=== PATIENT | female | born 1940 | race Caucasian/White ===

== ENCOUNTER 2018-10-15 01:04 | Inpatient (IN) | payer OTHER, SELFPAY ==
[2018-10-15] VITALS (21 sets, daily range): BP systolic 103–133; BP diastolic 52–93; PULSE 78–107; RESP 14–22; TEMP 36.4–38.7; O2SAT 87–99; BMI 26.6
[2018-10-15] MEDS: ALBUTEROL 2.5 MG/3 ML NEB (ADULT) 5 MG INH (01:13)
[2018-10-15] MEDS: ALBUTEROL/IPRATROPIUM 3 ML AMPUL INH ×4 (01:13→22:41)
--- NOTE | 2018-10-15 01:14 | DI.RAD.S_ITS ---
PROCEDURE: XR CHEST 1V INDICATIONS: cough fever shortness of breath TECHNIQUE: One view of the chest was acquired. COMPARISON: [facility], , CHEST 1 VIEW, 05/31/2013, 10:07. [facility], , CHEST 2 VIEW, 09/26/2015, 14:21. FINDINGS: Surgical changes and devices: None. Lungs and pleura: There is a 2.5 cm masslike density in the left hilum. Hyperinflation. Lungs are lucency in upper lobes consistent with emphysematous bullae. No pleural effusions or pneumothorax. Mediastinum: Mediastinal contours appear normal. Heart size is normal. Bones and chest wall: No suspicious bony lesions. Overlying soft tissues appear unremarkable. IMPRESSION: 1. A 2.5 cm right hilar mass. Chest CT is suggested for followup evaluation. 2. Emphysema. Dictated by: Jenna Arrington M.D. on 10/15/2018 at 9:03 Approved by: Jenna Arrington M.D. on 10/15/2018 at 9:06
[2018-10-15] MEDS: methylPREDNISolone 125 MG/2 ML VIAL IV (01:24)
[2018-10-15] MEDS: CEFTRIAXONE 1 GM/50 ML FROZ.PIGGY IV (01:26)
[2018-10-15] MEDS: ACETAMINOPHEN 325 MG TABLET 975 MG PO (01:51)
[2018-10-15] MEDS: SODIUM CHLORIDE 0.9% 1,000 ML 150 ML IV (01:52)
[2018-10-15 01:58] LABS: Add Manual Diff / Slide Review NO; Basophils Absolute Auto 100 /uL (0-100); Basophils Percent Auto 0.4 % (0-2); Eosinophils Absolute Auto 100 /uL (0-450); Eosinophils Percent Auto 0.6 % (2-4); Hematocrit 39.8 % (36-46); Hemoglobin 13.4 g/dL (12.0-16.0); Lymphocytes Absolute Auto 1500 /uL (1100-4500); Lymphocytes Percent Auto 7.6 % (25-40); Mean Corpuscular HGB Conc 33.7 % (30-36); Mean Corpuscular Hemoglobin 29.5 PG (26-34); Mean Corpuscular Volume 87.6 fL (80-100); Monocytes Absolute Auto 2300 /uL (0-900); Monocytes Percent Auto 12.1 % (3-14); Neutrophils Absolute Auto 15100 /uL (1500-7000); Neutrophils Percent Auto 79.3 % (50-75); Platelet Count 243 X10^3/uL (150-400); Red Blood Cell Count 4.55 X10^6/uL (4.0-5.2); Red Cell Distribution Width 12.9 % (11.6-14.8)
[2018-10-15 02:03] LABS: INR 1.1 (0.9-1.3); Prothrombin Time 13.2 SECONDS (10.1-12.7)
[2018-10-15 02:06] LABS: PTT Partial Thromboplastin Tim 31 SECONDS (26.4-36.2)
[2018-10-15 02:07] LABS: Alanine Aminotransferase 24 IU/L (9-52); Albumin 4.4 g/dL (3.5-5.0); Albumin Globulin Ratio 1.3 (1.0-2.8); Alkaline Phosphatase 76 U/L (38-126); Aspartate Aminotransferase 21 IU/L (14-36); Bilirubin Total 1.2 mg/dL (0.2-1.3); Blood Urea Nitrogen 14 mg/dL (7-17); Calcium 9.3 mg/dL (8.4-10.2); Carbon Dioxide 25 mmol/L (22-32); Chloride 95 mmol/L (98-107); Creatine Kinase 73 U/L (30-135); Estimated Glomerular Filt Rate 53.5 mL/min (>60); Globulin 3.4 g/dL (1.7-4.1); Glucose 151 mg/dL (80-110); HEMOLYSIS < 15 (0-50); Lactate (Lactic Acid) 0.9 mmol/L (0.7-2.1); Magnesium 1.9 mg/dL (1.6-2.3); Potassium 4.4 mmol/L (3.4-5.1); Sodium 133 mmol/L (137-145); Total Protein 7.8 g/dL (6.3-8.2)
[2018-10-15 02:19] LABS: B Type Natriuretic Peptide 105 (<100); Troponin I < 0.012 ng/mL (0.01-0.034)
[2018-10-15 02:26] LABS: Procalcitonin < 0.05 ng/mL (<0.5)
[2018-10-15] MEDS: AZITHROMYCIN 500 MG in DEXTROSE 5% IN WATER 250 ML IV (02:26)
--- NOTE | 2018-10-15 02:29 | ED_ITS ---
HPI - SOB/Dyspnea General Chief Complaint: Shortness of Breath/Dyspnea Stated Complaint: SOB Time Seen by Provider: 10/15/18 01:12 Source: EMS Mode of arrival: EMS History of Present Illness Patient is a 77-year-old female with history of COPD on home oxygen presenting with increasing shortness of breath and fever. She says the fever started 2 days ago she said increase in productive phlegm and requiring more oxygen at home. She is normally a 2-3 L but says she does not feel like she is getting enough. She has had body aches. No heart palpitations MD Complaint: shortness of breath and cough Onset (ago): day(s) Severity: moderate Relieving factors: nothing Exacerbating factors: movement Known history of: COPD Associated symptoms: cough, wheezing and sputum production Treatment prior to arrival: oxygen and bronchodilator Related Data Home oxygen amount: 3 liters Home Medications Medication Instructions Recorded Confirmed aspirin [Aspir-81] 81 mg PO DAILY 10/15/18 10/15/18 metoprolol tartrate 50 mg PO BID 10/15/18 10/15/18 verapamil 80 mg PO QD-BID 10/15/18 10/15/18 Previous Rx's Medication Instructions Recorded Disabled Parking Permit ea #1 07/16/17 metoprolol tartrate 50 mg PO BID #180 tab 12/24/17 atorvastatin 10 mg tablet 10 mg PO HS #90 tab 06/18/18 amlodipine 5 mg tablet 5 mg PO QDAY #90 tab 06/19/18 verapamil 80 mg tablet 80 mg PO BID #180 tab 06/19/18 ipratropium-albuterol 0.5 mg-3 3 ml INHALATION SEE INSTRUCTIONS 10/02/18 mg(2.5 mg base)/3 mL nebulization #1 box soln Allergies Allergy/AdvReac Type Severity Reaction Status Date / Time No Known Drug Allergies Allergy Verified 10/15/18 01:33 Review of Systems Review of Systems ROS Unobtainable: All systems reviewed & are unremarkable except as noted in HPI and below Constitutional Reports body ache(s), Reports chills and Reports fever(s) Cardiovascular Denies chest pain, Denies irregular heart rhythm, Denies lightheadedness, Denies palpitations and Denies orthopnea Respiratory Reports as per HPI Gastrointestinal Gastrointestinal: Denies abdominal pain, Denies change in bowel habits, Denies diarrhea, Denies nausea and Denies vomiting Musculoskeletal Denies back pain, Denies muscle weakness, Denies numbness and Denies tingling Integumentary/Breasts Denies pruritus, Denies erythema, Denies rash and Denies wounds Neurologic Denies numbness and Denies tingling Endocrine Denies palpitations PFSH Medical History CKD (chronic kidney disease) stage 3, GFR 30-59 ml/min (Acute) Hyperlipidemia (Acute) Hypertension (Acute) CAD (coronary artery disease) (Chronic 2000) COPD (chronic obstructive pulmonary disease) (Chronic) Surgical History Status post coronary artery stent placement (Resolved 2000) Family History Daughter No problems noted. Social History marital status: household members: family Smoking Status: Former smoker alcohol intake: never substance use type: does not use Exam Initial Vital Signs Initial Vital Signs: Vital Signs Temperature 101.7 F H 10/15/18 01:05 Pulse Rate 107 H 10/15/18 01:05 Respiratory Rate 22 10/15/18 01:05 Blood Pressure 113/62 10/15/18 01:05 Pulse Oximetry 90 L 10/15/18 01:05 GENERAL: Alert oriented female in as a moderate respiratory distress HEENT: Head atraumatic,EOMI, pupils reactive, CARDIOVASCULAR: Regular rate and rhythm without murmurs, rubs or gallops. RESPIRATORY: Coarse breath sounds bilaterally equal bilaterally able to speak in full sentences ABDOMEN: Soft, nontender. Normoactive bowel sounds all 4 quadrants. No guarding or rebound. : No CVA tenderness EXTREMITIES: Normal range of motion, no clubbing or edema. Neurovascularly intact NEUROLOGICAL: Alert and oriented x4.Normal gait and speech. Cranial nerves II through XII grossly intact. SKIN: Right leg skin tear noted mild surrounding erythema no streaking no gross discharge or pus Scores CURB-65 Confusion: No BUN >19mg/dL (>7mmol/L): No Respiratory rate greater or equal to 30: Yes SBP <90mmHg or DBP less or equal to 60mmHg: No Age 65 or Older: Yes CURB-65 Total: 2 Score 0-1 Outpatient care, Score 2 Inpt vs. Obs, Score 3 or over Inpt admit with ICU for score of 4-5 qSOFA Altered Mental Status (GCS <15): No Respiratory rate greater than/equal to 22: Yes Systolic blood pressure less than or equal to 100: No qSOFA Total: 1 0-1 Not High Risk 1-3 High risk Course Orders Ordered: ED Orders 10/15/18 00:23 Influenza A and B by PCR Rapid Stat 10/15/18 01:13 Consult to Respiratory Therapy Evaluate & Treat EKG-12 Lead Stat 10/15/18 01:14 XR chest 1V Stat 10/15/18 01:32 Blood Culture Stat 10/15/18 01:38 B Type Natriuretic Peptide Stat Complete Blood Count AUTO DIFF Stat Comprehensive Metabolic Panel Stat Lactate (Lactic Acid) Stat Magnesium Stat Partial Thromboplastin Time Stat Procalcitonin Stat Prothrombin Time INR Stat Troponin & CK Cardiac Panel Stat 10/15/18 02:31 CT angio chest PE protocol Stat Sodium Chloride (Normal Saline 0.9%) 1,000 mls @ 150 mls/hr IV CONT TACOS Last Infusion: 10/15/18 04:45 Dose: 150 mls/hr Admin: 10/15/18 01:52 Dose: 150 mls/hr Discontinued Medications Acetaminophen (Tylenol) 975 mg PO NOW ONE Stop: 10/15/18 01:13 Last Admin: 10/15/18 01:51 Dose: 975 mg Albuterol (Ventolin) 5 mg INH NOW ONE Stop: 10/15/18 01:13 Last Admin: 10/15/18 01:13 Dose: 5 mg Albuterol/Ipratropium (Duoneb) 3 ml INH NOW ONE Stop: 10/15/18 01:12 Last Admin: 10/15/18 01:13 Dose: 3 ml Ceftriaxone Sodium/Dextrose (Rocephin) 1 gm in 50 mls @ 100 mls/hr IV NOW ONE Stop: 10/15/18 01:41 Last Infusion: 10/15/18 02:21 Dose: 0 mls/hr Admin: 10/15/18 01:26 Dose: 100 mls/hr Azithromycin 500 mg/ Dextrose 250 mls @ 250 mls/hr IV NOW ONE Stop: 10/15/18 01:13 Last Infusion: 10/15/18 03:49 Dose: 250 mls/hr Admin: 10/15/18 02:26 Dose: 250 mls/hr Methylprednisolone (Solu-Medrol 125 Mg Vial) 125 mg IV NOW ONE Stop: 10/15/18 01:13 Last Admin: 10/15/18 01:24 Dose: 125 mg Vital Signs - 8 hr 10/15/18 01:05 10/15/18 01:14 10/15/18 02:10 Temperature 101.7 F H Pulse Rate 107 H 98 H 96 H Respiratory Rate 22 22 22 Blood Pressure 113/62 Blood Pressure [Left Arm] 120/60 Pulse Oximetry 90 L 96 95 10/15/18 02:50 10/15/18 03:00 10/15/18 04:00 Temperature 97.8 F 97.8 F Pulse Rate 98 H 80 Respiratory Rate 22 20 Blood Pressure 113/62 Blood Pressure [Left Arm] 103/52 L Pulse Oximetry 96 97 10/15/18 04:50 Temperature 98.3 F Pulse Rate 86 Respiratory Rate 19 Blood Pressure 128/93 H Blood Pressure [Left Arm] Pulse Oximetry 96 MDM - SOB/Dyspnea Lab Data Attestation: I reviewed the patient's lab results. Result diagrams: 10/15/18 01:38 10/15/18 01:38 Lab Results 10/15/18 10/15/18 10/15/18 Range/Units 00:23 01:38 01:38 WBC 19.0 H (4.5-11.0) X10^3/uL RBC 4.55 (4.0-5.2) X10^6/uL Hgb 13.4 (12.0-16.0) g/dL Hct 39.8 (36-46) % MCV 87.6 (80-100) fL MCH 29.5 (26-34) PG MCHC 33.7 (30-36) % RDW 12.9 (11.6-14.8) % Plt Count 243 (150-400) X10^3/uL Neut % (Auto) 79.3 H (50-75) % Lymph % (Auto) 7.6 L (25-40) % [place] % (Auto) 12.1 (3-14) % Eos % (Auto) 0.6 L (2-4) % Baso % (Auto) 0.4 (0-2) % Neut # (Auto) 89753 H (6300-3036) /uL Lymph # (Auto) 1500 (6566-4529) /uL [place] # (Auto) 2300 H (0-900) /uL Eos # (Auto) 100 (0-450) /uL Baso # (Auto) 100 (0-100) /uL PT 13.2 H (10.1-12.7) SECONDS INR 1.1 (0.9-1.3) APTT 31 (26.4-36.2) SECONDS Sodium (137-145) mmol/L Potassium (3.4-5.1) mmol/L Chloride (98-107) mmol/L Carbon Dioxide (22-32) mmol/L BUN (7-17) mg/dL Creatinine (0.52-1.04) mg/dL Estimated GFR (>60) mL/min BUN/Creatinine Ratio (6-22) Glucose (80-110) mg/dL Lactate (0.7-2.1) mmol/L Calcium (8.4-10.2) mg/dL Magnesium (1.6-2.3) mg/dL Total Bilirubin (0.2-1.3) mg/dL AST (14-36) IU/L ALT (9-52) IU/L Alkaline Phosphatase (38-126) U/L Total Creatine Kinase (30-135) U/L CK-MB (CK-2) CK-MB (CK-2) Rel Index Troponin I (0.01-0.034) ng/mL B-Natriuretic Peptide 105 H (<100) Total Protein (6.3-8.2) g/dL Albumin (3.5-5.0) g/dL Globulin (1.7-4.1) g/dL Albumin/Globulin Ratio (1.0-2.8) Procalcitonin (<0.5) ng/mL Influenza A & B (PCR) Negative (Negative) 10/15/18 10/15/18 10/15/18 Range/Units 01:38 01:38 01:38 WBC (4.5-11.0) X10^3/uL RBC (4.0-5.2) X10^6/uL Hgb (12.0-16.0) g/dL Hct (36-46) % MCV (80-100) fL MCH (26-34) PG MCHC (30-36) % RDW (11.6-14.8) % Plt Count (150-400) X10^3/uL Neut % (Auto) (50-75) % Lymph % (Auto) (25-40) % [place] % (Auto) (3-14) % Eos % (Auto) (2-4) % Baso % (Auto) (0-2) % Neut # (Auto) (0281-8407) /uL Lymph # (Auto) (8342-7478) /uL [place] # (Auto) (0-900) /uL Eos # (Auto) (0-450) /uL Baso # (Auto) (0-100) /uL PT (10.1-12.7) SECONDS INR (0.9-1.3) APTT (26.4-36.2) SECONDS Sodium 133 L (137-145) mmol/L Potassium 4.4 (3.4-5.1) mmol/L Chloride 95 L (98-107) mmol/L Carbon Dioxide 25 (22-32) mmol/L BUN 14 (7-17) mg/dL Creatinine 1.00 (0.52-1.04) mg/dL Estimated GFR 53.5 L (>60) mL/min BUN/Creatinine Ratio 14.0 (6-22) Glucose 151 H (80-110) mg/dL Lactate 0.9 (0.7-2.1) mmol/L Calcium 9.3 (8.4-10.2) mg/dL Magnesium 1.9 (1.6-2.3) mg/dL Total Bilirubin 1.2 (0.2-1.3) mg/dL AST 21 (14-36) IU/L ALT 24 (9-52) IU/L Alkaline Phosphatase 76 (38-126) U/L Total Creatine Kinase 73 (30-135) U/L CK-MB (CK-2) TNP CK-MB (CK-2) Rel Index TNP Troponin I < 0.012 (0.01-0.034) ng/mL B-Natriuretic Peptide (<100) Total Protein 7.8 (6.3-8.2) g/dL Albumin 4.4 (3.5-5.0) g/dL Globulin 3.4 (1.7-4.1) g/dL Albumin/Globulin Ratio 1.3 (1.0-2.8) Procalcitonin < 0.05 (<0.5) ng/mL Influenza A & B (PCR) (Negative) Imaging Data Chest x-ray: Attestation: I personally reviewed and interpreted this imaging study as follows: My impression: Increased right patchy infiltrate. Left lung mass noted Radiologist's impression: power and recovery shift engineer report: No pulmonary embolism. Spiculated 2.8 cm mass in left upper lobe with linear extensions into the mediastinum and lateral pleura. When cancer or metastatic disease must be excluded. Bullous emphysema. Mediastinal lymphadenopathy. No pleural fluid. ECG Data Attestation: I personally reviewed and interpreted this ECG as follows: Prior ECG tracings: not available for review Interpretation: Sinus tachycardia rate 109 care interval 212 1st degree AV block no ST changes artifact noted in V5 MDM Narrative Medical decision making narrative: Patient is requiring multiple breathing treatments. She continues to cough. hemodynamically stable, but is requiring more than her usual dose of oxygen. She is febrile with leukocytosis. No risk factors for drug-resistant pneumonia will give Rocephin and azithromycin. HospitalistSulma updated patient's symptoms test results accepts patient for admission Discharge Plan Departure Patient Disposition: Admitted As Inpatient Clinical Impression: COPD exacerbation, Pneumonia, Mass of left lung Discharge Date/Time: 10/15/18 04:45 Interventions: ED Discharge Assessment Last Done: 10/15/18 04:45 Admit Date/Time: 10/15/18 04:00 Admit Provider: Sulma Cortes
--- NOTE | 2018-10-15 02:31 | DI.CT.S_ITS ---
PROCEDURE: CT ANGIO CHEST PE PROTOCOL INDICATIONS: short of breath, left lung mass seen on xray TECHNIQUE: After the administration of intravenous contrast, 2 mm thick sections acquired from the pulmonary apices to the posterior costophrenic angles. 3-dimensional maximum intensity projection (MIP) coronal and sagittal reformats were then acquired through the thorax. For radiation dose reduction, the following was used: automated exposure control, adjustment of mA and/or kV according to patient size. COMPARISON: [facility], , XR CHEST 1V, 10/15/2018, 1:41. [facility], , CHEST 2 VIEW, 09/26/2015, 14:21. FINDINGS: Image quality: Excellent. Pulmonary arteries: Pulmonary arteries are mildly enlarged with the main pulmonary artery measuring 37 mm. There are no intraluminal filling defects to suggest central pulmonary embolism. Lungs and pleura: No pleural effusions or pneumothorax. Central and peripheral airways are patent. Significant emphysematous changes are present. Large bulla formation is present in the lower lobes. There is poor visualization of lung markings extending to the pleural surface within the lower lobes bilaterally. There is a spiculated mass within the left upper lobe measuring 29 mm AP by 26 mm transverse by 34 mm craniocaudal. Mediastinum: Heart size is normal, without pericardial effusion. Enlarged mediastinal lymph nodes are present, including a 14 mm left infrahilar lymph node is present. 12 mm precarinal lymph node is present. Thoracic aorta is normal in caliber and enhancement. Esophagus demonstrates a mild degree of distal thickening with hiatal hernia. Bones and chest wall: Ill-defined lucency is present within the L2 vertebral body. Old right rib fractures are present. The thoracic spine appears intact throughout. Thyroid gland is unremarkable. No axillary or supraclavicular adenopathy. Abdomen: Visualized upper abdominal solid organs appear normal in the early arterial phase of enhancement. IMPRESSION: 1. Significant emphysematous changes without embolism. 2. Spiculated left upper lobe mass with mediastinal and hilar adenopathy highly suspicious for neoplasm. Further evaluation with biopsy and/or PET scan is recommended. While the lesion is accessible percutaneously, the patient has a significant risk of pneumothorax secondary to severe emphysematous change. 3. Ill-defined L2 vertebral body lucency as above. While this could represent degenerative change, given no priors are available for comparison in appearance of lung mass, metastatic disease cannot be excluded. Dictated by: Denise Miguel M.D. on 10/15/2018 at 8:20 Approved by: Denise Miguel M.D. on 10/15/2018 at 8:37
[2018-10-15 02:53] LABS: Influenza A and B by PCR Rapid Negative (Negative)
--- NOTE | 2018-10-15 04:12 | PC.NURSE ---
Addendum entered by Rosa Mcclain R.N. 10/15/18 04:19: Pt is able to speak in full sentances upon arrival R 22, 90% on 3L NC, 101.7 T, HR 107. Pt given Duoneb and placed on 5L O2 NC 94%. Original Note: Pt arrived via EMS reporting acute SOB, states normally uses 3L home O2 but is increasingly SOB requiring more O2 with O2 sats in mid 80%. Reports a fever and productive cough for past 2 days. pt is able to speak in full sentances upon arrival
--- NOTE | 2018-10-15 05:20 | PC.ADMIT ---
Addendum entered by Eboni Mercedes R.N. 10/15/18 05:50: Correction to previous charting: telemetry reading was SR w/1st degree AVB Original Note: [id number] [facility] [address] Admission Note: Patient admitted to room 217 per stretcher from ED. Able to walk from stretcher to bed. Is alert and oriented. Breath sounds diminished with expiratory rhonchi/wheezes throughout. Has hoarse, moist sounding, loose cough which she states is productive of white sputum but none noted currently with cough. Oxygen at 4L/min per NC with sat of 96%; normally uses 2L/min oxygen at home. 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 Denies nausea. BT present and abdomen is soft. Denies dysuria, frequency or urgency but states she has some stress incontinence related to cough; pad provided. Is able to move self in bed. Denies use of assistive device for ambulation. Skin overall is very dry and scaly. Has brown discoloration on LE and has abrasion on right LE which she states is from hitting leg against a hassock. Dressing covering abrasion is CDI. Has redness at crease below right scapula but no open areas noted. Denies pain. Fall risk score is moderate; bed alarm is activated and instructed to call for assistance when getting out of bed. Oriented to room and bed controls. The patient,Paz Decker,77 y/o, was given written information regarding hospital policies, unit procedures and contact persons. Patient's smoking status: Former smoker. Vital Signs - 8 hr 10/15/18 01:05 10/15/18 01:14 10/15/18 02:10 Temperature 101.7 F H Pulse Rate 107 H 98 H 96 H Respiratory Rate 22 22 22 Blood Pressure 113/62 Blood Pressure [Left Arm] 120/60 Pulse Oximetry 90 L 96 95 10/15/18 02:50 10/15/18 03:00 10/15/18 04:00 Temperature 97.8 F 97.8 F Pulse Rate 98 H 80 Respiratory Rate 22 20 Blood Pressure 113/62 Blood Pressure [Left Arm] 103/52 L Pulse Oximetry 96 97 10/15/18 04:50 Temperature 98.3 F Pulse Rate 86 Respiratory Rate 19 Blood Pressure 128/93 H Blood Pressure [Left Arm] Pulse Oximetry 96
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
[2018-10-15 09:03] LABS: Add Manual Diff / Slide Review NO; Basophils Absolute Auto 0 /uL (0-100); Basophils Percent Auto 0.1 % (0-2); Eosinophils Absolute Auto 0 /uL (0-450); Hematocrit 38.5 % (36-46); Hemoglobin 12.7 g/dL (12.0-16.0); Lymphocytes Absolute Auto 500 /uL (1100-4500); Lymphocytes Percent Auto 2.8 % (25-40); Mean Corpuscular Hemoglobin 29.3 PG (26-34); Monocytes Absolute Auto 100 /uL (0-900); Monocytes Percent Auto 0.7 % (3-14); Neutrophils Absolute Auto 17100 /uL (1500-7000); Neutrophils Percent Auto 96.4 % (50-75); Platelet Count 231 X10^3/uL (150-400); Red Blood Cell Count 4.32 X10^6/uL (4.0-5.2); Red Cell Distribution Width 12.9 % (11.6-14.8); White Blood Cell Count 17.7 X10^3/uL (4.5-11.0)
[2018-10-15 09:23] LABS: Blood Urea Nitrogen 13 mg/dL (7-17); Calcium 8.7 mg/dL (8.4-10.2); Carbon Dioxide 24 mmol/L (22-32); Chloride 94 mmol/L (98-107); Estimated Glomerular Filt Rate 53.5 mL/min (>60); Glucose 182 mg/dL (80-110); HEMOLYSIS < 15 (0-50); Potassium 4.6 mmol/L (3.4-5.1); Sodium 130 mmol/L (137-145)
[2018-10-15] MEDS: METOPROLOL IR 50 MG TABLET PO ×2 (09:33→21:10)
[2018-10-15] MEDS: ASPIRIN EC 81 MG TABLET PO (09:33)
[2018-10-15] MEDS: AMLODIPINE 5 MG TABLET PO (09:33)
[2018-10-15] MEDS: predniSONE 20 MG TABLET 40 MG PO (09:33)
[2018-10-15] MEDS: ENOXAPARIN 40 MG/0.4 ML SYRINGE SUBCUT (09:34)
[2018-10-15] MEDS: ALBUTEROL 2.5 MG/3 ML NEB (ADULT) INH (10:06)
[2018-10-15] MEDS: SODIUM CHLORIDE 0.9% 1,000 ML 125 ML IV (11:39)
[2018-10-15 13:02] LABS: Adenovirus Not Detected (Not Detect); Bordetella pertussis Not Detected (Not Detect); Chlamydophila pneumoniae Not Detected (Not Detect); Coronavirus 229E Not Detected (Not Detect); Coronavirus HKU1 Not Detected (Not Detect); Coronavirus NL 63 Not Detected (Not Detect); Coronavirus OC43 Not Detected (Not Detect); Human Metapneumovirus Not Detected (Not Detect); Human Rhinovirus/Enterovirus Not Detected (Not Detect); Influenza A Not Detected (Not Detect); Influenza B Not Detected (Not Detect); Mycoplasma pneumoniae Not Detected (Not Detect); Parainfluenza Virus 1 Not Detected (Not Detect); Parainfluenza Virus 2 Not Detected (Not Detect); Parainfluenza Virus 3 Not Detected (Not Detect); Parainfluenza Virus 4 Not Detected (Not Detect); Respiratory Syncytial Virus Detected (Not Detect)
[2018-10-15] MEDS: BENZONATATE 100 MG CAPSULE PO (13:14)
[2018-10-15] MEDS: guaiFENesin ER 600 MG TAB 1200 MG PO (21:10)
[2018-10-15] MEDS: ATORVASTATIN 10 MG TABLET PO (21:10)
[2018-10-16] VITALS (21 sets, daily range): BP systolic 124–150; BP diastolic 60–76; PULSE 78–92; RESP 16–24; TEMP 36.3–36.8; O2SAT 90–97
[2018-10-16] MEDS: ALBUTEROL 2.5 MG/3 ML NEB (ADULT) INH ×2 (02:22→09:10)
[2018-10-16] MEDS: ALBUTEROL/IPRATROPIUM 3 ML AMPUL INH ×5 (05:00→23:07)
[2018-10-16 06:21] LABS: Add Manual Diff / Slide Review NO; Basophils Absolute Auto 0 /uL (0-100); Basophils Percent Auto 0.1 % (0-2); Eosinophils Absolute Auto 0 /uL (0-450); Hematocrit 37.5 % (36-46); Hemoglobin 12.4 g/dL (12.0-16.0); Lymphocytes Absolute Auto 600 /uL (1100-4500); Lymphocytes Percent Auto 3.2 % (25-40); Mean Corpuscular HGB Conc 33.2 % (30-36); Mean Corpuscular Hemoglobin 29.4 PG (26-34); Mean Corpuscular Volume 88.6 fL (80-100); Monocytes Absolute Auto 1400 /uL (0-900); Monocytes Percent Auto 7.6 % (3-14); Neutrophils Absolute Auto 16400 /uL (1500-7000); Neutrophils Percent Auto 89.1 % (50-75); Platelet Count 272 X10^3/uL (150-400); Red Blood Cell Count 4.23 X10^6/uL (4.0-5.2); Red Cell Distribution Width 13.1 % (11.6-14.8); White Blood Cell Count 18.4 X10^3/uL (4.5-11.0)
[2018-10-16 06:43] LABS: Alanine Aminotransferase 24 IU/L (9-52); Albumin 4.3 g/dL (3.5-5.0); Albumin Globulin Ratio 1.3 (1.0-2.8); Alkaline Phosphatase 70 U/L (38-126); Aspartate Aminotransferase 38 IU/L (14-36); Bilirubin Total 0.6 mg/dL (0.2-1.3); Blood Urea Nitrogen 17 mg/dL (7-17); Calcium 9.3 mg/dL (8.4-10.2); Carbon Dioxide 29 mmol/L (22-32); Chloride 98 mmol/L (98-107); Estimated Glomerular Filt Rate 53.5 mL/min (>60); Globulin 3.4 g/dL (1.7-4.1); Glucose 141 mg/dL (80-110); HEMOLYSIS < 15 (0-50); Potassium 4.9 mmol/L (3.4-5.1); Sodium 136 mmol/L (137-145); Total Protein 7.7 g/dL (6.3-8.2)
[2018-10-16 07:00] LABS: Procalcitonin < 0.05 ng/mL (<0.5)
[2018-10-16] MEDS: METOPROLOL IR 50 MG TABLET PO ×2 (08:06→21:51)
[2018-10-16] MEDS: predniSONE 20 MG TABLET 40 MG PO (08:06)
[2018-10-16] MEDS: ASPIRIN EC 81 MG TABLET PO (08:07)
[2018-10-16] MEDS: ENOXAPARIN 40 MG/0.4 ML SYRINGE SUBCUT (08:07)
[2018-10-16] MEDS: guaiFENesin ER 600 MG TAB 1200 MG PO ×2 (08:07→21:51)
[2018-10-16] MEDS: AMLODIPINE 5 MG TABLET PO (08:08)
--- NOTE | 2018-10-16 09:17 | PC.NURSE ---
Pt O2 sats dropped to 75. Albuterol treatment given. Sats back to 92 on 3lpm
--- NOTE | 2018-10-16 11:51 | CM.DANOTE ---
DCP: Case received, EMR reviewed and met with patient. Introduced self and role. DCP template completed with information currently available. Patient is a 77 year old female who admitted yesterday morning to the care of the hospitalist team. PCP: Dr. Bella. Payer: confirmed: [facility]. Patient came to hospital via ambulance due to symptoms of shortness of breath. Patient holds diagnosis of Pneumonia. Patient has oxygen at home. Met with her briefly in room, is on isolation. Pleasant. Stated that she lives with her grand children in [place]. Stated that she is independent at home. Has history of COPD, and was a smoker. P: DCP to continue to follow. Home health may be an option, but will depend on how patient does here in hospital. Shavon Alonzo RN/Supervisor [employer]
[2018-10-16] MEDS: CEFTRIAXONE 2 GM/50 ML FROZ.PIGGY IV (16:01)
[2018-10-16] MEDS: methylPREDNISolone 125 MG/2 ML VIAL 60 MG IV ×2 (16:01→23:55)
--- NOTE | 2018-10-16 19:05 | P.PN_ITS ---
Subjective Date Patient Seen: 10/16/18 Interval history: Paz Decker is a 77-year-old female with a past medical history significant for CAD status post PCI and LCX stent, hypertension, hyperlipidemia, CKD stage 3 , oxygen-dependent COPD who presented with shortness of breath and was admitted for COPD exacerbation and RSV pneumonia. Today the patient is sitting in bed and appears mildly uncomfortable. She continues to feel short of breath that is unchanged since admission. She reports that at times her breathing is good and other times it is not. She continues to have significant wheeze throughout entire lung exam. She denies headache, chest pain, abdominal pain, nausea, vomiting, fever, chills, dysuria, diarrhea constipation. She is voiding without difficulty. She is up ambulating with forward wheeled walker and will desat to the low 70s and takes several minutes to recover. Exam Vital Signs (past 8 hours): - 10/16/18 12:00 10/16/18 12:07 10/16/18 13:00 Temperature 97.3 F L Pulse Rate 83 92 H Respiratory Rate 16 Blood Pressure 136/65 Pulse Oximetry 91 92 97 10/16/18 15:10 10/16/18 15:18 10/16/18 16:22 Temperature 97.7 F Pulse Rate 86 83 Respiratory Rate 20 18 Blood Pressure 124/61 Pulse Oximetry 92 90 L 90 L 10/16/18 18:19 Temperature Pulse Rate 86 Respiratory Rate Blood Pressure Pulse Oximetry 94 Oxygen Delivery Method Nasal Cannula Oxygen Flow Rate 4 Narrative Exam Narrative: General: Elderly female sitting in bed, appears mildly uncomfortable, in no acute distress, well-developed, well-nourished, appropriately interactive. HEENT: Normocephalic, atraumatic. External ears without defect. Pupils equal, round, and reactive to light. Anicteric sclerae, moist conjunctivae, and no lid lag. Oropharynx free of erythema and cobble stoning with moist mucosa. Neck: Supple with full range of motion. No lymphadenopathy or thyromegaly. Cardiovascular: Regular rate and rhythm without murmurs, rubs, or gallops appreciated Pulmonary: Clear to auscultation bilaterally without crackles, wheezes, or rhonchi. Normal respiratory effort with no use of accessory muscles. Abdomen: Soft, bowel sounds present, nontender, nondistended. No hepatosplenomegaly or masses appreciated. Extremities: No clubbing, cyanosis, or edema. Right leg skin tear with mild surrounding erythema with bandage covering C/D/I and adjacent hardened hematoma healing. Skin: Normal temperature, turgor, and texture; no rash, ulcers, or subcutaneous nodules appreciated. Neurological: Cranial nerves grossly intact. Psychiatric: Normal mood and affect. Alert and oriented to person, place, and time. Objective Labs Result Diagrams: 10/16/18 06:04 10/16/18 06:04 Labs: Laboratory Results - last 24 hr 10/16/18 10/16/18 10/16/18 06:04 06:04 06:04 WBC 18.4 H RBC 4.23 Hgb 12.4 Hct 37.5 MCV 88.6 MCH 29.4 MCHC 33.2 RDW 13.1 Plt Count 272 Neut % (Auto) 89.1 H Lymph % (Auto) 3.2 L [place] % (Auto) 7.6 Eos % (Auto) 0.0 L Baso % (Auto) 0.1 Neut # (Auto) 70797 H Lymph # (Auto) 600 L [place] # (Auto) 1400 H Eos # (Auto) 0 Baso # (Auto) 0 Sodium 136 L Potassium 4.9 Chloride 98 Carbon Dioxide 29 BUN 17 Creatinine 1.00 Estimated GFR 53.5 L BUN/Creatinine Ratio 17.0 Glucose 141 H Calcium 9.3 Total Bilirubin 0.6 AST 38 H ALT 24 Alkaline Phosphatase 70 Total Protein 7.7 Albumin 4.3 Globulin 3.4 Albumin/Globulin Ratio 1.3 Procalcitonin < 0.05 Assessment & Plan Plan: Assessment/Plan Narrative: Paz Decker is a 77-year-old female with a past medical history significant for CAD status post PCI and LCX stent, hypertension, hyperlipidemia, CKD stage 3 , oxygen-dependent COPD who presented with shortness of breath and was admitted for COPD exacerbation and RSV pneumonia. 1. Acute RSV community-acquired pneumonia, present on admission. Active. -Patient presented with shortness of breath with increased oxygen requirements, productive cough and fever. -Viral respiratory PCR positive for RSV. -Leukocytosis 19.0, febrile, procalcitonin < 0.05 and normal lactic acid. -Started on ceftriaxone 2 g daily and azithromycin 500 mg daily x3 days in the ED and will continue. -CT chest without contrast interpreted by me demonstrated probable right upper lobe infiltrate. -Bood cultures x2 have no growth to date. -Ordered respiratory therapy evaluation and treatment. -Ordered duo nebs 4 times daily while awake and albuterol nebs every 2 hr as needed. -Ordered Acapella and guaifenesin to help with secretion clearance. In addition , added chest physiotherapy 3 times daily as tolerated. 2. Acute COPD exacerbation, present on admission. Active. -patient presented with increased sputum production, increased oxygen demand, and fever. -Ordered respiratory therapy evaluation and treatment. -Ordered duo nebs 4 times daily while awake and albuterol nebs every 2 hr as needed. -Ordered Acapella and guaifenesin to help with secretion clearance. In addition , added chest physiotherapy 3 times daily as tolerated. -Received methylprednisolone 125 mg IV x1 in the ED. Started on prednisone 40 mg daily and switched today to methylprednisolone 60 mg every 8 hr. -Continue azithromycin and ceftriaxone as above. 3. New left upper lobe spiculated lung mass, present on admission. Active. -Chest x-ray from 2015 did not demonstrate any pulmonary nodules there for which new within the last 2-3 years. -CTA demonstrated spiculated left upper lobe mass 2.5 cm x 2.8 cm with mediastinal and hilar adenopathy highly suspicious for neoplasm. -Discussed patient with general surgery, Eamon Galeas, who recommended consultation with Dr. Weems of thoracic surgery at [facility]. Call Dr. Weems ([phone]) [address] chest without contrast and believes mass would be amenable to navigational bronchoscopy and endobronchial ultrasound with biopsy of mass and pretracheal and carinal nodes once acute illness has resolved. If yue involvement patient would be stage IIIA/IIIB. Patient will need to follow up with Dr. Weems as outpatient (unless acuity changes could transfer to [facility]). 4. Acute mild hyponatremia, present on admission. Active. -Likely secondary to community-acquired pneumonia -Received normal saline at 125 mL/hr x1 L. 5. Right lower extremity wound, present on admission. Active. -Patient reports that she accidentally bumped into something at home and tore her skin. She also recently was bitten by her dog with old adjacent hematoma that is hardened and healing. -Ordered wound care consultation, pending. 6. CAD status post PCI and left circumflex stent, present on admission. Presumed stable. -Continue cardiac home medications: aspirin 81 mg daily, atorvastatin 10 mg daily at bedtime, metoprolol tartrate 50 mg twice daily, verapamil 80 mg twice daily. Disposition: Likely to discharged in 2-3 days depending upon improvement in oxygenation due to RSV community-acquired pneumonia and COPD exacerbation. Quality VTE Deep Vein Thrombosis/Pulmonary Embolism Present on Admission: No
[2018-10-16] MEDS: AZITHROMYCIN 500 MG in DEXTROSE 5% IN WATER 250 ML IV (21:51)
[2018-10-16] MEDS: ATORVASTATIN 10 MG TABLET PO (21:51)
--- NOTE | 2018-10-16 22:41 | PC.NURSE ---
Evening shift 1530: Assumed care of pt with safe hand off. Safety checks done. Pt on 4L NC with O2 sat >94%. Dr. 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 Will be starting some extra treatments for pt. 1899: Pt O2 decreased to upper 80s while standing. Pt increased to 6L NC. 2144: Pt asked what O2 levels where. Pt at 93%.
[2018-10-17] VITALS (19 sets, daily range): BP systolic 115–148; BP diastolic 60–83; PULSE 72–96; RESP 16–24; TEMP 36.3–36.7; O2SAT 89–98
[2018-10-17] MEDS: ALBUTEROL/IPRATROPIUM 3 ML AMPUL INH ×6 (04:05→23:28)
[2018-10-17 06:18] LABS: Add Manual Diff / Slide Review NO; Basophils Absolute Auto 0 /uL (0-100); Eosinophils Absolute Auto 0 /uL (0-450); Hematocrit 37.1 % (36-46); Hemoglobin 12.2 g/dL (12.0-16.0); Lymphocytes Absolute Auto 600 /uL (1100-4500); Lymphocytes Percent Auto 4.8 % (25-40); Mean Corpuscular Hemoglobin 29.4 PG (26-34); Mean Corpuscular Volume 89.2 fL (80-100); Monocytes Absolute Auto 400 /uL (0-900); Monocytes Percent Auto 2.7 % (3-14); Neutrophils Absolute Auto 12300 /uL (1500-7000); Neutrophils Percent Auto 92.5 % (50-75); Platelet Count 273 X10^3/uL (150-400); Red Blood Cell Count 4.16 X10^6/uL (4.0-5.2); Red Cell Distribution Width 12.8 % (11.6-14.8); White Blood Cell Count 13.3 X10^3/uL (4.5-11.0)
[2018-10-17 06:26] LABS: Alanine Aminotransferase 34 IU/L (9-52); Albumin Globulin Ratio 1.2 (1.0-2.8); Alkaline Phosphatase 61 U/L (38-126); Aspartate Aminotransferase 45 IU/L (14-36); BUN Creatinine Ratio 22.2 (6-22); Bilirubin Total 0.4 mg/dL (0.2-1.3); Blood Urea Nitrogen 20 mg/dL (7-17); Calcium 9.1 mg/dL (8.4-10.2); Carbon Dioxide 29 mmol/L (22-32); Chloride 96 mmol/L (98-107); Estimated Glomerular Filt Rate > 60.0 mL/min (>60); Globulin 3.3 g/dL (1.7-4.1); Glucose 130 mg/dL (80-110); HEMOLYSIS < 15 (0-50); Potassium 4.9 mmol/L (3.4-5.1); Sodium 135 mmol/L (137-145); Total Protein 7.3 g/dL (6.3-8.2)
[2018-10-17] MEDS: methylPREDNISolone 125 MG/2 ML VIAL 60 MG IV ×2 (07:30→16:02)
[2018-10-17 07:57] LABS: Procalcitonin 0.05 ng/mL (<0.5)
[2018-10-17] MEDS: ALBUTEROL 2.5 MG/3 ML NEB (ADULT) INH ×2 (08:27→16:57)
[2018-10-17] MEDS: AMLODIPINE 5 MG TABLET PO (09:42)
[2018-10-17] MEDS: METOPROLOL IR 50 MG TABLET PO ×2 (09:42→21:16)
[2018-10-17] MEDS: guaiFENesin ER 600 MG TAB 1200 MG PO ×2 (09:42→21:15)
[2018-10-17] MEDS: ENOXAPARIN 40 MG/0.4 ML SYRINGE SUBCUT (09:42)
[2018-10-17] MEDS: ASPIRIN EC 81 MG TABLET PO (09:42)
--- NOTE | 2018-10-17 11:04 | PC.NURSE ---
Pt rouses easily, sitting up in bed, dealing with coughing fit now. Pt makes needs known appropriately. RR even, laboured Sats 88-90 on 3.5 ltrs.
[2018-10-17] MEDS: CEFTRIAXONE 2 GM/50 ML FROZ.PIGGY IV (14:44)
--- NOTE | 2018-10-17 16:18 | PM.PN.1 ---
Subjective Date Patient Seen: 10/17/18 Interval history: Paz Decker is a 77-year-old female with a past medical history significant for CAD status post PCI and LCX stent, hypertension, hyperlipidemia, CKD stage 3, oxygen-dependent COPD who presented with shortness of breath and was admitted for COPD exacerbation and RSV pneumonia. Also found to have a left upper lobe lung mass. Patient with persistent nonproductive cough and desaturates very easily with movement. Exam Vital Signs (past 8 hours): - 10/17/18 08:40 10/17/18 10:00 10/17/18 11:06 Temperature Pulse Rate 79 84 Respiratory Rate 20 17 Blood Pressure Pulse Oximetry 96 97 92 10/17/18 11:14 10/17/18 11:30 10/17/18 15:31 Temperature 97.6 F Pulse Rate 81 84 Respiratory Rate 24 17 Blood Pressure 115/60 Pulse Oximetry 90 L 93 97 Oxygen Delivery Method Nasal Cannula Oxygen Flow Rate 3 Narrative Exam Narrative: GENERAL: Patient is in no acute distress HEENT: Head normocephalic, atraumatic. Mucous membranes moist. CHEST: Diffuse bilateral inspiratory and expiratory wheeze CARDIAC: Regular rate and rhythm. ABDOMEN: Nondistended, soft, nontender EXTREMITIES: no edema. NEUROLOGICAL: Alert, pleasant, no focal findings SKIN: Warm, dry, no petechiae, no rash Objective Labs Result Diagrams: 10/17/18 05:36 10/17/18 05:36 Labs: Laboratory Results - last 24 hr 10/17/18 10/17/18 10/17/18 05:36 05:36 05:36 WBC 13.3 H RBC 4.16 Hgb 12.2 Hct 37.1 MCV 89.2 MCH 29.4 MCHC 33.0 RDW 12.8 Plt Count 273 Neut % (Auto) 92.5 H Lymph % (Auto) 4.8 L [place] % (Auto) 2.7 L Eos % (Auto) 0.0 L Baso % (Auto) 0.0 Neut # (Auto) 37599 H Lymph # (Auto) 600 L [place] # (Auto) 400 Eos # (Auto) 0 Baso # (Auto) 0 Sodium 135 L Potassium 4.9 Chloride 96 L Carbon Dioxide 29 BUN 20 H Creatinine 0.90 Estimated GFR > 60.0 BUN/Creatinine Ratio 22.2 H Glucose 130 H Calcium 9.1 Total Bilirubin 0.4 AST 45 H ALT 34 Alkaline Phosphatase 61 Total Protein 7.3 Albumin 4.0 Globulin 3.3 Albumin/Globulin Ratio 1.2 Procalcitonin 0.05 Assessment & Plan Plan: Assessment/Plan Narrative: Paz Decker is a 77-year-old female with a past medical history significant for CAD status post PCI and LCX stent, hypertension, hyperlipidemia, CKD stage 3, oxygen-dependent COPD who presented with shortness of breath and was admitted for COPD exacerbation and RSV pneumonia. 1. Acute RSV community-acquired pneumonia, present on admission. Active. -Patient presented with shortness of breath with increased oxygen requirements, productive cough and fever. -Viral respiratory PCR positive for RSV. -Leukocytosis 19.0, febrile, procalcitonin < 0.05 and normal lactic acid. WBC improving. -Started on ceftriaxone 2 g daily and azithromycin 500 mg daily x3 days in the ED and will continue. -CT chest without contrast interpreted by me demonstrated probable right upper lobe infiltrate. -Bood cultures x2 have no growth to date. -continue duo nebs 4 times daily while awake and albuterol nebs every 2 hr as needed. -Acapella and guaifenesin to help with secretion clearance. In addition, added chest physiotherapy 3 times daily as tolerated. 2. Acute COPD exacerbation, present on admission. Active. -not improving, significant cough and has considerable wheezing on exam, and desats easily -patient presented with increased sputum production, increased oxygen demand, and fever. -continue respiratory treatments as above -Received methylprednisolone 125 mg IV x1 in the ED. Continue on methylprednisolone 60 mg every 8 hr. -Continue azithromycin and ceftriaxone as above. 3. New left upper lobe spiculated lung mass, present on admission. Active. -Chest x-ray from 2015 did not demonstrate any pulmonary nodules there for which new within the last 2-3 years. -CTA demonstrated spiculated left upper lobe mass 2.5 cm x 2.8 cm with mediastinal and hilar adenopathy highly suspicious for neoplasm. -Discussed patient with general surgery, Eamon Galeas, who recommended consultation with Dr. Weems of thoracic surgery at [facility]. Call Dr. Weems (c:[phone]) who reviewed CT chest without contrast and believes mass would be amenable to navigational bronchoscopy and endobronchial ultrasound with biopsy of mass and pretracheal and carinal nodes once acute illness has resolved. If yue involvement patient would be stage IIIA/IIIB. Patient will need to follow up with Dr. Weems as outpatient (unless acuity changes could transfer to [facility]). 4. Acute mild hyponatremia, present on admission. Active. Stable. -Likely secondary to community-acquired pneumonia -Received normal saline at 125 mL/hr x1 L. 5. Right lower extremity wound, present on admission. Active. -Patient reports that she accidentally bumped into something at home and tore her skin. She also recently was bitten by her dog with old adjacent hematoma that is hardened and healing. -Ordered wound care consultation, pending. 6. CAD status post PCI and left circumflex stent, present on admission. Presumed stable. -Continue cardiac home medications: aspirin 81 mg daily, atorvastatin 10 mg daily at bedtime, metoprolol tartrate 50 mg twice daily, verapamil 80 mg twice daily. 7. Acute on chronic hypoxic respiratory failure -at home she uses O2 2 L at night only -currently on 3 L O2 but desats into 70s with activity. Disposition: Likely to discharged in 2-3 days depending upon improvement in oxygenation due to RSV community-acquired pneumonia and COPD exacerbation Quality VTE Deep Vein Thrombosis/Pulmonary Embolism Present on Admission: No
--- NOTE | 2018-10-17 16:21 | P.PN_ITS ---
Subjective Date Patient Seen: 10/17/18 Interval history: Paz Decker is a 77-year-old female with a past medical history significant for CAD status post PCI and LCX stent, hypertension, hyperlipidemia, CKD stage 3, oxygen-dependent COPD who presented with shortness of breath and was admitted for COPD exacerbation and RSV pneumonia. Also found to have a left upper lobe lung mass. Patient with persistent nonproductive cough and desaturates very easily with movement. Exam Vital Signs (past 8 hours): - 10/17/18 08:40 10/17/18 10:00 10/17/18 11:06 Temperature Pulse Rate 79 84 Respiratory Rate 20 17 Blood Pressure Pulse Oximetry 96 97 92 10/17/18 11:14 10/17/18 11:30 10/17/18 15:31 Temperature 97.6 F Pulse Rate 81 84 Respiratory Rate 24 17 Blood Pressure 115/60 Pulse Oximetry 90 L 93 97 Oxygen Delivery Method Nasal Cannula Oxygen Flow Rate 3 Narrative Exam Narrative: GENERAL: Patient is in no acute distress HEENT: Head normocephalic, atraumatic. Mucous membranes moist. CHEST: Diffuse bilateral inspiratory and expiratory wheeze CARDIAC: Regular rate and rhythm. ABDOMEN: Nondistended, soft, nontender EXTREMITIES: no edema. NEUROLOGICAL: Alert, pleasant, no focal findings SKIN: Warm, dry, no petechiae, no rash Objective Labs Result Diagrams: 10/17/18 05:36 10/17/18 05:36 Labs: Laboratory Results - last 24 hr 10/17/18 10/17/18 10/17/18 05:36 05:36 05:36 WBC 13.3 H RBC 4.16 Hgb 12.2 Hct 37.1 MCV 89.2 MCH 29.4 MCHC 33.0 RDW 12.8 Plt Count 273 Neut % (Auto) 92.5 H Lymph % (Auto) 4.8 L [place] % (Auto) 2.7 L Eos % (Auto) 0.0 L Baso % (Auto) 0.0 Neut # (Auto) 97062 H Lymph # (Auto) 600 L [place] # (Auto) 400 Eos # (Auto) 0 Baso # (Auto) 0 Sodium 135 L Potassium 4.9 Chloride 96 L Carbon Dioxide 29 BUN 20 H Creatinine 0.90 Estimated GFR > 60.0 BUN/Creatinine Ratio 22.2 H Glucose 130 H Calcium 9.1 Total Bilirubin 0.4 AST 45 H ALT 34 Alkaline Phosphatase 61 Total Protein 7.3 Albumin 4.0 Globulin 3.3 Albumin/Globulin Ratio 1.2 Procalcitonin 0.05 Assessment & Plan Plan: Assessment/Plan Narrative: Paz Decker is a 77-year-old female with a past medical history significant for CAD status post PCI and LCX stent, hypertension, hyperlipidemia, CKD stage 3 , oxygen-dependent COPD who presented with shortness of breath and was admitted for COPD exacerbation and RSV pneumonia. 1. Acute RSV community-acquired pneumonia, present on admission. Active. -Patient presented with shortness of breath with increased oxygen requirements, productive cough and fever. -Viral respiratory PCR positive for RSV. -Leukocytosis 19.0, febrile, procalcitonin < 0.05 and normal lactic acid. WBC improving. -Started on ceftriaxone 2 g daily and azithromycin 500 mg daily x3 days in the ED and will continue. -CT chest without contrast interpreted by me demonstrated probable right upper lobe infiltrate. -Bood cultures x2 have no growth to date. -continue duo nebs 4 times daily while awake and albuterol nebs every 2 hr as needed. -Acapella and guaifenesin to help with secretion clearance. In addition, added chest physiotherapy 3 times daily as tolerated. 2. Acute COPD exacerbation, present on admission. Active. -not improving, significant cough and has considerable wheezing on exam, and desats easily -patient presented with increased sputum production, increased oxygen demand, and fever. -continue respiratory treatments as above -Received methylprednisolone 125 mg IV x1 in the ED. Continue on methylprednisolone 60 mg every 8 hr. -Continue azithromycin and ceftriaxone as above. 3. New left upper lobe spiculated lung mass, present on admission. Active. -Chest x-ray from 2015 did not demonstrate any pulmonary nodules there for which new within the last 2-3 years. -CTA demonstrated spiculated left upper lobe mass 2.5 cm x 2.8 cm with mediastinal and hilar adenopathy highly suspicious for neoplasm. -Discussed patient with general surgery, Eamon Galeas, who recommended consultation with Dr. Weems of thoracic surgery at [facility]. Call Dr. Weems (c:) who reviewed CT chest without contrast and believes mass would be amenable to navigational bronchoscopy and endobronchial ultrasound with biopsy of mass and pretracheal and carinal nodes once acute illness has resolved. If yue involvement patient would be stage IIIA/IIIB. Patient will need to follow up with Dr. Weems as outpatient (unless acuity changes could transfer to [facility]). 4. Acute mild hyponatremia, present on admission. Active. Stable. -Likely secondary to community-acquired pneumonia -Received normal saline at 125 mL/hr x1 L. 5. Right lower extremity wound, present on admission. Active. -Patient reports that she accidentally bumped into something at home and tore her skin. She also recently was bitten by her dog with old adjacent hematoma that is hardened and healing. -Ordered wound care consultation, pending. 6. CAD status post PCI and left circumflex stent, present on admission. Presumed stable. -Continue cardiac home medications: aspirin 81 mg daily, atorvastatin 10 mg daily at bedtime, metoprolol tartrate 50 mg twice daily, verapamil 80 mg twice daily. 7. Acute on chronic hypoxic respiratory failure -at home she uses O2 2 L at night only -currently on 3 L O2 but desats into 70s with activity. Disposition: Likely to discharged in 2-3 days depending upon improvement in oxygenation due to RSV community-acquired pneumonia and COPD exacerbation Quality VTE Deep Vein Thrombosis/Pulmonary Embolism Present on Admission: No
[2018-10-17] MEDS: ATORVASTATIN 10 MG TABLET PO (21:16)
[2018-10-17] MEDS: AZITHROMYCIN 500 MG in DEXTROSE 5% IN WATER 250 ML IV (21:16)
[2018-10-18] VITALS (19 sets, daily range): BP systolic 115–146; BP diastolic 63–81; PULSE 71–95; RESP 14–24; TEMP 36.6–36.7; O2SAT 87–98
--- NOTE | 2018-10-18 | DI.RAD.S_ITS ---
PROCEDURE: XR ABDOMEN 1V INDICATIONS: r/o obstipation TECHNIQUE: One view of the abdomen acquired. COMPARISON: None. FINDINGS: Surgical changes and devices: None. Bowel: Bowel gas pattern is normal the significant fecal stasis throughout the colon is seen, consistent with constipation.. Soft tissues: No suspicious abdominal calcifications. Visualized solid organ contours appear normal in size. Bones: No suspicious bony lesions. IMPRESSION: Findings consistent with constipation. No gross free air. Dictated by: Eric Clark M.D. on 10/18/2018 at 17:31 Approved by: Eric Clark M.D. on 10/18/2018 at 17:31
[2018-10-18] MEDS: methylPREDNISolone 125 MG/2 ML VIAL 60 MG IV ×3 (00:31→16:40)
[2018-10-18] MEDS: ALBUTEROL 2.5 MG/3 ML NEB (ADULT) INH ×2 (05:11→23:42)
[2018-10-18] MEDS: METOPROLOL IR 50 MG TABLET PO ×2 (08:48→21:55)
[2018-10-18] MEDS: guaiFENesin ER 600 MG TAB 1200 MG PO (08:48)
[2018-10-18] MEDS: AMLODIPINE 5 MG TABLET PO (08:49)
[2018-10-18] MEDS: ASPIRIN EC 81 MG TABLET PO (08:49)
[2018-10-18] MEDS: ENOXAPARIN 40 MG/0.4 ML SYRINGE SUBCUT (08:49)
[2018-10-18] MEDS: SODIUM CHLORIDE 0.9% FLUSH 10 ML IV (08:50)
[2018-10-18] MEDS: ALBUTEROL/IPRATROPIUM 3 ML AMPUL INH ×4 (08:50→20:56)
--- NOTE | 2018-10-18 15:05 | PM.PN.1 ---
Subjective Date Patient Seen: 10/18/18 Interval history: Paz Decker is a 77-year-old female with a past medical history significant for CAD status post PCI and LCX stent, hypertension, hyperlipidemia, CKD stage 3, oxygen-dependent COPD who presented with shortness of breath and was admitted for COPD exacerbation and RSV pneumonia. Also found to have a left upper lobe lung mass. Patient with persistent nonproductive cough, wheezing and O2 dependence but feels her cough has improved a little today. No hemoptysis and minimal sputum. Exam Vital Signs (past 8 hours): - 10/18/18 08:00 10/18/18 11:17 10/18/18 12:00 Temperature 98 F 97.8 F Pulse Rate 86 80 Respiratory Rate 24 22 Blood Pressure 140/78 136/70 Pulse Oximetry 96 90 L 94 10/18/18 13:34 10/18/18 14:26 Temperature Pulse Rate 95 H Respiratory Rate 20 Blood Pressure Pulse Oximetry 98 Oxygen Delivery Method Nasal Cannula Oxygen Flow Rate 2.5 Narrative Exam Narrative: GENERAL: Patient is in no acute distress HEENT: Head normocephalic, atraumatic. Mucous membranes moist. CHEST: Diminished in left upper lobe, diffuse bilateral inspiratory and expiratory wheeze CARDIAC: Regular rate and rhythm. ABDOMEN: Nondistended, soft, nontender EXTREMITIES: no edema. NEUROLOGICAL: Alert, pleasant, no focal findings SKIN: Warm, dry, no petechiae, no rash Objective Labs Result Diagrams: 10/17/18 05:36 10/17/18 05:36 Assessment & Plan Plan: Assessment/Plan Narrative: Paz Decker is a 77-year-old female with a past medical history significant for CAD status post PCI and LCX stent, hypertension, hyperlipidemia, CKD stage 3, oxygen-dependent COPD who presented with shortness of breath and was admitted for COPD exacerbation and RSV pneumonia. Found to have left upper lung mass suspicious for primary malignancy. 1. Acute RSV community-acquired pneumonia, present on admission. Active. -fever resolved since 10/15/2018, WBC trending down, still has significant hypoxia, cough and wheeze -Viral respiratory PCR positive for RSV. Leukocytosis 19.0, febrile, procalcitonin < 0.05 and normal lactic acid. -CT chest without contrast showed spiculated left upper lobe mass -Blood cultures x2 have no growth to date. -continue duo nebs 4 times daily while awake and albuterol nebs every 2 hr as needed. -Acapella and guaifenesin to help with secretion clearance. In addition, added chest physiotherapy 3 times daily as tolerated. 2. Acute COPD exacerbation, present on admission. Active. -significant cough and has considerable wheezing on exam, and desats easily -patient presented with increased sputum production, increased oxygen demand, and fever. -continue respiratory treatments with nebulizers, Acapella, guaifenesin and chest PT -Continue on methylprednisolone 60 mg every 8 hr. -Continue ceftriaxone started 10/15/2018 to complete 5-7 day antibiotic course 3. New left upper lobe spiculated lung mass, suspicious for primary lung malignancy, noted on admission. Active. -Chest x-ray from 2015 did not demonstrate any pulmonary nodules there for which new within the last 2-3 years. -CTA demonstrated spiculated left upper lobe mass 2.5 cm x 2.8 cm with mediastinal and hilar adenopathy highly suspicious for neoplasm. -Discussed patient with general surgery, Eamon Galeas, who recommended consultation with Dr. Weems of thoracic surgery at [facility]. Call Dr. Weems (c:[phone]) who reviewed CT chest without contrast and believes mass would be amenable to navigational bronchoscopy and endobronchial ultrasound with biopsy of mass and pretracheal and carinal nodes once acute illness has resolved. If yue involvement patient would be stage IIIA/IIIB. Patient will need to follow up with Dr. Weems as outpatient (unless acuity changes could transfer to [facility]). 4. Right lower extremity superficial wound, present on admission. Active. -Patient reports that she accidentally bumped into something at home and tore her skin. She also recently was bitten by her dog with old adjacent hematoma that is hardened and healing. -continue local dressing changes 5. CAD status post PCI and left circumflex stent, present on admission. Presumed stable. -Continue cardiac home medications: aspirin 81 mg daily, atorvastatin 10 mg daily at bedtime, metoprolol tartrate 50 mg twice daily, verapamil 80 mg twice daily. 6. Acute on chronic hypoxic respiratory failure -at home she uses O2 2 L at night only -currently on 3 L O2 but desats with activity. Disposition: Likely to discharged in 2-3 days depending upon improvement in oxygenation due to RSV community-acquired pneumonia and COPD exacerbation. Patient will need new patient appointment with Dr. Dank Jimenez to assess the left lung mass. Also her PCP at [facility] recently retired and she will need to establish with new PCP there or elsewhere. Quality VTE Deep Vein Thrombosis/Pulmonary Embolism Present on Admission: No
--- NOTE | 2018-10-18 15:19 | P.PN_ITS ---
Subjective Date Patient Seen: 10/18/18 Interval history: Paz Decker is a 77-year-old female with a past medical history significant for CAD status post PCI and LCX stent, hypertension, hyperlipidemia, CKD stage 3, oxygen-dependent COPD who presented with shortness of breath and was admitted for COPD exacerbation and RSV pneumonia. Also found to have a left upper lobe lung mass. Patient with persistent nonproductive cough, wheezing and O2 dependence but feels her cough has improved a little today. No hemoptysis and minimal sputum. Exam Vital Signs (past 8 hours): - 10/18/18 08:00 10/18/18 11:17 10/18/18 12:00 Temperature 98 F 97.8 F Pulse Rate 86 80 Respiratory Rate 24 22 Blood Pressure 140/78 136/70 Pulse Oximetry 96 90 L 94 10/18/18 13:34 10/18/18 14:26 Temperature Pulse Rate 95 H Respiratory Rate 20 Blood Pressure Pulse Oximetry 98 Oxygen Delivery Method Nasal Cannula Oxygen Flow Rate 2.5 Narrative Exam Narrative: GENERAL: Patient is in no acute distress HEENT: Head normocephalic, atraumatic. Mucous membranes moist. CHEST: Diminished in left upper lobe, diffuse bilateral inspiratory and expiratory wheeze CARDIAC: Regular rate and rhythm. ABDOMEN: Nondistended, soft, nontender EXTREMITIES: no edema. NEUROLOGICAL: Alert, pleasant, no focal findings SKIN: Warm, dry, no petechiae, no rash Objective Labs Result Diagrams: 10/17/18 05:36 10/17/18 05:36 Assessment & Plan Plan: Assessment/Plan Narrative: Paz Decker is a 77-year-old female with a past medical history significant for CAD status post PCI and LCX stent, hypertension, hyperlipidemia, CKD stage 3 , oxygen-dependent COPD who presented with shortness of breath and was admitted for COPD exacerbation and RSV pneumonia. Found to have left upper lung mass suspicious for primary malignancy. 1. Acute RSV community-acquired pneumonia, present on admission. Active. -fever resolved since 10/15/2018, WBC trending down, still has significant hypoxia, cough and wheeze -Viral respiratory PCR positive for RSV. Leukocytosis 19.0, febrile, procalcitonin < 0.05 and normal lactic acid. -CT chest without contrast showed spiculated left upper lobe mass -Blood cultures x2 have no growth to date. -continue duo nebs 4 times daily while awake and albuterol nebs every 2 hr as needed. -Acapella and guaifenesin to help with secretion clearance. In addition, added chest physiotherapy 3 times daily as tolerated. 2. Acute COPD exacerbation, present on admission. Active. -significant cough and has considerable wheezing on exam, and desats easily -patient presented with increased sputum production, increased oxygen demand, and fever. -continue respiratory treatments with nebulizers, Acapella, guaifenesin and chest PT -Continue on methylprednisolone 60 mg every 8 hr. -Continue ceftriaxone started 10/15/2018 to complete 5-7 day antibiotic course 3. New left upper lobe spiculated lung mass, suspicious for primary lung malignancy, noted on admission. Active. -Chest x-ray from 2015 did not demonstrate any pulmonary nodules there for which new within the last 2-3 years. -CTA demonstrated spiculated left upper lobe mass 2.5 cm x 2.8 cm with mediastinal and hilar adenopathy highly suspicious for neoplasm. -Discussed patient with general surgery, Eamon Galeas, who recommended consultation with Dr. Weems of thoracic surgery at [facility]. Call Dr. Weems (c:) who reviewed CT chest without contrast and believes mass would be amenable to navigational bronchoscopy and endobronchial ultrasound with biopsy of mass and pretracheal and carinal nodes once acute illness has resolved. If yue involvement patient would be stage IIIA/IIIB. Patient will need to follow up with Dr. Weems as outpatient (unless acuity changes could transfer to [facility]). 4. Right lower extremity superficial wound, present on admission. Active. -Patient reports that she accidentally bumped into something at home and tore her skin. She also recently was bitten by her dog with old adjacent hematoma that is hardened and healing. -continue local dressing changes 5. CAD status post PCI and left circumflex stent, present on admission. Presumed stable. -Continue cardiac home medications: aspirin 81 mg daily, atorvastatin 10 mg daily at bedtime, metoprolol tartrate 50 mg twice daily, verapamil 80 mg twice daily. 6. Acute on chronic hypoxic respiratory failure -at home she uses O2 2 L at night only -currently on 3 L O2 but desats with activity. Disposition: Likely to discharged in 2-3 days depending upon improvement in oxygenation due to RSV community-acquired pneumonia and COPD exacerbation. Patient will need new patient appointment with Dr. Dank Jimenez to assess the left lung mass. Also her PCP at [facility] recently retired and she will need to establish with new PCP there or elsewhere. Quality VTE Deep Vein Thrombosis/Pulmonary Embolism Present on Admission: No
[2018-10-18] MEDS: CEFTRIAXONE 2 GM/50 ML FROZ.PIGGY IV (16:40)
[2018-10-18] MEDS: guaiFENesin ER 600 MG TAB PO (21:55)
[2018-10-18] MEDS: SENNOSIDES 8.6 MG TABLET 17.2 MG PO (21:55)
[2018-10-18] MEDS: ATORVASTATIN 10 MG TABLET PO (21:55)
[2018-10-19] VITALS (19 sets, daily range): BP systolic 130–142; BP diastolic 66–81; PULSE 78–100; RESP 16–24; TEMP 36.3–36.7; O2SAT 90–97
[2018-10-19] MEDS: SODIUM CHLORIDE 0.9% FLUSH 10 ML IV ×3 (00:07→22:04)
[2018-10-19] MEDS: methylPREDNISolone 125 MG/2 ML VIAL 60 MG IV ×3 (00:07→16:48)
--- NOTE | 2018-10-19 00:34 | PC.NURSE ---
Addendum entered by Eboni Mercedes R.N. 10/19/18 05:56: Medicated with MOM for constipation as did not have any stool overnight. Original Note: Addendum entered by Eboni Mercedes R.N. 10/19/18 05:47: Slept at intervals. Denies any pain. Gotten up to sit in chair per her request. O2 sat while sitting up is now at 92%. Original Note: Patient is alert and oriented. Breath sounds diminished on inspiration and coarse expiratory wheezes/rhonchi on exhalation. States she is SOB with exertion and sometimes at rest although currently able to speak in complete sentences. Reports she is coughing up thick white sputum intermittently. On oxygen at 2L/min per [place] with sat of 95%. HRR. Denies nausea. BT present and abdomen is soft but has had no documented BM since 10/13; states she had very small BM yesterday morning but is agreeable to taking MOM in a.m. if no further stools overnight. Has dribbling and stress incontinence so wearing a brief; denies dysuria, frequency or urgency. Independent with bed mobility but is assisted when out of bed for safety. Denies pain. Allevyn dressing to right anterior LE is CDI. Venous discoloration bilateral LE. Fall risk score is moderate; bed alarm is activated. On droplet isolation due to RSV +.
[2018-10-19] MEDS: ALBUTEROL 2.5 MG/3 ML NEB (ADULT) INH ×2 (03:09→12:17)
[2018-10-19] MEDS: MAGNESIUM HYDROXIDE 30 ML UDC PO (05:53)
[2018-10-19] MEDS: ALBUTEROL/IPRATROPIUM 3 ML AMPUL INH ×5 (07:11→21:59)
[2018-10-19] MEDS: ASPIRIN EC 81 MG TABLET PO (09:22)
[2018-10-19] MEDS: AMLODIPINE 5 MG TABLET PO (09:22)
[2018-10-19] MEDS: guaiFENesin ER 600 MG TAB PO ×2 (09:22→22:03)
[2018-10-19] MEDS: METOPROLOL IR 50 MG TABLET PO ×2 (09:22→22:03)
[2018-10-19] MEDS: ENOXAPARIN 40 MG/0.4 ML SYRINGE SUBCUT (09:23)
--- NOTE | 2018-10-19 13:37 | PC.NURSE ---
Pt up to bathroom and had three BM's today with two that were large. Breathing hard at times. Dr Barlow thinks she has air hunger and anxiety which is making her breathing worse. Ordered ativan and morphine to address issue and an additional inhaler. O2 sats = 91% on 2L. Wound vendor management consultant looked at wound on right [place] and will come back later in the afternoon to debride. May have MS prior to debridement.
[2018-10-19] MEDS: BUDESONIDE 0.5 MG/2 ML NEB INH ×2 (14:53→22:00)
[2018-10-19] MEDS: MORPHINE 2 MG/ML INJ 1 MG IV (16:20)
[2018-10-19] MEDS: SODIUM CHLORIDE 0.9% 250 ML 21 ML IV (16:38)
[2018-10-19] MEDS: CEFTRIAXONE 2 GM/50 ML FROZ.PIGGY IV (16:48)
--- NOTE | 2018-10-19 16:56 | P.PN_ITS ---
Subjective Date Patient Seen: 10/19/18 Interval history: Patient is a 77-year-old female here in the hospital with RSV pneumonia, COPD, acute on chronic hypoxic respiratory failure, a left upper lobe spiculated mass, and a right lower extremity wound. The patient continues to have significant shortness of breath. She has required multiple nebulizer treatments. She describes air hunger and anxiety. The patient has been getting nebulizers every 2 hr with as needed albuterol. She typically takes Advair at home. We discussed the possibility of anxiety exacerbating her shortness of breath. The patient is agreeable to trying low-dose Ativan to control anxiety. Exam Vital Signs (past 8 hours): - 10/19/18 10:23 10/19/18 11:00 10/19/18 12:10 Temperature 97.4 F L Pulse Rate 84 87 Respiratory Rate 22 20 Blood Pressure 142/68 H Pulse Oximetry 90 L 90 L 10/19/18 12:19 10/19/18 15:08 10/19/18 16:06 Temperature 97.8 F Pulse Rate 85 82 90 Respiratory Rate 17 24 20 Blood Pressure 132/66 Pulse Oximetry 93 93 Oxygen Delivery Method Nasal Cannula Oxygen Flow Rate 2 Narrative Exam Narrative: Pleasant female resting comfortably somewhat anxious but in no acute distress Lungs: Decreased breath sounds bilaterally, no inspiratory or expiratory wheezing. Very poor airway movement. Cardiac exam: Regular rate rhythm normal S1-S2 Abdomen: Soft nontender nondistended Extremities: No edema Objective Labs Result Diagrams: 10/17/18 05:36 10/17/18 05:36 Assessment & Plan (1) Pneumonia: Problem details: Patient with RSV pneumonia. Will continue current treatment plan. She has significant bronchospasm and hypoxia. Qualifiers: Aspiration pneumonia type: Laterality: unspecified laterality Lung location: unspecified part of lung Pneumonia type: due to unspecified organism Qualified Code(s): J18.9 - Pneumonia, unspecified organism Current visit: Yes Status: Acute (2) Mass of left lung: Problem details: Patient has a known spiculated mass of the left upper lobe, present on admission. Arrangements have been made for outpatient evaluation at [facility]. Current visit: Yes Status: Acute (3) COPD exacerbation: Problem details: Continue steroids, nebulizers, and start inhaled steroids. In addition the patient will received Ativan to manage anxiety. Current visit: Yes Status: Acute (4) Stage 3 chronic kidney disease: Problem details: No intervention needed Current visit: No Status: None (5) Acute and chronic respiratory failure: Problem details: Patient is on oxygen and will continue treatment plan as outlined above. Current visit: Yes Status: Acute (6) Essential hypertension: Problem details: Will continue her usual antihypertensive therapy. Current visit: No Status: Chronic Quality VTE Deep Vein Thrombosis/Pulmonary Embolism Present on Admission: No
[2018-10-19] MEDS: LORazepam 0.5 MG TABLET PO ×2 (16:57→22:16)
--- NOTE | 2018-10-19 17:15 | PM.CN ---
History of Present Illness Date Patient Seen: 10/19/18 Time Patient Seen: 16:45 Chief complaint: SOB Reason for consult: Evaluate skin tear RLE Requesting provider: Ashley Whitmore Narrative: 77 yo female who bumped her R palomino against a foot stool about 1 week ago. No pain, redness, increased warmth, swelling, or drainage. [facility] Medical History CKD (chronic kidney disease) stage 3, GFR 30-59 ml/min (Acute) Hyperlipidemia (Acute) Hypertension (Acute) CAD (coronary artery disease) (Chronic 2000) COPD (chronic obstructive pulmonary disease) (Chronic) Surgical History Status post coronary artery stent placement (Resolved 2000) Family History Daughter No problems noted. Social History marital status: household members: family Smoking Status: Former smoker alcohol intake: never substance use type: does not use Meds Home Medications Medication Instructions Recorded Confirmed Type atorvastatin 10 mg tablet 10 mg PO HS #90 tab 06/18/18 10/15/18 Rx amlodipine 5 mg tablet 5 mg PO QDAY #90 tab 06/19/18 10/15/18 Rx ipratropium-albuterol 0.5 mg-3 3 ml INHALATION SEE INSTRUCTIONS 10/02/18 10/15/18 Rx mg(2.5 mg base)/3 mL nebulization #1 box soln Disabled Parking Permit 1 ea MISCELLANEOUS PRN PRN 10/15/18 10/15/18 History aspirin [Aspir-81] 81 mg PO DAILY 10/15/18 10/15/18 History metoprolol tartrate 50 mg PO BID 10/15/18 10/15/18 History verapamil 80 mg PO QD-BID 10/15/18 10/15/18 History Allergies Allergy/AdvReac Type Severity Reaction Status Date / Time No Known Drug Allergies Allergy Verified 10/15/18 01:33 Review of Systems Review of Systems All systems reviewed & are unremarkable except as noted in HPI and below Cardiovascular Cardiovascular: Denies foot swelling, Denies leg pain with activity, Denies leg swelling, Reports shortness of breath and Reports shortness of breath with activity Respiratory Respiratory: Reports cough, Reports dyspnea and Reports dyspnea on exertion Integumentary/Breasts Skin/Breast: Reports other (superjacent to the skin tear is a small golf-ball sized area of swelling where her dog bumped her. No open wound.) Comments: Exam Vital Signs (past 8 hours): - 10/19/18 10:23 10/19/18 11:00 10/19/18 12:10 Temperature 97.4 F L Pulse Rate 84 87 Respiratory Rate 22 20 Blood Pressure 142/68 H Pulse Oximetry 90 L 90 L 10/19/18 12:19 10/19/18 15:08 10/19/18 16:06 Temperature 97.8 F Pulse Rate 85 82 90 Respiratory Rate 17 24 20 Blood Pressure 132/66 Pulse Oximetry 93 93 Oxygen Delivery Method Nasal Cannula Oxygen Flow Rate 2 Const General: cooperative and comfortable Nutritional Appearance: well nourished Orientation: alert and awake Eyes Sclera: sclerae normal Resp Effort & Inspection: normal respiratory effort Cardio Rate: regular rate Pulses: normal peripheral pulses Skin Trauma: other (R palomino: noted for skin tear with 4.6 x 2.5 cm non-viable flap with non-blanching venous congestion, partially approximated and partially adhered to wound bed. ) Neuro Sensory Exam: no sensory deficits noted (RLE) Extrem Right lower extremity: full ROM and normal capillary refill; no cyanosis and no edema Psych Appearance: grossly normal Mental Status: mental status grossly normal Mood: congruent mood Affect: normal affect Judgment: judgment good Objective Labs Result Diagrams: 10/17/18 05:36 10/17/18 05:36 Assessment & Plan Plan: Assessment/Plan Narrative: Assessment: Wound #1 Right Palomino. Full-thickness Skin Tear. No evidence of infection. Examination suggests adequate perfusion for safe debridement and adequate potential for spontaneous wound healing. The following co-factors that can result in delayed wound healing are identified: corticosteroid medication; hypoxia. Goal: Closure of the wound. Prevent infection or deterioration of the wound. Plan: Optimize the local wound environment to promote healing by cleansing, debriding, managing bacterial balance, and managing moisture balance. Wound #1 Debridement: Excisional/Surgical. Time Out Taken: Yes. Pain Control: Lidocaine injectable with epinephrine. Level: Down to and including subcutaneous tissue. Tissue and other material debrided: Epidermis, Dermis, Subcutaneous tissue. Devitalized tissue debrided: Necrotic/Eschar, Clot. Instrument: Curette, Forceps, Scissors. Bleeding: Minimal Hemostasis Achieved: Pressure Procedural Pain: 0 Post Procedural Pain: 0 Response to Treatment: Procedure was tolerated well. Post Debridement Measurements: 4.6 x 2.5 x 0.2 cm (100% debrided). Post Debridement Appearance: Wound bed is 100% subcutaneous tissue.
--- NOTE | 2018-10-19 17:19 | P.CONS_ITS ---
History of Present Illness Date Patient Seen: 10/19/18 Time Patient Seen: 16:45 Chief complaint: SOB Reason for consult: Evaluate skin tear RLE Requesting provider: Ashley Whitmore Narrative: 77 yo female who bumped her R palomino against a foot stool about 1 week ago. No pain, redness, increased warmth, swelling, or drainage. [facility] Medical History CKD (chronic kidney disease) stage 3, GFR 30-59 ml/min (Acute) Hyperlipidemia (Acute) Hypertension (Acute) CAD (coronary artery disease) (Chronic 2000) COPD (chronic obstructive pulmonary disease) (Chronic) Surgical History Status post coronary artery stent placement (Resolved 2000) Family History Daughter No problems noted. Social History marital status: household members: family Smoking Status: Former smoker alcohol intake: never substance use type: does not use Meds Home Medications Medication Instructions Recorded Confirmed Type atorvastatin 10 mg tablet 10 mg PO HS #90 tab 06/18/18 10/15/18 Rx amlodipine 5 mg tablet 5 mg PO QDAY #90 tab 06/19/18 10/15/18 Rx ipratropium-albuterol 0.5 mg-3 3 ml INHALATION SEE INSTRUCTIONS 10/02/18 Rx mg(2.5 mg base)/3 mL nebulization #1 box soln Disabled Parking Permit 1 ea MISCELLANEOUS PRN PRN 10/15/18 10/15/18 History aspirin [Aspir-81] 81 mg PO DAILY 10/15/18 10/15/18 History metoprolol tartrate 50 mg PO BID 10/15/18 10/15/18 History verapamil 80 mg PO QD-BID 10/15/18 10/15/18 History Allergies Allergy/AdvReac Type Severity Reaction Status Date / Time No Known Drug Allergies Allergy Verified 10/15/18 01:33 Review of Systems Review of Systems All systems reviewed & are unremarkable except as noted in HPI and below Cardiovascular Cardiovascular: Denies foot swelling, Denies leg pain with activity, Denies leg swelling, Reports shortness of breath and Reports shortness of breath with activity Respiratory Respiratory: Reports cough, Reports dyspnea and Reports dyspnea on exertion Integumentary/Breasts Skin/Breast: Reports other (superjacent to the skin tear is a small golf-ball sized area of swelling where her dog bumped her. No open wound.) Comments: Exam Vital Signs (past 8 hours): - 10/19/18 10:23 10/19/18 11:00 10/19/18 12:10 Temperature 97.4 F L Pulse Rate 84 87 Respiratory Rate 22 20 Blood Pressure 142/68 H Pulse Oximetry 90 L 90 L 10/19/18 12:19 10/19/18 15:08 10/19/18 16:06 Temperature 97.8 F Pulse Rate 85 82 90 Respiratory Rate 17 24 20 Blood Pressure 132/66 Pulse Oximetry 93 93 Oxygen Delivery Method Nasal Cannula Oxygen Flow Rate 2 Const General: cooperative and comfortable Nutritional Appearance: well nourished Orientation: alert and awake Eyes Sclera: sclerae normal Resp Effort & Inspection: normal respiratory effort Cardio Rate: regular rate Pulses: normal peripheral pulses Skin Trauma: other (R palomino: noted for skin tear with 4.6 x 2.5 cm non-viable flap with non-blanching venous congestion, partially approximated and partially adhered to wound bed. ) Neuro Sensory Exam: no sensory deficits noted (RLE) Extrem Right lower extremity: full ROM and normal capillary refill; no cyanosis and no edema Psych Appearance: grossly normal Mental Status: mental status grossly normal Mood: congruent mood Affect: normal affect Judgment: judgment good Objective Labs Result Diagrams: 10/17/18 05:36 10/17/18 05:36 Assessment & Plan Plan: Assessment/Plan Narrative: Assessment: Wound #1 Right Palomino. Full-thickness Skin Tear. No evidence of infection. Examination suggests adequate perfusion for safe debridement and adequate potential for spontaneous wound healing. The following co-factors that can result in delayed wound healing are identified : corticosteroid medication; hypoxia. Goal: Closure of the wound. Prevent infection or deterioration of the wound. Plan: Optimize the local wound environment to promote healing by cleansing, debriding , managing bacterial balance, and managing moisture balance. Wound #1 Debridement: Excisional/Surgical. Time Out Taken: Yes. Pain Control: Lidocaine injectable with epinephrine. Level: Down to and including subcutaneous tissue. Tissue and other material debrided: Epidermis, Dermis, Subcutaneous tissue. Devitalized tissue debrided: Necrotic/Eschar, Clot. Instrument: Curette, Forceps, Scissors. Bleeding: Minimal Hemostasis Achieved: Pressure Procedural Pain: 0 Post Procedural Pain: 0 Response to Treatment: Procedure was tolerated well. Post Debridement Measurements: 4.6 x 2.5 x 0.2 cm (100% debrided). Post Debridement Appearance: Wound bed is 100% subcutaneous tissue.
[2018-10-19] MEDS: ATORVASTATIN 10 MG TABLET PO (22:03)
[2018-10-19] MEDS: SENNOSIDES 8.6 MG TABLET 17.2 MG PO (22:04)
[2018-10-20] VITALS (21 sets, daily range): BP systolic 128–143; BP diastolic 64–82; PULSE 72–92; RESP 14–20; TEMP 36.3–36.7; O2SAT 80–97
[2018-10-20] MEDS: SODIUM CHLORIDE 0.9% FLUSH 10 ML IV ×3 (00:02→20:41)
[2018-10-20] MEDS: methylPREDNISolone 125 MG/2 ML VIAL 60 MG IV ×4 (00:02→23:48)
--- NOTE | 2018-10-20 02:30 | PC.NURSE ---
Addendum entered by Eboni Mercedes R.N. 10/20/18 05:57: Continuing to be mostly asleep. RT reports patient had to be awakened for scheduled Rx. O2 sat this morning is 96%. FLACC is 0 Original Note: Patient has been sleeping soundly since shift change. Now awakened for VS/assessment. Is alert and oriented. States she feels she is breathing easier but still seems SOB with conversation. Breath sounds with expiratory wheezes throughout; have not heard patient coughing tonight as yet. Oxygen at 2L/min per NC with sat of 97%. HRR. Denies nausea. BT present and abdomen is soft; had BM yesterday. Denies dysuria, frequency or urgency but does have some stress incontinence so wearing a pull up. Independent with bed mobility. Is provided assistance when out of bed as safety precaution but seems steady on feet. Allevyn dressing to anterior left LE is CDI. Remains on droplet precautions due to RSV. Denies pain. Fall risk score is moderate; bed alarm is activated.
[2018-10-20] MEDS: BUDESONIDE 0.5 MG/2 ML NEB INH (08:02)
[2018-10-20] MEDS: ALBUTEROL/IPRATROPIUM 3 ML AMPUL INH ×4 (08:02→22:09)
[2018-10-20] MEDS: ENOXAPARIN 40 MG/0.4 ML SYRINGE SUBCUT (09:38)
[2018-10-20] MEDS: guaiFENesin ER 600 MG TAB PO ×2 (09:39→20:41)
[2018-10-20] MEDS: METOPROLOL IR 50 MG TABLET PO ×2 (09:39→20:41)
[2018-10-20] MEDS: AMLODIPINE 5 MG TABLET PO (09:39)
[2018-10-20] MEDS: ASPIRIN EC 81 MG TABLET PO (09:39)
--- NOTE | 2018-10-20 10:35 | PM.PN.1 ---
Subjective Date Patient Seen: 10/20/18 Interval history: Patient is a 77-year-old female here in the hospital with acute hypoxic respiratory failure, COPD, pneumonia and a left upper lobe spiculated mass. Patient continues to be short of breath. She is hypoxic at rest. She reports being hypoxic at home but not utilizing oxygen during the day. She feels she is not quite back to her baseline. She also complains of feeling constipated. Exam Vital Signs (past 8 hours): - 10/20/18 05:57 10/20/18 06:05 10/20/18 07:37 Temperature 97.3 F L Pulse Rate 78 Respiratory Rate 14 Blood Pressure 134/78 Pulse Oximetry 96 96 94 10/20/18 07:50 10/20/18 08:00 10/20/18 08:29 Temperature 98.0 F Pulse Rate 84 86 Respiratory Rate 20 20 Blood Pressure 143/73 H Pulse Oximetry 95 88 L 10/20/18 09:15 10/20/18 09:20 Temperature Pulse Rate Respiratory Rate Blood Pressure Pulse Oximetry 92 80 L Oxygen Delivery Method Room Air Oxygen Flow Rate 2 Narrative Exam Narrative: Pleasant female resting comfortably in no obvious distress Lungs: Decreased breath sounds bilaterally. With occasional scattered rhonchi Cardiac exam: Regular rate rhythm normal S1 and S2 with a 2/6 systolic ejection murmur Abdomen: Soft nontender nondistended Extremities: No edema Objective Labs Result Diagrams: 10/17/18 05:36 10/17/18 05:36 Assessment & Plan (1) Acute and chronic respiratory failure ([id number]): Current visit: Yes Status: Acute (2) Pneumonia: Problem details: Patient with RSV pneumonia. Will continue current treatment plan. She has significant bronchospasm and hypoxia. Qualifiers: Aspiration pneumonia type: Laterality: unspecified laterality Lung location: unspecified part of lung Pneumonia type: due to unspecified organism Qualified Code(s): J18.9 - Pneumonia, unspecified organism Current visit: Yes Status: Acute (3) Mass of left lung: Problem details: Patient has a known spiculated mass of the left upper lobe, present on admission. Arrangements have been made for outpatient evaluation at [facility]. Current visit: Yes Status: Acute (4) COPD exacerbation: Problem details: Continue steroids, nebulizers, and start inhaled steroids. In addition the patient will received Ativan to manage anxiety. Current visit: Yes Status: Acute (5) Essential hypertension: Problem details: Will continue her usual antihypertensive therapy. Current visit: No Status: Chronic (6) Stage 3 chronic kidney disease: Problem details: No intervention needed Current visit: No Status: None (7) Ulcer of right leg: Problem details: Patient underwent debridement at the bedside yesterday. Wound care to be continued as written Current visit: Yes Status: Acute Quality VTE Deep Vein Thrombosis/Pulmonary Embolism Present on Admission: No
--- NOTE | 2018-10-20 11:22 | CM.DPC ---
DCP/cont Per Dr. Barlow patient continues to be SOB, on 2L o2, and is hypoxic at rest. Possible discharge home tomorrow. Patient did have wound debridement completed at bedside yesterday for ulcer on right leg. Plan: Likely home when stable, but need to follow to rule out any HH or additional D/C needs.
[2018-10-20] MEDS: CEFTRIAXONE 2 GM/50 ML FROZ.PIGGY IV (15:43)
[2018-10-20] MEDS: BUDESONIDE 120 PUFF/DEVICE INHALER INH (18:10)
[2018-10-20] MEDS: ATORVASTATIN 10 MG TABLET PO (20:41)
[2018-10-20] MEDS: SENNOSIDES 8.6 MG TABLET 17.2 MG PO (20:41)
[2018-10-21] VITALS (17 sets, daily range): BP systolic 131–147; BP diastolic 70–74; PULSE 67–85; RESP 16–24; TEMP 36.2–36.7; O2SAT 88–96
[2018-10-21] MEDS: ALBUTEROL 2.5 MG/3 ML NEB (ADULT) INH (04:11)
[2018-10-21] MEDS: ASPIRIN EC 81 MG TABLET PO (08:09)
[2018-10-21] MEDS: guaiFENesin ER 600 MG TAB PO ×2 (08:09→20:58)
[2018-10-21] MEDS: ENOXAPARIN 40 MG/0.4 ML SYRINGE SUBCUT (08:09)
[2018-10-21] MEDS: SODIUM CHLORIDE 0.9% FLUSH 10 ML IV ×2 (08:09→20:59)
[2018-10-21] MEDS: AMLODIPINE 5 MG TABLET PO (08:09)
[2018-10-21] MEDS: methylPREDNISolone 125 MG/2 ML VIAL 60 MG IV (08:09)
[2018-10-21] MEDS: METOPROLOL IR 50 MG TABLET PO ×2 (08:09→20:58)
--- NOTE | 2018-10-21 10:33 | P.PN_ITS ---
Subjective Date Patient Seen: 10/21/18 Interval history: The patient is a 77-year-old female admitted to the hospital with RSV pneumonia, COPD exacerbation, acute respiratory failure, a left upper lobe spiculated mass. She reports she continues to have some shortness of breath. She recognizes that she needs daily oxygen. Previously she was not using oxygen at home during the day but only 2 L at night. The patient has not ambulated. It she has 60 ft to walk when she gets home. She lives with her grandchildren who works during the day. The patient is willing to consider custodial facility stay post discharge given she does not feel back to baseline. Patient is still weak. She could has not ambulated to date. We will obtain a physical therapy occupational therapy consult for her. Exam Vital Signs (past 8 hours): - 10/21/18 03:34 10/21/18 04:11 10/21/18 04:42 Temperature 97.6 F Pulse Rate 79 Respiratory Rate 18 Blood Pressure 147/72 H Pulse Oximetry 96 94 94 10/21/18 07:45 Temperature 97.6 F Pulse Rate 74 Respiratory Rate 20 Blood Pressure 138/70 Pulse Oximetry 94 Oxygen Delivery Method Nasal Cannula,Humidification Oxygen Flow Rate 2 Narrative Exam Narrative: Pleasant female resting comfortably in no obvious distress Lungs: Decreased breath sounds with end-expiratory wheezing Cardiac exam: Regular rate rhythm normal S1 and S2 with a 2/6 systolic ejection murmur Abdomen: Soft nontender nondistended Extremities: No edema Objective Labs Result Diagrams: 10/17/18 05:36 10/17/18 05:36 Assessment & Plan (1) Acute and chronic respiratory failure ([id number]): Problem details: Patient continues to require oxygen both during the day and night. Will continue at her current level of 2 L Current visit: Yes Status: Acute (2) Pneumonia: Problem details: Patient with RSV pneumonia. Will continue current treatment plan. She has significant bronchospasm and hypoxia. No evidence of bacterial pneumonia will discontinue antibiotics at this time Qualifiers: Aspiration pneumonia type: Laterality: unspecified laterality Lung location: unspecified part of lung Pneumonia type: due to unspecified organism Qualified Code(s): J18.9 - Pneumonia, unspecified organism Current visit: Yes Status: Acute (3) COPD exacerbation: Problem details: Continue steroids, nebulizers, and start inhaled steroids. In addition the patient will received Ativan to manage anxiety. Will switch methylprednisolone to oral prednisone and continue Ativan given complaints of anxiety. Current visit: Yes Status: Acute (4) Essential hypertension: Problem details: Will continue her usual antihypertensive therapy. Current visit: No Status: Chronic (5) Mass of left lung: Problem details: Patient has a known spiculated mass of the left upper lobe, present on admission. Arrangements have been made for outpatient evaluation at [facility]. Current visit: Yes Status: Acute (6) Stage 3 chronic kidney disease: Problem details: No intervention needed Current visit: No Status: None (7) Ulcer of right leg: Problem details: Patient underwent debridement at the bedside yesterday. Wound care to be continued as written Current visit: Yes Status: Acute Quality VTE Deep Vein Thrombosis/Pulmonary Embolism Present on Admission: No
--- NOTE | 2018-10-21 11:13 | CM.DPC ---
DCP Cont: Discussed patient at rounds. Stated that patient is concerned about going home, for she has to walk so many steps into her home. Dr. Barlow had mentioned detention. Noticed that patient has Mar, and no current therapy orders. Dr. Barlow placed therapy orders. Spoke with physical therapy, Dee, who stated that they will work with her. If she is mobile, may not qualify for skilled, but home health may be an option. P: DCP to continue to assess. May not qualify for detention, will see what physical therapy findings are. Other option would be home health. Shavon Alonzo RN/[employer]
--- NOTE | 2018-10-21 11:34 | PC.NURSE ---
Day Shift Pt is sitting up in bed A&O able to make needs known. Able to talk in full sentences, sats 94% 2l via cannula, scattered rhonci/wheezes throughout bilateral lobes. Reports breathing is getting better. Pt now sitting up in chair at bedside on personal laptop. Call light within reach and bed alarm on. Dressing to right palomino is intact but has shadow drainage.
[2018-10-21 11:36] LABS: Add Manual Diff / Slide Review NO; Basophils Absolute Auto 0 /uL (0-100); Basophils Percent Auto 0.1 % (0-2); Eosinophils Absolute Auto 0 /uL (0-450); Eosinophils Percent Auto 0.2 % (2-4); Hematocrit 41.1 % (36-46); Hemoglobin 13.8 g/dL (12.0-16.0); Lymphocytes Absolute Auto 700 /uL (1100-4500); Lymphocytes Percent Auto 4.3 % (25-40); Mean Corpuscular HGB Conc 33.6 % (30-36); Mean Corpuscular Hemoglobin 29.5 PG (26-34); Mean Corpuscular Volume 87.8 fL (80-100); Monocytes Absolute Auto 900 /uL (0-900); Monocytes Percent Auto 5.9 % (3-14); Neutrophils Absolute Auto 14100 /uL (1500-7000); Neutrophils Percent Auto 89.5 % (50-75); Platelet Count 411 X10^3/uL (150-400); Red Blood Cell Count 4.68 X10^6/uL (4.0-5.2); Red Cell Distribution Width 12.9 % (11.6-14.8); White Blood Cell Count 15.8 X10^3/uL (4.5-11.0)
[2018-10-21] MEDS: BUDESONIDE 120 PUFF/DEVICE INHALER INH ×2 (11:48→22:22)
[2018-10-21] MEDS: ALBUTEROL/IPRATROPIUM 3 ML AMPUL INH ×4 (11:48→22:22)
[2018-10-21 11:59] LABS: BUN Creatinine Ratio 33.8 (6-22); Blood Urea Nitrogen 27 mg/dL (7-17); Carbon Dioxide 38 mmol/L (22-32); Chloride 87 mmol/L (98-107); Estimated Glomerular Filt Rate > 60.0 mL/min (>60); Glucose 159 mg/dL (80-110); HEMOLYSIS < 15 (0-50); Potassium 4.4 mmol/L (3.4-5.1); Sodium 133 mmol/L (137-145)
--- NOTE | 2018-10-21 14:46 | PC.NURSE ---
1300- Pt is sitting up to chair. AAO x3 and making needs known with clear speech. Ambulated with SBA and fww to BR to void. Gait is steady. Pt reports shortness of breath with activity. SPO2 noted to be 86% with activity. Increases to 93-94% with rest. Auscultated scattered exp wheezes. Denies pain. Using call light appropriately. Will monitor.
--- NOTE | 2018-10-21 15:00 | OT.IP.EVAL ---
Current Diagnoses Essential (primary) hypertension (10/15/18) Pneumonia, unspecified organism (10/15/18) Chronic obstructive pulmonary disease with (acute) exacerbation (10/15/18) Acute and chronic respiratory failure, unspecified whether with hypoxia or hypercapnia (10/15/18) Non-pressure chronic ulcer of unspecified part of right lower leg with unspecified severity (10/15/18) Chronic kidney disease, stage 3 (moderate) (10/15/18) Other nonspecific abnormal finding of lung field (10/15/18) Past Medical History (Last Reviewed 10/19/18 @ 17:21 by Joe Silva MD) CKD (chronic kidney disease) stage 3, GFR 30-59 ml/min (Acute) Hyperlipidemia (Acute) Hypertension (Acute) CAD (coronary artery disease) (Chronic 2000) COPD (chronic obstructive pulmonary disease) (Chronic) Surgical History (Last Reviewed 10/19/18 @ 17:21 by Joe Silva MD) Status post coronary artery stent placement (Resolved 2000) Occupational Therapy Inpatient Evaluation/Re-Eval M1 PT/OT-IP Prior Functional Status Start: 10/21/18 17:01 Freq: NEEDED Status: Active Protocol: Document 10/21/18 15:49 AB (Rec: 10/21/18 17:12 AB [id number]) Medical Review Prior Functional Status Medical History Reviewed Yes Communication able to make needs known Mobility and Gait pt stated that she is independent with all mobilities and ambulation without AD Social History Household Members family Living Arrangements House Number of Floors (Floors) Two Floors Number of Stairs To Enter/Railing? pt stays on main level of the house has 1 platform steps+2 steps + 1 platform and so on with total of 8 steps with L rail ascending Home Environment Standard Height Toilet Walk in Shower Home Equipment Shower Seat without Backrest Hand Held Shower Employment Status Retired Additional Social History Comment stated that his son can put grab bars in the shower and next to the toilet Pt lives with grandson (works) and another grandson(works)/daughter-in- law(does not work), 2 small children live on the 2nd level of the house. Pt used O2 at home only at night and PRN. Pt recently began sleeping a recliner due to orthopnea. M2 OT-IP Current Condition Start: 10/22/18 08:55 Freq: Status: Active Protocol: Document 10/21/18 15:00 PJM (Rec: 10/22/18 09:19 PJ [id number]) Occupational Therapy Current Condition Current Condition Evaluation Date 10/21/18 Treatment Diagnosis decreased self care, mobility w/DX:of new lung mass,RSV PNA, COPD exacerbation Diagnosis Onset Date 10/15/18 Post Operative Precautions Other Precautions monitor OT sats, pt on 2L O2 NC M3 OT- IP Subjective and Pain Start: 10/22/18 08:55 Freq: Status: Active Protocol: Document 10/21/18 15:00 PJM (Rec: 10/22/18 09:19 PJ [id number]) OT- Subjective Occupational Therapy Visit Type Type Initial Evaluation Visit Start Time 14:21 Visit Stop Time 15:00 Total Visit Minutes 39 Notes Pt not SOB with conversation this session. Pt desats to low 80's with bed mobility and transfer to chair. Recovers in 15-20 sec with rest. Provided education on pursed lip breathing. Pt states she has oximeter at home but it is old and she is not sure about its accuracy. Occupational Therapy Visit Comments Patient/Caregiver Goals to go home, increase activity tolerance so she doesn't have to use O2 all the time OT Pain Assessment Pain When Pain Assessed After Treatment Pain Present Pain Present Denied Pain M4 OT- IP ADL's Start: 10/22/18 08:55 Freq: Status: Active Protocol: Document 10/21/18 15:00 PJM (Rec: 10/22/18 09:19 PJ [id number]) OT URY-Jajw-Fqremed General Evaluation Self-Feeding Ability Independent OT ADL-Grooming General Evaluation Areas Needing Assistance Face Washing Comments OT Grooming Comments SBA seated in chair after set up OT ADL-Oral Care Comments Oral Care Comments did not occur this session OT ADL-Dressing General Eval Lower Body Dressing Ability Standby Assistance Areas Needing Assistance Socks Comments OT Dressing Comments Pt moves well and able to cross foot over opposite knee for donning socks and shoes. Provided education re: energy conservation and pacing. OT ADL-Toileting General Evaluation Toileting Ability Standby Assistance Devices Toileting Assistive Devices Raised Toilet Seat Comments OT Toileting Comments per nursing report OT ADL-Bathing Comments OT Bathing Comments to be assessed as activity tolerance improves M5 OT- IP IADL's Start: 10/22/18 08:55 Freq: Status: Active Protocol: Document 10/21/18 15:00 PJ (Rec: 10/22/18 09:19 [facility] [id number]) OT-Instrumental Activities of Daily Living Deficits IADL Deficits Identified Deficits Home Safety Awareness Awareness of Need for Assistance at Home Good Awareness Ability to Problem Solve Emergency Able to Problem Solve Situations Medication Management Medication Management No Deficits Identified Money Management Money Management No Deficits Identified Meal Preparation Meal Preparation Caregiver Provides Assist Meal Preparation Comments pt states family can assist with meal prep PRN at home Member Of Congress Member Of Congress Caregiver Provides Assist Member Of Congress Comments pt states family can assist PRN Driving Driving Caregiver Provides Assist Driving Comments pt states family can assist PRN M6 OT- IP Functional Cognition Start: 10/22/18 08:55 Freq: Status: Active Protocol: Document 10/21/18 15:00 PJ (Rec: 10/22/18 09:19 [facility] [id number]) Cognitive Factors Limiting Selfcare Function Cognitive Ability Level of Alertness Alert Patient Orientation Name Age Birthday Month Date Year Day of Week Place Situation Attention Span Ability Capable of Focused Attention Capable of Sustained Attention Ability to Follow Commands Able to Follow One Step Commands Memory Description No Deficits Noted Safety Awareness Underestimates Need for Assistance Problem Solving Ability Needs Assist to Identify Solutions Cognitive Comments Cognitive Assessment Comments Functional cognition appears WNL. OT- Vision and Hearing OT- Hearing Assessment OT- Hearing Assessment WFL OT- Vision Assessment Visual Acuity WFL Contact Lenses Vision Assessment Comments pt wears 30 day wear soft contacts M7 OT- IP Mobility and Balance Start: 10/22/18 08:55 Freq: Status: Active Protocol: Document 10/21/18 15:00 PJ (Rec: 10/22/18 09:19 [facility] [id number]) OT- Bed Mobility Assessment Rolling Type of Rolling Roll to Right Level of Assistance Standby Assistance 1 Person Assistance Head of Bed Elevated Supine to Sit Supine to Sit Assist Standby Assistance 1 Person Assistance Head of Bed Elevated Sit to Supine Sit to Supine Assist Standby Assistance 1 Person Assistance Head of Bed Elevated Scooting Scooting to Edge of Bed Standby Assistance OT-Transfer Assessment Sit to and From Stand Sit to and from Stand Standby Assistance 1 Person Assistance Transfers Transfer Ability Standby Assistance Technique Transfer Destination Bed Chair Transfer Technique Stand Step Pivot Devices Transfer Assistive Devices None Front Wheeled Walker Comments Mobility Comments Pt did one transfer with FWW and one without for bed to chair transfers. Pt walked 3 feet without FWW with no loss of balance noted. OT- Gait Assessment Gait Gait Assistance Required: Standby Assistance Distance (Feet) 3 Assistive Devices Assistive Device Front Wheeled Walker Comments Gait Ability Comments see P.Sunny akbar OT- Balance Assessment Sitting Balance and Reactions Static Sitting Balance Ability Good Dynamic Sitting Balance Ability Good Standing Balance and Reactions Static Standing Balance Ability Good Dynamic Standing Balance Ability Good M8 OT- IP Objective Assessments Start: 10/22/18 08:55 Freq: Status: Active Protocol: Document 10/21/18 15:00 PJM (Rec: 10/22/18 09:19 PJM [id number]) OT Gross Range of Motion Upper Extremity Range of Motion Assessment Within Functional Limits OT Strength Upper Extremity Strength Assessment Within Functional Limits 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 Strength Hand Dominance Right OT- Coordination Assessment Comments Coordination Comments BUE WFL OT-Muscle Tone Assessment Muscle Tone WNL Yes OT Sensation Assessment Comments Summary Comments BUE WNL per pt Edema Edema Absent M9 OT- IP Assessment and Plan Start: 10/22/18 08:55 Freq: Status: Active Protocol: Document 10/21/18 15:00 PJM (Rec: 10/22/18 09:19 PJM [id number]) OT Summary Assessment and Plan Potential Rehabilitation Potential Good Analytic Complexity at Evaluation Low Summary OT Impairments Functional Mobility Grooming Bathing Shower Transfers Assessment Summary Low complexity OT assessment completed. Pt's primary deficit is low activity tolerance. Pt easily desaturates on 2L with minimal activity and requires very frequent rest breaks during transfers and functional self care tasks. Provided education re: energy conservation/ pacing and pursed lip breathing. Pt lacks sufficient activity tolerance for safe home d/c where she is home alone for long periods. Pt unable to identify a family member who can assist her during day at home. Recommend SNF at d/c for further subacute rehab to increase endurance/safety/independence in self care/light IADLs. Goals Grooming Goal Independent Dressing Goal Independent Toileting Goal Independent Bathing Goal Standby Assistance Grab Bars Hand Held Shower Sprayer Long Handled Sponge or [place] Toilet Transfer Goal Independent Grab Bars Shower Transfer Goal Standby Assistance Walk-in Shower Shower Chair Patient/Caregiver Education Goal Demonstrate Energy Conservation and Pacing Caregiver Independent Assisting Patient OT-Other Goals Pt to keep O2 sats >88 on 2-3 L O2 during all self care tasks. Days to Meet Goals 5 Frequency of Treatment Frequency Of Treatment Once a Day Treatment Plan OT Treatment Plan ADL Training Functional Mobility Patient/Family Education Discharge Planning Discharge Recommendations OT Discharge Recommendations SNF Rehab Home Equipment Needs shower seat with back, grab bars in shower stall and near toilet
--- NOTE | 2018-10-21 15:49 | PT.IIE ---
Current Diagnoses Essential (primary) hypertension (10/15/18) Pneumonia, unspecified organism (10/15/18) Chronic obstructive pulmonary disease with (acute) exacerbation (10/15/18) Acute and chronic respiratory failure, unspecified whether with hypoxia or hypercapnia (10/15/18) Non-pressure chronic ulcer of unspecified part of right lower leg with unspecified severity (10/15/18) Chronic kidney disease, stage 3 (moderate) (10/15/18) Other nonspecific abnormal finding of lung field (10/15/18) Surgical History (Last Reviewed 10/19/18 @ 17:21 by Joe Silva MD) Status post coronary artery stent placement (Resolved 2000) Medical History (Last Reviewed 10/19/18 @ 17:21 by Joe Silva MD) CKD (chronic kidney disease) stage 3, GFR 30-59 ml/min (Acute) Hyperlipidemia (Acute) Hypertension (Acute) CAD (coronary artery disease) (Chronic 2000) COPD (chronic obstructive pulmonary disease) (Chronic) Physical Therapy Inpatient Evaluation/Re-Eval M1 PT/OT-IP Prior Functional Status Start: 10/21/18 17:01 Freq: NEEDED Status: Active Protocol: Document 10/21/18 15:49 AB (Rec: 10/21/18 17:12 AB [id number]) Medical Review Prior Functional Status Medical History Reviewed Yes Communication able to make needs known Mobility and Gait pt stated that she is independent with all mobilities nad ambulation wihtout AD Social History Household Members family Living Arrangements House Number of Floors (Floors) Two Floors Number of Stairs To Enter/Railing? pt stays on main level of the house has 1 platform steps+2 steps + 1 platform and so on with total of 8 steps with L rail ascending Home Environment Standard Height Toilet Walk in Shower Home Equipment Shower Seat without Backrest Hand Held Shower Employment Status Retired Additional Social History Comment stated that his son can put grab bars in the shower and next to the toilet pt lives with grandson and another grandson/daughter-in- law lives on the 2nd level of the house. pt used O2 at home only at night and prn pt sleeps on a recliner but stated that if she feels better will use her bed M2 PT-IP Current Condition Start: 10/21/18 17:01 Freq: NEEDED Status: Active Protocol: Document 10/21/18 15:49 AB (Rec: 10/21/18 17:12 AB [id number]) Physical Therapy Current Condition Current Condition Evaluation Date 10/21/18 Treatment Diagnosis COPD exac; PNA; L lung mass; generalized weakness Onset Date 10/15/18 Precautions Other Precautions O2 sat: currently using 2L/min O2 droplet precautions M3 PT-IP Subjective Start: 10/21/18 17:01 Freq: NEEDED Status: Active Protocol: Document 10/21/18 15:49 AB (Rec: 10/21/18 17:12 AB [id number]) Subjective Physical Therapy Visit Type Type Initial Evaluation Visit Start Time 15:49 Visit Stop Time 16:08 Total Visit Minutes 19 Number of GRAIN ELEVATOR MAN Visits 0 Physical Therapy Visit Comments Patient Comments pt agreeable to do PT Therapy Pain Assessment Pain Present Pain Present Denied Pain M4 PT-IP Mobility and Gait Start: 10/21/18 17:01 Freq: NEEDED Status: Active Protocol: Document 10/21/18 15:49 AB (Rec: 10/21/18 17:12 AB [id number]) PT-Bed Mobility Assessment Supine to Sit Supine to Sit Standby Assistance Head of Bed Elevated Sit to Supine Sit to Supine Standby Assistance Head of Bed Elevated Scooting Scooting to Edge of Bed Standby Assistance PT-Transfer Assessment Sit to and From Stand Sit to and from Stand Standby Assistance Equipment Transfer Assistive Device None Gait Belt Gait Assessment Gait Gait Assistance Required: Standby Assistance Distance (Feet) 10 Able to Maintain Weight Bearing Status Yes During Gait Assistive Devices Assistive Device None Gait Belt Front Wheeled Walker Orthotic/Prosthetic Devices or Brace: No Factors Limiting Gait Function Factors Limiting Gait Function Decreased Activity Tolerance Decreased Strength Comments Gait Comments pt ambulated without AD 10 ft SBA. pt stated that she feels a little unsteady. assessed use of FWW and completed ambulation 10 ft x 2 SBA. pt stated that it feels easier to walk with FWW. O2 sat decreased to 80% during ambulation. cued for deep breathing. increased to ~ 90% with rest in ~ 10 sec. PT-Balance Assessment Sitting Balance and Reactions Static Sitting Balance Ability Good Dynamic Sitting Balance Ability Good Standing Balance and Reactions Static Standing Balance Ability Fair Dynamic Standing Balance Ability Fair Device Used without AD M5 PT-IP Objective Assessments Start: 10/21/18 17:01 Freq: NEEDED Status: Active Protocol: Document 10/21/18 15:49 AB (Rec: 10/21/18 17:12 AB [id number]) Orientation Orientation/Cognition Level of Alertness Alert Orientation Name Age Birthday Month Date Year Day of Week Place Situation Gross Range of Motion Lower Extremity ROM Assessment Within Functional Limits Strength Lower Extremity Strength Assessment Within Functional Limits Sensation Assessment Sensation Gross Sensation WNL Muscle Tone Muscle Tone WNL Yes M6 PT-IP Treatment Start: 10/21/18 17:01 Freq: NEEDED Status: Active Protocol: Document 10/21/18 15:49 AB (Rec: 10/21/18 17:12 AB [id number]) Physical Therapy Treatment Education Education Provided Precautions Safety M7 PT-IP Assessment and Plan Start: 10/21/18 17:01 Freq: NEEDED Status: Active Protocol: Document 10/21/18 15:49 AB (Rec: 10/21/18 17:12 AB [id number]) PT Summary Assessment and Plan Potential Rehabilitation Potential Fair Status of Condition at Evaluation Evolving Summary Impairments Strength Balance Bed Mobility Transfers Gait Activity Tolerance Assessment Summary pt requiring SBA with mobility but unable to tolerate much activity due to decrease in O2 sat to 80% during ambulation. Pt will require SNF rehab to improve overall strength and conditioning/activity tolerance to be able to improve functional independence prior to d/c home . will conitnue to assess. Goals Bed Mobility Goal Independent Transfer Goal Independent Front Wheeled Walker Gait Goal Independent Front Wheel Walker Gait Distance 100 Other Goals up/down 8 steps L rail ascending ambulation without AD ~ 200 ft SBA Days to Meet Goals 5 Frequency of Treatment Frequency Of Treatment Once a Day Treatment Plan Physical Therapy Treatment Plan Bed Mobility Training Transfer Training Gait Training Therapeutic Exercise Balance Retraining Discharge Planning Neuromuscular Re-ed Coordination Retraining Other Recommendations and Next Treatment ambulation Focus Recommendations To Nursing Amount of Assist Needed 1 Person Assist Discharge Recommendations PT Discharge Recommendations SNF Rehab Other Discharge Recommendations SNF vs home with 24/7 assist and homehealth PT : depending on progress Equipment Needed for Home Before FWW: depending on progress Discharge
[2018-10-21] MEDS: SENNOSIDES 8.6 MG TABLET 17.2 MG PO (20:58)
[2018-10-21] MEDS: ATORVASTATIN 10 MG TABLET PO (20:58)
--- NOTE | 2018-10-21 21:03 | PC.NURSE ---
PM shift Pt up with SBA FWW, SOB with activity, increased cough with activity, Spo2 drops to low 80's during ambulation to window, quick recovery. Recall previous instructions about SOB with O2 on. Exp wheeze ntoed, 2: Spo2 at rest 90-96% Denies pain. Dressing to RLE changed.
[2018-10-21] MEDS: LORazepam 0.5 MG TABLET PO (21:11)
[2018-10-22] VITALS (14 sets, daily range): BP systolic 119–145; BP diastolic 70–76; PULSE 61–87; RESP 15–24; TEMP 36.3–36.7; O2SAT 91–98
[2018-10-22] MEDS: ALBUTEROL/IPRATROPIUM 3 ML AMPUL INH ×4 (06:21→19:51)
[2018-10-22] MEDS: BUDESONIDE 120 PUFF/DEVICE INHALER INH ×2 (06:21→19:51)
[2018-10-22] MEDS: predniSONE 20 MG TABLET 40 MG PO (08:24)
[2018-10-22] MEDS: ASPIRIN EC 81 MG TABLET PO (08:24)
[2018-10-22] MEDS: guaiFENesin ER 600 MG TAB PO ×2 (08:24→20:03)
[2018-10-22] MEDS: AMLODIPINE 5 MG TABLET PO (08:24)
[2018-10-22] MEDS: ENOXAPARIN 40 MG/0.4 ML SYRINGE SUBCUT (08:25)
[2018-10-22] MEDS: METOPROLOL IR 50 MG TABLET PO ×2 (08:26→20:03)
[2018-10-22] MEDS: SODIUM CHLORIDE 0.9% FLUSH 10 ML IV (08:26)
--- NOTE | 2018-10-22 10:04 | CM.DPC ---
Addendum entered by Shavon Alonzo R.N. 10/22/18 10:25: Spoke to patient in her room, brought her a Medicare choice list. Let her know that [facility] was sent notes, pending authorization. Patient then stated, I really think I want to go home. Has family that live upstairs and downstairs, daughter in law lives on bottom floor with her children. Asked her if they would be able to help her out, and she stated that they would. Patient still coughing, and weak. Let her know that home health can be another option, could order nursing, and P.T/O.T. This will give patient some options. Will continue to assess. Original Note: DCP Cont: Discussed patient at rounds. Dr. Barlow stated that patient is thinking that she may need skilled for a short amount of time. Let her know, that she would need to be authorized through [facility], but could sent them latest physical therapy note. According to physical therapy, patient was able to walk approximately 10 feet before de-stating, so she would not be clinically ready for discharge. Called Parvin, who is her disease case manager at [facility]. she stated that if she is de-sating, she is not ready for discharge, but could go ahead and send latest P.T/O.T. notes, which was done. Other option is home health, had Dr. Barlow go ahead and sign a face to face. P: DCP to continue to follow closely. Patient is not medically ready for discharge. Can look into skilled option, if [facility] will approve. Need to follow up with therapy notes, and Parvin, when she is closer to discharge. Have face to face should skilled not be an option. Shavon Alonzo RN/Back Line Cook
--- NOTE | 2018-10-22 11:02 | PM.PN.1 ---
Subjective Date Patient Seen: 10/22/18 Interval history: Patient is a 77-year-old female, with chronic respiratory failure, who has been here for several days with shortness of breath and wheezing. Overall she feels significantly improved. However the patient ambulated with physical therapy yesterday and desaturated on oxygen after walking 10 ft. She has to walk 60 ft to get from her garage to her home. The patient currently is clinically unable to do so. Her cough is improved. Her shortness of breath has improved. She is maintained on oxygen and doing well. Exam Vital Signs (past 8 hours): - 10/22/18 04:00 10/22/18 06:21 10/22/18 08:00 Temperature 98.0 F 97.4 F L Pulse Rate 69 72 77 Respiratory Rate 18 24 Blood Pressure 133/76 134/74 Pulse Oximetry 94 98 96 Oxygen Delivery Method Nasal Cannula Oxygen Flow Rate 2 Narrative Exam Narrative: Pleasant female resting comfortably in no obvious distress Lungs: Decreased breath sounds Has no wheezing crackles or rhonchi today Cardiac exam: Regular rate and rhythm normal S1-S2 Abdomen: Soft nontender nondistended without hepatosplenomegaly Extremities: No edema Objective Labs Result Diagrams: 10/21/18 Unknown 10/21/18 Unknown Labs: Laboratory Results - last 24 hr 10/21/18 10/21/18 Unknown Unknown WBC 15.8 H RBC 4.68 Hgb 13.8 Hct 41.1 MCV 87.8 MCH 29.5 MCHC 33.6 RDW 12.9 Plt Count 411 H Neut % (Auto) 89.5 H Lymph % (Auto) 4.3 L [place] % (Auto) 5.9 Eos % (Auto) 0.2 L Baso % (Auto) 0.1 Neut # (Auto) 28057 H Lymph # (Auto) 700 L [place] # (Auto) 900 Eos # (Auto) 0 Baso # (Auto) 0 Sodium 133 L Potassium 4.4 Chloride 87 L Carbon Dioxide 38 H BUN 27 H Creatinine 0.80 Estimated GFR > 60.0 BUN/Creatinine Ratio 33.8 H Glucose 159 H Calcium 9.0 Assessment & Plan (1) Hyponatremia: Problem details: Patient's sodium is 133. Will continue to monitor this closely. Current visit: Yes Status: Acute (2) Acute and chronic respiratory failure: Problem details: Patient is on oxygen and will continue treatment plan as outlined above. Will continue nebulizers oxygen and steroid. The patient will need daytime oxygen at home. Current visit: Yes Status: Acute (3) Ulcer of right leg: Problem details: Patient underwent debridement at the bedside yesterday. Wound care to be continued as written Current visit: Yes Status: Acute (4) Mass of left lung: Problem details: Patient has a known spiculated mass of the left upper lobe, present on admission. Arrangements have been made for outpatient evaluation at [facility]. Current visit: Yes Status: Acute (5) Pneumonia: Problem details: Patient with RSV pneumonia. Will continue current treatment plan. She has improved bronchospasm today. No evidence of bacterial pneumonia will discontinue antibiotics at this time Qualifiers: Aspiration pneumonia type: Laterality: unspecified laterality Lung location: unspecified part of lung Pneumonia type: due to unspecified organism Qualified Code(s): J18.9 - Pneumonia, unspecified organism Current visit: Yes Status: Acute (6) COPD exacerbation: Problem details: Continue steroids, nebulizers, and start inhaled steroids. In addition the patient will received Ativan to manage anxiety. Will switch methylprednisolone to oral prednisone and continue Ativan given complaints of anxiety. Current visit: Yes Status: Acute (7) Essential hypertension: Problem details: Will continue her usual antihypertensive therapy. Current visit: No Status: Chronic (8) Stage 3 chronic kidney disease: Problem details: No intervention needed Current visit: No Status: None Plan: Assessment/Plan Narrative: Continue physical therapy occupational therapy in the hospital. Patient may require senior living care at home if she continues to desaturate with minimal activity. Will continue therapies here in hopes that she may return home. Quality VTE Deep Vein Thrombosis/Pulmonary Embolism Present on Admission: No
--- NOTE | 2018-10-22 11:15 | PT.IPTN ---
Current Diagnoses Hypo-osmolality and hyponatremia (10/15/18) Essential (primary) hypertension (10/15/18) Pneumonia, unspecified organism (10/15/18) Chronic obstructive pulmonary disease with (acute) exacerbation (10/15/18) Acute and chronic respiratory failure, unspecified whether with hypoxia or hypercapnia (10/15/18) Non-pressure chronic ulcer of unspecified part of right lower leg with unspecified severity (10/15/18) Chronic kidney disease, stage 3 (moderate) (10/15/18) Other nonspecific abnormal finding of lung field (10/15/18) Physical Therapy Treatment Note M2 PT-IP Current Condition Start: 10/21/18 17:01 Freq: NEEDED Status: Active Protocol: Document 10/21/18 15:49 AB (Rec: 10/21/18 17:12 AB [id number]) Physical Therapy Current Condition Current Condition Evaluation Date 10/21/18 Treatment Diagnosis COPD exac; PNA; L lung mass; generalized weakness Onset Date 10/15/18 Precautions Other Precautions O2 sat: currently using 2L/min O2 droplet precautions M3 PT-IP Subjective Start: 10/21/18 17:01 Freq: NEEDED Status: Active Protocol: Document 10/22/18 11:04 GGD (Rec: 10/22/18 11:15 GGD [email or web address]) Subjective Physical Therapy Visit Type Type Treatment Note Visit Start Time 10:40 Visit Stop Time 11:05 Total Visit Minutes 25 Number of SECURITY OPERATIONS MANAGER Visits 1 Physical Therapy Visit Comments Patient Comments Pt willing to work with therapy. She feels she needs a walker for safety. M4 PT-IP Mobility and Gait Start: 10/21/18 17:01 Freq: NEEDED Status: Active Protocol: Document 10/22/18 11:04 GGD (Rec: 10/22/18 11:15 GGD [id number]) PT-Bed Mobility Assessment Supine to Sit Supine to Sit Standby Assistance Head of Bed Elevated Sit to Supine Sit to Supine Standby Assistance Head of Bed Elevated PT-Transfer Assessment Sit to and From Stand Sit to and from Stand Standby Assistance Equipment Transfer Assistive Device None Gait Belt Transfers Transfer Destination Bed Gait Assessment Gait Gait Assistance Required: Standby Assistance Distance (Feet) 30 Able to Maintain Weight Bearing Status Yes During Gait Assistive Devices Assistive Device None Gait Belt Front Wheeled Walker Orthotic/Prosthetic Devices or Brace: No Factors Limiting Gait Function Factors Limiting Gait Function Decreased Activity Tolerance Respiratory Distress Comments Gait Comments Pt ambulated 30 feet x 2 with seated rest break. O2 at rest on 2L at 94% with activity 88- 90% M5 PT-IP Objective Assessments Start: 10/21/18 17:01 Freq: NEEDED Status: Active Protocol: Document 10/21/18 15:49 AB (Rec: 10/21/18 17:12 AB [id number]) Orientation Orientation/Cognition Level of Alertness Alert Orientation Name Age Birthday Month Date Year Day of Week Place Situation Gross Range of Motion Lower Extremity ROM Assessment Within Functional Limits Strength Lower Extremity Strength Assessment Within Functional Limits Sensation Assessment Sensation Gross Sensation WNL Muscle Tone Muscle Tone WNL Yes M6 PT-IP Treatment Start: 10/21/18 17:01 Freq: NEEDED Status: Active Protocol: Document 10/21/18 15:49 AB (Rec: 10/21/18 17:12 AB [id number]) Physical Therapy Treatment Education Education Provided Precautions Safety M7 PT-IP Assessment and Plan Start: 10/21/18 17:01 Freq: NEEDED Status: Active Protocol: Document 10/22/18 11:04 GGD (Rec: 10/22/18 11:15 GGD [email or web address]) PT Summary Assessment and Plan Summary Assessment Summary Pt able to progress gait. She was stable with gait with FWW. She had improved O2 sats with decrease to 88% with activity . She will need walker if D/C home. Frequency of Treatment Frequency Of Treatment Once a Day Treatment Plan Physical Therapy Treatment Plan Bed Mobility Training Transfer Training Gait Training Therapeutic Exercise Balance Retraining Discharge Planning Neuromuscular Re-ed Coordination Retraining Other Recommendations and Next Treatment ambulation with 4WW Focus Recommendations To Nursing Amount of Assist Needed 1 Person Assist Discharge Recommendations Other Discharge Recommendations SNF vs home with 21/04 assist and homehealth PT : depending on progress
--- NOTE | 2018-10-22 14:04 | PC.NURSE ---
Pt continues to require O2 via NC with limited ability to ambulate due to shortness of breath.Pt refused shower with OT stating I will have one tomorrow.
--- NOTE | 2018-10-22 14:10 | OT.IP.TRT ---
Current Diagnoses Hypo-osmolality and hyponatremia (10/15/18) Essential (primary) hypertension (10/15/18) Pneumonia, unspecified organism (10/15/18) Chronic obstructive pulmonary disease with (acute) exacerbation (10/15/18) Acute and chronic respiratory failure, unspecified whether with hypoxia or hypercapnia (10/15/18) Non-pressure chronic ulcer of unspecified part of right lower leg with unspecified severity (10/15/18) Chronic kidney disease, stage 3 (moderate) (10/15/18) Other nonspecific abnormal finding of lung field (10/15/18) Occupational Therapy Treatment Note M2 OT-IP Current Condition Start: 10/22/18 08:55 Freq: Status: Active Protocol: Document 10/21/18 15:00 PJM (Rec: 10/22/18 09:19 PJM [id number]) Occupational Therapy Current Condition Current Condition Evaluation Date 10/21/18 Treatment Diagnosis decreased self care, mobility w/DX:of new lung mass,RSV PNA, COPD exacerb Diagnosis Onset Date 10/15/18 Post Operative Precautions Other Precautions monitor OT sats, pt on 2L O2 NC M3 OT- IP Subjective and Pain Start: 10/22/18 08:55 Freq: Status: Active Protocol: Document 10/22/18 14:10 MIKEY (Rec: 10/22/18 17: PJM [id number]) OT- Subjective Occupational Therapy Visit Type Type Treatment Note Visit Start Time 13:22 Visit Stop Time 14:10 Notes Pt agreeable to tx and motivated to increase activity tolerance. Occupational Therapy Visit Comments Patient Comments I think I want to go home not to the rehab place. Patient/Caregiver Goals to be independent with dressing, toileting and simple meal prep in her home OT Pain Assessment Pain When Pain Assessed After Treatment Pain Present Pain Present Denied Pain M4 OT- IP ADL's Start: 10/22/18 08:55 Freq: Status: Active Protocol: Document 10/22/18 14:10 PJRika (Rec: 10/22/18 17:19 PJM [id number]) OT [id number] General Evaluation Self-Feeding Ability Independent Comments OT Self-Feeding Comments pt reports no SOB during self feeding OT ADL-Grooming General Evaluation Grooming Ability Standby Assistance Areas Needing Assistance Combing/Brushing Hair Face Washing Comments OT Grooming Comments standing at sink for about 4 min today OT ADL-Toileting General Evaluation Toileting Ability Independent Areas Needing Assistance Manage Clothing Perform Perineal Hygiene OT ADL-Bathing Comments OT Bathing Comments pt would like to shower tomorrow AM M5 OT- IP IADL's Start: 10/22/18 08:55 Freq: Status: Active Protocol: Document 10/21/18 15:00 PJM (Rec: 10/22/18 09:19 [facility] [place] [id number]) OT-Instrumental Activities of Daily Living Deficits IADL Deficits Identified Deficits Home Safety Awareness Awareness of Need for Assistance at Home Good Awareness Ability to Problem Solve Emergency Able to Problem Solve Situations Medication Management Medication Management No Deficits Identified Money Management Money Management No Deficits Identified Meal Preparation Meal Preparation Caregiver Provides Assist Meal Preparation Comments pt states family can assist with meal prep PRN at home Drier Helper Drier Helper Caregiver Provides Assist Drier Helper Comments pt states family can assist PRN Driving Driving Caregiver Provides Assist Driving Comments pt states family can assist PRN M6 OT- IP Functional Cognition Start: 10/22/18 08:55 Freq: Status: Active Protocol: Document 10/21/18 15:00 PJM (Rec: 10/22/18 09:19 [facility] [place] [id number]) Cognitive Factors Limiting Selfcare Function Cognitive Ability Level of Alertness Alert Patient Orientation Name Age Birthday Month Date Year Day of Week Place Situation Attention Span Ability Capable of Focused Attention Capable of Sustained Attention Ability to Follow Commands Able to Follow One Step Commands Memory Description No Deficits Noted Safety Awareness Good safety awareness Problem Solving Ability Needs Assist to Identify Solutions Cognitive Comments Cognitive Assessment Comments Functional cognition appears WNL. M7 OT- IP Mobility and Balance Start: 10/22/18 08:55 Freq: Status: Active Protocol: Document 10/22/18 14:10 PJM (Rec: 10/22/18 17:19 [facility] [place] [id number]) OT- Bed Mobility Assessment Rolling Type of Rolling Roll to Right Level of Assistance Independent Head of Bed Elevated Supine to Sit Supine to Sit Assist Independent Head of Bed Elevated Sit to Supine Sit to Supine Assist Independent Head of Bed Elevated Scooting Scooting to Edge of Bed Independent OT-Transfer Assessment Sit to and From Stand Sit to and from Stand Standby Assistance Transfers Transfer Ability Standby Assistance Technique Transfer Destination Bed Chair Toilet Transfer Technique Stand Step Pivot Devices Transfer Assistive Devices Front Wheeled Walker Comments Mobility Comments No LOB noted; pt demonstrating good pacing with mobility this session OT- Gait Assessment Gait Gait Assistance Required: Standby Assistance Assistive Devices Assistive Device Front Wheeled Walker Comments Gait Ability Comments 10 ft to bathroom, seated rest, 10 ft to sink for standing grooming, seated rest then 25 ft + 30 ft with seated rest. O2 sats down to 86 with mobility with recovery in 10-15 sec to 88-90 with pursed lip breathing OT- Balance Assessment Sitting Balance and Reactions Static Sitting Balance Ability Good Dynamic Sitting Balance Ability Good Standing Balance and Reactions Static Standing Balance Ability Good Dynamic Standing Balance Ability Good Comments Other Balance Tests/Deviations/Treatment during lower body clothing : management and joe care M9 OT- IP Assessment and Plan Start: 10/22/18 08:55 Freq: Status: Active Protocol: Document 10/22/18 14:10 PJM (Rec: 10/22/18 17:19 PJM [id number]) OT Summary Assessment and Plan Summary OT Impairments Functional Mobility Bathing Shower Transfers Progress Towards Goals Progressing Toward Goals Assessment Summary Pt making daily improvement in activity tolerance with significantly increased ambulation distance today. She is walking to the bathroom ([address]), stood at sink for grooming. Provided education re: bathroom safety equipt options including bed side commode for use over toilet and this can also be used as shower seat in pt's shower stall if pt cannot find appropriate shower chair. Also recommend grab bars in shower stall and transport w/c for use in community and to MD appointments. Provided education re: emergency communication options for pt to contact family in downstairs apartment as cell phone coverage poor in their home. Pt plans to use paging option on her land line or [place] [facility]. Pt plans to borrow some equipt from [employer] if possible. Pt states her grandson's does not work, lives in downstairs apt in pt's home, and can check on pt several times/day. If pt d/c's home, recommend HH OT services. Goals Days to Meet Goals 3 Frequency of Treatment Frequency Of Treatment Once a Day Treatment Plan OT Treatment Plan ADL Training Functional Mobility Patient/Family Education Discharge Planning Discharge Recommendations OT Discharge Recommendations Home with Assistance Home Health Other Discharge Recommendations vs SNF pending continued progress Home Equipment Needs BSC over toilet, shower seat, grab bars in shower stall, transport w/c, fiber artist and long bath sponge
[2018-10-22] MEDS: LATANOPROST 0.005% OPHTH 2.5 ML 1 DROPS EYE-BOTH (20:03)
[2018-10-22] MEDS: ATORVASTATIN 10 MG TABLET PO (20:03)
[2018-10-22] MEDS: SENNOSIDES 8.6 MG TABLET 17.2 MG PO (20:03)
[2018-10-22] MEDS: LORazepam 0.5 MG TABLET PO (20:09)
[2018-10-23] VITALS (8 sets, daily range): BP systolic 121–152; BP diastolic 54–76; PULSE 68–86; RESP 16–20; TEMP 36.6–36.8; O2SAT 88–95
--- NOTE | 2018-10-23 01:37 | PC.NURSE ---
Addendum entered by Eboni Mercedes R.N. 10/23/18 05:47: Awake and coughing more frequently this morning. Coughing up frequent small amounts of white stringy mucous. O2 sat currently 93% on 2L/min oxygen. Denies pain. Original Note: Patient is alert and oriented. Breath sounds very diminished both inspiratory and expiratory and has expiratory wheezing in bilateral bases. Still with moist, loose cough which she states she still brings up white frothy sputum. Oxygen at 2L/min per NC (same as baseline) and sat is 96%. HRR. Denies nausea. BT present and abdomen is soft. Stress incontinence improving; denies dysuria, frequency or urgency. Turns self in bed. Up to bathroom with 1 assist and walker. Bruising bilateral UE. Venous discoloration bilateral LE. Dressing to anterior right LE is CDI. Denies pain. Fall risk score is moderate; bed alarm is activated. Remains on droplet isolation for RSV.
[2018-10-23] MEDS: ALBUTEROL 2.5 MG/3 ML NEB (ADULT) INH (04:20)
[2018-10-23 06:03] LABS: BUN Creatinine Ratio 31.4 (6-22); Blood Urea Nitrogen 22 mg/dL (7-17); Calcium 8.5 mg/dL (8.4-10.2); Carbon Dioxide 33 mmol/L (22-32); Chloride 93 mmol/L (98-107); Estimated Glomerular Filt Rate > 60.0 mL/min (>60); Glucose 81 mg/dL (80-110); HEMOLYSIS 27 (0-50); Potassium 4.3 mmol/L (3.4-5.1); Sodium 133 mmol/L (137-145)
[2018-10-23] MEDS: BUDESONIDE 120 PUFF/DEVICE INHALER INH (06:56)
[2018-10-23] MEDS: ALBUTEROL/IPRATROPIUM 3 ML AMPUL INH ×2 (06:56→11:11)
[2018-10-23] MEDS: ENOXAPARIN 40 MG/0.4 ML SYRINGE SUBCUT (08:39)
[2018-10-23] MEDS: METOPROLOL IR 50 MG TABLET PO (08:39)
[2018-10-23] MEDS: predniSONE 20 MG TABLET 40 MG PO (08:39)
[2018-10-23] MEDS: guaiFENesin ER 600 MG TAB PO (08:39)
[2018-10-23] MEDS: AMLODIPINE 5 MG TABLET PO (08:40)
[2018-10-23] MEDS: ASPIRIN EC 81 MG TABLET PO (08:40)
[2018-10-23] MEDS: SODIUM CHLORIDE 0.9% FLUSH 10 ML IV (08:40)
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
--- NOTE | 2018-10-23 09:02 | ST.IPSCREEN ---
Patient seen for swallow screening. She reports she does not feel she has a problem with her swallowing, rather she eats too fast which results in occasional regurgitation. She reports this happens a couple times a week and happens more with dryer textures, such as bread. She is not interested in further assessment of her swallowing and states she has lived with it for many years. Recommend she add extra moisture to dry foods and eat at a slow rate taking small bites/sips. D/c swallow evaluation orders.
--- NOTE | 2018-10-23 11:15 | PT.IPTN ---
Current Diagnoses Hypo-osmolality and hyponatremia (10/15/18) Essential (primary) hypertension (10/15/18) Pneumonia, unspecified organism (10/15/18) Chronic obstructive pulmonary disease with (acute) exacerbation (10/15/18) Acute and chronic respiratory failure, unspecified whether with hypoxia or hypercapnia (10/15/18) Non-pressure chronic ulcer of unspecified part of right lower leg with unspecified severity (10/15/18) Chronic kidney disease, stage 3 (moderate) (10/15/18) Other nonspecific abnormal finding of lung field (10/15/18) Physical Therapy Treatment Note M2 PT-IP Current Condition Start: 10/21/18 17:01 Freq: NEEDED Status: Discharge Protocol: Document 10/21/18 15:49 AB (Rec: 10/21/18 17:12 AB [id number]) Physical Therapy Current Condition Current Condition Evaluation Date 10/21/18 Treatment Diagnosis COPD exac; PNA; L lung mass; generalized weakness Onset Date 10/15/18 Precautions Other Precautions O2 sat: currently using 2L/min O2 droplet precautions M3 PT-IP Subjective Start: 10/21/18 17:01 Freq: NEEDED Status: Discharge Protocol: Document 10/23/18 11:15 GGD (Rec: 10/23/18 12:09 GGD [id number]) Subjective Physical Therapy Visit Type Type Treatment Note Visit Start Time 11:00 Visit Stop Time 11:15 Total Visit Minutes 15 Number of CODE AND TEST CLERK Visits 2 Physical Therapy Visit Comments Patient Comments Pt tired after her shower. M4 PT-IP Mobility and Gait Start: 10/21/18 17:01 Freq: NEEDED Status: Discharge Protocol: Document 10/23/18 11:15 GGD (Rec: 10/23/18 12:09 GGD [id number]) PT-Transfer Assessment Sit to and From Stand Sit to and from Stand Standby Assistance Equipment Transfer Assistive Device None Gait Belt Transfers Transfer Destination Bed Gait Assessment Gait Gait Assistance Required: Standby Assistance Distance (Feet) 30 Able to Maintain Weight Bearing Status Yes During Gait Assistive Devices Assistive Device None Gait Belt 4 Wheeled Walker Orthotic/Prosthetic Devices or Brace: No Factors Limiting Gait Function Factors Limiting Gait Function Decreased Activity Tolerance Respiratory Distress Comments Gait Comments O2 at rest 94% on 2L. with activity 89% on 2L. M5 PT-IP Objective Assessments Start: 10/21/18 17:01 Freq: NEEDED Status: Discharge Protocol: Document 10/21/18 15:49 AB (Rec: 10/21/18 17:12 AB [id number]) Orientation Orientation/Cognition Level of Alertness Alert Orientation Name Age Birthday Month Date Year Day of Week Place Situation Gross Range of Motion Lower Extremity ROM Assessment Within Functional Limits Strength Lower Extremity Strength Assessment Within Functional Limits Sensation Assessment Sensation Gross Sensation WNL Muscle Tone Muscle Tone WNL Yes M6 PT-IP Treatment Start: 10/21/18 17:01 Freq: NEEDED Status: Discharge Protocol: Document 10/23/18 11:15 GGD (Rec: 10/23/18 12:09 GGD [id number]) Physical Therapy Treatment Equipment Issued Equipment Type and Company 4WW M7 PT-IP Assessment and Plan Start: 10/21/18 17:01 Freq: NEEDED Status: Discharge Protocol: Document 10/23/18 11:15 GGD (Rec: 10/23/18 12:09 GGD [id number]) PT Summary Assessment and Plan Summary Assessment Summary Pt was safe and stable with gait with 4WW. She had no C/O of SOB with gait. Pt had good understanding of safety with 4WW. Frequency of Treatment Frequency Of Treatment Once a Day Treatment Plan Other Recommendations and Next Treatment ambulation with 4WW Focus Recommendations To Nursing Amount of Assist Needed 1 Person Assist Discharge Recommendations PT Discharge Recommendations Home with Assistance
--- NOTE | 2018-10-23 11:45 | PC.NURSE ---
Pt ready for discharge home with Son. Son brought clothes and oxygen concentrator. Went over d/c instructions with Pt and Son, discussed d/c meds, time of last dose, reviewed prednisone taper, and reviewed stroke education. Pt denies further questions and will be following up with Dr. Arnett on 10/30/18 at 1200. Pt out via w/c by EDUCATION PROFESSOR to POV with son and all belongings.
--- NOTE | 2018-10-23 12:28 | OT.IP.TRT ---
Current Diagnoses Hypo-osmolality and hyponatremia (10/15/18) Essential (primary) hypertension (10/15/18) Pneumonia, unspecified organism (10/15/18) Chronic obstructive pulmonary disease with (acute) exacerbation (10/15/18) Acute and chronic respiratory failure, unspecified whether with hypoxia or hypercapnia (10/15/18) Non-pressure chronic ulcer of unspecified part of right lower leg with unspecified severity (10/15/18) Chronic kidney disease, stage 3 (moderate) (10/15/18) Other nonspecific abnormal finding of lung field (10/15/18) Occupational Therapy Treatment Note M2 OT-IP Current Condition Start: 10/22/18 08:55 Freq: Status: Active Protocol: Document 10/21/18 15:00 PJM (Rec: 10/22/18 09:19 PJM [id number]) Occupational Therapy Current Condition Current Condition Evaluation Date 10/21/18 Treatment Diagnosis decreased self care, mobility w/DX:of new lung mass,RSV PNA, COPD exacerb Diagnosis Onset Date 10/15/18 Post Operative Precautions Other Precautions monitor OT sats, pt on 2L O2 NC M3 OT- IP Subjective and Pain Start: 10/22/18 08:55 Freq: Status: Active Protocol: Document 10/22/18 14:10 PJM (Rec: 10/22/18 17:19 PJM [id number]) OT- Subjective Occupational Therapy Visit Type Type Treatment Note Visit Start Time 13:22 Visit Stop Time 14:10 Notes Pt agreeable to tx and motivated to increase activity tolerance. Occupational Therapy Visit Comments Patient Comments I think I want to go home not to rehab place. Patient/Caregiver Goals to be independent with dressing, toileting and simple meal prep OT Pain Assessment Pain When Pain Assessed After Treatment Pain Present Pain Present Denied Pain M4 OT- IP ADL's Start: 10/22/18 08:55 Freq: Status: Active Protocol: Document 10/23/18 10:00 [facility] (Rec: 10/23/18 12:25 CCC [id number]) OT ADL-Dressing General Eval Lower Body Dressing Ability Maximum Assistance Areas Needing Assistance Underpants/Brief Socks Comments OT Dressing Comments Pt getting tired and needing MAXA for LB dressing needs, O2 drops to while on 2L to 83% and needing tmie to recover back to 90%. OT ADL-Bathing Bathing Type Bathing Type Shower General Evaluation Bathing Ability Moderate Assistance Areas Needing Assistance Retrieving/Setting Up Items Wash/Dry Upper Body Wash/Dry Lower Extremities Devices Bathing Equipment Hand Held Shower Sprayer Shower Chair with Arms Grab Bars Comments OT Bathing Comments Pt needing assist for to wash/ dry her back and legs. M5 OT- IP IADL's Start: 10/22/18 08:55 Freq: Status: Active Protocol: Document 10/21/18 15:00 PJM (Rec: 10/22/18 09:19 PJM [id number]) OT-Instrumental Activities of Daily Living Deficits IADL Deficits Identified Deficits Home Safety Awareness Awareness of Need for Assistance at Home Good Awareness Ability to Problem Solve Emergency Able to Problem Solve Situations Medication Management Medication Management No Deficits Identified Money Management Money Management No Deficits Identified Meal Preparation Meal Preparation Caregiver Provides Assist Meal Preparation Comments pt states family can assist with meal prep PRN at home Solaris Administrator Solaris Administrator Caregiver Provides Assist Solaris Administrator Comments pt states family can assist PRN Driving Driving Caregiver Provides Assist Driving Comments pt states family can assist PRN M6 OT- IP Functional Cognition Start: 10/22/18 08:55 Freq: Status: Active Protocol: Document 10/23/18 10:00 [facility] (Rec: 10/23/18 12:25 [facility] [id number]) Cognitive Factors Limiting Selfcare Function Cognitive Comments Cognitive Assessment Comments Functional cognition appears WNL. Good safety for 4WW, and ability to take rest breaks. M7 OT- IP Mobility and Balance Start: 10/22/18 08:55 Freq: Status: Active Protocol: Document 10/23/18 10:00 [facility] (Rec: 10/23/18 12:25 [facility] [id number]) OT- Bed Mobility Assessment Rolling Type of Rolling Roll to Right Level of Assistance Standby Assistance OT-Transfer Assessment Sit to and From Stand Sit to and from Stand Standby Assistance Transfers Transfer Ability Standby Assistance Technique Transfer Destination Bed Chair Shower Stall Toilet Transfer Technique Stand Step Pivot Devices Transfer Assistive Devices Front Wheeled Walker Comments Mobility Comments Pt able to show good safety for FWW and 4ww safety. OT- Gait Assessment Gait Gait Assistance Required: Standby Assistance Assistive Devices Assistive Device Front Wheeled Walker OT- Balance Assessment Sitting Balance and Reactions Static Sitting Balance Ability Good Dynamic Sitting Balance Ability Good Standing Balance and Reactions Static Standing Balance Ability Good Dynamic Standing Balance Ability Good M8 OT- IP Objective Assessments Start: 10/22/18 08:55 Freq: Status: Active Protocol: Document 10/21/18 15:00 PJM (Rec: 10/22/18 09:19 PJM [id number]) OT Gross Range of Motion Upper Extremity Range of Motion Assessment Within Functional Limits OT Strength Upper Extremity Strength Assessment Within Functional Limits Hand Senior Packaging Engineer Strength Hand Dominance Right OT- Coordination Assessment Comments Coordination Comments BUE WFL OT-Muscle Tone Assessment Muscle Tone WNL Yes OT Sensation Assessment Comments Summary Comments BUE WNL per pt Edema Edema Absent M9 OT- IP Assessment and Plan Start: 10/22/18 08:55 Freq: Status: Active Protocol: Document 10/23/18 10:00 CCC (Rec: 10/23/18 12:25 CCC [email or web address]) OT Summary Assessment and Plan Potential Rehabilitation Potential Good Analytic Complexity at Evaluation Low Summary OT Impairments Functional Mobility Bathing Progress Towards Goals Progressing Toward Goals Assessment Summary Pt making improvements with activity tolerance however still needing lots of rest breaks and now will benefit from 4WW to use at home. Goals Days to Meet Goals 1 Frequency of Treatment Frequency Of Treatment Once a Day Treatment Plan OT Treatment Plan Patient/Family Education Discharge Planning Discharge Recommendations OT Discharge Recommendations Home with Assistance Home Health Home Equipment Needs BSC over toilet, shower seat, grab bars in shower stall, transport w/c, bilingual interpreter and long bath sponge
== END 2018-10-23 11:47 | disposition home or self-care (01) | DRG 166 ==
LOC: ED 03:48 → AC 04:02
PROVIDERS: Internal Medicine; Admitting Provider Nurse Practitioner Gerontology; Emergency Provider Emergency Medicine; Family Provider Family Medicine; PCP Family Medicine; Visit Provider Nurse Practitioner Gerontology
DX: J12.1 Respiratory syncytial virus pneumonia (principal); J96.21 Acute and chronic respiratory failure with hypoxia; J44.1 Chronic obstructive pulmonary disease with (acute) exacerbation; E87.1 Hypo-osmolality and hyponatremia; Z99.81 Dependence on supplemental oxygen; I12.9 Hypertensive chronic kidney disease with stage 1 through stage 4 chronic kidney disease, or unspecified chronic kidney disease; N18.3 Chronic kidney disease, stage 3 (moderate); S81.811A Laceration without foreign body, right lower leg, initial encounter; Z87.891 Personal history of nicotine dependence; E78.5 Hyperlipidemia, unspecified; I25.10 Atherosclerotic heart disease of native coronary artery without angina pectoris; R91.8 Other nonspecific abnormal finding of lung field
CPT/HCPCS: 36415; 36591; 71045; 71275; 74018; 80048; 80053; 82550; 82962; 83605; 83735; 83880; 84145; 84484; 85025; 85610; 85730; 87040; 87400; 87633; 93005; 93010; 94640; 94667; 94668; 94760; 94762; 96365; 96366; 96367; 96375; 97116; 97162; 97165; 97530; 97535; 99284; 99285; J0696; J1650; J2270; J2930; J7613; Q9967

== ENCOUNTER 2022-07-23 12:36 | Inpatient (IN) | payer OTHER, SELFPAY ==
[2020-06-23 15:21] VITALS: BMI 26.6
[2022-07-23] VITALS (17 sets, daily range): BP systolic 132–152; BP diastolic 60–70; PULSE 75–92; RESP 16–22; TEMP 36.3–37.1; O2SAT 90–97; BMI 28.3
--- NOTE | 2022-07-23 13:06 | DI.RAD.S_ITS ---
PROCEDURE: XR CHEST 2V INDICATIONS: Cough w/hemoptysis, hx copd, lung ca TECHNIQUE: 2 views of the chest were acquired. COMPARISON: [facility], CR, XR CHEST 1 VIEW, 12/09/2018, 13:27. FINDINGS: Bibasilar patchy airspace opacities and increased interstitial markings, right greater than left. Mild cephalization of pulmonary vessels. Heart size is normal. Streaky fibrotic change in the medial lung apices presumably represents sequela prior radiation therapy. IMPRESSION: Bibasilar patchy mixed interstitial and airspace disease, right greater than left. Findings could be infectious although lymphangitic carcinomatosis could result in a similar appearance. 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 Dictated by: Vargas Dumont M.D. on 07/23/2022 at 14:01 Approved by: Vargas Dumont M.D. on 07/23/2022 at 14:04
[2022-07-23 13:20] LABS: Add Manual Diff / Slide Review NO; Basophils Absolute Auto 100 /uL (0-100); Basophils Percent Auto 0.4 % (0-2); Eosinophils Absolute Auto 100 /uL (0-450); Eosinophils Percent Auto 0.5 % (2-4); Hemoglobin 13.2 g/dL (12.0-16.0); Lymphocytes Absolute Auto 1000 /uL (1100-4500); Lymphocytes Percent Auto 6.9 % (25-40); Mean Corpuscular HGB Conc 33.9 % (30-36); Mean Corpuscular Hemoglobin 29.3 PG (26-34); Mean Corpuscular Volume 86.6 fL (80-100); Monocytes Absolute Auto 1100 /uL (0-900); Monocytes Percent Auto 8.1 % (3-14); Neutrophils Absolute Auto 11800 /uL (1500-7000); Neutrophils Percent Auto 84.1 % (50-75); Platelet Count 276 X10^3/uL (150-400); Red Blood Cell Count 4.51 X10^6/uL (4.0-5.2); Red Cell Distribution Width 13.4 % (11.6-14.8)
[2022-07-23 13:28] LABS: INR 1.2 (0.9-1.3); Prothrombin Time 13.7 SECONDS (10.1-12.7)
[2022-07-23 13:32] LABS: Lactate (Lactic Acid) 1.1 mmol/L (0.7-2.1)
[2022-07-23 13:34] LABS: Alanine Aminotransferase 19 IU/L (<35); Albumin 4.8 g/dL (3.5-5.0); Albumin Globulin Ratio 1.1 (1.0-2.8); Alkaline Phosphatase 99 U/L (38-126); Aspartate Aminotransferase 32 IU/L (14-36); BUN Creatinine Ratio 24.4 (6-22); Bilirubin Total 0.9 mg/dL (0.2-1.3); Blood Urea Nitrogen 22 mg/dL (7-17); C-Reactive Protein Quant 3.6 mg/dL (<1.0); Calcium 9.8 mg/dL (8.4-10.2); Carbon Dioxide 33 mmol/L (22-32); Chloride 91 mmol/L (98-107); Estimated Glomerular Filt Rate > 60 mL/min (>60); Globulin 4.3 g/dL (1.7-4.1); Glucose 112 mg/dL (80-110); HEMOLYSIS < 15 (0-50); Potassium 4.5 mmol/L (3.4-5.1); Sodium 135 mmol/L (137-145); Total Protein 9.1 g/dL (6.3-8.2)
--- NOTE | 2022-07-23 13:49 | ED.URI ---
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 She endorses rhinorrhea and a mild sore throat, denies any chest pain, dizziness, weakness, denies any fever or chills. Patient's son is at her bedside, states that she has had an upper respiratory cough the last few days, today with hemoptysis. Patient states it was a very small amount but has been coming up with her cough. She has had radiation 5 times for her lung carcinoma, she is not currently under any cancer treatment. Home medications include amlodipine, 81 mg of aspirin daily, atorvastatin, inhalers, metoprolol and verapamil. She is not on any anticoagulants. Her primary care provider is Dr. Arnett Related Data Home Medications Medication Instructions Recorded Confirmed fluticasone 250 mcg-salmeterol 50 1 inh inhalation BID 07/23/22 07/23/22 mcg/dose blistr powdr for inhalation (Wixela Inhub) travoprost 0.004 % eye drops 1 drp EYE-BOTH BEDTIME 07/24/22 07/24/22 Previous Rx's Medication Instructions Recorded metoprolol tartrate 50 mg tablet 50 mg PO BID #180 tabs 08/30/21 amlodipine 5 mg tablet (Norvasc) 5 mg PO QDAY #90 tabs 07/01/22 atorvastatin 10 mg tablet (Lipitor) 10 mg PO HS #90 tabs 07/01/22 verapamil 80 mg tablet 80 mg PO BID #60 tabs 07/02/22 ipratropium 20 mcg-albuterol 100 1 puff inhalation QID #4 grams 07/26/22 mcg/actuation mist for inhalation (Combivent Respimat) Allergies Allergy/AdvReac Type Severity Reaction Status Date / Time No Known Drug Allergies Allergy Verified 07/03/21 13:02 Review of Systems <HERNAN Can - Last Filed: 07/23/22 19:55> Review of Systems Narrative: Review of systems is negative for acute abnormalities unless otherwise noted in HPI Patient History <HERNAN Can - Last Filed: 07/23/22 19:55> Medical History CAD (coronary artery disease) (2000) CKD (chronic kidney disease) stage 3, GFR 30-59 ml/min COPD (chronic obstructive pulmonary disease) Hyperlipidemia Hypertension Surgical History Status post coronary artery stent placement (2000) Family History Daughter No problems noted. Social History marital status: household members: family, children and none Smoking Status: Former smoker alcohol intake: never substance use type: does not use Smoking Status: Former smoker Substance Use Type: does not use Exam <HERNAN Can - Last Filed: 07/23/22 19:55> Narrative Exam Narrative: Reviewed vitals signs and nursing notes. General: cooperative, comfortable, in no acute distress, well groomed, HEENT: symmetrical facial expressions, moist mucous membranes, mild scleral injection bilaterally, no sinus tenderness to palpation, rhinorrhea present, Cardiovascular: regular rate and rhythm, no peripheral edema, warm extremities, no dependent edema, afebrile currently Respiratory: Mildly increased effort effort, tachypneic, able to speak in complete sentences, productive cough, inspiratory/expiratory wheezes, stridor, or abnormal breath sounds. No retractions or tachypnea. GI: abdomen soft, nontender to palpation, nondistended, without masses, rebound tenderness or exquisite tenderness with exam. MSK: moves all extremities, neurovascularly intact, no weakness, normal tone Skin: brisk capillary refill, without pallor or erythema Neuro: normal speech and cognition, A&O x3, ambulatory, clear speech Psych: mental status is grossly normal, congruent mood, normal affect, pleasant and cooperative Initial Vital Signs Initial Vital Signs: Vital Signs Temperature 97.4 F L 07/23/22 12:47 Pulse Rate 84 07/23/22 12:47 Respiratory Rate 22 07/23/22 12:47 Blood Pressure 140/65 07/23/22 12:47 Pulse Oximetry 94 07/23/22 12:47 Oxygen Delivery Method 07/23/22 12:47 Oxygen Flow Rate 2 07/23/22 12:47 <Dulce Toth DO - Last Filed: 07/28/22 05:03> Initial Vital Signs Initial Vital Signs: Vital Signs Temperature 97.4 F L 07/23/22 12:47 Pulse Rate 84 07/23/22 12:47 Respiratory Rate 22 07/23/22 12:47 Blood Pressure 140/65 07/23/22 12:47 Pulse Oximetry 94 07/23/22 12:47 Oxygen Delivery Method 07/23/22 12:47 Oxygen Flow Rate 2 07/23/22 12:47 Scores <HERNAN Can - Last Filed: 07/23/22 19:55> CURB-65 Confusion: No BUN >19mg/dL (>7mmol/L): Yes Respiratory rate greater or equal to 30: Yes SBP <90mmHg or DBP less or equal to 60mmHg: No Age 65 or Older: Yes CURB-65 Total: 3 Score 0-1 Outpatient care, Score 2 Inpt vs. Obs, Score 3 or over Inpt admit with ICU for score of 4-5 <Dulce Toth DO - Last Filed: 07/28/22 05:03> CURB-65 CURB-65 Total: 3 Course <HERNAN Can - Last Filed: 07/23/22 19:55> Course Course Narrative: Patient reports that she did not have much improvement after a nebulizer although she did have wheezing just prior to. She remains tachypneic, respiratory rate 20 8-32, without hypoxia, O2 sat is hovering in the 95% range on 2 L. Orders Ordered: Discontinued Medications Acetaminophen (Acetaminophen 325 Mg Tablet) 650 mg PO Q6H PRN PRN Reason: Fever/Mild Pain (1-3) Albuterol (Albuterol 2.5 Mg/3 Ml Neb (Adult)) 20 mg INH RTBID PRN PRN Reason: wheezing Albuterol (Albuterol 2.5 Mg/3 Ml Neb (Adult)) 2.5 mg INH RTQ2HR PRN PRN Reason: Shortness Of Breath Albuterol/Ipratropium (Albuterol/Ipratropium 3 Ml Ampul) 3 ml INH NOW ONE Stop: 07/23/22 13:18 Last Admin: 07/23/22 14:09 Dose: 3 ml Documented By: LJ Albuterol/Ipratropium (Albuterol/Ipratropium 3 Ml Ampul) 3 ml INH RTQ6HR PRN PRN Reason: Shortness Of Breath Albuterol/Ipratropium (Albuterol/Ipratropium 3 Ml Ampul) 3 ml INH DAILY [facility]ACOS Albuterol/Ipratropium (Albuterol/Ipratropium 3 Ml Ampul) 3 ml INH [id number] TACOS Albuterol/Ipratropium (Albuterol/Ipratropium 3 Ml Ampul) 3 ml INH [id number] [facility] Last Admin: 07/25/22 12:44 Dose: 3 ml Documented By: Admin: 07/25/22 06:15 Dose: 3 ml Documented By: Admin: 07/24/22 19:12 Dose: 3 ml Documented By: Admin: 07/24/22 14:11 Dose: 3 ml Documented By: Admin: 07/24/22 07:37 Dose: 3 ml Documented By: LJ Amlodipine Besylate (Amlodipine 5 Mg Tablet) 5 mg PO DAILY [facility] Last Admin: 07/25/22 09:07 Dose: 5 mg Documented By: Admin: 07/24/22 08:11 Dose: 5 mg Documented By: LOKI Aspirin (Aspirin Ec 81 Mg Tablet) 81 mg PO DAILY [facility] Last Admin: 07/25/22 09:04 Dose: 81 mg Documented By: Admin: 07/24/22 08:11 Dose: 81 mg Documented By: LOKI Atorvastatin Calcium (Atorvastatin 20 Mg Tablet) 10 mg PO BEDTIME [facility] Last Admin: 07/24/22 20:20 Dose: 10 mg Documented By: Admin: 07/24/22 06:34 Dose: 10 mg Documented By: GRETA Azithromycin (Azithromycin 250 Mg Tablet) 500 mg PO DAILY [facility] Stop: 07/26/22 08:59 Last Admin: 07/25/22 09:04 Dose: 500 mg Documented By: Admin: 07/24/22 08:11 Dose: 500 mg Documented By: CM Enoxaparin Sodium (Enoxaparin 40 Mg/0.4 Ml Syringe) 40 mg SUBCUT DAILY [facility] Last Admin: 07/24/22 08:11 Dose: 40 mg Documented By: Admin: 07/23/22 17:57 Dose: 40 mg Documented By: TLS Sodium Chloride (Normal Saline 0.9%) 1,000 mls @ 1,000 mls/hr IV BOLUS ONE Stop: 07/23/22 16:01 Last Infusion: 07/23/22 17:37 Dose: 400 mls/hr Documented By: Admin: 07/23/22 15:36 Dose: 1,000 mls/hr Documented By: NR Levofloxacin (Levaquin) 750 mg in 150 mls @ 100 mls/hr IV NOW ONE Stop: 07/23/22 17:00 Last Infusion: 07/23/22 17:37 Dose: 0 mls/hr Documented By: Admin: 07/23/22 15:35 Dose: 100 mls/hr Documented By: NR Ceftriaxone Sodium 1,000 mg/ (Sodium Chloride) 100 mls @ 200 mls/hr IV Q24H TACOS Stop: 07/28/22 16:59 Last Infusion: 07/24/22 17:17 Dose: 0 mls/hr Documented By: Admin: 07/24/22 16:30 Dose: 200 mls/hr Documented By: LOKI Influenza Virus Vaccine (Influenza Hd Vaccine 0.7 Ml Syringe) 0.7 ml IM .ONCE ONE Stop: 07/26/22 09:01 Influenza Virus Vaccine (Influenza Vaccine Qiv 0.5 Ml Syringe) 0.5 ml IM .ONCE ONE Stop: 07/25/22 10:26 Last Admin: 07/25/22 11:25 Dose: 0.5 ml Documented By: EM Latanoprost (Latanoprost 0.005% Ophth 2.5 Ml) 1 drops EYE-BOTH BEDTIME [facility] Last Admin: 07/24/22 20:21 Dose: 1 drops Documented By: AM Melatonin (Melatonin 3 Mg Tablet) 6 mg PO BEDTIME PRN PRN Reason: Insomnia Methylprednisolone (Methylprednisolone 125 Mg/2 Ml Vial) 125 mg IV NOW ONE Stop: 07/23/22 16:24 Last Admin: 07/23/22 17:57 Dose: 125 mg Documented By: ADRIAN Metoprolol Tartrate (Metoprolol Ir 50 Mg Tablet) 50 mg PO BID [facility] Last Admin: 07/25/22 09:07 Dose: 50 mg Documented By: Admin: 07/24/22 20:21 Dose: 50 mg Documented By: Admin: 07/24/22 08:11 Dose: 50 mg Documented By: Admin: 07/23/22 21:11 Dose: 50 mg Documented By: GRETA Naloxone HCl (Naloxone 0.4 Mg/Ml Vial) 0.2 mg IV Q2MIN PRN PRN Reason: Opiate Reversal Polyethylene Glycol (Polyethylene Glycol 3350 17 Gm Powd.Pack) 17 gm PO DAILY PRN PRN Reason: Constipation Prednisone (Prednisone 20 Mg Tablet) 40 mg PO DAILY [facility] Stop: 07/28/22 08:59 Last Admin: 07/25/22 09:04 Dose: 40 mg Documented By: Admin: 07/24/22 08:11 Dose: 40 mg Documented By: LOKI Sennosides (Sennosides 8.6 Mg Tablet) 8.6 mg PO BID PRN PRN Reason: Constipation Verapamil HCl (Verapamil 80 Mg Tablet) 80 mg PO BID [facility] Last Admin: 07/25/22 09:06 Dose: 80 mg Documented By: Admin: 07/24/22 20:21 Dose: 80 mg Documented By: Admin: 07/24/22 08:12 Dose: 80 mg Documented By: Admin: 07/23/22 21:07 Dose: 80 mg Documented By: GRETA Consultations Consultation #1: Rechecked patient after her nebulizer, states that she feels mildly better but not severely, she appears to still have increased respiratory effort, supraclavicular retractions and tachypnea, her O2 was increased to 3 L per her demand, and she appears to be short of breath satting 91-92% on 3 L. Vital Signs Vital signs: Vital Signs - 8 hr 07/23/22 12:47 07/23/22 14:12 07/23/22 13:53 Temperature 97.4 F L Pulse Rate 84 83 Respiratory Rate 22 Blood Pressure 140/65 Pulse Oximetry 94 97 97 Oxygen Delivery Method Nasal Cannula Nasal Cannula Oxygen Flow Rate 2 2 07/23/22 14:00 07/23/22 14:30 07/23/22 15:00 Temperature Pulse Rate 83 85 75 Respiratory Rate Blood Pressure Pulse Oximetry 95 95 96 Oxygen Delivery Method Oxygen Flow Rate 07/23/22 15:33 07/23/22 15:43 07/23/22 15:43 Temperature Pulse Rate 79 78 Respiratory Rate Blood Pressure 152/67 H Pulse Oximetry 96 92 Oxygen Delivery Method Oxygen Flow Rate 07/23/22 16:00 Temperature Pulse Rate 78 Respiratory Rate Blood Pressure Pulse Oximetry 90 L Oxygen Delivery Method Oxygen Flow Rate <Dulce Toth, - Last Filed: 07/28/22 05:03> Orders Ordered: Discontinued Medications Acetaminophen (Acetaminophen 325 Mg Tablet) 650 mg PO Q6H PRN PRN Reason: Fever/Mild Pain (1-3) Albuterol (Albuterol 2.5 Mg/3 Ml Neb (Adult)) 20 mg INH RTBID PRN PRN Reason: wheezing Albuterol (Albuterol 2.5 Mg/3 Ml Neb (Adult)) 2.5 mg INH RTQ2HR PRN PRN Reason: Shortness Of Breath Albuterol/Ipratropium (Albuterol/Ipratropium 3 Ml Ampul) 3 ml INH NOW ONE Stop: 07/23/22 13:18 Last Admin: 07/23/22 14:09 Dose: 3 ml Documented By: LJ Albuterol/Ipratropium (Albuterol/Ipratropium 3 Ml Ampul) 3 ml INH RTQ6HR PRN PRN Reason: Shortness Of Breath Albuterol/Ipratropium (Albuterol/Ipratropium 3 Ml Ampul) 3 ml INH DAILY TACOS Albuterol/Ipratropium (Albuterol/Ipratropium 3 Ml Ampul) 3 ml INH [id number] TACOS Albuterol/Ipratropium (Albuterol/Ipratropium 3 Ml Ampul) 3 ml INH [id number] TACOS Last Admin: 07/25/22 12:44 Dose: 3 ml Documented By: Admin: 07/25/22 06:15 Dose: 3 ml Documented By: Admin: 07/24/22 19:12 Dose: 3 ml Documented By: Admin: 07/24/22 14:11 Dose: 3 ml Documented By: Admin: 07/24/22 07:37 Dose: 3 ml Documented By: LJ Amlodipine Besylate (Amlodipine 5 Mg Tablet) 5 mg PO DAILY [facility] Last Admin: 07/25/22 09:07 Dose: 5 mg Documented By: Admin: 07/24/22 08:11 Dose: 5 mg Documented By: LOKI Aspirin (Aspirin Ec 81 Mg Tablet) 81 mg PO DAILY [facility] Last Admin: 07/25/22 09:04 Dose: 81 mg Documented By: Admin: 07/24/22 08:11 Dose: 81 mg Documented By: CM Atorvastatin Calcium (Atorvastatin 20 Mg Tablet) 10 mg PO BEDTIME [facility] Last Admin: 07/24/22 20:20 Dose: 10 mg Documented By: Admin: 07/24/22 06:34 Dose: 10 mg Documented By: GRETA Azithromycin (Azithromycin 250 Mg Tablet) 500 mg PO DAILY [facility] Stop: 07/26/22 08:59 Last Admin: 07/25/22 09:04 Dose: 500 mg Documented By: Admin: 07/24/22 08:11 Dose: 500 mg Documented By: LOKI Enoxaparin Sodium (Enoxaparin 40 Mg/0.4 Ml Syringe) 40 mg SUBCUT DAILY [facility] Last Admin: 07/24/22 08:11 Dose: 40 mg Documented By: Admin: 07/23/22 17:57 Dose: 40 mg Documented By: ADRIAN Sodium Chloride (Normal Saline 0.9%) 1,000 mls @ 1,000 mls/hr IV BOLUS ONE Stop: 07/23/22 16:01 Last Infusion: 07/23/22 17:37 Dose: 400 mls/hr Documented By: Admin: 07/23/22 15:36 Dose: 1,000 mls/hr Documented By: NR Levofloxacin (Levaquin) 750 mg in 150 mls @ 100 mls/hr IV NOW ONE Stop: 07/23/22 17:00 Last Infusion: 07/23/22 17:37 Dose: 0 mls/hr Documented By: Admin: 07/23/22 15:35 Dose: 100 mls/hr Documented By: NR Ceftriaxone Sodium 1,000 mg/ (Sodium Chloride) 100 mls @ 200 mls/hr IV Q24H TACOS Stop: 07/28/22 16:59 Last Infusion: 07/24/22 17:17 Dose: 0 mls/hr Documented By: Admin: 07/24/22 16:30 Dose: 200 mls/hr Documented By: LOKI Influenza Virus Vaccine (Influenza Hd Vaccine 0.7 Ml Syringe) 0.7 ml IM .ONCE ONE Stop: 07/26/22 09:01 Influenza Virus Vaccine (Influenza Vaccine Qiv 0.5 Ml Syringe) 0.5 ml IM .ONCE ONE Stop: 07/25/22 10:26 Last Admin: 07/25/22 11:25 Dose: 0.5 ml Documented By: [place] Latanoprost (Latanoprost 0.005% Ophth 2.5 Ml) 1 drops EYE-BOTH BEDTIME [facility] Last Admin: 07/24/22 20:21 Dose: 1 drops Documented By: LIANA Melatonin (Melatonin 3 Mg Tablet) 6 mg PO BEDTIME PRN PRN Reason: Insomnia Methylprednisolone (Methylprednisolone 125 Mg/2 Ml Vial) 125 mg IV NOW ONE Stop: 07/23/22 16:24 Last Admin: 07/23/22 17:57 Dose: 125 mg Documented By: ADRIAN Metoprolol Tartrate (Metoprolol Ir 50 Mg Tablet) 50 mg PO BID [facility] Last Admin: 07/25/22 09:07 Dose: 50 mg Documented By: Admin: 07/24/22 20:21 Dose: 50 mg Documented By: Admin: 07/24/22 08:11 Dose: 50 mg Documented By: Admin: 07/23/22 21:11 Dose: 50 mg Documented By: GRETA Naloxone HCl (Naloxone 0.4 Mg/Ml Vial) 0.2 mg IV Q2MIN PRN PRN Reason: Opiate Reversal Polyethylene Glycol (Polyethylene Glycol 3350 17 Gm Powd.Pack) 17 gm PO DAILY PRN PRN Reason: Constipation Prednisone (Prednisone 20 Mg Tablet) 40 mg PO DAILY [facility] Stop: 07/28/22 08:59 Last Admin: 07/25/22 09:04 Dose: 40 mg Documented By: Admin: 07/24/22 08:11 Dose: 40 mg Documented By: LOKI Sennosides (Sennosides 8.6 Mg Tablet) 8.6 mg PO BID PRN PRN Reason: Constipation Verapamil HCl (Verapamil 80 Mg Tablet) 80 mg PO BID [facility] Last Admin: 07/25/22 09:06 Dose: 80 mg Documented By: Admin: 07/24/22 20:21 Dose: 80 mg Documented By: Admin: 07/24/22 08:12 Dose: 80 mg Documented By: Admin: 07/23/22 21:07 Dose: 80 mg Documented By: GRETA Vital Signs Vital signs: Vital Signs - 8 hr 07/23/22 12:47 07/23/22 14:12 07/23/22 13:53 Temperature 97.4 F L Pulse Rate 84 83 Respiratory Rate 22 Blood Pressure 140/65 Pulse Oximetry 94 97 97 Oxygen Delivery Method Nasal Cannula Nasal Cannula Oxygen Flow Rate 2 2 07/23/22 14:00 07/23/22 14:30 07/23/22 15:00 Temperature Pulse Rate 83 85 75 Respiratory Rate Blood Pressure Pulse Oximetry 95 95 96 Oxygen Delivery Method Oxygen Flow Rate 07/23/22 15:33 07/23/22 15:43 07/23/22 15:43 Temperature Pulse Rate 79 78 Respiratory Rate Blood Pressure 152/67 H Pulse Oximetry 96 92 Oxygen Delivery Method Oxygen Flow Rate 07/23/22 16:00 Temperature Pulse Rate 78 Respiratory Rate Blood Pressure Pulse Oximetry 90 L Oxygen Delivery Method Oxygen Flow Rate MDM - URI/Sore Throat <HERNAN Can - Last Filed: 07/23/22 19:55> Lab Data Result diagrams: 07/25/22 07:12 07/25/22 07:12 Labs: Lab Results 07/23/22 07/23/22 07/23/22 Range/Units 13:05 13:05 13:05 WBC 14.0 H (4.5-11.0) X10^3/uL RBC 4.51 (4.0-5.2) X10^6/uL Hgb 13.2 (12.0-16.0) g/dL Hct 39.0 (36-46) % MCV 86.6 (80-100) fL MCH 29.3 (26-34) PG MCHC 33.9 (30-36) % RDW 13.4 (11.6-14.8) % Plt Count 276 (150-400) X10^3/uL Neut % (Auto) 84.1 H (50-75) % Lymph % (Auto) 6.9 L (25-40) % [place] % (Auto) 8.1 (3-14) % Eos % (Auto) 0.5 L (2-4) % Baso % (Auto) 0.4 (0-2) % Neut # (Auto) 68887 H (9487-7936) /uL Lymph # (Auto) 1000 L (1866-0511) /uL [place] # (Auto) 1100 H (0-900) /uL Eos # (Auto) 100 (0-450) /uL Baso # (Auto) 100 (0-100) /uL PT 13.7 H (10.1-12.7) SECONDS INR 1.2 (0.9-1.3) Sodium 135 L (137-145) mmol/L Potassium 4.5 (3.4-5.1) mmol/L Chloride 91 L (98-107) mmol/L Carbon Dioxide 33 H (22-32) mmol/L BUN 22 H (7-17) mg/dL Creatinine 0.90 (0.52-1.04) mg/dL Estimated GFR > 60 (>60) mL/min BUN/Creatinine Ratio 24.4 H (6-22) Glucose 112 H (80-110) mg/dL Lactate (0.7-2.1) mmol/L Calcium 9.8 (8.4-10.2) mg/dL Magnesium (1.6-2.3) mg/dL Total Bilirubin 0.9 (0.2-1.3) mg/dL AST 32 (14-36) IU/L ALT 19 (<35) IU/L Alkaline Phosphatase 99 (38-126) U/L Total Creatine Kinase (30-135) U/L CK-MB (CK-2) (<2.37) ng/mL CK-MB (CK-2) Rel Index (1.5-5.0) % Troponin I (0.01-0.034) ng/mL C-Reactive Protein 3.6 H (<1.0) mg/dL NT-Pro-B Natriuret Pep (<450) pg/mL Total Protein 9.1 H (6.3-8.2) g/dL Albumin 4.8 (3.5-5.0) g/dL Globulin 4.3 H (1.7-4.1) g/dL Albumin/Globulin Ratio 1.1 (1.0-2.8) Procalcitonin (<0.5) ng/mL SARS-CoV-2 (PCR) (Negative) Influenza A (RT-PCR) (NEGATIVE) Influenza B (RT-PCR) (NEGATIVE) RSV (PCR) (Negative) 07/23/22 07/23/22 07/23/22 Range/Units 13:05 13:05 13:05 WBC (4.5-11.0) X10^3/uL RBC (4.0-5.2) X10^6/uL Hgb (12.0-16.0) g/dL Hct (36-46) % MCV (80-100) fL MCH (26-34) PG MCHC (30-36) % RDW (11.6-14.8) % Plt Count (150-400) X10^3/uL Neut % (Auto) (50-75) % Lymph % (Auto) (25-40) % [place] % (Auto) (3-14) % Eos % (Auto) (2-4) % Baso % (Auto) (0-2) % Neut # (Auto) (9006-6788) /uL Lymph # (Auto) (4659-2062) /uL [place] # (Auto) (0-900) /uL Eos # (Auto) (0-450) /uL Baso # (Auto) (0-100) /uL PT (10.1-12.7) SECONDS INR (0.9-1.3) Sodium (137-145) mmol/L Potassium (3.4-5.1) mmol/L Chloride (98-107) mmol/L Carbon Dioxide (22-32) mmol/L BUN (7-17) mg/dL Creatinine (0.52-1.04) mg/dL Estimated GFR (>60) mL/min BUN/Creatinine Ratio (6-22) Glucose (80-110) mg/dL Lactate 1.1 (0.7-2.1) mmol/L Calcium (8.4-10.2) mg/dL Magnesium 2.3 (1.6-2.3) mg/dL Total Bilirubin (0.2-1.3) mg/dL AST (14-36) IU/L ALT (<35) IU/L Alkaline Phosphatase (38-126) U/L Total Creatine Kinase 136 H (30-135) U/L CK-MB (CK-2) 3.07 H (<2.37) ng/mL CK-MB (CK-2) Rel Index 2.3 (1.5-5.0) % Troponin I < 0.012 (0.01-0.034) ng/mL C-Reactive Protein (<1.0) mg/dL NT-Pro-B Natriuret Pep (<450) pg/mL Total Protein (6.3-8.2) g/dL Albumin (3.5-5.0) g/dL Globulin (1.7-4.1) g/dL Albumin/Globulin Ratio (1.0-2.8) Procalcitonin 0.05 (<0.5) ng/mL SARS-CoV-2 (PCR) (Negative) Influenza A (RT-PCR) (NEGATIVE) Influenza B (RT-PCR) (NEGATIVE) RSV (PCR) (Negative) 07/23/22 07/23/22 Range/Units 13:05 13:56 WBC (4.5-11.0) X10^3/uL RBC (4.0-5.2) X10^6/uL Hgb (12.0-16.0) g/dL Hct (36-46) % MCV (80-100) fL MCH (26-34) PG MCHC (30-36) % RDW (11.6-14.8) % Plt Count (150-400) X10^3/uL Neut % (Auto) (50-75) % Lymph % (Auto) (25-40) % [place] % (Auto) (3-14) % Eos % (Auto) (2-4) % Baso % (Auto) (0-2) % Neut # (Auto) (7725-7569) /uL Lymph # (Auto) (8683-9692) /uL [place] # (Auto) (0-900) /uL Eos # (Auto) (0-450) /uL Baso # (Auto) (0-100) /uL PT (10.1-12.7) SECONDS INR (0.9-1.3) Sodium (137-145) mmol/L Potassium (3.4-5.1) mmol/L Chloride (98-107) mmol/L Carbon Dioxide (22-32) mmol/L BUN (7-17) mg/dL Creatinine (0.52-1.04) mg/dL Estimated GFR (>60) mL/min BUN/Creatinine Ratio (6-22) Glucose (80-110) mg/dL Lactate (0.7-2.1) mmol/L Calcium (8.4-10.2) mg/dL Magnesium (1.6-2.3) mg/dL Total Bilirubin (0.2-1.3) mg/dL AST (14-36) IU/L ALT (<35) IU/L Alkaline Phosphatase (38-126) U/L Total Creatine Kinase (30-135) U/L CK-MB (CK-2) (<2.37) ng/mL CK-MB (CK-2) Rel Index (1.5-5.0) % Troponin I (0.01-0.034) ng/mL C-Reactive Protein (<1.0) mg/dL NT-Pro-B Natriuret Pep 356 (<450) pg/mL Total Protein (6.3-8.2) g/dL Albumin (3.5-5.0) g/dL Globulin (1.7-4.1) g/dL Albumin/Globulin Ratio (1.0-2.8) Procalcitonin (<0.5) ng/mL SARS-CoV-2 (PCR) Negative (Negative) Influenza A (RT-PCR) Flu a negative (NEGATIVE) Influenza B (RT-PCR) Flu b negative (NEGATIVE) RSV (PCR) Negative (Negative) Imaging Data Chest x-ray: Radiologist's Impression: PROCEDURE:? XR CHEST 2V ? INDICATIONS:? Cough w/hemoptysis, hx copd, lung ca ? TECHNIQUE:? 2 views of the chest were acquired.? ? COMPARISON:? [facility], CR, XR CHEST 1 VIEW, 12/09/2018, 13:27. ? FINDINGS:? ? Bibasilar patchy airspace opacities and increased interstitial markings, right greater than left.? Mild cephalization of pulmonary vessels.? Heart size is normal.? Streaky fibrotic change in the medial lung apices presumably represents sequela prior radiation therapy. ? IMPRESSION: ? Bibasilar patchy mixed interstitial and airspace disease, right greater than left.? Findings could be infectious although lymphangitic carcinomatosis could result in a similar appearance.? ? Pulmonary radiation fibrotic changes are present in the suprahilar medial lung apices.? ? Dictated by: Vargas Dumont M.D. on 07/23/2022 at 14:01 ? ? Approved by: Vargas Dumont M.D. on 07/23/2022 at 14:04 ? chest cta: Radiologist's Impression: PROCEDURE:? CT ANGIO CHEST PE PROTOCOL ? INDICATIONS:? hemoptysis ? TECHNIQUE:? After the administration of intravenous contrast, 2 mm thick sections acquired from the pulmonary apices to the posterior costophrenic angles.? 3-dimensional maximum intensity projection (MIP) coronal and sagittal reformats were then acquired through the thorax.? For radiation dose reduction, the following was used:? automated exposure control, adjustment of mA and/or kV according to patient size.? ? COMPARISON:? [facility], CT, CT CHEST WITHOUT CONTRAST, 02/21/2021, 13:53.? [facility], CT, CT CHEST WITH CONTRAST, 08/18/2019, 13:37.? [facility], CT, CT ANGIO CHEST PE PROTOCOL, 10/15/2018, 2:31. ? FINDINGS:? Image quality:? Excellent.? ? Pulmonary arteries:? Pulmonary arteries are normal in size, and demonstrate no intraluminal filling defects to suggest central pulmonary embolism.? ? Lungs and pleura:? There is severe centrilobular emphysema present at the apices and bolus emphysema present throughout the upper and mid lungs.? Consolidative radiopacities are present at the posterior right lung base.? Probable atelectasis is present within the lingula.? There is a small low-density pleural effusion. ? Mediastinum:? Heart size is normal, without pericardial effusion.? No mediastinal or hilar adenopathy.? Thoracic aorta is normal in caliber and enhancement. Scattered atheromatous calcifications are present within the aortic arch.? Esophagus is normal in caliber, without hiatal hernia.? ? Bones and chest wall:? No suspicious bony lesions.? Ribs and thoracic spine appear intact throughout.? Thyroid gland is unremarkable.? No axillary or supraclavicular adenopathy.? ? Abdomen:? Visualized upper abdominal solid organs appear normal in the early arterial phase of enhancement.? ? IMPRESSION:? ? 1. No acute pulmonary embolus. ? 2. Right lower lung dependent airspace opacities suggesting aspiration or infection.? ? 3. Small right pleural effusion likely associated with right lower lobe pneumonia. ? 4. Left lingular atelectasis.? Finding may be associated with previously treated neoplasm in this region.? No definite mass-like recurrence visualized; however if further characterization is warranted, PET-CT or venous phase contrast enhanced CT could be used. ? ? ? Dictated by: Amita Amaya M.D. on 07/23/2022 at 15:58 ? ? Approved by: Amita Amaya M.D. on 07/23/2022 at 16:04 ? MDM Narrative Medical decision making narrative: This is a 81-year-old who was brought into the emergency department for evaluation of her shortness of breath which had become worse with a cough over the last 3 days. 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 Patient presented with tachypnea, increased respiratory effort, her baseline 2 L of nasal cannula O2 required increase to 3 L to maintain a O2 sat in the 90% range. She had inspiratory and expiratory wheezes, tachypnea, a productive cough, appears fatigued, she does have a leukocytosis but when compared with her prior labs this is consistent with all of her prior labs, WBC is 14.0, no anemia today, there is a left shift but also on her prior lab work there is typically a left shift. No electrolyte abnormalities, her BUN is elevated at 22, lactate is 1.1, magnesium is 2.3, no elevation to her total bilirubin, her CK-MB is 3.07, total CK is 136, troponin is 0.012, CRP is 3.6, BNP is 356, procalcitonin 0.05. Her respiratory panel including COVID and influenza a and B is negative. Her chest x-ray shows bibasilar patchy mixed interstitial and airspace disease greater on right than left. 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 Pulmonary radiation fibrotic changes are present in the suprahilar medial lung at apices. My differential at this point also included pulmonary embolism, patient presented with reported hemoptysis which was dark in color. This could be from her lung carcinoma but opted to complete a chest CTA to rule out pulmonary embolus. CTA shows no acute pulmonary embolus, right lower lung dependent airspace opacities suggesting aspiration or infection. A small right pleural effusion likely associated with right lower lobe pneumonia and left lingular atelectasis, finding may be associated with previously treated neoplasm in his region, no definitive masslike reoccurrence visualized. Discussion with the hospitalist, Dr. Mcdonald regarding patient's presentation and my concerns for her increased O2 with a small pleural effusion, he accepted her for inpatient admission for IV antibiotics. A full respiratory panel was ordered, 750 mg of IV Levaquin was administered with a normal saline bolus for dehydration. Patient reportedly feels better and consents to admission. She also states that she is a full code. Patient was informed of lab and imaging results, pertinent diagnoses, consulting physicians, and treatment plan. I have spoken with the patient in regard to admission, patient understands and agrees. I have communicated the patient's evaluation and treatment plan to the admitting physician who agrees with admission. All questions answered at this time. <Dulce Toth, DO - Last Filed: 07/28/22 05:03> Lab Data Labs: Lab Results 07/23/22 07/23/22 07/23/22 Range/Units 13:05 13:05 13:05 WBC 14.0 H (4.5-11.0) X10^3/uL RBC 4.51 (4.0-5.2) X10^6/uL Hgb 13.2 (12.0-16.0) g/dL Hct 39.0 (36-46) % MCV 86.6 (80-100) fL MCH 29.3 (26-34) PG MCHC 33.9 (30-36) % RDW 13.4 (11.6-14.8) % Plt Count 276 (150-400) X10^3/uL Neut % (Auto) 84.1 H (50-75) % Lymph % (Auto) 6.9 L (25-40) % [place] % (Auto) 8.1 (3-14) % Eos % (Auto) 0.5 L (2-4) % Baso % (Auto) 0.4 (0-2) % Neut # (Auto) 90583 H (8517-6843) /uL Lymph # (Auto) 1000 L (9670-6223) /uL [place] # (Auto) 1100 H (0-900) /uL Eos # (Auto) 100 (0-450) /uL Baso # (Auto) 100 (0-100) /uL PT 13.7 H (10.1-12.7) SECONDS INR 1.2 (0.9-1.3) Sodium 135 L (137-145) mmol/L Potassium 4.5 (3.4-5.1) mmol/L Chloride 91 L (98-107) mmol/L Carbon Dioxide 33 H (22-32) mmol/L BUN 22 H (7-17) mg/dL Creatinine 0.90 (0.52-1.04) mg/dL Estimated GFR > 60 (>60) mL/min BUN/Creatinine Ratio 24.4 H (6-22) Glucose 112 H (80-110) mg/dL Lactate (0.7-2.1) mmol/L Calcium 9.8 (8.4-10.2) mg/dL Magnesium (1.6-2.3) mg/dL Total Bilirubin 0.9 (0.2-1.3) mg/dL AST 32 (14-36) IU/L ALT 19 (<35) IU/L Alkaline Phosphatase 99 (38-126) U/L Total Creatine Kinase (30-135) U/L CK-MB (CK-2) (<2.37) ng/mL CK-MB (CK-2) Rel Index (1.5-5.0) % Troponin I (0.01-0.034) ng/mL C-Reactive Protein 3.6 H (<1.0) mg/dL NT-Pro-B Natriuret Pep (<450) pg/mL Total Protein 9.1 H (6.3-8.2) g/dL Albumin 4.8 (3.5-5.0) g/dL Globulin 4.3 H (1.7-4.1) g/dL Albumin/Globulin Ratio 1.1 (1.0-2.8) Procalcitonin (<0.5) ng/mL SARS-CoV-2 (PCR) (Negative) Influenza A (RT-PCR) (NEGATIVE) Influenza B (RT-PCR) (NEGATIVE) RSV (PCR) (Negative) 07/23/22 07/23/22 07/23/22 Range/Units 13:05 13:05 13:05 WBC (4.5-11.0) X10^3/uL RBC (4.0-5.2) X10^6/uL Hgb (12.0-16.0) g/dL Hct (36-46) % MCV (80-100) fL MCH (26-34) PG MCHC (30-36) % RDW (11.6-14.8) % Plt Count (150-400) X10^3/uL Neut % (Auto) (50-75) % Lymph % (Auto) (25-40) % [place] % (Auto) (3-14) % Eos % (Auto) (2-4) % Baso % (Auto) (0-2) % Neut # (Auto) (0981-1741) /uL Lymph # (Auto) (8595-0156) /uL [place] # (Auto) (0-900) /uL Eos # (Auto) (0-450) /uL Baso # (Auto) (0-100) /uL PT (10.1-12.7) SECONDS INR (0.9-1.3) Sodium (137-145) mmol/L Potassium (3.4-5.1) mmol/L Chloride (98-107) mmol/L Carbon Dioxide (22-32) mmol/L BUN (7-17) mg/dL Creatinine (0.52-1.04) mg/dL Estimated GFR (>60) mL/min BUN/Creatinine Ratio (6-22) Glucose (80-110) mg/dL Lactate 1.1 (0.7-2.1) mmol/L Calcium (8.4-10.2) mg/dL Magnesium 2.3 (1.6-2.3) mg/dL Total Bilirubin (0.2-1.3) mg/dL AST (14-36) IU/L ALT (<35) IU/L Alkaline Phosphatase (38-126) U/L Total Creatine Kinase 136 H (30-135) U/L CK-MB (CK-2) 3.07 H (<2.37) ng/mL CK-MB (CK-2) Rel Index 2.3 (1.5-5.0) % Troponin I < 0.012 (0.01-0.034) ng/mL C-Reactive Protein (<1.0) mg/dL NT-Pro-B Natriuret Pep (<450) pg/mL Total Protein (6.3-8.2) g/dL Albumin (3.5-5.0) g/dL Globulin (1.7-4.1) g/dL Albumin/Globulin Ratio (1.0-2.8) Procalcitonin 0.05 (<0.5) ng/mL SARS-CoV-2 (PCR) (Negative) Influenza A (RT-PCR) (NEGATIVE) Influenza B (RT-PCR) (NEGATIVE) RSV (PCR) (Negative) 07/23/22 07/23/22 Range/Units 13:05 13:56 WBC (4.5-11.0) X10^3/uL RBC (4.0-5.2) X10^6/uL Hgb (12.0-16.0) g/dL Hct (36-46) % MCV (80-100) fL MCH (26-34) PG MCHC (30-36) % RDW (11.6-14.8) % Plt Count (150-400) X10^3/uL Neut % (Auto) (50-75) % Lymph % (Auto) (25-40) % [place] % (Auto) (3-14) % Eos % (Auto) (2-4) % Baso % (Auto) (0-2) % Neut # (Auto) (6856-5608) /uL Lymph # (Auto) (6475-1478) /uL [place] # (Auto) (0-900) /uL Eos # (Auto) (0-450) /uL Baso # (Auto) (0-100) /uL PT (10.1-12.7) SECONDS INR (0.9-1.3) Sodium (137-145) mmol/L Potassium (3.4-5.1) mmol/L Chloride (98-107) mmol/L Carbon Dioxide (22-32) mmol/L BUN (7-17) mg/dL Creatinine (0.52-1.04) mg/dL Estimated GFR (>60) mL/min BUN/Creatinine Ratio (6-22) Glucose (80-110) mg/dL Lactate (0.7-2.1) mmol/L Calcium (8.4-10.2) mg/dL Magnesium (1.6-2.3) mg/dL Total Bilirubin (0.2-1.3) mg/dL AST (14-36) IU/L ALT (<35) IU/L Alkaline Phosphatase (38-126) U/L Total Creatine Kinase (30-135) U/L CK-MB (CK-2) (<2.37) ng/mL CK-MB (CK-2) Rel Index (1.5-5.0) % Troponin I (0.01-0.034) ng/mL C-Reactive Protein (<1.0) mg/dL NT-Pro-B Natriuret Pep 356 (<450) pg/mL Total Protein (6.3-8.2) g/dL Albumin (3.5-5.0) g/dL Globulin (1.7-4.1) g/dL Albumin/Globulin Ratio (1.0-2.8) Procalcitonin (<0.5) ng/mL SARS-CoV-2 (PCR) Negative (Negative) Influenza A (RT-PCR) Flu a negative (NEGATIVE) Influenza B (RT-PCR) Flu b negative (NEGATIVE) RSV (PCR) Negative (Negative) Discharge Plan Departure Patient Disposition: Admitted As Inpatient Clinical Impression: Pneumonia, History of COPD Admit Date/Time: 07/23/22 16:24 Admit Provider: Krunal Mcdonald <Dulce Toth DO - Last Filed: 07/28/22 05:03> Cosign ED Attending Funmilayo Attestation: I was immediately available in the department for consultation. Documentation has been reviewed. Case was discussed throughout care, plan for admission
[2022-07-23] MEDS: ALBUTEROL/IPRATROPIUM 3 ML AMPUL INH (14:09)
[2022-07-23 14:39] LABS: Creatine Kinase 136 U/L (30-135); Magnesium 2.3 mg/dL (1.6-2.3)
[2022-07-23 14:41] LABS: COVID-19 CEPHEID PCR (VTM/NP) Negative (Negative); Influenza A - CEPHEID Flu A NEGATIVE (NEGATIVE); Influenza B - CEPHEID Flu B NEGATIVE (NEGATIVE); Respiratory Syncytial Virus Negative (Negative)
[2022-07-23 14:52] LABS: Troponin I < 0.012 ng/mL (0.01-0.034)
[2022-07-23 14:54] LABS: CKMB % Relative Index 2.3 % (1.5-5.0); Creatine Kinase MB 3.07 ng/mL (<2.37)
[2022-07-23 14:57] LABS: Procalcitonin 0.05 ng/mL (<0.5)
--- NOTE | 2022-07-23 15:20 | DI.CT.S_ITS ---
PROCEDURE: CT ANGIO CHEST PE PROTOCOL INDICATIONS: hemoptysis TECHNIQUE: After the administration of intravenous contrast, 2 mm thick sections acquired from the pulmonary apices to the posterior costophrenic angles. 3-dimensional maximum intensity projection (MIP) coronal and sagittal reformats were then acquired through the thorax. For radiation dose reduction, the following was used: automated exposure control, adjustment of mA and/or kV according to patient size. COMPARISON: [facility], CT, CT CHEST WITHOUT CONTRAST, 02/21/2021, 13:53. [facility], CT, CT CHEST WITH CONTRAST, 08/18/2019, 13:37. [facility], CT, CT ANGIO CHEST PE PROTOCOL, 10/15/2018, 2:31. FINDINGS: Image quality: Excellent. Pulmonary arteries: Pulmonary arteries are normal in size, and demonstrate no intraluminal filling defects to suggest central pulmonary embolism. Lungs and pleura: There is severe centrilobular emphysema present at the apices and bolus emphysema present throughout the upper and mid lungs. Consolidative radiopacities are present at the posterior right lung base. Probable atelectasis is present within the lingula. There is a small low-density pleural effusion. Mediastinum: Heart size is normal, without pericardial effusion. No mediastinal or hilar adenopathy. Thoracic aorta is normal in caliber and enhancement. Scattered atheromatous calcifications are present within the aortic arch. Esophagus is normal in caliber, without hiatal hernia. Bones and chest wall: No suspicious bony lesions. Ribs and thoracic spine appear intact throughout. Thyroid gland is unremarkable. No axillary or supraclavicular adenopathy. Abdomen: Visualized upper abdominal solid organs appear normal in the early arterial phase of enhancement. IMPRESSION: 1. No acute pulmonary embolus. 2. Right lower lung dependent airspace opacities suggesting aspiration or infection. 3. Small right pleural effusion likely associated with right lower lobe pneumonia. 4. Left lingular atelectasis. Finding may be associated with previously treated neoplasm in this region. No definite mass-like recurrence visualized; however if further characterization is warranted, PET-CT or venous phase contrast enhanced CT could be used. Dictated by: Amita Amaya M.D. on 07/23/2022 at 15:58 Approved by: Amita Amaya M.D. on 07/23/2022 at 16:04
[2022-07-23] MEDS: levoFLOXacin 750 MG/150 ML PIGGYBACK 100 MG IV (15:35)
[2022-07-23] MEDS: SODIUM CHLORIDE 0.9% 1,000 ML 1000 ML IV (15:36)
--- NOTE | 2022-07-23 16:25 | PM.HP.1 ---
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 Patient states she initially developed blood-streaked sputum on 07/21 which progressed and became bright red with each cough. Denies any nosebleed. She said she felt like air wasn't moving through into her lungs as well. She was concerned so finally presented to the ED today. Has never had hemoptysis before. Patient previously hospitalized with RSV in Sep 2018 where she was first diagnosed with left upper lobe and left lingula spiculated mass with biopsies showing SCC. She subsequently underwent 5 rounds of radiation without chemo with shrinkage in the masses. She last had radiation in [address] Sutton a year ago. She is supposed to see him in clinic tomorrow on 07/24. She denies recent travel to area with tuberculosis, sick contacts, chest pain, [place], abd pain or diarrhea. Patient History Medical History CAD (coronary artery disease) (2000) CKD (chronic kidney disease) stage 3, GFR 30-59 ml/min COPD (chronic obstructive pulmonary disease) Hyperlipidemia Hypertension Surgical History Status post coronary artery stent placement (2000) Family & Social History Family History Daughter No problems noted. Social History: household members family Tobacco & Substance use: Smoking Status Former smoker alcohol intake never Substance Use Type does not use Meds Home Medications and Allergies Home Medications Medication Instructions Recorded Confirmed Type aspirin 81 mg tablet,delayed 81 mg PO DAILY 10/15/18 07/03/21 History release (Aspir-) metoprolol tartrate 50 mg tablet 50 mg PO BID #180 tabs 08/30/21 Rx ipratropium 20 mcg-albuterol 100 1 puff inhalation QID #4 grams 12/20/21 Rx mcg/actuation mist for inhalation (Combivent Respimat) amlodipine 5 mg tablet (Norvasc) 5 mg PO QDAY #90 tabs 07/01/22 Rx atorvastatin 10 mg tablet (Lipitor) 10 mg PO HS #90 tabs 07/01/22 Rx verapamil 80 mg tablet 80 mg PO BID #60 tabs 07/02/22 Rx fluticasone 250 mcg-salmeterol 50 inh inhalation BID 07/23/22 History mcg/dose blistr powdr for inhalation (Wixela Inhub) Allergies Allergy/AdvReac Type Severity Reaction Status Date / Time No Known Drug Allergies Allergy Verified 07/03/21 13:02 Review of Systems Review of Systems Narrative: All other systems reviewed with the patient and are negative unless otherwise stated. Exam Vital Signs (past 8 hours): - 07/23/22 12:47 07/23/22 14:12 Temperature 97.4 F L Pulse Rate 84 Respiratory Rate 22 Blood Pressure 140/65 Pulse Oximetry 94 97 Oxygen Delivery Method Nasal Cannula Nasal Cannula Oxygen Flow Rate 2 2 Oxygen Delivery Method Nasal Cannula Oxygen Flow Rate 2 Narrative Exam Narrative: GEN: no acute distress HEENT: moist mucous membranes, PERRL NECK: trachea midline, no JVD CV: regular rate and rhythm, no murmurs PULM: clear bilaterally ABD: soft, nontender, nondistended, no organomegaly EXT: warm and well perfused with no edema NEURO: awake, alert, oriented, no focal deficits Objective Labs Result Diagrams: 07/23/22 13:05 07/23/22 13:05 Labs: Laboratory Results - last 24 hr 07/23/22 07/23/22 07/23/22 13:05 13:05 13:05 WBC 14.0 H RBC 4.51 Hgb 13.2 Hct 39.0 MCV 86.6 MCH 29.3 MCHC 33.9 RDW 13.4 Plt Count 276 Neut % (Auto) 84.1 H Lymph % (Auto) 6.9 L [place] % (Auto) 8.1 Eos % (Auto) 0.5 L Baso % (Auto) 0.4 Neut # (Auto) 39040 H Lymph # (Auto) 1000 L [place] # (Auto) 1100 H Eos # (Auto) 100 Baso # (Auto) 100 PT 13.7 H INR 1.2 Sodium 135 L Potassium 4.5 Chloride 91 L Carbon Dioxide 33 H BUN 22 H Creatinine 0.90 Estimated GFR > 60 BUN/Creatinine Ratio 24.4 H Glucose 112 H Lactate Calcium 9.8 Magnesium Total Bilirubin 0.9 AST 32 ALT 19 Alkaline Phosphatase 99 Total Creatine Kinase CK-MB (CK-2) CK-MB (CK-2) Rel Index Troponin I C-Reactive Protein 3.6 H Total Protein 9.1 H Albumin 4.8 Globulin 4.3 H Albumin/Globulin Ratio 1.1 Procalcitonin SARS-CoV-2 (PCR) Influenza A (RT-PCR) Influenza B (RT-PCR) RSV (PCR) 07/23/22 07/23/22 07/23/22 13:05 13:05 13:05 WBC RBC Hgb Hct MCV MCH MCHC RDW Plt Count Neut % (Auto) Lymph % (Auto) [place] % (Auto) Eos % (Auto) Baso % (Auto) Neut # (Auto) Lymph # (Auto) [place] # (Auto) Eos # (Auto) Baso # (Auto) PT INR Sodium Potassium Chloride Carbon Dioxide BUN Creatinine Estimated GFR BUN/Creatinine Ratio Glucose Lactate 1.1 Calcium Magnesium 2.3 Total Bilirubin AST ALT Alkaline Phosphatase Total Creatine Kinase 136 H CK-MB (CK-2) 3.07 H CK-MB (CK-2) Rel Index 2.3 Troponin I < 0.012 C-Reactive Protein Total Protein Albumin Globulin Albumin/Globulin Ratio Procalcitonin 0.05 SARS-CoV-2 (PCR) Influenza A (RT-PCR) Influenza B (RT-PCR) RSV (PCR) 07/23/22 13:56 WBC RBC Hgb Hct MCV MCH MCHC RDW Plt Count Neut % (Auto) Lymph % (Auto) [place] % (Auto) Eos % (Auto) Baso % (Auto) Neut # (Auto) Lymph # (Auto) [place] # (Auto) Eos # (Auto) Baso # (Auto) PT INR Sodium Potassium Chloride Carbon Dioxide BUN Creatinine Estimated GFR BUN/Creatinine Ratio Glucose Lactate Calcium Magnesium Total Bilirubin AST ALT Alkaline Phosphatase Total Creatine Kinase CK-MB (CK-2) CK-MB (CK-2) Rel Index Troponin I C-Reactive Protein Total Protein Albumin Globulin Albumin/Globulin Ratio Procalcitonin SARS-CoV-2 (PCR) Negative Influenza A (RT-PCR) Flu a negative Influenza B (RT-PCR) Flu b negative RSV (PCR) Negative Assessment & Plan Assessment & Plan narrative: # acute hemoptysis -patient coughing up bloody sputum for 3 days, with history of lung cancer concern is for bronchogenic spread -CTA without PE or new masses, but possible RLL PNA -will consult Dr. Sutton tomorrow -obtain sputum sample -monitor for anemia # community acquired pneumonia with R parapneumonic effusion -CTA showed RLL opacities suggestive of aspiration vs pneumonia, possible cause of hemoptysis -WBC 14 but chronically high, procal 0.05 -resp viral panel pending from ED, patient recently vaccinated against flu per PCP chart notes -rocephin x5 days and azithro x3 days -check sputum culture # possible COPD exacerbation with chronic hypoxemic respiratory failure on 2-3L baseline -currently on 3L, continue supplemental O2 and titrate to keep >88% -patient with increased SOB, will cover for COPD exac to be safe -continue prednisone 40mg daily to complete 5 days -albuterol PRN along with patient's home combivent daily # 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 Sutton oncology -patient had 5 rounds of radiation which ended in 2019 -CTA chest with no hilar or lingular mass, but small lingular atelectasis likely related to previous lingular postradiation pneumonitis -will discuss with Dr. Sutton # CAD s/p ZENIA to LCA in 2000 -continue home aspirin and verapamil # HTN, chronic -continue home amlodipine # HLD, chronic -continue home lipitor Code status is full code. COVID negative. DVT prophylaxis with Lovenox. Proxy is Merle granddaughter. I have reviewed home meds and used all available resources to reconcile the home meds. This patient will be admitted as inpatient and will require greater than 2 midnights of hospital time to treat community-acquired pneumonia and possible COPD exacerbation. Time Spent With Patient Critical Care time: I spent a total of [] minutes of critical care time on this patient's care today; this time is exclusive of procedural time.
[2022-07-23 17:29] LABS: NT-proBNP (BNP-Adult 18+) 356 pg/mL (<450)
[2022-07-23] MEDS: methylPREDNISolone 125 MG/2 ML VIAL IV (17:57)
[2022-07-23] MEDS: ENOXAPARIN 40 MG/0.4 ML SYRINGE SUBCUT (17:57)
[2022-07-23] MEDS: VERAPAMIL 80 MG TABLET PO (21:07)
[2022-07-23] MEDS: METOPROLOL IR 50 MG TABLET PO (21:11)
[2022-07-24] VITALS (11 sets, daily range): BP systolic 91–144; BP diastolic 53–66; PULSE 58–82; RESP 17–24; TEMP 35.4–36.9; O2SAT 93–100
[2022-07-24 02:24] LABS: Appearance Urine UA CLEAR; Bilirubin Urine UA NEGATIVE (NEGATIVE); Color Urine UA YELLOW; Glucose Urine UA NEGATIVE (Negative); Ketones Urine UA 1+ (NEGATIVE); Leukocyte Esterase Urine UA NEGATIVE (NEGATIVE); Nitrite Urine UA POSITIVE (Negative); Occult Blood Urine UA 1+ (Negative); Protein Urine UA NEGATIVE (Negative); Urobilinogen Urine UA 0.2 E.U./dL (0.2)
[2022-07-24 02:36] LABS: Bacteria Urine Many (>30); Culture Indicated Urine Specimen Cultured; RBC Urine 0-1/HPF (0-5/HPF); Squamous Epithelial Cell Urine 1-5 /HPF (0-5/HPF); WBC Urine 5-10/HPF (0-5/HPF)
[2022-07-24] MEDS: ATORVASTATIN 20 MG TABLET 10 MG PO ×2 (06:34→20:20)
[2022-07-24] MEDS: ALBUTEROL/IPRATROPIUM 3 ML AMPUL INH ×3 (07:37→19:12)
--- NOTE | 2022-07-24 07:48 | P.PN_ITS ---
Subjective Subjective Date Patient Seen: 07/24/22 Time Patient Seen: 11:00 Interval history: Feeling better today, but still with intermittent hemoptysis of bloody sputum. Hgb has remained stable. Still on 2-3L O2 NC. Exam Vital Signs (past 8 hours): - 07/24/22 04:00 07/24/22 07:37 Temperature 98.1 F Pulse Rate 73 Respiratory Rate 20 Blood Pressure 126/58 L Pulse Oximetry 93 94 Oxygen Delivery Method Nasal Cannula Oxygen Flow Rate 3 3 Oxygen Delivery Method Nasal Cannula Oxygen Flow Rate 3 Narrative Exam Narrative: GEN: no acute distress, elderly with supp O2 in place HEENT: moist mucous membranes, PERRL NECK: trachea midline, no JVD CV: regular rate and rhythm, no murmurs PULM: clear bilaterally, faint wheezes resolved ABD: soft, nontender, nondistended, no organomegaly EXT: warm and well perfused with no edema NEURO: awake, alert, oriented, no focal deficits Objective Labs Result Diagrams: 07/24/22 07:20 07/24/22 07:20 Labs: Laboratory Results - last 24 hr 07/23/22 07/23/22 07/23/22 13:05 13:05 13:05 WBC 14.0 H RBC 4.51 Hgb 13.2 Hct 39.0 MCV 86.6 MCH 29.3 MCHC 33.9 RDW 13.4 Plt Count 276 Neut % (Auto) 84.1 H Lymph % (Auto) 6.9 L [place] % (Auto) 8.1 Eos % (Auto) 0.5 L Baso % (Auto) 0.4 Neut # (Auto) 72920 H Lymph # (Auto) 1000 L [place] # (Auto) 1100 H Eos # (Auto) 100 Baso # (Auto) 100 PT 13.7 H INR 1.2 Sodium 135 L Potassium 4.5 Chloride 91 L Carbon Dioxide 33 H BUN 22 H Creatinine 0.90 Estimated GFR > 60 BUN/Creatinine Ratio 24.4 H Glucose 112 H Lactate Calcium 9.8 Magnesium Total Bilirubin 0.9 AST 32 ALT 19 Alkaline Phosphatase 99 Total Creatine Kinase CK-MB (CK-2) CK-MB (CK-2) Rel Index Troponin I C-Reactive Protein 3.6 H NT-Pro-B Natriuret Pep Total Protein 9.1 H Albumin 4.8 Globulin 4.3 H Albumin/Globulin Ratio 1.1 Procalcitonin Urine Color Urine Appearance Urine pH Ur Specific [place] Urine Protein Urine Glucose (UA) Urine Ketones Urine Occult Blood Urine Nitrate Urine Bilirubin Urine Urobilinogen Ur Leukocyte Esterase Urine RBC Urine WBC Ur Squamous Epith Cells Urine Bacteria Ur Culture Indicated? SARS-CoV-2 (PCR) Influenza A (RT-PCR) Influenza B (RT-PCR) RSV (PCR) 07/23/22 07/23/22 07/23/22 13:05 13:05 13:05 WBC RBC Hgb Hct MCV MCH MCHC RDW Plt Count Neut % (Auto) Lymph % (Auto) [place] % (Auto) Eos % (Auto) Baso % (Auto) Neut # (Auto) Lymph # (Auto) [place] # (Auto) Eos # (Auto) Baso # (Auto) PT INR Sodium Potassium Chloride Carbon Dioxide BUN Creatinine Estimated GFR BUN/Creatinine Ratio Glucose Lactate 1.1 Calcium Magnesium 2.3 Total Bilirubin AST ALT Alkaline Phosphatase Total Creatine Kinase 136 H CK-MB (CK-2) 3.07 H CK-MB (CK-2) Rel Index 2.3 Troponin I < 0.012 C-Reactive Protein NT-Pro-B Natriuret Pep Total Protein Albumin Globulin Albumin/Globulin Ratio Procalcitonin 0.05 Urine Color Urine Appearance Urine pH Ur Specific [place] Urine Protein Urine Glucose (UA) Urine Ketones Urine Occult Blood Urine Nitrate Urine Bilirubin Urine Urobilinogen Ur Leukocyte Esterase Urine RBC Urine WBC Ur Squamous Epith Cells Urine Bacteria Ur Culture Indicated? SARS-CoV-2 (PCR) Influenza A (RT-PCR) Influenza B (RT-PCR) RSV (PCR) 07/23/22 07/23/22 07/24/22 13:05 13:56 02:07 WBC RBC Hgb Hct MCV MCH MCHC RDW Plt Count Neut % (Auto) Lymph % (Auto) [place] % (Auto) Eos % (Auto) Baso % (Auto) Neut # (Auto) Lymph # (Auto) [place] # (Auto) Eos # (Auto) Baso # (Auto) PT INR Sodium Potassium Chloride Carbon Dioxide BUN Creatinine Estimated GFR BUN/Creatinine Ratio Glucose Lactate Calcium Magnesium Total Bilirubin AST ALT Alkaline Phosphatase Total Creatine Kinase CK-MB (CK-2) CK-MB (CK-2) Rel Index Troponin I C-Reactive Protein NT-Pro-B Natriuret Pep 356 Total Protein Albumin Globulin Albumin/Globulin Ratio Procalcitonin Urine Color Yellow Urine Appearance Clear Urine pH 5.0 Ur Specific [place] 1.010 Urine Protein Negative Urine Glucose (UA) Negative Urine Ketones 1+ H Urine Occult Blood 1+ H Urine Nitrate Positive H Urine Bilirubin Negative Urine Urobilinogen 0.2 Ur Leukocyte Esterase Negative Urine RBC 0-1/hpf Urine WBC 5-10/hpf H Ur Squamous Epith Cells 1-5 /hpf Urine Bacteria Many (>30) H Ur Culture Indicated? Specimen cultured SARS-CoV-2 (PCR) Negative Influenza A (RT-PCR) Flu a negative Influenza B (RT-PCR) Flu b negative RSV (PCR) Negative [facility] Medical History CAD (coronary artery disease) (2000) CKD (chronic kidney disease) stage 3, GFR 30-59 ml/min COPD (chronic obstructive pulmonary disease) Hyperlipidemia Hypertension Surgical History Status post coronary artery stent placement (2000) Family History Daughter No problems noted. Social History marital status: household members: family, children and none Smoking Status: Former smoker alcohol intake: never substance use type: does not use Assessment & Plan Assessment & Plan narrative: # acute hemoptysis -patient coughing up bloody sputum for 3 days, with history of lung cancer concern is for bronchogenic spread -CTA without PE or new masses, but possible RLL PNA -spoke with Dr. Sutton and Dr. Weems who recommended outpatient PET scan and possible bronchoscopy -f/u sputum sample -monitor for anemia # community acquired pneumonia with R parapneumonic effusion -CTA showed RLL opacities suggestive of aspiration vs pneumonia, possible cause of hemoptysis -resp viral panel neg, patient recently vaccinated against flu per PCP chart notes -rocephin x5 days and azithro x3 days -sputum culture pending # possible COPD exacerbation with chronic hypoxemic respiratory failure on 2-3L baseline -currently on 3L, continue supplemental O2 and titrate to keep >88% -patient with increased SOB, will cover for COPD exac to be safe -continue prednisone 40mg daily to complete 5 days -albuterol PRN along with patient's home combivent daily # 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 Sutton oncology -patient had 5 rounds of radiation which ended in 2019 -CTA chest with no hilar or lingular mass, but small lingular atelectasis likely related to previous lingular postradiation pneumonitis -Dr. Weems CT surgeon who performed her mass biopsy reviewed CT chest and noted some mildly enlarged mediastinal lymph nodes so recommended PET scan, will f/u with her in clinic for possible bronch -Dr. Sutton to order outpatient PET and will see pt in clinic on Aug 02 # CAD s/p ZENIA to LCA in 2000 -continue home aspirin and verapamil # HTN, chronic -continue home amlodipine # HLD, chronic -continue home lipitor Code status is full code. COVID negative. DVT prophylaxis with SCD's. Proxy is Merle granddaughter. I have reviewed home meds and used all available resources to reconcile the home meds. This patient will be admitted as inpatient and will require greater than 2 midnights of hospital time to treat community-acquired pneumonia and possible COPD exacerbation. Time Spent With Patient Critical Care time: I spent a total of [] minutes of critical care time on this patient's care today; this time is exclusive of procedural time. Quality VTE Deep Vein Thrombosis/Pulmonary Embolism Present on Admission: No
[2022-07-24 07:56] LABS: Add Manual Diff / Slide Review NO; Basophils Absolute Auto 0 /uL (0-100); Basophils Percent Auto 0.2 % (0-2); Eosinophils Absolute Auto 0 /uL (0-450); Eosinophils Percent Auto 0.1 % (2-4); Hematocrit 37.3 % (36-46); Hemoglobin 12.6 g/dL (12.0-16.0); Lymphocytes Absolute Auto 600 /uL (1100-4500); Mean Corpuscular HGB Conc 33.7 % (30-36); Mean Corpuscular Hemoglobin 29.1 PG (26-34); Mean Corpuscular Volume 86.3 fL (80-100); Monocytes Absolute Auto 100 /uL (0-900); Monocytes Percent Auto 0.8 % (3-14); Neutrophils Absolute Auto 6400 /uL (1500-7000); Neutrophils Percent Auto 89.9 % (50-75); Platelet Count 250 X10^3/uL (150-400); Red Blood Cell Count 4.32 X10^6/uL (4.0-5.2); Red Cell Distribution Width 13.2 % (11.6-14.8); White Blood Cell Count 7.1 X10^3/uL (4.5-11.0)
[2022-07-24 07:59] LABS: Blood Urea Nitrogen 20 mg/dL (7-17); Calcium 9.6 mg/dL (8.4-10.2); Carbon Dioxide 28 mmol/L (22-32); Chloride 95 mmol/L (98-107); Estimated Glomerular Filt Rate > 60 mL/min (>60); Glucose 159 mg/dL (80-110); HEMOLYSIS 17 (0-50); Potassium 4.9 mmol/L (3.4-5.1); Sodium 136 mmol/L (137-145)
[2022-07-24] MEDS: ASPIRIN EC 81 MG TABLET PO (08:11)
[2022-07-24] MEDS: METOPROLOL IR 50 MG TABLET PO ×2 (08:11→20:21)
[2022-07-24] MEDS: predniSONE 20 MG TABLET 40 MG PO (08:11)
[2022-07-24] MEDS: AZITHROMYCIN 250 MG TABLET 500 MG PO (08:11)
[2022-07-24] MEDS: ENOXAPARIN 40 MG/0.4 ML SYRINGE SUBCUT (08:11)
[2022-07-24] MEDS: AMLODIPINE 5 MG TABLET PO (08:11)
[2022-07-24] MEDS: VERAPAMIL 80 MG TABLET PO ×2 (08:12→20:21)
[2022-07-24 09:04] LABS: Adenovirus Not Detected (Not Detect); B. parapertussis Not Detected (Not Detecte); Bordetella pertussis Not Detected (Not Detecte); Chlamydophila pneumoniae Not Detected (Not Detect); Coronavirus 229E Not Detected (Not Detect); Coronavirus HKU1 Not Detected (Not Detect); Coronavirus NL 63 Not Detected (Not Detect); Coronavirus OC43 Not Detected (Not Detect); Human Metapneumovirus Not Detected (Not Detect); Human Rhinovirus/Enterovirus Not Detected (Not Detect); Influenza A Not Detected (Not Detect); Influenza B Not Detected (Not Detect); Mycoplasma pneumoniae Not Detected (Not Detect); Parainfluenza Virus 1 Not Detected (Not Detect); Parainfluenza Virus 2 Not Detected (Not Detect); Parainfluenza Virus 3 Not Detected (Not Detect); Parainfluenza Virus 4 Not Detected (Not Detect); Respiratory Syncytial Virus Not Detected (Not Detect); SARS- CoV-2 Not Detected (Not Detecte)
--- NOTE | 2022-07-24 11:17 | OT.IP.EVAL ---
Current Diagnoses Pneumonia, unspecified organism (07/23/22) Past Medical History (Last Reviewed 07/23/22 @ 14:05 by HERNAN Can) CAD (coronary artery disease) (2000) CKD (chronic kidney disease) stage 3, GFR 30-59 ml/min COPD (chronic obstructive pulmonary disease) Hyperlipidemia Hypertension Surgical History (Last Reviewed 07/23/22 @ 14:05 by HERNAN Can) Status post coronary artery stent placement (2000) Occupational Therapy Inpatient Evaluation/Re-Eval M1 PT/OT-IP Prior Functional Status Start: 07/24/22 11:31 Freq: NEEDED Status: Active Protocol: Document 07/24/22 10:35 [facility] (Rec: 07/24/22 12:02 [facility] [id number]) Medical Review Prior Functional Status Communication independent Mobility and Gait Pt states has a 4ww but does not use it in the house. Activities of Daily Living and IADL's Pt states able to do all her ADL's with increased time. Pt wears O2 at home 2-3L at all times. Social History Household Members family Living Arrangements House Comment Pt's grandson, his and 3 kids lives downstairs. Number of Stairs To Enter/Railing? Pt has multiple concrete steps spread out prior to getting into the house with left rails on the various sets of steps going into the house. Home Environment Standard Height Toilet,Walk in Shower Home Equipment Four Wheel Walker,Raised Toilet Seat w/Armrests,Shower Seat without Backrest,Hand Held Shower,Button Decorating Machine Operator,Grab Bars Near Toilet Additional Social History Comment Pt has a barrett bed and gets out of the right side. M2 OT-IP Current Condition Start: 07/24/22 11:31 Freq: Status: Active Protocol: Document 07/24/22 10:35 [facility] (Rec: 07/24/22 12:02 [facility] [id number]) Occupational Therapy Current Condition Current Condition Evaluation Date 07/24/22 Treatment Diagnosis PNA Diagnosis Onset Date 07/23/22 M3 OT- IP Subjective and Pain Start: 07/24/22 11:31 Freq: Status: Active Protocol: Document 07/24/22 10:35 [facility] (Rec: 07/24/22 12:02 [facility] [id number]) OT- Subjective Occupational Therapy Visit Type Type Initial Evaluation Visit Start Time 10:35 Visit Stop Time 11:17 Total Visit Minutes 42 Occupational Therapy Visit Comments Patient Comments Pt initially too tired to get up , but agreed to get up to the bathroom. Patient/Caregiver Goals To go home. M4 OT- IP ADL's Start: 07/24/22 11:31 Freq: Status: Active Protocol: Document 07/24/22 10:35 [facility] (Rec: 07/24/22 12:02 [facility] [id number]) OT [id number] Comments OT Self-Feeding Comments Not at meal time. OT ADL-Grooming General Evaluation Grooming Ability Standby Assistance Areas Needing Assistance Retrieving/Set-up of Grooming Items Comments OT Grooming Comments Pt states washed her face prior. OT ADL-Oral Care Comments Oral Care Comments Pt at this time too tired to stand at the sink and but agreed to rinse her mouth out with mouth wash while seated at the edge of the bed. Suggested pt to use her 4ww to sit for her grooming/oral care needs. OT ADL-Dressing General Eval Lower Body Dressing Ability Maximum Assistance Comments OT Dressing Comments Assist to chula/doff her socks, pt just wears slippers at home. OT ADL-Toileting General Evaluation Toileting Ability Standby Assistance Comments OT Toileting Comments Pt able to change out her pad and do her own hygiene on her own. OT ADL-Bathing Comments OT Bathing Comments Not performed as pt too tired. M5 OT- IP IADL's Start: 07/24/22 11:31 Freq: Status: Active Protocol: Document 07/24/22 10:35 [facility] (Rec: 07/24/22 12:02 [facility] [id number]) OT-Instrumental Activities of Daily Living Deficits IADL Deficits Identified Deficits Home Safety Awareness Awareness of Need for Assistance at Home Good Awareness Home Safety Comments At this time pt will benefit from assist for IADl needs due to decreased activity tolerance. Pt was 80% accurate when answering home safety questions. Medication Management Medication Management Comments Pt states she has a pill organizer that she sets up for every month. Money Management Money Management Comments Pt states does her own, but would be good to have supervision for accuracy. Meal Preparation Meal Preparation Caregiver Provides Assist Meal Preparation Comments Pt states does TV dinners or that her family brings her meals or food from the deli. Mass Communications Professor Mass Communications Professor Caregiver Provides Assist Driving Driving Caregiver Provides Assist M6 OT- IP Functional Cognition Start: 07/24/22 11:31 Freq: Status: Active Protocol: Document 07/24/22 10:35 [facility] (Rec: 07/24/22 12:02 [facility] [id number]) Cognitive Factors Limiting Selfcare Function Cognitive Ability Level of Alertness Alert Patient Orientation Name,Situation Attention Span Ability Capable of Focused Attention, Capable of Sustained Attention Ability to Follow Commands Able to Follow One Step Commands Safety Awareness Decreased Ability to Apply Precautions Cognitive Comments Cognitive Assessment Comments Pt able to follow commands for ADL and mobility needs. Pt just needing reminders to slow down and to try to take rest breaks before becoming too tired. OT- Vision and Hearing OT- Vision Assessment Visual Acuity Glasses All The Time Vision Assessment Comments Pt feels that she needs a hearing aid for her left ear. At times instructions had to be repeated for the pt. M7 OT- IP Mobility and Balance Start: 07/24/22 11:31 Freq: Status: Active Protocol: Document 07/24/22 10:35 [facility] (Rec: 07/24/22 12:02 [facility] [id number]) OT- Bed Mobility Assessment Rolling Type of Rolling Roll to Right Level of Assistance Independent Supine to Sit Supine to Sit Assist Standby Assistance Sit to Supine Sit to Supine Assist Standby Assistance OT-Transfer Assessment Sit to and From Stand Sit to and from Stand Standby Assistance Transfers Transfer Ability Standby Assistance Technique Transfer Destination Bed,Toilet Transfer Technique Stand Step Pivot Devices Transfer Assistive Devices None,Front Wheeled Walker Comments Mobility Comments Pt able to get out of bed on her own and SBA with FWW. At times pt not really using the walker. To attempt without the FWW next visit. Pt needing assist for O2 tubing management needs. Pt O2 dropped from 94% on 2L to 81% and needing 5 minutes to recover, O2 increased to 3L and now at 94%, nursing notified. OT- Balance Assessment Sitting Balance and Reactions Static Sitting Balance Ability Normal Dynamic Sitting Balance Ability Good Standing Balance and Reactions Static Standing Balance Ability Good Dynamic Standing Balance Ability Fair M8 OT- IP Objective Assessments Start: 07/24/22 11:31 Freq: Status: Active Protocol: Document 07/24/22 10:35 [facility] (Rec: 07/24/22 12:02 [facility] [id number]) OT Gross Range of Motion Upper Extremity Range of Motion Assessment Within Functional Limits OT Strength Upper Extremity Strength Assessment Within Functional Limits Comments Strength Comments WFL for age and lifestyle. OT-Muscle Tone Assessment Muscle Tone WNL Yes OT Sensation Assessment Comments Summary Comments Intact for light touch M9 OT- IP Assessment and Plan Start: 07/24/22 11:31 Freq: Status: Active Protocol: Document 07/24/22 10:35 [facility] (Rec: 07/24/22 12:02 [facility] [id number]) OT Summary Assessment and Plan Potential Rehabilitation Potential Good Analytic Complexity at Evaluation Low Summary OT Impairments Functional Mobility,Grooming, Dressing,Toileting,Bathing, Toilet Transfers,Shower Transfers,Activity Tolerance Progress Towards Goals Progressing Toward Goals,Slow Progress due to Activity Tolerance Assessment Summary Pt low complexity and main barrier is activity tolerance due to PNA with right parapneumonic effusion. Pt now needing increased time to recover after minimal activity of use of the toilet today. Pt also having to use the FWW for assist due to decreased activity tolerance. Goals Self-Feeding Goal Independent Grooming Goal Independent Dressing Goal Independent Toileting Goal Independent Bathing Goal Independent Toilet Transfer Goal Independent Shower Transfer Goal Independent Patient/Caregiver Education Goal Demonstrate Energy Conservation and Pacing Days to Meet Goals 15 Frequency of Treatment Frequency Of Treatment Once a Day Treatment Plan OT Treatment Plan ADL Training,Functional Mobility,Patient/Family Education,Discharge Planning Other Treatment Recommendations and Next shower if appropriate Treatment Focus Discharge Recommendations OT Discharge Recommendations Home with 21/04 Assist Available,Home Health Transportation Needs at Discharge Private Vehicle
--- NOTE | 2022-07-24 12:10 | PT.IIE ---
Current Diagnoses Pneumonia, unspecified organism (07/23/22) Surgical History (Last Reviewed 07/23/22 @ 14:05 by HERNAN Can) Status post coronary artery stent placement (2000) Medical History (Last Reviewed 07/23/22 @ 14:05 by HERNAN Can) CAD (coronary artery disease) (2000) CKD (chronic kidney disease) stage 3, GFR 30-59 ml/min COPD (chronic obstructive pulmonary disease) Hyperlipidemia Hypertension Physical Therapy Inpatient Evaluation/Re-Eval M1 PT/OT-IP Prior Functional Status Start: 07/24/22 12:55 Freq: NEEDED Status: Active Protocol: Document 07/24/22 12:10 [email or web address] Review Prior Functional Status Medical History Reviewed Yes Communication able to make needs known Mobility and Gait pt stated that she is independent with all mobilities and ambulation without AD. uses O2 at home 24 /7 at 2L/min Social History Household Members family,children,none Living Arrangements House Number of Floors (Floors) Two Floors Number of Stairs To Enter/Railing? 1 step to enter 12 steps L rail ascending to get to her living area Home Environment Standard Height Toilet,Walk in Shower Home Equipment Four Wheel Walker,Raised Toilet Seat w/Armrests,Hand Held Shower Additional Social History Comment pt lives [place] and family lives down stairs(son, DIL and grand children) M2 PT-IP Current Condition Start: 07/24/22 12:55 Freq: NEEDED Status: Active Protocol: Document 07/24/22 12:10 [facility] (Rec: 07/24/22 13:05 [facility] [email or web address]) Physical Therapy Current Condition Current Condition Evaluation Date 07/24/22 Treatment Diagnosis COPD; PNA; difficulty in walking Onset Date 07/23/22 M3 PT-IP Subjective Start: 07/24/22 12:55 Freq: NEEDED Status: Active Protocol: Document 07/24/22 12:10 [facility] (Rec: 07/24/22 13:05 [email or web address]) Subjective Physical Therapy Visit Type Type Initial Evaluation Visit Start Time 12:10 Visit Stop Time 12:21 Total Visit Minutes 11 Number of MECHANICAL HANDYMAN Visits 0 M4 PT-IP Mobility and Gait Start: 07/24/22 12:55 Freq: NEEDED Status: Active Protocol: Document 07/24/22 12:10 [facility] (Rec: 07/24/22 13:05 [facility] [email or web address]) PT-Bed Mobility Assessment Supine to Sit Supine to Sit Independent Sit to Supine Sit to Supine Independent PT-Transfer Assessment Sit to and From Stand Sit to and from Stand Standby Assistance Equipment Transfer Assistive Device Gait Belt Orthotic/Prosthetic Devices or Brace: No Transfer Ability Level of Assist Standby Assistance Comments Mobility Comments pt completed supine to sit mod I. sit to stand SBA and ambulated in room without AD SBA ~ 15 ft. O2 sat after ambulation: 89%. pt stated that she just got back to bed and prefers to stay on the bed . completed sit to supine I. lunch tray came in and pt set up for lunch in bed. call light and table placed within reach. Gait Assessment Gait Gait Assistance Required: Standby Assistance Distance (Feet) 15 Able to Maintain Weight Bearing Status Yes During Gait Assistive Devices Assistive Device None,Gait Belt Orthotic/Prosthetic Devices or Brace: No Gait Deviations General Gait Pattern Decreased Stride Length, Decreased Feet Clearance Factors Limiting Gait Function Factors Limiting Gait Function Decreased Activity Tolerance, Decreased Strength,Poor Balance,Respiratory Distress PT-Balance Assessment Sitting Balance and Reactions Static Sitting Balance Ability Normal Dynamic Sitting Balance Ability Normal Standing Balance and Reactions Static Standing Balance Ability Good Dynamic Standing Balance Ability Fair Device Used without AD M5 PT-IP Objective Assessments Start: 07/24/22 12:55 Freq: NEEDED Status: Active Protocol: Document 07/24/22 12:10 [facility] (Rec: 07/24/22 13:05 [facility] [id number]) Orientation Orientation/Cognition Level of Alertness Alert Orientation Name,Place,Situation Language Function Ability No Deficits Noted Safety Awareness Decreased Safety Awareness Memory Description No Deficits Noted Gross Range of Motion Lower Extremity ROM Assessment Within Functional Limits Strength Lower Extremity Strength Hip 4-/5 Knee 4-/5 Coordination Assessment Gross Coordination Gross Coordination WNL Sensation Assessment Sensation Gross Sensation WNL Muscle Tone Muscle Tone WNL Yes M6 PT-IP Treatment Start: 07/24/22 12:55 Freq: NEEDED Status: Active Protocol: Document 07/24/22 12:10 [facility] (Rec: 07/24/22 13:05 [facility] [email or web address]) Physical Therapy Treatment Education Education Provided Safety M7 PT-IP Assessment and Plan Start: 07/24/22 12:55 Freq: NEEDED Status: Active Protocol: Document 07/24/22 12:10 [facility] (Rec: 07/24/22 13:05 [facility] [id number]) PT Summary Assessment and Plan Potential Rehabilitation Potential Fair Status of Condition at Evaluation Evolving Summary Impairments Pain,ROM,Strength,Balance, Coordination,Sensation,Tone, Cognition,Bed Mobility, Transfers,Gait,Activity Tolerance Assessment Summary pt requiring SBA with transfers and ambulation without AD. (+) SOB with mobility but O2 sat at 89% after ambulation. pt plans to go home with family to assist . pt needs to complete stair climbing prior to d/c. pt may benefit from cardiopulmonary rehab outpt. Goals Transfer Goal Independent,Four Wheeled Walker Gait Goal Independent,Four Wheel Walker Gait Distance 300 Other Goals improve ambulation without AD I 200 f5 up/down 1 step using 4WW/ without AD SBA up/down 12 steps L rail ascending sBA Days to Meet Goals 10 Frequency of Treatment Frequency Of Treatment Once a Day Treatment Plan Physical Therapy Treatment Plan Bed Mobility Training,Transfer Training,Gait Training, Therapeutic Exercise,Balance Retraining,Discharge Planning, Hot or Cold Pack,Neuromuscular Re-ed,Coordination Retraining Other Recommendations and Next Treatment ambulation long distance with Focus 4WW stair climbing Precautions Other Precautions O2 sat Recommendations To Nursing Amount of Assist Needed Standby Assistance Discharge Recommendations PT Discharge Recommendations Home with Assistance, Outpatient PT Other Discharge Recommendations cardiopulmonary rehab Transportation Needs at Discharge Private Vehicle
--- NOTE | 2022-07-24 12:14 | CM.DANOTE ---
Initial DCP Assessment Note Pt is an 81 yo female, resident of [place], arrives with 3 days of bloody sputum, hx of lung cancer, COPD, CAD, HTN. Patient admitted for treatment and work up PCP: Dakota Arnett Payer: [employer] [facility] Reviewed chart, met with patient to introduce self and role. Patient states she lives in the top floor of her home, grandson Clint, his and their 3 kids- 8, 5 and 2 yo live downstairs and can assist as needed. Grand wilson Bloom lives down the street P# [phone] Patient is indp in ADLs at baseline, says she plans on returning home upon discharge the sooner the better Discussed HH services and patient agreeable to this. reviewed [facility] choice list and patient states no preference. CASTRO Gomez, placed calls to [facility] and [facility]; [facility] had the soonest availability so referral sent- HH RN/PT Plan: DC back home expected, with family, [facility] and close outpatient f/u recommended VIDAL Tello Discharge Planning/Care Management CM Discharge Assessment Start: 07/24/22 11:57 Freq: Status: Active Protocol: Document 07/24/22 11:57 ROSENDO (Rec: 07/24/22 12:14 [facility] [id number]) Discharge Planning Assessment Assigned Form Builder VIDAL Collins DPOA/Assigned Designee Name shae Chandler Contact Information [phone] Advance Directives? No Advance Directives on File No History Provided By Patient,Medical Record Prior Living Arrangements House Household Members family,children,none Type of transporation used prior to Drives own vehicle admit Independent with ADL's Yes: Mostly. Poor activity tolerance Is patient alert and oriented? Yes Needs Assistance With Home Chores / Shopping Patient/Family Preference Home with Home Health Barriers to Discharge No Discharge Plan Home with Home Health Transportation Arrangement Family Referrals Initiated Home Health Additional Comment [facility], referral placed on availability Medicare Choice List Provided Yes SNF/HH Preference No HH preference
[2022-07-24] MEDS: cefTRIAXone 1,000 MG in SODIUM CHLORIDE 0.9% 100 ML 200 MG IV (16:30)
[2022-07-24] MEDS: LATANOPROST 0.005% OPHTH 2.5 ML 1 DROPS EYE-BOTH (20:21)
[2022-07-25 04:33] VITALS: BP 131/69; PULSE 68; RESP 17; TEMP 36.3; O2SAT 93
[2022-07-25] MEDS: ALBUTEROL/IPRATROPIUM 3 ML AMPUL INH ×2 (06:15→12:44)
--- NOTE | 2022-07-25 07:08 | PM.DS.1 ---
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 Patient states she initially developed blood-streaked sputum on 07/21 which progressed and became bright red with each cough. Denies any nosebleed. She said she felt like air wasn't moving through into her lungs as well. She was concerned so finally presented to the ED today. Has never had hemoptysis before. Patient previously hospitalized with RSV in Sep 2018 where she was first diagnosed with left upper lobe and left lingula spiculated mass with biopsies showing SCC. She subsequently underwent 5 rounds of radiation without chemo with shrinkage in the masses. She last had radiation in [address] Sutton a year ago. She is supposed to see him in clinic tomorrow on 07/24. She denies recent travel to area with tuberculosis, sick contacts, chest pain, NV, abd pain or diarrhea. Discharge Providers Provider Date of admission: 07/23/22 16:24 Discharge Date: 07/25/22 Primary care physician: Dakota Arnett MD Consults: 07/23/22 16:59 Consult to Occupational Therapy Evaluate & Treat Comment: Physician Instructions: Evaluate and treat Consult to Physical Therapy Evaluate & Treat Comment: Physician Instructions: Evaluate and Treat 07/24/22 11:47 Consult to Home Health Routine Comment: Reason For Exam: Home health services upon discharge Discharge provider: Krunal Mcdonald DO Summary Hospital Course Discharge Diagnosis: # acute hemoptysis -patient coughing up bloody sputum for 3 days, with history of lung cancer concern is for bronchogenic spread -CTA without PE or new masses, but possible RLL PNA -spoke with Dr. Sutton and Dr. Weems who recommended outpatient PET scan and possible bronchoscopy -sputum sample with normal berna -monitor for anemia # community acquired pneumonia with R parapneumonic effusion -CTA showed RLL opacities suggestive of aspiration vs pneumonia, possible cause of hemoptysis -resp viral panel neg, patient recently vaccinated against flu per PCP chart notes -rocephin x5 days and azithro x3 days -sputum culture normal # possible COPD exacerbation with chronic hypoxemic respiratory failure on 2-3L baseline -currently on 3L, continue supplemental O2 and titrate to keep >88% -patient with increased SOB, will cover for COPD exac to be safe -continue prednisone 40mg daily to complete 5 days -albuterol PRN along with patient's home combivent daily # 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 Sutton oncology -patient had 5 rounds of radiation which ended in 2019 -CTA chest with no hilar or lingular mass, but small lingular atelectasis likely related to previous lingular postradiation pneumonitis -Dr. Weems CT surgeon who performed her mass biopsy reviewed CT chest and noted some mildly enlarged mediastinal lymph nodes so recommended PET scan, will f/u with her in clinic for possible bronch -Dr. Sutton to order outpatient PET and will see pt in clinic on Aug 02 # CAD s/p ZENIA to LCA in 2000 -home aspirin held due to hemoptysis and verapamil continued # HTN, chronic -continue home amlodipine #? HLD, chronic -continue home lipitor Hospital Course: Admitted for hemoptysis and possible PNA with CT scan showing RLL opacity. Start on IV abx and prednisone due to her severe COPD. Spoke with her oncologist Dr. Sutton who recommended outpatient bronchoscopy with Dr. Weems, CT surgeon who previously did her lung cancer biopsy. Dr. Weems recommended outpatient PET first which Dr. Sutton ordered and is arranging. Her hemoptysis was stable but continued to cough up dark red bloody sputum about once per hour. She was discharged on 2 additional days of oral abx and po prednisone to finish course. Time Spent with Patient Time spent: Greater than 30 minutes Exam Vital Signs (past 8 hours): - 07/24/22 23:44 07/25/22 04:33 07/25/22 06:15 Temperature 98.4 F 97.4 F L Pulse Rate 70 68 Respiratory Rate 18 17 Blood Pressure 127/63 131/69 Pulse Oximetry 93 93 Oxygen Delivery Method Nasal Cannula Oxygen Flow Rate 3 3 3 Oxygen Delivery Method Nasal Cannula Oxygen Flow Rate 3 Narrative Exam Narrative: GEN: no acute distress, elderly with supp O2 in place HEENT: moist mucous membranes, PERRL NECK: trachea midline, no JVD CV: regular rate and rhythm, no murmurs PULM: clear bilaterally, faint wheezes ABD: soft, nontender, nondistended, no organomegaly EXT: warm and well perfused with no edema NEURO: awake, alert, oriented, no focal deficits Objective Labs Result Diagrams: 07/25/22 07:12 07/25/22 07:12 Labs: Laboratory Results - last 24 hr 07/24/22 07/24/22 07/24/22 07:20 07:20 08:00 WBC 7.1 RBC 4.32 Hgb 12.6 Hct 37.3 MCV 86.3 MCH 29.1 MCHC 33.7 RDW 13.2 Plt Count 250 Neut % (Auto) 89.9 H Lymph % (Auto) 9.0 L [place] % (Auto) 0.8 L Eos % (Auto) 0.1 L Baso % (Auto) 0.2 Neut # (Auto) 6400 Lymph # (Auto) 600 L [place] # (Auto) 100 Eos # (Auto) 0 Baso # (Auto) 0 Sodium 136 L Potassium 4.9 Chloride 95 L Carbon Dioxide 28 BUN 20 H Creatinine 0.80 Estimated GFR > 60 BUN/Creatinine Ratio 25.0 H Glucose 159 H Calcium 9.6 Chlamy pneumoniae PCR Adenovirus (PCR) B. pertussis DNA (PCR) B.parapertussis DNA PCR Coronavirus OC43 (PCR) Coronavirus HKU1 (PCR) Coronavirus 229E (PCR) SARS-CoV-2 (PCR) Cancelled Coronavirus NL63 (PCR) Human Metapneumovir PCR Influenza A (RT-PCR) Cancelled Influenza Type A (PCR) Influenza B (RT-PCR) Cancelled Influenza Type B (PCR) M. pneumoniae (PCR) Parainfluenza 1 (PCR) Parainfluenza 2 (PCR) Parainfluenza 3 (PCR) Parainfluenza 4 (PCR) RSV (PCR) Cancelled Entero/Rhino (PCR) 07/24/22 08:00 WBC RBC Hgb Hct MCV MCH MCHC RDW Plt Count Neut % (Auto) Lymph % (Auto) [place] % (Auto) Eos % (Auto) Baso % (Auto) Neut # (Auto) Lymph # (Auto) [place] # (Auto) Eos # (Auto) Baso # (Auto) Sodium Potassium Chloride Carbon Dioxide BUN Creatinine Estimated GFR BUN/Creatinine Ratio Glucose Calcium Chlamy pneumoniae PCR Not detected Adenovirus (PCR) Not detected B. pertussis DNA (PCR) Not detected B.parapertussis DNA PCR Not detected Coronavirus OC43 (PCR) Not detected Coronavirus HKU1 (PCR) Not detected Coronavirus 229E (PCR) Not detected SARS-CoV-2 (PCR) Not detected Coronavirus NL63 (PCR) Not detected Human Metapneumovir PCR Not detected Influenza A (RT-PCR) Influenza Type A (PCR) Not detected Influenza B (RT-PCR) Influenza Type B (PCR) Not detected M. pneumoniae (PCR) Not detected Parainfluenza 1 (PCR) Not detected Parainfluenza 2 (PCR) Not detected Parainfluenza 3 (PCR) Not detected Parainfluenza 4 (PCR) Not detected RSV (PCR) Not detected Entero/Rhino (PCR) Not detected PFSH Medical History CAD (coronary artery disease) (2000) CKD (chronic kidney disease) stage 3, GFR 30-59 ml/min COPD (chronic obstructive pulmonary disease) Hyperlipidemia Hypertension Surgical History Status post coronary artery stent placement (2000) Family History Daughter No problems noted. Social History marital status: household members: family, children and none Smoking Status: Former smoker alcohol intake: never substance use type: does not use Discharge Plan Discharge Plan Patient Disposition: Home Provider Discharge Comment: You were admitted for coughing up blood, and found to have a possible pneumonia. We gave you IV antibiotics and steroids for your COPD. Dr. Sutton and Dr. Weems are arranging follow-up for a PET scan and possible bronchoscopy. Hold aspirin until the coughing blood is worked out. Discharge orders & Medications Prescriptions: New prednisone 20 mg Tablet 40 mg PO DAILY 2 Days Qty: 4 0RF Rx Instructions: start on 07/26 cefadroxil 500 mg capsule 500 mg PO BID 2 Days Qty: 4 0RF Rx Instructions: start on 07/26 Continued metoprolol tartrate 50 mg tablet 50 mg PO BID Qty: 180 3RF Combivent Respimat 20-100 mcg/actuation mist 1 puff INHALATION QID Qty: 4 3RF Rx Instructions: space evenly during waking hours. pt will need to be seen before next fill 06/25/21 atorvastatin [Lipitor] 10 mg tablet 10 mg PO HS Qty: 90 0RF amlodipine [Norvasc] 5 mg tablet 5 mg PO QDAY Qty: 90 0RF verapamil 80 mg tablet 80 mg PO BID Qty: 60 2RF fluticasone propion-salmeterol [Wixela Inhub] 250-50 mcg/dose blister with device 1 inh INHALATION BID travoprost 0.004 % drops 1 drp EYE-BOTH BEDTIME Discontinued aspirin [Aspir-81] 81 mg Tablet,Delayed Release (Dr/Ec) 81 mg PO DAILY Follow up/Referrals: Dakota Arnett MD [Primary Care Provider] - Visit Report/Discharge Packet Instructions: DI for Hemoptysis Discharge Data Primary Care Provider: Dakota Arnett Quality VTE Deep Vein Thrombosis/Pulmonary Embolism Present on Admission: No
[2022-07-25 07:38] LABS: Add Manual Diff / Slide Review NO; Basophils Absolute Auto 0 /uL (0-100); Basophils Percent Auto 0.1 % (0-2); Eosinophils Absolute Auto 0 /uL (0-450); Lymphocytes Absolute Auto 1200 /uL (1100-4500); Lymphocytes Percent Auto 8.9 % (25-40); Mean Corpuscular HGB Conc 33.3 % (30-36); Mean Corpuscular Hemoglobin 28.9 PG (26-34); Mean Corpuscular Volume 86.8 fL (80-100); Monocytes Absolute Auto 1300 /uL (0-900); Monocytes Percent Auto 9.7 % (3-14); Neutrophils Absolute Auto 10600 /uL (1500-7000); Neutrophils Percent Auto 81.3 % (50-75); Platelet Count 270 X10^3/uL (150-400); White Blood Cell Count 13.1 X10^3/uL (4.5-11.0)
[2022-07-25 08:00] VITALS: BP 138/60; PULSE 75; RESP 18; TEMP 37.2; O2SAT 95
[2022-07-25 08:06] LABS: BUN Creatinine Ratio 27.8 (6-22); Blood Urea Nitrogen 25 mg/dL (7-17); Calcium 8.8 mg/dL (8.4-10.2); Carbon Dioxide 30 mmol/L (22-32); Chloride 96 mmol/L (98-107); Estimated Glomerular Filt Rate > 60 mL/min (>60); Glucose 113 mg/dL (80-110); HEMOLYSIS < 15 (0-50); Potassium 4.5 mmol/L (3.4-5.1); Sodium 135 mmol/L (137-145)
[2022-07-25] MEDS: ASPIRIN EC 81 MG TABLET PO (09:04)
[2022-07-25] MEDS: predniSONE 20 MG TABLET 40 MG PO (09:04)
[2022-07-25] MEDS: AZITHROMYCIN 250 MG TABLET 500 MG PO (09:04)
[2022-07-25 09:06] VITALS: BP 140/64; PULSE 84
[2022-07-25] MEDS: VERAPAMIL 80 MG TABLET PO (09:06)
[2022-07-25] MEDS: AMLODIPINE 5 MG TABLET PO (09:07)
[2022-07-25] MEDS: METOPROLOL IR 50 MG TABLET PO (09:07)
--- NOTE | 2022-07-25 11:12 | OT.IP.TRT ---
Current Diagnoses Pneumonia, unspecified organism (07/23/22) Occupational Therapy Treatment Note M2 OT-IP Current Condition Start: 07/24/22 11:31 Freq: Status: Active Protocol: Document 07/24/22 10:35 [facility] (Rec: 07/24/22 12:02 [facility] [id number]) Occupational Therapy Current Condition Current Condition Evaluation Date 07/24/22 Treatment Diagnosis PNA Diagnosis Onset Date 07/23/22 M3 OT- IP Subjective and Pain Start: 07/24/22 11:31 Freq: Status: Active Protocol: Document 07/25/22 11:14 [facility] (Rec: 07/25/22 11:22 [facility] [id number]) OT- Subjective Occupational Therapy Visit Type Type Treatment Note Visit Start Time 10:55 Visit Stop Time 11:12 Total Visit Minutes 17 Occupational Therapy Visit Comments Patient Comments Pt agreed to go over energy conservation strategies and go oral care needs while in bed. Patient/Caregiver Goals To go home. OT Pain Assessment Pain When Pain Assessed At Rest Pain Present Pain Present Denied Pain M4 OT- IP ADL's Start: 07/24/22 11:31 Freq: Status: Active Protocol: Document 07/25/22 11:14 [facility] (Rec: 07/25/22 11:22 [facility] [id number]) OT [id number] Comments OT Self-Feeding Comments Not at meal time. OT ADL-Grooming General Evaluation Grooming Ability Standby Assistance Areas Needing Assistance Retrieving/Set-up of Grooming Items OT ADL-Oral Care General Eval Oral Care Ability Independent Areas of Assistance Retrieving/Set-Up of Items Comments Oral Care Comments Pt able to do while seated in bed. OT ADL-Dressing Comments OT Dressing Comments Not performed. OT ADL-Toileting Comments OT Toileting Comments Pt states just used the toilet prior. OT ADL-Bathing Comments OT Bathing Comments Pt refuses as too tired and agrees to shower when someone is around to assist her. M5 OT- IP IADL's Start: 07/24/22 11:31 Freq: Status: Active Protocol: Document 07/24/22 10:35 [facility] (Rec: 07/24/22 12:02 [facility] [id number]) OT-Instrumental Activities of Daily Living Deficits IADL Deficits Identified Deficits Home Safety Awareness Awareness of Need for Assistance at Home Good Awareness Home Safety Comments At this time pt will benefit from assist for IADl needs due to decreased activity tolerance. Pt was 80% accurate when answering home safety questions. Medication Management Medication Management Comments Pt states she has a pill organizer that she sets up for every month. Money Management Money Management Comments Pt states does her own, but would be good to have supervision for accuracy. Meal Preparation Meal Preparation Caregiver Provides Assist Meal Preparation Comments Pt states does TV dinners or that her family brings her meals or food from the deli. Restorative Care Technician Restorative Care Technician Caregiver Provides Assist Driving Driving Caregiver Provides Assist M6 OT- IP Functional Cognition Start: 07/24/22 11:31 Freq: Status: Active Protocol: Document 07/25/22 11:14 [facility] (Rec: 07/25/22 11:22 [facility] [id number]) Cognitive Factors Limiting Selfcare Function Cognitive Comments Cognitive Assessment Comments Pt able to go over energy conservations strategies with OT and states does most follow it mostly. Pt admits not good at asking for help if needed and to try to ask her family for assist if needed. Pt states has her phone close by at all times. Also suggested to have set-up when her family will be there to assist her especially for showering and IADL needs. M7 OT- IP Mobility and Balance Start: 07/24/22 11:31 Freq: Status: Active Protocol: Document 07/24/22 10:35 [facility] (Rec: 07/24/22 12:02 [facility] [id number]) OT- Bed Mobility Assessment Rolling Type of Rolling Roll to Right Level of Assistance Independent Supine to Sit Supine to Sit Assist Standby Assistance Sit to Supine Sit to Supine Assist Standby Assistance OT-Transfer Assessment Sit to and From Stand Sit to and from Stand Standby Assistance Transfers Transfer Ability Standby Assistance Technique Transfer Destination Bed,Toilet Transfer Technique Stand Step Pivot Devices Transfer Assistive Devices None,Front Wheeled Walker Comments Mobility Comments Pt able to get out of bed on her own and SBA with FWW. At times pt not really having to use the walker. Pt needing assist for O2 tubing management needs. Pt O2 dropped from 94% on 2L to 81% and needingn 5 minutes to recover, O2 increased to 3L and now at 94%, nursing notified. OT- Balance Assessment Sitting Balance and Reactions Static Sitting Balance Ability Normal Dynamic Sitting Balance Ability Good Standing Balance and Reactions Static Standing Balance Ability Good Dynamic Standing Balance Ability Fair M8 OT- IP Objective Assessments Start: 10/26/22 11:31 Freq: Status: Active Protocol: Document 07/24/22 10:35 [facility] (Rec: 07/24/22 12:02 [facility] [id number]) OT Gross Range of Motion Upper Extremity Range of Motion Assessment Within Functional Limits OT Strength Upper Extremity Strength Assessment Within Functional Limits Comments Strength Comments WFL for age and lifestyle. OT-Muscle Tone Assessment Muscle Tone WNL Yes OT Sensation Assessment Comments Summary Comments Intact for light touch M9 OT- IP Assessment and Plan Start: 07/24/22 11:31 Freq: Status: Active Protocol: Document 07/25/22 11:14 [facility] (Rec: 07/25/22 11:22 [facility] [id number]) OT Summary Assessment and Plan Potential Rehabilitation Potential Good Analytic Complexity at Evaluation Low Summary OT Impairments Grooming,Toileting,Bathing, Toilet Transfers,Shower Transfers,Activity Tolerance Progress Towards Goals Progressing Toward Goals Assessment Summary Pt being discharged home and will benefit from home health and assist from her family. Able to go over energy conservation strategies with the pt. Goals Grooming Goal Independent Dressing Goal Independent Toileting Goal Independent Bathing Goal Independent Toilet Transfer Goal Independent Shower Transfer Goal Independent Days to Meet Goals 10 Frequency of Treatment Frequency Of Treatment Once a Day Treatment Plan OT Treatment Plan ADL Training,Functional Mobility,Patient/Family Education,Discharge Planning Discharge Recommendations OT Discharge Recommendations Home with 21/04 Assist Available,Home Health Transportation Needs at Discharge Private Vehicle
[2022-07-25] MEDS: INFLUENZA VACCINE QIV 0.5 ML SYRINGE IM (11:25)
[2022-07-25 11:33] VITALS: BP 120/57; PULSE 74
[2022-07-25 12:00] VITALS: BP 120/67; PULSE 74; RESP 18; O2SAT 94
--- NOTE | 2022-07-25 12:09 | PT-IP ANOTE ---
Attempted to see pt, pt pending d/c home and requested to rest.
[2022-07-25 12:44] VITALS: PULSE 71; RESP 16; O2SAT 93
--- NOTE | 2022-07-25 14:22 | CM.DPNOTE ---
Discharge Planning Note: Patient to discharge home today. Notified [facility]. Will fax DC summary when available. Plan: Discharge home with family who will transport. Richa Martell RN/DCP
== END 2022-07-25 13:45 | disposition home health service (06) | DRG 178 ==
LOC: ED 15:30 → AC 16:25
PROVIDERS: Admitting Provider Student in an Organized Health Care Education/Training Program; Emergency Provider Nurse Practitioner Critical Care Medicine; PCP Student in an Organized Health Care Education/Training Program; Referring Provider Nurse Practitioner Critical Care Medicine; Visit Provider Student in an Organized Health Care Education/Training Program
DX: J69.0 Pneumonitis due to inhalation of food and vomit (principal); C34.92 Malignant neoplasm of unspecified part of left bronchus or lung; J44.1 Chronic obstructive pulmonary disease with (acute) exacerbation; J91.8 Pleural effusion in other conditions classified elsewhere; R04.2 Hemoptysis; J96.11 Chronic respiratory failure with hypoxia; I25.10 Atherosclerotic heart disease of native coronary artery without angina pectoris; I10 Essential (primary) hypertension; E78.5 Hyperlipidemia, unspecified; Z99.81 Dependence on supplemental oxygen; Z23 Encounter for immunization; Z20.822 Contact with and (suspected) exposure to COVID-19; Z95.5 Presence of coronary angioplasty implant and graft; Z87.891 Personal history of nicotine dependence
CPT/HCPCS: 0241U; 36415; 71046; 71275; 80048; 80053; 81001; 82550; 82553; 83605; 83735; 83880; 84145; 84484; 85025; 85610; 86140; 87070; 87086; 87205; 87633; 90471; 90656; 94640; 94760; 96365; 96366; 97161; 97165; 97530; 97535; 99284; J0696; J1650; J1956; J2930; Q2038

== ENCOUNTER → 2022-10-31 11:43 | Outpatient (CLI) | payer OTHER, SELFPAY ==
[2022-07-23 16:26] VITALS: BMI 28.3
[2022-10-31 13:36] LABS: Add Manual Diff / Slide Review NO; Basophils Absolute Auto 100 /uL (0-100); Basophils Percent Auto 0.4 % (0-2); Eosinophils Absolute Auto 300 /uL (0-450); Eosinophils Percent Auto 2.5 % (2-4); Hematocrit 37.5 % (36-46); Hemoglobin 12.4 g/dL (12.0-16.0); Lymphocytes Absolute Auto 1200 /uL (1100-4500); Lymphocytes Percent Auto 9.6 % (25-40); Mean Corpuscular HGB Conc 33.1 % (30-36); Mean Corpuscular Hemoglobin 28.1 PG (26-34); Mean Corpuscular Volume 84.8 fL (80-100); Monocytes Absolute Auto 900 /uL (0-900); Monocytes Percent Auto 7.8 % (3-14); Neutrophils Absolute Auto 9700 /uL (1500-7000); Neutrophils Percent Auto 79.7 % (50-75); Platelet Count 243 X10^3/uL (150-400); Red Blood Cell Count 4.42 X10^6/uL (4.0-5.2); Red Cell Distribution Width 15.6 % (11.6-14.8); White Blood Cell Count 12.2 X10^3/uL (4.5-11.0)
[2022-10-31 19:32] LABS: Alanine Aminotransferase 19 IU/L (<35); Albumin 4.4 g/dL (3.5-5.0); Albumin Globulin Ratio 1.2 (1.0-2.8); Alkaline Phosphatase 108 U/L (38-126); Aspartate Aminotransferase 22 IU/L (14-36); BUN Creatinine Ratio 23.1 (6-22); Bilirubin Total 0.4 mg/dL (0.2-1.3); Blood Urea Nitrogen 21 mg/dL (7-17); Calcium 9.3 mg/dL (8.4-10.2); Carbon Dioxide 32 mmol/L (22-32); Chloride 97 mmol/L (98-107); Estimated Glomerular Filt Rate > 60 mL/min (>60); Globulin 3.8 g/dL (1.7-4.1); Glucose 93 mg/dL (80-110); HEMOLYSIS < 15 (0-50); Potassium 4.4 mmol/L (3.4-5.1); Sodium 138 mmol/L (137-145); Total Protein 8.2 g/dL (6.3-8.2)
[2022-10-31 19:34] LABS: HEMOLYSIS < 15 (0-50); Iron 48 ug/dL (37-170)
[2022-10-31 19:47] LABS: Percent Iron Saturation 15 % (15-50); Total Iron Binding Capacity 330 ug/dL (265-497); Transferrin 241 mg/dL (206-381)
[2022-10-31 20:21] LABS: Vitamin B12 > 1000 pg/mL (239-931)
== END ==
PROVIDERS: PCP Family Medicine; Referring Provider Family Medicine; Visit Provider Family Medicine
DX: E78.5 Hyperlipidemia, unspecified (principal); I10 Essential (primary) hypertension; Z87.09 Personal history of other diseases of the respiratory system
CPT/HCPCS: 36415; 80053; 82607; 83540; 83550; 85025

== ENCOUNTER 2023-12-09 21:14 | Inpatient (IN) | payer MEDICARE, SELFPAY ==
[2023-07-14 10:38] VITALS: BMI 28.3
[2023-12-09 21:16] VITALS: BP 135/79; PULSE 113; RESP 32; O2SAT 94; BMI 27.2
--- NOTE | 2023-12-09 21:20 | DI.RAD.S_ITS ---
PROCEDURE: XR CHEST 1V INDICATIONS: sob TECHNIQUE: One view of the chest was acquired. COMPARISON: [facility], CT, CT CHEST WITHOUT CONTRAST, 08/14/2023, 14:34. [facility], CR, XR CHEST 2V, 07/23/2022, 13:30. [facility], CR, XR CHEST 1V, 10/15/2018, 1:41. FINDINGS: Surgical changes and devices: None. Lungs and pleura: Emphysematous changes. Left perihilar mass is not well evaluated radiographically. Patchy right lower lobe opacities may be related to chronic scarring versus aspiration or pneumonia. No pleural effusions or pneumothorax. Mediastinum: Mediastinal contours appear normal. Heart size is normal. Bones and chest wall: No suspicious bony lesions. Overlying soft tissues appear unremarkable. IMPRESSION: 1. Patchy right lower lobe opacities may be secondary to aspiration or pneumonia versus chronic scarring. 2. Bilateral emphysema. 3. Previously demonstrated left perihilar mass is not well evaluated. Approved by: Jameel Glasgow M.D. on 12/09/2023 at 22:29
[2023-12-09] MEDS: methylPREDNISolone 125 MG/2 ML VIAL IV (21:26)
[2023-12-09 21:34] LABS: Add Manual Diff / Slide Review NO; Basophils Absolute Auto 100 /uL (0-100); Basophils Percent Auto 0.5 % (0-2); Eosinophils Absolute Auto 300 /uL (0-450); Eosinophils Percent Auto 2.2 % (2-4); Hematocrit 39.5 % (36-46); Hemoglobin 12.9 g/dL (12.0-16.0); Lymphocytes Absolute Auto 1700 /uL (1100-4500); Lymphocytes Percent Auto 11.4 % (25-40); Mean Corpuscular HGB Conc 32.6 % (30-36); Mean Corpuscular Hemoglobin 29.3 PG (26-34); Mean Corpuscular Volume 89.8 fL (80-100); Monocytes Absolute Auto 1700 /uL (0-900); Monocytes Percent Auto 11.2 % (3-14); Neutrophils Absolute Auto 11200 /uL (1500-7000); Neutrophils Percent Auto 74.7 % (50-75); Platelet Count 360 X10^3/uL (150-400); Red Cell Distribution Width 14.2 % (11.6-14.8)
[2023-12-09 21:37] VITALS: BP 121/78; PULSE 110; RESP 30; O2SAT 97
[2023-12-09 21:57] LABS: PTT Partial Thromboplastin Tim 42 SECONDS (25.1-36.5)
[2023-12-09] MEDS: ALBUTEROL/IPRATROPIUM 3 ML AMPUL INH (21:57)
[2023-12-09 21:58] LABS: Lactate (Lactic Acid) 1.8 mmol/L (0.7-2.1)
[2023-12-09 21:59] VITALS: PULSE 103; RESP 28; TEMP 31; O2SAT 98
[2023-12-09 21:59] LABS: Alanine Aminotransferase 20 IU/L (<35); Albumin 4.7 g/dL (3.5-5.0); Albumin Globulin Ratio 1.1 (1.0-2.8); Alkaline Phosphatase 114 U/L (38-126); Aspartate Aminotransferase 24 IU/L (14-36); BUN Creatinine Ratio 16.1 (6-22); Bilirubin Total 0.9 mg/dL (0.2-1.3); Blood Urea Nitrogen 15 mg/dL (7-17); Calcium 10.1 mg/dL (8.4-10.2); Carbon Dioxide 30 mmol/L (22-32); Chloride 97 mmol/L (98-107); Creatine Kinase 28 U/L (30-135); Estimated Glomerular Filt Rate > 60 mL/min (>60); Globulin 4.3 g/dL (1.7-4.1); Glucose 148 mg/dL (80-110); Potassium 4.8 mmol/L (3.4-5.1); Sodium 136 mmol/L (137-145)
[2023-12-09] MEDS: fentaNYL 100 MCG/2 ML INJ 25 MCG IV (22:02)
[2023-12-09 22:03] LABS: Prothrombin Time 11.7 SECONDS (9.4-12.5)
--- NOTE | 2023-12-09 22:09 | DI.CT.S_ITS ---
PROCEDURE: CT ANGIO CHEST PE PROTOCOL INDICATIONS: hypoxia hx cancer TECHNIQUE: After the administration of intravenous contrast, 2 mm thick sections acquired from the pulmonary apices to the posterior costophrenic angles. 3-dimensional maximum intensity projection (MIP) coronal and sagittal reformats were then acquired through the thorax. For radiation dose reduction, the following was used: automated exposure control, adjustment of mA and/or kV according to patient size. COMPARISON: [facility], [place], PET NECK TO MID THIGH, 09/10/2023, 14:07. [facility], CT, CT CHEST WITHOUT CONTRAST, 08/14/2023, 14:34. [facility], CR, XR CHEST 1V, 12/09/2023, 21:28. [facility], CT, CT ANGIO CHEST PE PROTOCOL, 07/23/2022, 15:16. [facility], CT, CT ANGIO CHEST PE PROTOCOL, 10/15/2018, 2:31. FINDINGS: Image quality: Diagnostic. Pulmonary arteries: Pulmonary arteries are normal in size, and demonstrate no intraluminal filling defects to suggest central pulmonary embolism. Focal cut off of the inferior lingual segmental artery is seen at the level of the pulmonary mass. Lower Neck: No enlarged lymph nodes. Thyroid: No thyroid nodules which require sonographic follow up, per consensus guidelines. Axillae: No enlarged lymph nodes. Bones and Chest Wall: There is osseous structures structure in of the 2nd rib with surrounding soft tissue mass extending between the 1st and 3rd ribs that has increased in size when compared to the CT from 08/14/2023, now measuring 5.1 x 3.7 cm (17/4), compared to 4.4 x 2.8 cm previously. There is erosion of the adjacent 1st rib. [id number] compression fractures are seen at T4 and T5. Lungs and Pleura: Severe bilateral emphysematous changes again seen. Focal nodularity at the anterior right upper lobe (79/5) appears decreased when compared to the prior CT. Bandlike opacity at the posterior superior segment of the right lower lobe does not appear significantly changed and may represent scarring. Spiculated nodule again seen in the left perihilar region, which may have minimally increased in size and now measures 1.9 cm (119/5) when measured in a similar manner to the CT from 08/14/2023 when the nodule measured 1.7 cm. There is associated focal bronchial and arterial CT of in this location. No pneumothorax or pleural effusions. Heart: Heart size is normal. No pericardial effusion. Thoracic Vessels: No aortic aneurysm. Mediastinum and Rosalba: No enlarged lymph nodes. Esophagus: No wall thickening. No hiatal hernia. Upper Abdomen: Visualized upper abdomen solid organs and bowel loops appear normal. IMPRESSION: 1. No acute pulmonary embolus. 2. Left perihilar spiculated nodule has minimally increased in size compared to the CT from 08/14/2023. 3. Interval increase in size of a left chest wall mass centered at the lateral left 2nd rib. Approved by: Jameel Glasgow M.D. on 12/09/2023 at 23:20
[2023-12-09 22:12] LABS: HEMOLYSIS 20 (0-50); NT-proBNP (BNP-Adult 18+) 473 pg/mL (<450); Troponin I 0.021 ng/mL (0.01-0.034)
[2023-12-09 22:16] LABS: Procalcitonin 0.05 ng/mL (<0.5)
[2023-12-09] MEDS: ALBUTEROL 2.5 MG/3 ML NEB (ADULT) 20 MG INH (22:16)
--- NOTE | 2023-12-09 22:19 | PC.NURSE ---
Pt unable to tolerate BIPAP. Respiratory at bedside at 2140 when pt refused to continue wearing. aware. Pt O2 sats WNL.
--- NOTE | 2023-12-09 23:20 | PC.NURSE ---
MD [place] at bedside.
[2023-12-09 23:21] VITALS: PULSE 107; RESP 32; O2SAT 92
[2023-12-09 23:30] VITALS: BP 150/75; PULSE 108; RESP 36; O2SAT 91
[2023-12-09] MEDS: MORPHINE 2 MG/ML INJ IV (23:34)
--- NOTE | 2023-12-09 23:43 | PC.NURSE ---
Pt educated on use of pain medications, with particular emphasis on when she is discharged home. Pt and family verbalized understanding of discharge instructions.
[2023-12-10] VITALS (20 sets, daily range): BP systolic 104–167; BP diastolic 53–72; PULSE 64–108; RESP 16–32; TEMP 35.9–37.6; O2SAT 91–97; BMI 23.4
[2023-12-10] MEDS: MORPHINE 4 MG/ML INJ IV (01:12)
--- NOTE | 2023-12-10 02:02 | ED_ITS ---
HPI - SOB/Dyspnea General Chief Complaint: Shortness of Breath/Dyspnea Stated Complaint: SOB Time Seen by Provider: 12/09/23 21:20 Source: patient and EMS Mode of arrival: EMS History of Present Illness HPI Narrative: Patient is an 83-year-old female history of COPD on chronic home O2 2 L lung cancer currently undergoing radiation with metastasis to bone presents today with increasing shortness of breath. She lives at home she is family members at home but weighs around. She has not had any fever or chills. She frequently gets pain in her left shoulder and back. She would sudden onset of shortness breath. EMS arrived noting that she was having increased difficulty breathing. O2 levels were 87% on her home 2-3 L. He was quickly placed on CPAP and given nebulizer treatments overall feeling a little bit better having increased pain still on the left side. She has morphine and Percocet at home. She reports that she is afraid to take them. She denies any cough or fever. Related Data Previous Rx's Medication Instructions Recorded Disabled Parking Permit #1 ea 10/31/22 ipratropium 0.5 mg-albuterol 3 mg See Rx Instructions .Route 02/18/23 (2.5 mg base)/3 mL nebulization .COMPLEX #360 mL soln azithromycin 250 mg tablet See Rx Instructions PO .COMPLEX #6 05/16/23 tabs amlodipine 5 mg tablet See Rx Instructions .Route 08/15/23 .COMPLEX #90 tabs fluticasone 250 mcg-salmeterol 50 See Rx Instructions .Route 08/15/23 mcg/dose blistr powdr for .COMPLEX #60 ea inhalation (Jose Gonzalez) metoprolol tartrate 50 mg tablet 50 mg PO BID #180 tabs 08/15/23 travoprost 0.004 % eye drops 1 drp EYE-BOTH BEDTIME #5 mL 08/15/23 verapamil 80 mg tablet See Rx Instructions .Route 08/15/23 .COMPLEX #180 tabs atorvastatin 10 mg tablet See Rx Instructions .Route 11/20/23 .COMPLEX #90 tabs ipratropium 20 mcg-albuterol 100 1 puff inhalation QID #4 grams 11/24/23 mcg/actuation mist for inhalation (Combivent Respimat) Allergies Allergy/AdvReac Type Severity Reaction Status Date / Time No Known Drug Allergies Allergy Verified 07/28/23 14:57 Patient History Medical History (Updated 12/10/23 @ 03:28 by Anahy Houston DO) Medicare annual wellness visit, subsequent Well adult exam CKD (chronic kidney disease) stage 3, GFR 30-59 ml/min Hyperlipidemia Hypertension COPD (chronic obstructive pulmonary disease) CAD (coronary artery disease) (2000) Surgical History Status post coronary artery stent placement (2000) Family History Daughter No problems noted. Social History (Updated 10/31/22 @ 11:43 by Domingo Sanches DO) marital status: household members: family, children and none Smoking Status: Former smoker alcohol intake: never substance use type: does not use Smoking Status: Former smoker Substance Use Type: does not use Exam Initial Vital Signs Initial Vital Signs: Vital Signs Pulse Rate 113 H 12/09/23 21:16 Respiratory Rate 32 H 12/09/23 21:16 Blood Pressure 135/79 12/09/23 21:16 Pulse Oximetry 94 12/09/23 21:16 Oxygen Delivery Method CPAP 12/09/23 21:16 GENERAL: Alert 83-year-old female appears in moderate respiratory distress HEENT: Head atraumatic,EOMI, pupils reactive, face symmetric, moist mucous membranes CARDIOVASCULAR: Tachycardic regular RESPIRATORY: Decreased breath sounds left greater than right no wheezing conversational dyspnea ABDOMEN: Soft, nontender. Normoactive bowel sounds all 4 quadrants. No guarding or rebound. EXTREMITIES: Normal range of motion, no clubbing or edema. Neurovascularly intact NEUROLOGICAL: Alert and oriented x4. SKIN: Warm, dry, no laceration, no petechiae, no rashes or lesions. Course Orders Ordered: ED Orders 12/09/23 21:17 Complete Blood Count AUTO DIFF Stat 12/09/23 21:20 XR chest 1V Stat Urinalysis and Microscopic Stat EKG-12 Lead Stat 12/09/23 21:30 Blood Culture Stat Comprehensive Metabolic Panel Stat Lactate (Lactic Acid) Stat NT-proBNP (BNP-Adult 18+) Stat PTT Partial Thromboplastin Germán Stat Procalcitonin Stat Prothrombin Time INR Stat Troponin & CK Cardiac Panel Stat 12/09/23 22:09 CT angio chest PE protocol Stat Albuterol (Albuterol 2.5 Mg/3 Ml Neb (Adult)) 2.5 mg INH [id number] TACOS Discontinued Medications Albuterol (Albuterol 2.5 Mg/3 Ml Neb (Adult)) 20 mg INH NOW ONE Stop: 12/09/23 22:16 Last Admin: 12/09/23 22:16 Dose: 20 mg Documented By: WS Albuterol/Ipratropium (Albuterol/Ipratropium 3 Ml Ampul) 3 ml INH NOW ONE Stop: 12/09/23 21:21 Last Admin: 12/09/23 21:57 Dose: 3 ml Documented By: BOOKER Fentanyl (Fentanyl 100 Mcg/2 Ml Inj) 25 mcg IV NOW ONE Stop: 12/09/23 21:53 Last Admin: 12/09/23 22:02 Dose: 25 mcg Documented By: SB Piperacillin Sod/Tazobactam (Sod 4.5 gm/ Sodium Chloride) 100 mls @ 200 mls/hr IV NOW ONE Stop: 12/10/23 02:48 Last Admin: 12/10/23 03:07 Dose: 200 mls/hr Documented By: MALINI Methylprednisolone (Methylprednisolone 125 Mg/2 Ml Vial) 125 mg IV NOW ONE Stop: 12/09/23 21:21 Last Admin: 12/09/23 21:26 Dose: 125 mg Documented By: MALINI Morphine Sulfate (Morphine 2 Mg/Ml Inj) 2 mg IV NOW ONE Stop: 12/09/23 23:29 Last Admin: 12/09/23 23:34 Dose: 2 mg Documented By: MALINI Morphine Sulfate (Morphine 4 Mg/Ml Inj) 4 mg IV NOW ONE Stop: 12/10/23 01:01 Last Admin: 12/10/23 01:12 Dose: 4 mg Documented By: SB Vital Signs Vital signs: Vital Signs - 8 hr 12/09/23 21:16 12/09/23 21:37 12/09/23 21:59 Temperature Pulse Rate 113 H 110 H Respiratory Rate 32 H 30 H Blood Pressure 135/79 121/78 Pulse Oximetry 94 97 Oxygen Delivery Method CPAP Oxygen Flow Rate Fraction of Inspired Oxygen 30 12/09/23 21:59 12/09/23 23:21 12/09/23 23:30 Temperature Pulse Rate 103 H 107 H Respiratory Rate 28 H 32 H Blood Pressure 150/75 H Pulse Oximetry 98 92 Oxygen Delivery Method Nasal Cannula Oxygen Flow Rate 4 Fraction of Inspired Oxygen 12/09/23 23:30 12/10/23 00:00 12/10/23 00:00 Temperature Pulse Rate 108 H 107 H Respiratory Rate 36 H 26 H Blood Pressure 167/67 H Pulse Oximetry 91 93 Oxygen Delivery Method Nasal Cannula Nasal Cannula Oxygen Flow Rate 3 3 Fraction of Inspired Oxygen 12/10/23 00:30 12/10/23 00:31 12/10/23 00:31 Temperature Pulse Rate 107 H 106 H Respiratory Rate 23 31 H Blood Pressure 155/72 H Pulse Oximetry 91 93 Oxygen Delivery Method Nasal Cannula Nasal Cannula Oxygen Flow Rate 3 3 Fraction of Inspired Oxygen 12/10/23 01:00 12/10/23 01:00 12/10/23 01:30 Temperature Pulse Rate 108 H Respiratory Rate 32 H Blood Pressure 160/68 H 139/69 Pulse Oximetry 92 Oxygen Delivery Method Nasal Cannula Oxygen Flow Rate 3 Fraction of Inspired Oxygen 12/10/23 01:30 12/10/23 02:00 12/10/23 02:01 Temperature 99.6 F Pulse Rate 104 H 97 H 96 H Respiratory Rate 27 H 18 22 Blood Pressure Pulse Oximetry 92 91 92 Oxygen Delivery Method Nasal Cannula Nasal Cannula Nasal Cannula Oxygen Flow Rate 3 3 3 Fraction of Inspired Oxygen 12/10/23 02:01 12/10/23 02:30 12/10/23 02:30 Temperature Pulse Rate 101 H Respiratory Rate 24 Blood Pressure 133/61 149/70 H Pulse Oximetry 93 Oxygen Delivery Method Nasal Cannula Oxygen Flow Rate 3 Fraction of Inspired Oxygen MDM - SOB/Dyspnea Lab Data 12/09/23 21:17 12/09/23 21:30 Labs: Lab Results 12/09/23 12/09/23 Range/Units 21:17 21:30 WBC 15.0 H (4.5-11.0) X10^3/uL RBC 4.40 (4.0-5.2) X10^6/uL Hgb 12.9 (12.0-16.0) g/dL Hct 39.5 (36-46) % MCV 89.8 (80-100) fL MCH 29.3 (26-34) PG MCHC 32.6 (30-36) % RDW 14.2 (11.6-14.8) % Plt Count 360 (150-400) X10^3/uL Neut % (Auto) 74.7 (50-75) % Lymph % (Auto) 11.4 L (25-40) % [place] % (Auto) 11.2 (3-14) % Eos % (Auto) 2.2 (2-4) % Baso % (Auto) 0.5 (0-2) % Neut # (Auto) 65751 H (5811-3008) /uL Lymph # (Auto) 1700 (9492-7765) /uL [place] # (Auto) 1700 H (0-900) /uL Eos # (Auto) 300 (0-450) /uL Baso # (Auto) 100 (0-100) /uL PT 11.7 (9.4-12.5) SECONDS INR 1.0 (0.9-1.3) APTT 42 H (25.1-36.5) SECONDS Sodium 136 L (137-145) mmol/L Potassium 4.8 (3.4-5.1) mmol/L Chloride 97 L (98-107) mmol/L Carbon Dioxide 30 (22-32) mmol/L BUN 15 (7-17) mg/dL Creatinine 0.93 (0.52-1.04) mg/dL Estimated GFR > 60 (>60) mL/min BUN/Creatinine Ratio 16.1 (6-22) Glucose 148 H (80-110) mg/dL Lactate 1.8 (0.7-2.1) mmol/L Calcium 10.1 (8.4-10.2) mg/dL Total Bilirubin 0.9 (0.2-1.3) mg/dL AST 24 (14-36) IU/L ALT 20 (<35) IU/L Alkaline Phosphatase 114 (38-126) U/L Total Creatine Kinase 28 L (30-135) U/L Troponin I 0.021 (0.01-0.034) ng/mL NT-Pro-B Natriuret Pep 473 H (<450) pg/mL Total Protein 9.0 H (6.3-8.2) g/dL Albumin 4.7 (3.5-5.0) g/dL Globulin 4.3 H (1.7-4.1) g/dL Albumin/Globulin Ratio 1.1 (1.0-2.8) Procalcitonin 0.05 (<0.5) ng/mL Imaging Data Chest x-ray: Radiologist's Impression: PROCEDURE: XR CHEST 1V INDICATIONS: sob TECHNIQUE: One view of the chest was acquired. COMPARISON: [facility], CT, CT CHEST WITHOUT CONTRAST, 08/14/2023, 14:34. [facility], , XR CHEST 2V, 07/23/2022, 13:30. [facility], CR, XR CHEST 1V, 10/15/2018, 1:41. FINDINGS: Surgical changes and devices: None. Lungs and pleura: Emphysematous changes. Left perihilar mass is not well evaluated radiographically. Patchy right lower lobe opacities may be related to chronic scarring versus aspiration or pneumonia. No pleural effusions or pneumothorax. Mediastinum: Mediastinal contours appear normal. Heart size is normal. Bones and chest wall: No suspicious bony lesions. Overlying soft tissues appear unremarkable. IMPRESSION: 1. Patchy right lower lobe opacities may be secondary to aspiration or pneumonia versus chronic scarring. 2. Bilateral emphysema. 3. Previously demonstrated left perihilar mass is not well evaluated. Approved by: Jameel Glasgow M.D. on 12/09/2023 at 22:29 CT scan - chest: Radiologist's Impression: PROCEDURE: CT ANGIO CHEST PE PROTOCOL INDICATIONS: hypoxia hx cancer TECHNIQUE: After the administration of intravenous contrast, 2 mm thick sections acquired from the pulmonary apices to the posterior costophrenic angles. 3-dimensional maximum intensity projection (MIP) coronal and sagittal reformats were then acquired through the thorax. For radiation dose reduction, the following was used: automated exposure control, adjustment of mA and/or kV according to patient size. COMPARISON: [place], [place], PET NECK TO MID THIGH, 09/10/2023, 14:07. [facility], CT, CT CHEST WITHOUT CONTRAST, 08/14/2023, 14:34. [facility], , XR CHEST 1V, 12/09/2023, 21:28. [facility], CT, CT ANGIO CHEST PE PROTOCOL, 07/23/2022, 15:16. [facility], CT, CT ANGIO CHEST PE PROTOCOL, 10/15/2018, 2:31. FINDINGS: Image quality: Diagnostic. Pulmonary arteries: Pulmonary arteries are normal in size, and demonstrate no intraluminal filling defects to suggest central pulmonary embolism. Focal cut off of the inferior lingual segmental artery is seen at the level of the pulmonary mass. Lower Neck: No enlarged lymph nodes. Thyroid: No thyroid nodules which require sonographic follow up, per consensus guidelines. Axillae: No enlarged lymph nodes. Bones and Chest Wall: There is osseous structures structure in of the 2nd rib with surrounding soft tissue mass extending between the 1st and 3rd ribs that has increased in size when compared to the CT from 08/14/2023, now measuring 5.1 x 3.7 cm (17/4), compared to 4.4 x 2.8 cm previously. There is erosion of the adjacent 1st rib. [id number] compression fractures are seen at T4 and T5. Lungs and Pleura: Severe bilateral emphysematous changes again seen. Focal nodularity at the anterior right upper lobe (79/5) appears decreased when compared to the prior CT. Bandlike opacity at the posterior superior segment of the right lower lobe does not appear significantly changed and may represent scarring. Spiculated nodule again seen in the left perihilar region, which may have minimally increased in size and now measures 1.9 cm (119/5) when measured in a similar manner to the CT from 08/14/2023 when the nodule measured 1.7 cm. There is associated focal bronchial and arterial CT of in this location. No pneumothorax or pleural effusions. Heart: Heart size is normal. No pericardial effusion. Thoracic Vessels: No aortic aneurysm. Mediastinum and [place]: No enlarged lymph nodes. Esophagus: No wall thickening. No hiatal hernia. Upper Abdomen: Visualized upper abdomen solid organs and bowel loops appear normal. IMPRESSION: 1. No acute pulmonary embolus. 2. Left perihilar spiculated nodule has minimally increased in size compared to the CT from 08/14/2023. 3. Interval increase in size of a left chest wall mass centered at the lateral left 2nd rib. Approved by: Jameel Glasgow M.D. on 12/09/2023 at 23:20 MDM Narrative Medical decision making narrative: Patient 83-year-old female history COPD on home O2 with metastatic cancer presenting today with increasing shortness of breath. He was requiring increased oxygen levels more than normal. Initially placed on CPAP given continuous nebulizer treatments but actually quickly resolved. It became clear that she has ongoing pain in this left back and shoulder area she states that every time she breathes she has increased pain. She has been afraid to take her Percocet and morphine. She was given fentanyl which also seem to help. She was given morphine which seemed to help more. However she is still requiring more than her normal oxygen. Blood work has been reviewed mild leukocytosis, normal electrolytes and kidney function, troponin 0.021 BNP is 473, lactate 1.8 procalcitonin 0.05 Imaging reviewed chest x-ray questionable pneumonia CT angio does not show any evidence of pulmonary embolism but does show enlarging and worsening cancer with invasion into the 1st rib and a soft tissue mass. Patient required multiple radiating treatment she was having some difficulty breathing I think a combination of COPD exacerbation and pain. She is doing better with pain controlled however she was still slightly tachypneic and requiring more oxygen. Family is quite concern for her. CT does not show any evidence of pleural effusion pneumonia or pulmonary embolism. Low suspicion for infection at this time she is mild leukocytosis of 15 but a negative lactate and procalcitonin. She has not been having fever or infectious like symptoms. Patient's pain is controlled with morphine. Talked at length about goals care. At this time she reports that she would like to continue to be a full code although considering other options. DR. Dodson acepts patient. recommends antibiotics. Discharge Plan Departure Patient Disposition: Admitted as Observation Clinical Impression: COPD exacerbation, Lung cancer metastatic to bone Admit Date/Time: 12/10/23 02:52 Admit Provider: Jorge A Woody
--- NOTE | 2023-12-10 02:24 | PC.NURSE ---
Grand daughter still at bedside. Pt is appearing much more comfortable. Pt is able to smile and converse more with staff. Pt still requiring O2 3L NC. RR 30 when awake. Pt willingly admits that she does not usually tell the truth about her pain as she is uncomfortable with narcotics as she has family members that have struggled with addiction. Pt admits that she needs to be better about taking pain medication. Pt still, when her pain was obviously causing her distress when she arrived, pt reported a 4/10 for pain. Pt states after medication now she is still in pain but is much more manageable.
--- NOTE | 2023-12-10 03:00 | PC.NURSE ---
Grand daughter, Jesika [phone] Son, Junior [phone] [facility] number [phone]
[2023-12-10] MEDS: PIPERACILLIN/TAZO 4.5 GM in SODIUM CHLORIDE 0.9% 100 ML IV (03:07)
[2023-12-10] MEDS: ALBUTEROL 2.5 MG/3 ML NEB (ADULT) INH ×3 (03:40→13:45)
--- NOTE | 2023-12-10 03:51 | P.HP_ITS ---
History of Present Illness History of Present Illness Date Patient Seen: 12/10/23 Chief complaint: SOB Narrative: 83 y/o undergoing paliative radiation therapy for metastatic lung carcinoma, presented with severe dyspnea, desaturating into 80-ies on usual home oxygen flow of 2 L. Images showing Lt hilar mass and RLL infiltrate. Started on abx, improved saturations with CPAP and bronchodilators in the ED. [facility] Medical History Medicare annual wellness visit, subsequent Well adult exam CKD (chronic kidney disease) stage 3, GFR 30-59 ml/min Hyperlipidemia Hypertension COPD (chronic obstructive pulmonary disease) CAD (coronary artery disease) (2000) Surgical History Status post coronary artery stent placement (2000) Family History Daughter No problems noted. Social History marital status: household members: family, children and none Smoking Status: Former smoker alcohol intake: never substance use type: does not use Meds Home Medications and Allergies Home Medications Medication Instructions Recorded Confirmed Type Disabled Parking Permit #1 ea 10/31/22 07/28/23 Rx ipratropium 0.5 mg-albuterol 3 mg See Rx Instructions .Route 02/18/23 12/10/23 Rx (2.5 mg base)/3 mL nebulization .COMPLEX #360 mL soln amlodipine 5 mg tablet See Rx Instructions .Route 08/15/23 12/10/23 Rx .COMPLEX #90 tabs fluticasone 250 mcg-salmeterol 50 See Rx Instructions .Route 08/15/23 12/10/23 Rx mcg/dose blistr powdr for .COMPLEX #60 ea inhalation (Wixela Inhub) metoprolol tartrate 50 mg tablet 50 mg PO BID #180 tabs 08/15/23 12/10/23 Rx travoprost 0.004 % eye drops 1 drp EYE-BOTH BEDTIME #5 mL 08/15/23 12/10/23 Rx verapamil 80 mg tablet See Rx Instructions .Route 08/15/23 12/10/23 Rx .COMPLEX #180 tabs atorvastatin 10 mg tablet See Rx Instructions .Route 11/20/23 12/10/23 Rx .COMPLEX #90 tabs ipratropium 20 mcg-albuterol 100 1 puff inhalation QID #4 grams 11/24/23 12/10/23 Rx mcg/actuation mist for inhalation (Combivent Respimat) Allergies Allergy/AdvReac Type Severity Reaction Status Date / Time No Known Drug Allergies Allergy Verified 07/28/23 14:57 Review of Systems Constitutional Comments: generalized weakness chills Respiratory Comments: shortness of breath Left chest wall / pleuritic pain with cough and deep respirations Gastrointestinal Comments: poor appetite Exam Vital Signs (past 8 hours): - 12/09/23 21:16 12/09/23 21:37 12/09/23 21:59 Temperature Pulse Rate 113 H 110 H Respiratory Rate 32 H 30 H Blood Pressure 135/79 121/78 Pulse Oximetry 94 97 Oxygen Delivery Method CPAP Oxygen Flow Rate Fraction of Inspired Oxygen 30 12/09/23 21:59 12/09/23 23:21 12/09/23 23:30 Temperature Pulse Rate 103 H 107 H Respiratory Rate 28 H 32 H Blood Pressure 150/75 H Pulse Oximetry 98 92 Oxygen Delivery Method Nasal Cannula Oxygen Flow Rate 4 Fraction of Inspired Oxygen 12/09/23 23:30 12/10/23 00:00 12/10/23 00:00 Temperature Pulse Rate 108 H 107 H Respiratory Rate 36 H 26 H Blood Pressure 167/67 H Pulse Oximetry 91 93 Oxygen Delivery Method Nasal Cannula Nasal Cannula Oxygen Flow Rate 3 3 Fraction of Inspired Oxygen 12/10/23 00:30 12/10/23 00:31 12/10/23 00:31 Temperature Pulse Rate 107 H 106 H Respiratory Rate 23 31 H Blood Pressure 155/72 H Pulse Oximetry 91 93 Oxygen Delivery Method Nasal Cannula Nasal Cannula Oxygen Flow Rate 3 3 Fraction of Inspired Oxygen 12/10/23 01:00 12/10/23 01:00 12/10/23 01:30 Temperature Pulse Rate 108 H Respiratory Rate 32 H Blood Pressure 160/68 H 139/69 Pulse Oximetry 92 Oxygen Delivery Method Nasal Cannula Oxygen Flow Rate 3 Fraction of Inspired Oxygen 12/10/23 01:30 12/10/23 02:00 03/13/24 02:01 Temperature 99.6 F Pulse Rate 104 H 97 H 96 H Respiratory Rate 27 H 18 22 Blood Pressure Pulse Oximetry 92 91 92 Oxygen Delivery Method Nasal Cannula Nasal Cannula Nasal Cannula Oxygen Flow Rate 3 3 3 Fraction of Inspired Oxygen 12/10/23 02:01 12/10/23 02:30 12/10/23 02:30 Temperature Pulse Rate 101 H Respiratory Rate 24 Blood Pressure 133/61 149/70 H Pulse Oximetry 93 Oxygen Delivery Method Nasal Cannula Oxygen Flow Rate 3 Fraction of Inspired Oxygen 12/10/23 03:00 12/10/23 03:00 Temperature Pulse Rate 96 H Respiratory Rate 28 H Blood Pressure 104/57 L Pulse Oximetry 92 Oxygen Delivery Method Nasal Cannula Oxygen Flow Rate 3 Fraction of Inspired Oxygen Fraction of Inspired Oxygen 30 Oxygen Delivery Method Nasal Cannula Oxygen Flow Rate 3 Const Other: laying in bed in no distress Resp Other: shallow respirations, tachypnea, b/l rhonchi Cardio Other: RRR Extrem Other: w/o swelling Objective Labs 12/10/23 04:50 12/10/23 04:50 Labs: Laboratory Results - last 24 hr 12/09/23 12/09/23 21:17 21:30 WBC 15.0 H RBC 4.40 Hgb 12.9 Hct 39.5 MCV 89.8 MCH 29.3 MCHC 32.6 RDW 14.2 Plt Count 360 Neut % (Auto) 74.7 Lymph % (Auto) 11.4 L [place] % (Auto) 11.2 Eos % (Auto) 2.2 Baso % (Auto) 0.5 Neut # (Auto) 21598 H Lymph # (Auto) 1700 [place] # (Auto) 1700 H Eos # (Auto) 300 Baso # (Auto) 100 PT 11.7 INR 1.0 APTT 42 H Sodium 136 L Potassium 4.8 Chloride 97 L Carbon Dioxide 30 BUN 15 Creatinine 0.93 Estimated GFR > 60 BUN/Creatinine Ratio 16.1 Glucose 148 H Lactate 1.8 Calcium 10.1 Total Bilirubin 0.9 AST 24 ALT 20 Alkaline Phosphatase 114 Total Creatine Kinase 28 L Troponin I 0.021 NT-Pro-B Natriuret Pep 473 H Total Protein 9.0 H Albumin 4.7 Globulin 4.3 H Albumin/Globulin Ratio 1.1 Procalcitonin 0.05 Assessment & Plan Assessment and plan (1) Pneumonia: Qualifiers: Aspiration pneumonia type: unspecified Laterality: right Lung location: lower lobe of lung Pneumonia type: aspiration pneumonia Qualified Code(s): J69.0 - Pneumonitis due to inhalation of food and vomit Status: Acute (2) COPD exacerbation: Status: Acute (3) Acute and chronic respiratory failure with hypoxia: Status: Acute (4) Lung cancer metastatic to bone: Status: Acute (5) Coronary artery disease involving [place] coronary artery of [place] heart without angina pectoris: Status: None (6) Stage 3 chronic kidney disease: Problem details: No intervention needed Qualifiers: Chronic kidney disease stage 3 subtype: stage 3a (GFR 45-59) Qualified Code(s): N18.31 - Chronic kidney disease, stage 3a Status: Chronic (7) Essential hypertension: Problem details: Will continue her usual antihypertensive therapy. Status: Chronic Assessment & Plan narrative: 1. PNA / COPD Exacerbation / Acute on chronic hypoxemic respiratory failure - Zosyn, bronchodilators - steroids prn - given 1 x Solumedrol in ED - oxygen for saturation > 92% 2. Lung Carcinoma - maintains full code status - poor prognosis - just finished paliative radiation Tx 3. HTN / CAD - continue home medications DVT peophylaxis - Lovenox
[2023-12-10] MEDS: HYDROCODONE/ACET 5/325 TABLET 2 TAB PO (04:19)
[2023-12-10 05:09] LABS: Add Manual Diff / Slide Review NO; Basophils Absolute Auto 0 /uL (0-100); Basophils Percent Auto 0.1 % (0-2); Eosinophils Absolute Auto 0 /uL (0-450); Hematocrit 35.7 % (36-46); Hemoglobin 11.9 g/dL (12.0-16.0); Lymphocytes Absolute Auto 300 /uL (1100-4500); Lymphocytes Percent Auto 1.6 % (25-40); Mean Corpuscular HGB Conc 33.2 % (30-36); Mean Corpuscular Hemoglobin 29.8 PG (26-34); Mean Corpuscular Volume 89.7 fL (80-100); Monocytes Absolute Auto 100 /uL (0-900); Monocytes Percent Auto 0.9 % (3-14); Neutrophils Absolute Auto 15700 /uL (1500-7000); Neutrophils Percent Auto 97.4 % (50-75); Platelet Count 279 X10^3/uL (150-400); Red Blood Cell Count 3.98 X10^6/uL (4.0-5.2); Red Cell Distribution Width 14.1 % (11.6-14.8); White Blood Cell Count 16.1 X10^3/uL (4.5-11.0)
[2023-12-10 05:39] LABS: BUN Creatinine Ratio 17.7 (6-22); Blood Urea Nitrogen 20 mg/dL (7-17); Calcium 9.6 mg/dL (8.4-10.2); Carbon Dioxide 28 mmol/L (22-32); Chloride 97 mmol/L (98-107); Estimated Glomerular Filt Rate 48 mL/min (>60); Glucose 251 mg/dL (80-110); HEMOLYSIS < 15 (0-50); Potassium 5.2 mmol/L (3.4-5.1); Sodium 133 mmol/L (137-145)
[2023-12-10] MEDS: PIPERACILLIN/TAZO 3.375 GM in SODIUM CHLORIDE 0.9% 100 ML IV ×3 (06:19→22:38)
[2023-12-10] MEDS: BUDESONIDE 0.5 MG/2 ML NEB INH ×2 (08:22→19:10)
--- NOTE | 2023-12-10 08:27 | PM.HP.1 ---
History of Present Illness History of Present Illness Date Patient Seen: 12/10/23 Chief complaint: SOB Narrative: From night doctor: 83 y/o undergoing paliative radiation therapy for metastatic lung carcinoma, presented with severe dyspnea, desaturating into 80-ies on usual home oxygen flow of 2 L. Images showing Lt hilar mass and RLL infiltrate. Started on abx, improved saturations with CPAP and bronchodilators in the ED. Additional history: She is sitting up and eating breakfast. She is doing well. She is somewhat vague about the time course and severity of her shortness of breath. She does note that she has recently had radiation to a mass on her left rib. She denies a productive cough. No orthopnea or leg edema. She did have some nebulizers since arrival is unclear if these have helped. She is also unclear on whether or not she has been more wheezy recently. [facility] Medical History Medicare annual wellness visit, subsequent Well adult exam CKD (chronic kidney disease) stage 3, GFR 30-59 ml/min Hyperlipidemia Hypertension COPD (chronic obstructive pulmonary disease) CAD (coronary artery disease) (2000) Surgical History Status post coronary artery stent placement (2000) Family History Daughter No problems noted. Social History marital status: household members: family, children and none Smoking Status: Former smoker alcohol intake: never substance use type: does not use Meds Home Medications and Allergies Home Medications Medication Instructions Recorded Confirmed Type Disabled Parking Permit #1 ea 10/31/22 07/28/23 Rx ipratropium 0.5 mg-albuterol 3 mg See Rx Instructions .Route 02/18/23 12/10/23 Rx (2.5 mg base)/3 mL nebulization .COMPLEX #360 mL soln amlodipine 5 mg tablet See Rx Instructions .Route 08/15/23 12/10/23 Rx .COMPLEX #90 tabs fluticasone 250 mcg-salmeterol 50 See Rx Instructions .Route 08/15/23 12/10/23 Rx mcg/dose blistr powdr for .COMPLEX #60 ea inhalation ([employer]) metoprolol tartrate 50 mg tablet 50 mg PO BID #180 tabs 08/15/23 12/10/23 Rx travoprost 0.004 % eye drops 1 drp EYE-BOTH BEDTIME #5 mL 08/15/23 12/10/23 Rx verapamil 80 mg tablet See Rx Instructions .Route 08/15/23 12/10/23 Rx .COMPLEX #180 tabs atorvastatin 10 mg tablet See Rx Instructions .Route 11/20/23 12/10/23 Rx .COMPLEX #90 tabs ipratropium 20 mcg-albuterol 100 1 puff inhalation QID #4 grams 11/24/23 12/10/23 Rx mcg/actuation mist for inhalation (Combivent Respimat) Allergies Allergy/AdvReac Type Severity Reaction Status Date / Time No Known Drug Allergies Allergy Verified 07/28/23 14:57 Review of Systems Review of Systems Narrative: All else reviewed and otherwise unremarkable except as noted in the history and physical. Exam Vital Signs (past 8 hours): - 12/10/23 00:30 12/10/23 00:31 12/10/23 00:31 Temperature Pulse Rate 107 H 106 H Respiratory Rate 23 31 H Blood Pressure 155/72 H Pulse Oximetry 91 93 Oxygen Delivery Method Nasal Cannula Nasal Cannula Oxygen Flow Rate 3 3 12/10/23 01:00 12/10/23 01:00 12/10/23 01:30 Temperature Pulse Rate 108 H Respiratory Rate 32 H Blood Pressure 160/68 H 139/69 Pulse Oximetry 92 Oxygen Delivery Method Nasal Cannula Oxygen Flow Rate 3 12/10/23 01:30 12/10/23 02:00 12/10/23 02:01 Temperature 99.6 F Pulse Rate 104 H 97 H 96 H Respiratory Rate 27 H 18 22 Blood Pressure Pulse Oximetry 92 91 92 Oxygen Delivery Method Nasal Cannula Nasal Cannula Nasal Cannula Oxygen Flow Rate 3 3 3 12/10/23 02:01 12/10/23 02:30 12/10/23 02:30 Temperature Pulse Rate 101 H Respiratory Rate 24 Blood Pressure 133/61 149/70 H Pulse Oximetry 93 Oxygen Delivery Method Nasal Cannula Oxygen Flow Rate 3 12/10/23 02:59 12/10/23 03:00 12/10/23 03:00 Temperature Pulse Rate 96 H Respiratory Rate 28 H Blood Pressure 104/57 L Pulse Oximetry 92 Oxygen Delivery Method Nasal Cannula Nasal Cannula Oxygen Flow Rate 3 12/10/23 03:30 12/10/23 03:50 12/10/23 08:00 Temperature 99.7 F H 96.6 F L Pulse Rate 106 H 102 H 83 Respiratory Rate 24 22 20 Blood Pressure 141/70 H 107/53 L Pulse Oximetry 92 92 97 Oxygen Delivery Method Nasal Cannula Oxygen Flow Rate 3 2 2 12/10/23 08:24 Temperature Pulse Rate Respiratory Rate Blood Pressure Pulse Oximetry 91 Oxygen Delivery Method Nasal Cannula Oxygen Flow Rate 2 Fraction of Inspired Oxygen 30 Oxygen Delivery Method Nasal Cannula Oxygen Flow Rate 2 Narrative Exam Narrative: NAD, alert and oriented, fluent speech, calm. Normocephalic skull, EOMI, anicteric sclera, symmetric pupils. Oropharynx unremarkable, no droop. Neck supple, midline trachea, no adenopathy. Lungs notable for some scattered expiratory wheezing, normal rate and effort. Heart regular, no murmur gallop or rub. Abdomen is soft, non distended and non tender. Extremities are free of edema. Skin is free of rash or lesions. Joints are not swollen or deformed. Judgment appears to be normal. Objective Imaging Chest x-ray: My impression: Lung romero show some possible bilateral infiltrates versus perihilar mass. Both bases have some degree of infiltrate. Radiologist's impression: 1. Patchy right lower lobe opacities may be secondary to aspiration or pneumonia versus chronic scarring. 2. Bilateral emphysema. 3. Previously demonstrated left perihilar mass is not well evaluated. CT scan - chest: Radiologist's impression: 1. No acute pulmonary embolus. 2. Left perihilar spiculated nodule has minimally increased in size compared to the CT from 08/14/2023. 3. Interval increase in size of a left chest wall mass centered at the lateral left 2nd rib. Labs 12/10/23 04:50 12/10/23 04:50 Labs: Laboratory Results - last 24 hr 12/09/23 12/09/23 12/10/23 21:17 21:30 04:50 WBC 15.0 H 16.1 H RBC 4.40 3.98 L Hgb 12.9 11.9 L Hct 39.5 35.7 L MCV 89.8 89.7 MCH 29.3 29.8 MCHC 32.6 33.2 RDW 14.2 14.1 Plt Count 360 279 Neut % (Auto) 74.7 97.4 H D Lymph % (Auto) 11.4 L 1.6 L Hunt % (Auto) 11.2 0.9 L Eos % (Auto) 2.2 0.0 L Baso % (Auto) 0.5 0.1 Neut # (Auto) 79720 H 48943 H Lymph # (Auto) 1700 300 L Hunt # (Auto) 1700 H 100 Eos # (Auto) 300 0 Baso # (Auto) 100 0 PT 11.7 INR 1.0 APTT 42 H Sodium 136 L 133 L Potassium 4.8 5.2 H Chloride 97 L 97 L Carbon Dioxide 30 28 BUN 15 20 H Creatinine 0.93 1.13 H Estimated GFR > 60 48 L BUN/Creatinine Ratio 16.1 17.7 Glucose 148 H 251 H D Lactate 1.8 Calcium 10.1 9.6 Total Bilirubin 0.9 AST 24 ALT 20 Alkaline Phosphatase 114 Total Creatine Kinase 28 L Troponin I 0.021 NT-Pro-B Natriuret Pep 473 H Total Protein 9.0 H Albumin 4.7 Globulin 4.3 H Albumin/Globulin Ratio 1.1 Procalcitonin 0.05 Assessment & Plan Assessment & Plan narrative: 1. Possible PNA , present on admission and active. -continue Abx. 2. COPD Exacerbation, present on admission and active. - steroids prn - given 1 x Solumedrol in ED - oxygen for saturation > 92% 3. Acute on chronic hypoxemic respiratory failure, present on admission and active. 4. Lung Carcinoma, present on admission and active. - maintains full code status - poor prognosis - just finished paliative radiation Tx 5. HTN, present on admission and active. 6. CAD, present on admission and active. - continue home medications DVT prophylaxis - Lovenox Expect her to require least 2 midnights of inpatient care for treatment of her pneumonia and hypoxic respiratory failure. Time Spent With Patient Time with patient: 30 to 49 minutes with 50% spent counseling/coordinating care Quality MIPS - Admit I confirm the patient?s Advance Care Plan is present, Code status is documented, Surrogate decision maker is in patient?s record [If Yes, STOP here]: Yes MIPS - Meds 'Current medications' to include all prescriptions, [id number] products, herbals, cannabis/cannabidiol products, and vitamin/mineral/dietary (nutritional) supplements. I have utilized all available resources to obtain, update, or review the patient?s current medications. [If Yes, STOP here]: Yes
[2023-12-10] MEDS: VERAPAMIL 80 MG TABLET PO ×2 (08:48→21:06)
[2023-12-10] MEDS: METOPROLOL IR 50 MG TABLET PO ×2 (08:49→21:06)
[2023-12-10] MEDS: HYDROCODONE/ACET 5/325 TABLET 1 TAB PO ×3 (08:49→21:14)
[2023-12-10] MEDS: AMLODIPINE 5 MG TABLET PO (08:49)
[2023-12-10] MEDS: ENOXAPARIN 40 MG/0.4 ML SYRINGE SUBCUT (08:50)
--- NOTE | 2023-12-10 14:41 | CM.DANOTE ---
DCP Assessment Note Pt is an 83yo F here with pneumonia, acute/chronic resp failure, COPD exacerbation, and recently finished radiation for metastatic lung carcinoma. PCP Domingo Sanches Oncologist Dr. [facility] and self pay. DYEING MACHINE FEEDER reviewed EMR. Per hospitalist in morning rounds, anticipate here for another few days. Continue abx. DYEING MACHINE FEEDER entered room and introduced self and role. Pt sitting up in bed. Pt currently on 2ltrs O2, same as baseline. Pt reports not feeling so good today. pt lives with grandson, his spouse, and their children. Pt has a walker with chair and uses it occasionally. Granddaughter Merle (p [phone] or [phone]) helps transport her to oncology appointments, brings her groceries/other things she needs, and assists with chores in the home as well. Pt drinks Ensure once per day. Pt reports Hx of [facility]- unsure if she wants to start it again but will think about it. DYEING MACHINE FEEDER provided pt with [employer] booklet for additional community information. Pt reports one of her family will transport her home when she discharges. DYEING MACHINE FEEDER spoke with Tricia at [facility]. Confirm pt had RN/PT/DYEING MACHINE FEEDER services with them and was d/c Aug 2023. Anticipate no barrier to restart services again if needed. No PT/OT order at this time. Plan: anticipate home with family support when stable. f/u for need for PT/OT evals if indicated. r/o need for HH referral. CM team will continue to follow closely. VIDAL Macdonald Discharge Planning/Care Management CM Discharge Assessment Start: 12/10/23 14:38 Freq: Status: Active Protocol: Document 12/10/23 14:38 (Rec: 12/10/23 14:41 [id number]) Discharge Planning Assessment Assigned Chemical Processor VIDAL Arceo DPOA/Assigned Designee Name shae Pacheco Contact Information [phone] Advance Directives? No Advance Directives on File No History Provided By Patient,Medical Record Prior Living Arrangements House Household Members family,none,children Comment Pt lives with grandson, his spouse, and their children. Type of transporation used prior to Relies on Others admit Comment Granddaughter Merle transports her to her appts, brings her food, ext. Is patient alert and oriented? Yes Needs Assistance With Meal Prep,Home Chores / Shopping Comment Either grandson, granddaughter , or other local family bring her food, help with chores around the house, and assist with necessary transport needs . DME Already Rented / Owned FWW / Walker,Oxygen Comment 2ltrs O2 at baseline. Patient/Family Preference Home with Home Health Comment Hx of [facility]. d/c from their services Sep 18 2023. Tricia from [facility] reports could likely accept her back if needed Barriers to Discharge No Discharge Plan Home with Home Health Transportation Arrangement Family Additional Comment Home with HH vs home with family. No referral placed yet . SNF/HH Preference [facility]. Whiteboard Updated in Patient Room with Yes name and ext. # of Chemical Processor Review Status In Process Next Review Type Continued Stay Review
[2023-12-10 14:51] LABS: Appearance Urine UA CLEAR; Bilirubin Urine UA NEGATIVE (NEGATIVE); Color Urine UA YELLOW; Glucose Urine UA NEGATIVE (Negative); Ketones Urine UA TRACE (NEGATIVE); Leukocyte Esterase Urine UA NEGATIVE (NEGATIVE); Nitrite Urine UA NEGATIVE (Negative); Occult Blood Urine UA NEGATIVE (Negative); Protein Urine UA TRACE (Negative); Urobilinogen Urine UA 0.2 E.U./dL (0.2)
[2023-12-10 15:02] LABS: Bacteria Urine Many (>30); Culture Indicated Urine Cult Not Indicated; RBC Urine None Seen (0-5/HPF); Squamous Epithelial Cell Urine 5-10 /HPF (0-5/HPF); Urine Volume 10mL (spun); WBC Urine 1-5/HPF (0-5/HPF)
[2023-12-10] MEDS: ALBUTEROL/IPRATROPIUM 3 ML AMPUL INH ×3 (15:52→23:09)
[2023-12-10] MEDS: ATORVASTATIN 20 MG TABLET 10 MG PO (21:06)
[2023-12-10] MEDS: SENNOSIDES 8.6 MG TABLET 17.2 MG PO (21:06)
[2023-12-10] MEDS: LATANOPROST 0.005% OPHTH 2.5 ML 1 DROPS EYE-BOTH (21:34)
[2023-12-11] VITALS (14 sets, daily range): BP systolic 113–137; BP diastolic 51–64; PULSE 73–96; RESP 16–22; TEMP 35.5–36.9; O2SAT 93–99
[2023-12-11] MEDS: HYDROCODONE/ACET 5/325 TABLET 1 TAB PO (01:40)
[2023-12-11] MEDS: PIPERACILLIN/TAZO 3.375 GM in SODIUM CHLORIDE 0.9% 100 ML IV ×3 (06:11→22:50)
[2023-12-11] MEDS: BUDESONIDE 0.5 MG/2 ML NEB INH (06:36)
[2023-12-11] MEDS: ALBUTEROL/IPRATROPIUM 3 ML AMPUL INH ×4 (06:36→19:04)
--- NOTE | 2023-12-11 07:24 | PM.PN.1 ---
Subjective Subjective Interval history: Breathing is a little better, some cough. No chest or abdomen pain. Exam Vital Signs (past 8 hours): - 12/11/23 00:00 12/11/23 01:09 12/11/23 04:00 Temperature 96.6 F L 96.7 F L Pulse Rate 80 80 73 Respiratory Rate 18 16 Blood Pressure 120/57 L 120/57 L 115/59 L Pulse Oximetry 97 99 Oxygen Delivery Method Oxygen Flow Rate 2 3 Fraction of Inspired Oxygen 12/11/23 06:36 Temperature Pulse Rate 81 Respiratory Rate 20 Blood Pressure Pulse Oximetry 94 Oxygen Delivery Method Nasal Cannula Oxygen Flow Rate 2.5 Fraction of Inspired Oxygen 30 Fraction of Inspired Oxygen 30 SaO2/FiO2 Ratio 313 Oxygen Delivery Method Nasal Cannula Oxygen Flow Rate 2.5 Narrative Exam Narrative: NAD, alert and oriented. Fluent speech. Lungs are with somewhat diminished breath sounds and prolonged expiratory phase, normal rate and effort. Heart is regular, no murmur gallop or rub. Abdomen is soft, non distended. Extremities are free of edema. Objective Labs 12/10/23 04:50 12/10/23 04:50 Labs: Laboratory Results - last 24 hr 12/10/23 13:24 Urine Color Yellow Urine Appearance Clear Urine pH 5.0 Ur Specific Mcroberts 1.020 Urine Protein Trace H Urine Glucose (UA) Negative Urine Ketones Trace H Urine Occult Blood Negative Urine Nitrate Negative Urine Bilirubin Negative Urine Urobilinogen 0.2 Ur Leukocyte Esterase Negative Urine RBC None seen Urine WBC 1-5/hpf Ur Squamous Epith Cells 5-10 /hpf H Urine Bacteria Many (>30) H Ur Culture Indicated? Cult not indicated Vol Urine Centrifuged 10ml (spun) [facility] Medical History Medicare annual wellness visit, subsequent Well adult exam CKD (chronic kidney disease) stage 3, GFR 30-59 ml/min Hyperlipidemia Hypertension COPD (chronic obstructive pulmonary disease) CAD (coronary artery disease) (2000) Surgical History Status post coronary artery stent placement (2000) Family History Daughter No problems noted. Social History marital status: household members: family, children and none Smoking Status: Former smoker alcohol intake: never substance use type: does not use Assessment & Plan Assessment & Plan narrative: 1. PNA (CAP) , present on admission and improving. -continue Abx. 2. COPD Exacerbation, present on admission and improving. - steroids will continue. Bronchodilators scheduled and prn. - oxygen for saturation > 92% 3. Acute on chronic hypoxemic respiratory failure, present on admission and active. 4. Lung Carcinoma, present on admission and active. - maintains full code status - poor prognosis - just finished paliative radiation Tx 5. HTN, present on admission and stable. 6. CAD, present on admission and stable. - continue home medications PT eval. DVT prophylaxis - Lovenox DISPO: home in 1 day.
[2023-12-11] MEDS: ENOXAPARIN 40 MG/0.4 ML SYRINGE SUBCUT (10:18)
[2023-12-11] MEDS: METOPROLOL IR 50 MG TABLET PO ×2 (10:18→21:38)
[2023-12-11] MEDS: ACETAMINOPHEN 325 MG TABLET 650 MG PO (10:45)
--- NOTE | 2023-12-11 11:43 | OT.IP.EVAL ---
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) Essential (primary) hypertension (12/10/23) Atherosclerotic heart disease of [place] coronary artery without angina pectoris (12/10/23) Chronic obstructive pulmonary disease with (acute) exacerbation (12/10/23) Pneumonitis due to inhalation of food and vomit (12/10/23) Acute and chronic respiratory failure with hypoxia (12/10/23) Chronic kidney disease, stage 3a (12/10/23) Past Medical History (Last Reviewed 12/10/23 @ 08:28 by Joshua Panchal MD) CAD (coronary artery disease) (2000) CKD (chronic kidney disease) stage 3, GFR 30-59 ml/min COPD (chronic obstructive pulmonary disease) Hyperlipidemia Hypertension Medicare annual wellness visit, subsequent Well adult exam Surgical History (Last Reviewed 12/10/23 @ 08:28 by Joshua Panchal MD) Status post coronary artery stent placement (2000) Occupational Therapy Inpatient Evaluation/Re-Eval M1 PT/OT-IP Prior Functional Status Start: 12/11/23 11:20 Freq: NEEDED Status: Active Protocol: Document 12/11/23 16:25 CGR (Rec: 12/11/23 16:48 CGR [id number]) Medical Review Prior Functional Status Medical History Reviewed Yes Diet/Fluid Consistency Regular Communication Pt is an effective verbal communicator. 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 Mobility and Gait Pt reports I to mod I short distances in her home and at doctor appointments. She often uses the 4ww to assist with chores at home. 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 Pt does her own medication management, laundry and bills. Prior Functional Level (Other details) Pt states that her grandson and his family ( and 3 kids) live in the downstairs. Social History Household Members family Living Arrangements House Number of Floors (Floors) Two Floors Number of Stairs To Enter/Railing? There are ~10 steps spaced along a walkway to enter the home, 2 steps at a time. Some of the steps have railings but not all. Pt does not leave the entry level account representative. Home Environment Standard Height Toilet,Walk in Shower Home Equipment Four Wheel Walker,Raised Toilet Seat w/Armrests,Shower Seat without Backrest,Hand Held Shower,Vp Of Technology,Grab Bars Near Toilet Employment Status Retired Additional Social History Comment Pt has a flat bed. Pt states that her grandson helps some but her granddaughter that lives nearby does most of her shopping and assists as needed . M2 OT-IP Current Condition Start: 12/11/23 16:25 Freq: Status: Active Protocol: Document 12/11/23 16:25 CGR (Rec: 12/11/23 16:48 CGR [id number]) Occupational Therapy Current Condition Current Condition Evaluation Date 12/11/23 Treatment Diagnosis SOB, PNA COPE exacerbation, Lung carcinoma - poor prognosis Diagnosis Onset Date 12/10/23 M3 OT- IP Subjective and Pain Start: 12/11/23 16:25 Freq: Status: Active Protocol: Document 12/11/23 16:25 CGR (Rec: 12/11/23 16:48 CGR [id number]) OT- Subjective Occupational Therapy Visit Type Type Initial Evaluation Visit Start Time 11:20 Visit Stop Time 11:43 Notes Partial co-treat with P.T., attempted to see pt earlier but pt requested breathing treatment prior to therapy. Occupational Therapy Visit Comments Patient Comments I am able to do everything now that I was able to do before. OT Pain Assessment Pain When Pain Assessed At Rest Pain Present Pain Present Pain Reported Location Ribs Intensity 2 Scale Used Numeric (0 - 10) Management Techniques Modification of Treatment,Re- positioning Left Back Intensity 2 Scale Used Numeric (0 - 10) Management Techniques Modification of Treatment,Re- positioning,Timing of Activity with Medications M4 OT- IP ADL's Start: 12/11/23 16:25 Freq: Status: Active Protocol: Document 12/11/23 16:25 CGR (Rec: 12/11/23 16:48 CGR [id number]) OT [id number] Comments OT Self-Feeding Comments not meal time OT ADL-Grooming Comments OT Grooming Comments pt declined, performed earlier OT ADL-Oral Care Comments Oral Care Comments pt declined, performed earlier OT ADL-Dressing Comments OT Dressing Comments not performed OT ADL-Toileting Comments OT Toileting Comments pt declined need OT ADL-Bathing Comments OT Bathing Comments not performed M5 OT- IP IADL's Start: 12/11/23 16:25 Freq: Status: Active Protocol: Document 12/11/23 16:25 CGR (Rec: 12/11/23 16:48 CGR [id number]) OT-Instrumental Activities of Daily Living Deficits IADL Deficits Identified No Deficits Home Safety Awareness Awareness of Need for Assistance at Home Good Awareness Ability to Problem Solve Emergency Able to Problem Solve Situations Medication Management Medication Management No Deficits Identified Money Management Money Management No Deficits Identified Meal Preparation Meal Preparation No Deficits Identified, Caregiver Provides Assist Hand Molder Hand Molder Caregiver Provides Assist Driving Driving Comments Pt does not drive at baseline. M6 OT- IP Functional Cognition Start: 12/11/23 16:25 Freq: Status: Active Protocol: Document 12/11/23 16:25 CGR (Rec: 12/11/23 16:48 CGR [id number]) Cognitive Factors Limiting Selfcare Function Cognitive Ability Level of Alertness Alert Patient Orientation Name,Age,Birthday,Month,Date, Year,Day of Week,Place, Situation Attention Span Ability Capable of Focused Attention, Capable of Sustained Attention Ability to Follow Commands Able to Follow Multi-Step Commands OT- Vision and Hearing OT- Hearing Assessment OT- Hearing Assessment Hearing Impaired,Left Ear Impaired OT- Vision Assessment Visual Acuity Glasses All The Time Visual Attentiveness WFL Occular Pursuits WFL Visual Convergence WFL M7 OT- IP Mobility and Balance Start: 12/11/23 16:25 Freq: Status: Active Protocol: Document 12/11/23 16:25 CGR (Rec: 12/11/23 16:48 CGR [id number]) OT- Bed Mobility Assessment Supine to Sit Supine to Sit Assist Independent Scooting Scooting to Edge of Bed Independent OT-Transfer Assessment Sit to and From Stand Sit to and from Stand Standby Assistance Transfers Transfer Ability Standby Assistance Technique Transfer Destination Bed,Chair Transfer Technique Stand Step Pivot Devices Transfer Assistive Devices Gait Belt Comments Mobility Comments Pt ambuated to chair without physical difficulty but with SOB. Pt states she feels close to her normal OT- Balance Assessment Sitting Balance and Reactions Static Sitting Balance Ability Normal Dynamic Sitting Balance Ability Normal M8 OT- IP Objective Assessments Start: 12/11/23 16:25 Freq: Status: Active Protocol: Document 12/11/23 16:25 CGR (Rec: 12/11/23 16:48 CGR [id number]) OT Gross Range of Motion Upper Extremity Range of Motion Assessment Bilaterally Impaired ROM Impairments B shld 0-90 OT Strength Upper Extremity Strength Assessment Within Functional Limits Comments Strength Comments B shld 3+/5 (restriction is from pain) B arms 4-/5 B hands 4+/5 OT- Coordination Assessment Upper Extremity Finger to Nose Test Within Functional Limits Finger Tapping Test Within Functional Limits OT-Muscle Tone Assessment Muscle Tone WNL Yes OT Sensation Assessment Edema Edema Absent M9 OT- IP Assessment and Plan Start: 12/11/23 16:25 Freq: Status: Active Protocol: Document 12/11/23 16:25 CGR (Rec: 12/11/23 16:48 CGR [id number]) OT Summary Assessment and Plan Potential Rehabilitation Potential Excellent Analytic Complexity at Evaluation Low Summary OT Impairments Pain,Range of Motion,Strength, Dressing,Toileting,Bathing, Toilet Transfers,Shower Transfers,Activity Tolerance Progress Towards Goals Progressing Toward Goals Assessment Summary Pt presents as a low complexity evaluation s/p admit for PNA on COPD. Pt also has a dx of lung carcinoma and has been getting palliative radiation. Pt performed today at close to her baseline but with increased SOB. Pt would benefit from 1-2 more OT sessions to address energy conservation with home activities. Pt is appropriate for home with family support at time of discharge. Goals Grooming Goal Independent Dressing Goal Independent Toileting Goal Independent Bathing Goal Independent Toilet Transfer Goal Independent Shower Transfer Goal Independent Days to Meet Goals 3 Frequency of Treatment Frequency Of Treatment Once a Day Treatment Plan OT Treatment Plan ADL Training,Functional Mobility,Patient/Family Education,Discharge Planning Other Treatment Recommendations and Next Energy concervation with ADLs Treatment Focus including LB dressing and showering. Discharge Recommendations OT Discharge Recommendations Home with Assistance Transportation Needs at Discharge Private Vehicle
--- NOTE | 2023-12-11 11:51 | PC.NURSE ---
Patient is sob with exertion. She complained of 4/10 pain to l.shoulder. Given tylenol and patient is comfortable. Up with PT and now sitting in the chair. She is on 2.5L of oxygen and sats in the upper 90s.
--- NOTE | 2023-12-11 12:09 | PT.IIE ---
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) Essential (primary) hypertension (12/10/23) Atherosclerotic heart disease of [place] coronary artery without angina pectoris (12/10/23) Chronic obstructive pulmonary disease with (acute) exacerbation (12/10/23) Pneumonitis due to inhalation of food and vomit (12/10/23) Acute and chronic respiratory failure with hypoxia (12/10/23) Chronic kidney disease, stage 3a (12/10/23) Surgical History (Last Reviewed 12/10/23 @ 08:28 by Joshua Panchal MD) Status post coronary artery stent placement (2000) Medical History (Last Reviewed 12/10/23 @ 08:28 by Joshua Panchal MD) CAD (coronary artery disease) (2000) CKD (chronic kidney disease) stage 3, GFR 30-59 ml/min COPD (chronic obstructive pulmonary disease) Hyperlipidemia Hypertension Medicare annual wellness visit, subsequent Well adult exam Physical Therapy Inpatient Evaluation/Re-Eval M1 PT/OT-IP Prior Functional Status Start: 12/11/23 11:20 Freq: NEEDED Status: Active Protocol: Document 12/11/23 11:20 MB (Rec: 12/11/23 12:08 MB [id number]) Medical Review Prior Functional Status Medical History Reviewed Yes Diet/Fluid Consistency Regular Communication WNLs Mobility and Gait Pt reports I to mod I short distances in her home and at doctor appointments Activities of Daily Living and IADL's Defer to OT who asked pt these questions before PT entered for evaluation Social History Household Members family Living Arrangements House Number of Stairs To Enter/Railing? There are 10 steps to enter her home with a rail. Pt's grandson lives with her Employment Status Retired Additional Social History Comment OT will write in further DME and home set-up info M2 PT-IP Current Condition Start: 12/11/23 11:20 Freq: NEEDED Status: Active Protocol: Document 12/11/23 11:20 MB (Rec: 12/11/23 12:08 MB [id number]) Physical Therapy Current Condition Current Condition Evaluation Date 12/11/23 Treatment Diagnosis PNA in setting of lung CA M3 PT-IP Subjective Start: 12/11/23 11:20 Freq: NEEDED Status: Active Protocol: Document 12/11/23 11:20 MB (Rec: 12/11/23 12:08 [id number]) Subjective Physical Therapy Visit Type Type Initial Evaluation Visit Start Time 11:20 Visit Stop Time 11:42 Number of GROCERY SACKER Visits 0 Physical Therapy Visit Comments Patient Comments That's it? Don't recommend me to go to a retirement and I don't want hospice. Pt's comments at end of treatment. Therapy Pain Assessment Pain When Pain Assessed At Rest Pain Present Pain Present Pain Reported Location Ribs Intensity 7 Scale Used Numeric (0 - 10) M4 PT-IP Mobility and Gait Start: 12/11/23 11:20 Freq: NEEDED Status: Active Protocol: Document 12/11/23 11:20 MB (Rec: 12/11/23 12:08 [id number]) PT-Bed Mobility Assessment Rolling Level of Assist Standby Assistance Supine to Sit Supine to Sit Standby Assistance,Head of Bed Elevated,Bedrails Scooting Scooting to Edge of Bed Standby Assistance PT-Transfer Assessment Sit to and From Stand Sit to and from Stand Contact Guard Assistance,1 Person Assistance,Use of Upper Extremities Equipment Transfer Assistive Device Gait Belt,Front Wheeled Walker Orthotic/Prosthetic Devices or Brace: No Transfers Transfer Destination Chair Transfer Technique Ambulation Transfer Ability Level of Assist Contact Guard Assistance,1 Person Assistance,Use of Upper Extremities Comments Mobility Comments Cues for pt to push up from the bed and pt is concerned about gait belt placement up high and so moved it to abdomen. Gait Assessment Gait Gait Assistance Required: Contact Guard Assist,1 Person Assist Distance (Feet) 5 Able to Maintain Weight Bearing Status Yes During Gait Assistive Devices Assistive Device Gait Belt,Front Wheeled Walker Orthotic/Prosthetic Devices or Brace: No Gait Deviations General Gait Pattern Decreased Stride Length, Decreased Feet Clearance, Flexed Trunk,Wide Based Gait Factors Limiting Gait Function Factors Limiting Gait Function Decreased Activity Tolerance, Difficulty Following Directions,Pain,Poor Balance, Poor Safety Awareness, Respiratory Distress Comments Gait Comments Pt with 4/4 Dyspnea scale with mobility and her O2 sats drop from the mid 90s to 84% on 2L with mobility. PT-Balance Assessment Sitting Balance and Reactions Static Sitting Balance Ability Good Dynamic Sitting Balance Ability Good Standing Balance and Reactions Static Standing Balance Ability Good Dynamic Standing Balance Ability Fair Device Used RW M5 PT-IP Objective Assessments Start: 12/11/23 11:20 Freq: NEEDED Status: Active Protocol: Document 12/11/23 11:20 MB (Rec: 12/11/23 12:08 MB [id number]) Orientation Orientation/Cognition Level of Alertness Alert Orientation Name,Age,Birthday,Month,Date, Year,Day of Week,Place, Situation Language Function Ability No Deficits Noted Safety Awareness Decreased Safety Awareness Memory Description No Deficits Noted Gross Range of Motion Upper Extremity ROM Impairments Defer to OT Lower Extremity ROM Assessment Within Functional Limits Strength Comments Strength Comments PT does not MMT given mild LE edema and evidence of fragile skin in right hand and her functional strength is at least 3+/5 in her legs M6 PT-IP Treatment Start: 12/11/23 11:20 Freq: NEEDED Status: Active Protocol: Document 12/11/23 11:20 MB (Rec: 12/11/23 12:08 MB [id number]) Physical Therapy Treatment Education Education Provided Safety M7 PT-IP Assessment and Plan Start: 12/11/23 11:20 Freq: NEEDED Status: Active Protocol: Document 12/11/23 11:20 MB (Rec: 12/11/23 12:08 MB [id number]) PT Summary Assessment and Plan Potential Rehabilitation Potential Fair Status of Condition at Evaluation Unstable Summary Impairments Pain,ROM,Strength,Balance,Bed Mobility,Transfers,Gait, Activity Tolerance Progress Towards Goals Slow Progress due to Medical Issues,Slow Progress due to Activity Tolerance Assessment Summary Pt is an 83 y/o female adm with SOB in setting of PNA and underlying lung CA. She requires therapists to ask questions several time and in different ways as she does not directly answer questions. She is adamant about not wanting SNF or hospice. Her O2 sats on 2L drop with minimal mobility to 84% and she has 4/ 4 Dyspnea scale requiring sitting rest break. Discussed with pt HH and to think about what her goals are going forward: if she would like to stay at home, she may need services that come to the house and increased assistance . She will consider HH even though they irriated her in the past. Functional prognosis is guarded to poor given advanced age and lung CA Goals Bed Mobility Goal Independent Transfer Goal Independent,Cane,Front Wheeled Walker Gait Goal Independent,Cane,Front Wheel Walker Gait Distance 75 Other Goals Pt will ascend and descend 10 steps with rail and no more than superv assistance to allow safe home entrance. Frequency of Treatment Frequency Of Treatment Once a Day Treatment Plan Physical Therapy Treatment Plan Bed Mobility Training,Transfer Training,Gait Training, Therapeutic Exercise,Balance Retraining,Discharge Planning, Hot or Cold Pack Precautions Other Precautions Fall risk, pt on 2L O2 and desating with mobility Weight Bearing Status Weight Bearing Status Weight Bear as Tolerated Recommendations To Nursing Amount of Assist Needed Standby Assistance,1 Person Assist Discharge Recommendations PT Discharge Recommendations Home with Assistance,Home Health Transportation Needs at Discharge Private Vehicle
[2023-12-11 12:15] LABS: Hematocrit 33.9 % (36-46); Hemoglobin 11.3 g/dL (12.0-16.0); Mean Corpuscular HGB Conc 33.3 % (30-36); Mean Corpuscular Hemoglobin 29.8 PG (26-34); Mean Corpuscular Volume 89.5 fL (80-100); Platelet Count 294 X10^3/uL (150-400); Red Blood Cell Count 3.78 X10^6/uL (4.0-5.2); Red Cell Distribution Width 14.1 % (11.6-14.8); White Blood Cell Count 14.9 X10^3/uL (4.5-11.0)
[2023-12-11 12:24] LABS: BUN Creatinine Ratio 28.6 (6-22); Blood Urea Nitrogen 30 mg/dL (7-17); Calcium 9.5 mg/dL (8.4-10.2); Carbon Dioxide 30 mmol/L (22-32); Chloride 98 mmol/L (98-107); Estimated Glomerular Filt Rate 52 mL/min (>60); Glucose 92 mg/dL (80-110); HEMOLYSIS < 15 (0-50); Sodium 135 mmol/L (137-145)
[2023-12-11 12:56] LABS: Potassium 5.7 mmol/L (3.4-5.1)
[2023-12-11] MEDS: SODIUM POLYSTYRENE SULFON/SORB 15 GM/60 ML CUP PO (14:53)
[2023-12-11] MEDS: ALBUTEROL 2.5 MG/3 ML NEB (ADULT) INH (17:05)
[2023-12-11] MEDS: guaiFENesin ER 600 MG TAB PO ×2 (18:02→21:36)
[2023-12-11 18:49] LABS: HEMOLYSIS < 15 (0-50); Potassium 4.6 mmol/L (3.4-5.1)
[2023-12-11] MEDS: ATORVASTATIN 20 MG TABLET 10 MG PO (21:36)
[2023-12-11] MEDS: SENNOSIDES 8.6 MG TABLET 17.2 MG PO (21:37)
[2023-12-11] MEDS: LATANOPROST 0.005% OPHTH 2.5 ML 1 DROPS EYE-BOTH (21:39)
[2023-12-11] MEDS: VERAPAMIL 80 MG TABLET PO (21:39)
[2023-12-12] VITALS (12 sets, daily range): BP systolic 118–145; BP diastolic 51–95; PULSE 67–89; RESP 16–22; TEMP 36.1–36.5; O2SAT 93–97
[2023-12-12] MEDS: ALBUTEROL/IPRATROPIUM 3 ML AMPUL INH ×6 (00:08→23:24)
[2023-12-12 05:37] LABS: Hematocrit 30.4 % (36-46); Hemoglobin 10.2 g/dL (12.0-16.0); Mean Corpuscular HGB Conc 33.6 % (30-36); Mean Corpuscular Hemoglobin 29.6 PG (26-34); Mean Corpuscular Volume 88.3 fL (80-100); Platelet Count 256 X10^3/uL (150-400); Red Blood Cell Count 3.44 X10^6/uL (4.0-5.2); Red Cell Distribution Width 14.1 % (11.6-14.8); White Blood Cell Count 11.8 X10^3/uL (4.5-11.0)
[2023-12-12] MEDS: BUDESONIDE 0.5 MG/2 ML NEB INH ×2 (05:42→19:49)
--- NOTE | 2023-12-12 05:43 | RT ---
0542 -pt requested scheduled breathing treatments early this morning. RN aware.
[2023-12-12 05:51] LABS: BUN Creatinine Ratio 26.1 (6-22); Blood Urea Nitrogen 23 mg/dL (7-17); Calcium 8.9 mg/dL (8.4-10.2); Carbon Dioxide 34 mmol/L (22-32); Chloride 102 mmol/L (98-107); Estimated Glomerular Filt Rate > 60 mL/min (>60); Glucose 84 mg/dL (80-110); HEMOLYSIS < 15 (0-50); Potassium 4.7 mmol/L (3.4-5.1); Sodium 136 mmol/L (137-145)
[2023-12-12] MEDS: PIPERACILLIN/TAZO 3.375 GM in SODIUM CHLORIDE 0.9% 100 ML IV ×3 (07:26→22:40)
--- NOTE | 2023-12-12 07:49 | PM.PN.1 ---
Subjective Subjective Interval history: Her cough and shortness of breath or slowly improving. She still has significant dyspnea with any movements. No fevers overnight. She denies any nausea, or abdominal pain. Exam Vital Signs (past 8 hours): - 12/12/23 00:00 12/12/23 04:00 12/12/23 05:42 Temperature 97.6 F 97.6 F Pulse Rate 86 82 85 Respiratory Rate 18 16 20 Blood Pressure 137/56 L 134/61 Pulse Oximetry 96 97 94 Oxygen Delivery Method Nasal Cannula Oxygen Flow Rate 2 2 2 Fraction of Inspired Oxygen 28 Fraction of Inspired Oxygen 28 SaO2/FiO2 Ratio 335 Oxygen Delivery Method Nasal Cannula Oxygen Flow Rate 2 Narrative Exam Narrative: NAD, alert and oriented. Fluent speech. Lungs are with less wheezing and better air movement, normal rate and effort. Heart is regular, no murmur gallop or rub. Abdomen is soft, non distended. Extremities are free of edema. Objective Labs 12/12/23 05:15 12/12/23 05:15 Labs: Laboratory Results - last 24 hr 12/11/23 12/11/23 12/12/23 10:15 18:30 05:15 WBC 14.9 H 11.8 H RBC 3.78 L 3.44 L Hgb 11.3 L 10.2 L Hct 33.9 L 30.4 L MCV 89.5 88.3 MCH 29.8 29.6 MCHC 33.3 33.6 RDW 14.1 14.1 Plt Count 294 256 Sodium 135 L 136 L Potassium 5.7 H 4.6 4.7 Chloride 98 102 Carbon Dioxide 30 34 H BUN 30 H 23 H Creatinine 1.05 H 0.88 Estimated GFR 52 L > 60 BUN/Creatinine Ratio 28.6 H 26.1 H Glucose 92 D 84 Calcium 9.5 8.9 PFSH Medical History Medicare annual wellness visit, subsequent Well adult exam CKD (chronic kidney disease) stage 3, GFR 30-59 ml/min Hyperlipidemia Hypertension COPD (chronic obstructive pulmonary disease) CAD (coronary artery disease) (2000) Surgical History Status post coronary artery stent placement (2000) Family History Daughter No problems noted. Social History marital status: household members: family Smoking Status: Former smoker alcohol intake: never substance use type: does not use Assessment & Plan Assessment & Plan narrative: 1. PNA (CAP) , present on admission and improving. -continue Abx (Zosyn, 5 days total). 2. COPD Exacerbation, present on admission and improving. - steroids will continue. Bronchodilators scheduled and prn. - oxygen for saturation > 92% -we will assess breathing and oxygenation went ambulation today. She has fairly limited ambulation at home including a short flight of stairs and short walks about 100 ft. She does have home oxygen, about 2 L. 3. Acute on chronic hypoxemic respiratory failure, present on admission and active. 4. Lung Carcinoma, present on admission and active. - maintains full code status - poor prognosis - just finished paliative radiation Tx 5. HTN, present on admission and stable. 6. CAD, present on admission and stable. - continue home medications PT eval. DISPO: Likely home in 1-2 days with home health. Social work has been notified.
[2023-12-12] MEDS: ACETAMINOPHEN 325 MG TABLET 650 MG PO ×2 (08:44→21:39)
[2023-12-12] MEDS: guaiFENesin ER 600 MG TAB PO ×2 (08:44→21:41)
[2023-12-12] MEDS: METOPROLOL IR 50 MG TABLET PO ×2 (08:44→21:41)
[2023-12-12] MEDS: VERAPAMIL 80 MG TABLET PO ×2 (08:44→21:40)
[2023-12-12] MEDS: AMLODIPINE 5 MG TABLET PO (08:44)
[2023-12-12] MEDS: ENOXAPARIN 40 MG/0.4 ML SYRINGE SUBCUT (08:44)
--- NOTE | 2023-12-12 10:02 | PT.IPTN ---
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) Essential (primary) hypertension (12/10/23) Atherosclerotic heart disease of [place] coronary artery without angina pectoris (12/10/23) Chronic obstructive pulmonary disease with (acute) exacerbation (12/10/23) Pneumonitis due to inhalation of food and vomit (12/10/23) Acute and chronic respiratory failure with hypoxia (12/10/23) Chronic kidney disease, stage 3a (12/10/23) Physical Therapy Treatment Note M2 PT-IP Current Condition Start: 12/11/23 11:20 Freq: NEEDED Status: Active Protocol: Document 12/11/23 11:20 MB (Rec: 12/11/23 12:08 MB [id number]) Physical Therapy Current Condition Current Condition Evaluation Date 12/11/23 Treatment Diagnosis PNA in setting of lung CA M3 PT-IP Subjective Start: 12/11/23 11:20 Freq: NEEDED Status: Active Protocol: Document 12/12/23 10:25 TS (Rec: 12/12/23 10:39 TS [id number]) Subjective Physical Therapy Visit Type Type Treatment Note Visit Start Time 10:02 Visit Stop Time 10:25 Number of TORCH STRAIGHTENER AND HEATER Visits 1 Physical Therapy Visit Comments Patient Comments Pt found sitting EOB, reports she feels weak, is agreeable to PT. M4 PT-IP Mobility and Gait Start: 12/11/23 11:20 Freq: NEEDED Status: Active Protocol: Document 12/12/23 10:25 TS (Rec: 12/12/23 10:39 TS [id number]) PT-Transfer Assessment Sit to and From Stand Sit to and from Stand Standby Assistance,Use of Upper Extremities Equipment Transfer Assistive Device None,Gait Belt,Front Wheeled Walker Orthotic/Prosthetic Devices or Brace: No Comments Mobility Comments Pt found resting on 2L of o2, 3L for mobility. STS from bed with FWW SBA, pt has good standing balance. She ambulated in the hallway ~150' SBA with FWW, denies SOB but reports feeling weak. Pt sat back on EOB for rest break due to fatigue. STS from bed with no AD SBA, pt more unsteady. She ambulated ~15' in room with no AD, is unsteady. She performed steps x10 SBA with single rail on step stool, had some SOB. Pt ambulated back to EOB, nursing notified. Gait Assessment Gait Gait Assistance Required: Standby Assistance Distance (Feet) 150 Able to Maintain Weight Bearing Status Yes During Gait Assistive Devices Assistive Device None,Gait Belt,Front Wheeled Walker Orthotic/Prosthetic Devices or Brace: No Gait Deviations General Gait Pattern Decreased Stride Length, Decreased Feet Clearance, Flexed Trunk,Wide Based Gait Factors Limiting Gait Function Factors Limiting Gait Function Decreased Activity Tolerance, Difficulty Following Directions,Pain,Poor Balance, Poor Safety Awareness, Respiratory Distress Comments Gait Comments ~15' no AD and ~150' with FWW. Stair Climbing Assessment Evaluation Level of Assist On Stairs Standby Assistance Devices Stair Climbing Assistive Devices Right Railing Technique/Endurance Stair Climbing Direction Ascend and Descend Stair Climbing Technique Step to Step Number of Steps Climbed 10 Comments Stair Climbing Comments See mobility comments PT-Balance Assessment Sitting Balance and Reactions Static Sitting Balance Ability Normal Dynamic Sitting Balance Ability Good Standing Balance and Reactions Static Standing Balance Ability Good Dynamic Standing Balance Ability Fair Device Used RW M5 PT-IP Objective Assessments Start: 12/11/23 11:20 Freq: NEEDED Status: Active Protocol: Document 12/11/23 11:20 MB (Rec: 12/11/23 12:08 MB [id number]) Orientation Orientation/Cognition Level of Alertness Alert Orientation Name,Age,Birthday,Month,Date, Year,Day of Week,Place, Situation Language Function Ability No Deficits Noted Safety Awareness Decreased Safety Awareness Memory Description No Deficits Noted Gross Range of Motion Upper Extremity ROM Impairments Defer to OT Lower Extremity ROM Assessment Within Functional Limits Strength Comments Strength Comments PT does not MMT given mild LE edema and evidence of fragile skin in right hand and her functional strength is at least 3+/5 in her legs M6 PT-IP Treatment Start: 12/11/23 11:20 Freq: NEEDED Status: Active Protocol: Document 12/12/23 10:25 TS (Rec: 12/12/23 10:39 TS [id number]) Physical Therapy Treatment Education Education Provided Safety M7 PT-IP Assessment and Plan Start: 12/11/23 11:20 Freq: NEEDED Status: Active Protocol: Document 12/12/23 10:25 TS (Rec: 12/12/23 10:39 TS [id number]) PT Summary Assessment and Plan Potential Rehabilitation Potential Fair Summary Impairments Pain,ROM,Strength,Balance,Bed Mobility,Transfers,Gait, Activity Tolerance Progress Towards Goals Progressing Toward Goals Assessment Summary Paz is making progress with her mobility. She is SBA for STS with FWW and with no AD. She progressed her gait to ~ 150 with FWW SBA and ~15'SBA with no AD. She is more steady with use of FWW and would recommend she continue to use. She progressed to stairs x10 SBA with single rail, she had no buckling or LOB. PT is recommending pt return home with assist and HHPT. Goals Bed Mobility Goal Independent Transfer Goal Independent,Cane,Front Wheeled Walker Gait Goal Independent,Cane,Front Wheel Walker Gait Distance 75 Other Goals Pt will ascend and descend 10 steps with rail and no more than superv assistance to allow safe home entrance. Frequency of Treatment Frequency Of Treatment Once a Day Treatment Plan Physical Therapy Treatment Plan Bed Mobility Training,Transfer Training,Gait Training, Therapeutic Exercise,Balance Retraining,Discharge Planning, Hot or Cold Pack Precautions Other Precautions Fall risk, o2 needs Weight Bearing Status Weight Bearing Status Weight Bear as Tolerated Recommendations To Nursing Amount of Assist Needed Standby Assistance Discharge Recommendations PT Discharge Recommendations Home with Assistance,Home Health Transportation Needs at Discharge Private Vehicle
--- NOTE | 2023-12-12 10:55 | CM.DPC ---
Addendum entered by VIDAL Espinoza 12/12/23 11:25: ADD: Spoke w/Lidia Frey, Jeff . She explained that if [facility] gets the referral, the initial visiting clinician may be different than the clinician that follows up, however, that follow up clinician (ie a ROLLER REPAIRER rather than a PT or DIRECTOR OF TEACHER EDUCATION rather than an RN) should be consistent. Updated patient and she is agreeable to referral to [facility] for RN/PT/OT/SCHEDULING COORDINATOR. Requested that CASTRO Gomez, complete the remainder of the referral; HH order and F2F completed. JW Original Note: DCP Cont According to discussion in multidisciplinary rounds, patient expected to stay the evening. Anticipate discharge home tomorrow w/family and referral to . Met w/patient, NGA Holland finishing his session; reviewed discharge plan. Patient hesitant about HH, explains [facility] never sent the same person twice. Patient willing to consider HH referral, as recommended by provider and therapy, if agency has consistent staffing for her home visits. LM with Lidia Frey at [facility] to felix. team following clinical course closely for eventual coordination of discharge. ROSENDO
--- NOTE | 2023-12-12 11:30 | OT.IP.TRT ---
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) Essential (primary) hypertension (12/10/23) Atherosclerotic heart disease of [place] coronary artery without angina pectoris (12/10/23) Chronic obstructive pulmonary disease with (acute) exacerbation (12/10/23) Pneumonitis due to inhalation of food and vomit (12/10/23) Acute and chronic respiratory failure with hypoxia (12/10/23) Chronic kidney disease, stage 3a (12/10/23) Occupational Therapy Treatment Note M2 OT-IP Current Condition Start: 12/11/23 16:25 Freq: Status: Active Protocol: Document 12/11/23 16:25 CGR (Rec: 12/11/23 16:48 CGR [id number]) Occupational Therapy Current Condition Current Condition Evaluation Date 12/11/23 Treatment Diagnosis SOB, PNA COPE exacerbation, Lung carcinoma - poor prognosis Diagnosis Onset Date 12/10/23 M3 OT- IP Subjective and Pain Start: 12/11/23 16:25 Freq: Status: Active Protocol: Document 12/12/23 11:30 [facility] (Rec: 12/12/23 11:38 [facility] [id number]) OT- Subjective Occupational Therapy Visit Type Type Treatment Note Visit Start Time 11:15 Visit Stop Time 11:30 Occupational Therapy Visit Comments Patient Comments Pt not wanting to get up but agreed to talk about energy conservation and what to expect for home health services. Patient/Caregiver Goals To go home. OT Pain Assessment Pain When Pain Assessed At Rest Pain Present Pain Present Denied Pain M4 OT- IP ADL's Start: 12/11/23 16:25 Freq: Status: Active Protocol: Document 12/12/23 11:30 [facility] (Rec: 12/12/23 11:38 [facility] [id number]) OT [id number] Comments OT Self-Feeding Comments not meal time OT ADL-Grooming Comments OT Grooming Comments Pt declined and states to do later. OT ADL-Oral Care Comments Oral Care Comments Pt declined. OT ADL-Dressing Comments OT Dressing Comments not performed OT ADL-Toileting Comments OT Toileting Comments Spoke of getting a BSC to increased ease and distance for toileting needs. OT ADL-Bathing Comments OT Bathing Comments Pt refused, and states would rather shower at home. Pt states usually call one of her family members when she is about to initiate her shower. M5 OT- IP IADL's Start: 12/11/23 16:25 Freq: Status: Active Protocol: Document 12/11/23 16:25 CGR (Rec: 12/11/23 16:48 CGR [id number]) OT-Instrumental Activities of Daily Living Deficits IADL Deficits Identified No Deficits Home Safety Awareness Awareness of Need for Assistance at Home Good Awareness Ability to Problem Solve Emergency Able to Problem Solve Situations Medication Management Medication Management No Deficits Identified Money Management Money Management No Deficits Identified Meal Preparation Meal Preparation No Deficits Identified, Caregiver Provides Assist Safety Investigator Safety Investigator Caregiver Provides Assist Driving Driving Comments Pt does not drive at baseline. M6 OT- IP Functional Cognition Start: 12/11/23 16:25 Freq: Status: Active Protocol: Document 12/12/23 11:30 [facility] (Rec: 12/12/23 11:38 [facility] [id number]) Cognitive Factors Limiting Selfcare Function Cognitive Comments Cognitive Assessment Comments Intact. Able to go over energy conservation needs with pt. Also able to go over what to expect from home health, questions to ask and be sure to let them know if she is having any difficulties at home for example feed her pets . M7 OT- IP Mobility and Balance Start: 12/11/23 16:25 Freq: Status: Active Protocol: Document 12/11/23 16:25 CGR (Rec: 12/11/23 16:48 CGR [id number]) OT- Bed Mobility Assessment Supine to Sit Supine to Sit Assist Independent Scooting Scooting to Edge of Bed Independent OT-Transfer Assessment Sit to and From Stand Sit to and from Stand Standby Assistance Transfers Transfer Ability Standby Assistance Technique Transfer Destination Bed,Chair Transfer Technique Stand Step Pivot Devices Transfer Assistive Devices Gait Belt Comments Mobility Comments Pt ambulated to chair without physical difficulty but with SOB. Pt states she feels close to her normal OT- Balance Assessment Sitting Balance and Reactions Static Sitting Balance Ability Normal Dynamic Sitting Balance Ability Normal M8 OT- IP Objective Assessments Start: 12/11/23 16:25 Freq: Status: Active Protocol: Document 12/11/23 16:25 CGR (Rec: 12/11/23 16:48 CGR [id number]) OT Gross Range of Motion Upper Extremity Range of Motion Assessment Bilaterally Impaired ROM Impairments B shld 0-90 OT Strength Upper Extremity Strength Assessment Within Functional Limits Comments Strength Comments B shld 3+/5 (restriction is from pain) B arms 4-/5 B hands 4+/5 OT- Coordination Assessment Upper Extremity Finger to Nose Test Within Functional Limits Finger Tapping Test Within Functional Limits OT-Muscle Tone Assessment Muscle Tone WNL Yes OT Sensation Assessment Edema Edema Absent M9 OT- IP Assessment and Plan Start: 12/11/23 16:25 Freq: Status: Active Protocol: Document 12/12/23 11:30 [facility] (Rec: 12/12/23 11:38 [facility] [id number]) OT Summary Assessment and Plan Potential Rehabilitation Potential Excellent Analytic Complexity at Evaluation Low Summary OT Impairments Pain,Range of Motion,Strength, Dressing,Toileting,Bathing, Toilet Transfers,Shower Transfers,Activity Tolerance Progress Towards Goals Progressing Toward Goals Assessment Summary Pt agreed to go over energy conservations needs as not wanting to participate in any ADL's at this time. Pt looking to go home with assist and home health when medically stable. Goals Grooming Goal Independent Dressing Goal Independent Toileting Goal Independent Bathing Goal Independent Toilet Transfer Goal Independent Shower Transfer Goal Independent Days to Meet Goals 2 Frequency of Treatment Frequency Of Treatment Once a Day Treatment Plan OT Treatment Plan ADL Training,Functional Mobility,Patient/Family Education,Discharge Planning Discharge Recommendations OT Discharge Recommendations Home with Assistance,Home Health Transportation Needs at Discharge Private Vehicle
[2023-12-12] MEDS: LOPERAMIDE 2 MG CAPSULE PO (15:44)
[2023-12-12] MEDS: LATANOPROST 0.005% OPHTH 2.5 ML 1 DROPS EYE-BOTH (21:39)
[2023-12-12] MEDS: ATORVASTATIN 20 MG TABLET 10 MG PO (21:40)
[2023-12-13] VITALS (15 sets, daily range): BP systolic 115–143; BP diastolic 54–73; PULSE 72–84; RESP 16–22; TEMP 35.9–36.9; O2SAT 93–99
[2023-12-13 05:07] LABS: Hematocrit 32.4 % (36-46); Hemoglobin 10.9 g/dL (12.0-16.0); Mean Corpuscular HGB Conc 33.6 % (30-36); Mean Corpuscular Hemoglobin 29.8 PG (26-34); Mean Corpuscular Volume 88.5 fL (80-100); Platelet Count 256 X10^3/uL (150-400); Red Blood Cell Count 3.66 X10^6/uL (4.0-5.2); Red Cell Distribution Width 13.7 % (11.6-14.8); White Blood Cell Count 8.4 X10^3/uL (4.5-11.0)
[2023-12-13 05:14] LABS: BUN Creatinine Ratio 13.5 (6-22); Blood Urea Nitrogen 13 mg/dL (7-17); Calcium 8.7 mg/dL (8.4-10.2); Carbon Dioxide 29 mmol/L (22-32); Chloride 103 mmol/L (98-107); Estimated Glomerular Filt Rate 58 mL/min (>60); Glucose 88 mg/dL (80-110); HEMOLYSIS < 15 (0-50); Potassium 4.3 mmol/L (3.4-5.1); Sodium 136 mmol/L (137-145)
[2023-12-13] MEDS: ACETAMINOPHEN 325 MG TABLET 650 MG PO ×3 (05:31→22:24)
[2023-12-13] MEDS: PIPERACILLIN/TAZO 3.375 GM in SODIUM CHLORIDE 0.9% 100 ML IV ×3 (06:56→22:25)
[2023-12-13] MEDS: BUDESONIDE 0.5 MG/2 ML NEB INH ×2 (07:20→18:16)
[2023-12-13] MEDS: ALBUTEROL/IPRATROPIUM 3 ML AMPUL INH ×5 (07:20→23:56)
[2023-12-13] MEDS: guaiFENesin ER 600 MG TAB PO ×2 (08:21→20:10)
[2023-12-13] MEDS: ENOXAPARIN 40 MG/0.4 ML SYRINGE SUBCUT (08:21)
[2023-12-13] MEDS: AMLODIPINE 5 MG TABLET PO (08:21)
[2023-12-13] MEDS: METOPROLOL IR 50 MG TABLET PO ×2 (08:21→20:10)
[2023-12-13] MEDS: VERAPAMIL 80 MG TABLET PO ×2 (08:27→20:11)
--- NOTE | 2023-12-13 10:24 | PT-IP ANOTE ---
Pt refused to work with PT this morning. Will check on pt tomorrow if still in hospital.
--- NOTE | 2023-12-13 10:29 | PT-IP ANOTE ---
Pt refused to work with PT this morning. When asked if she would like to work with PT pt stated no, PT will check back with pt tomorrow if still in hospital.
--- NOTE | 2023-12-13 15:09 | PM.PN.1 ---
Subjective Subjective Interval history: Patient now on baseline 2L O2. She is still wheezy on exam. She would like to stay one more day and potentially discharge home tomorrow. Exam Vital Signs (past 8 hours): - 12/13/23 07:20 12/13/23 08:00 12/13/23 08:00 Temperature Pulse Rate 75 78 Respiratory Rate 18 20 Blood Pressure Pulse Oximetry 95 95 Oxygen Delivery Method Nasal Cannula Nasal Cannula Oxygen Flow Rate 2 2 12/13/23 08:27 12/13/23 10:00 12/13/23 10:33 Temperature Pulse Rate 83 83 72 Respiratory Rate 18 Blood Pressure 131/63 Pulse Oximetry 95 Oxygen Delivery Method Nasal Cannula Oxygen Flow Rate 12/13/23 12:00 12/13/23 14:54 Temperature 96.8 F L Pulse Rate 75 76 Respiratory Rate 18 20 Blood Pressure 115/54 L Pulse Oximetry 97 95 Oxygen Delivery Method Nasal Cannula Oxygen Flow Rate 2 2 Fraction of Inspired Oxygen 28 SaO2/FiO2 Ratio 335 Oxygen Delivery Method Nasal Cannula Oxygen Flow Rate 2 Narrative Exam Narrative: NAD, alert and oriented. Fluent speech. Lungs are with less wheezing and better air movement, normal rate and effort. Heart is regular, no murmur gallop or rub. Abdomen is soft, non distended. Extremities are free of edema. Objective Labs 12/13/23 04:30 12/13/23 04:30 Labs: Laboratory Results - last 24 hr 12/13/23 04:30 WBC 8.4 RBC 3.66 L Hgb 10.9 L Hct 32.4 L MCV 88.5 MCH 29.8 MCHC 33.6 RDW 13.7 Plt Count 256 Sodium 136 L Potassium 4.3 Chloride 103 Carbon Dioxide 29 BUN 13 Creatinine 0.96 Estimated GFR 58 L BUN/Creatinine Ratio 13.5 Glucose 88 Calcium 8.7 [facility] Medical History Medicare annual wellness visit, subsequent Well adult exam CKD (chronic kidney disease) stage 3, GFR 30-59 ml/min Hyperlipidemia Hypertension COPD (chronic obstructive pulmonary disease) CAD (coronary artery disease) (2000) Surgical History Status post coronary artery stent placement (2000) Family History Daughter No problems noted. Social History marital status: household members: family Smoking Status: Former smoker alcohol intake: never substance use type: does not use Assessment & Plan Assessment & Plan narrative: 1. PNA (CAP) , present on admission and improving. -continue Abx (Zosyn, 5 days total) to cover for possible aspiration, althought patient notes no history of aspirating or coughing when eating 2. COPD Exacerbation, present on admission and improving. - steroids will continue. Bronchodilators scheduled and prn. - oxygen for saturation > 92% 3. Acute on chronic hypoxemic respiratory failure, present on admission and now resolved. 4. Lung Carcinoma, present on admission and active. - maintains full code status - poor prognosis - just finished paliative radiation Tx 5. HTN, present on admission and stable. 6. CAD, present on admission and stable. - continue home medications PT [facility]. DISPO: Likely home on 12/13 with home health.
[2023-12-13] MEDS: ATORVASTATIN 20 MG TABLET 10 MG PO (20:10)
[2023-12-13] MEDS: LATANOPROST 0.005% OPHTH 2.5 ML 1 DROPS EYE-BOTH ×2 (20:16→20:20)
[2023-12-13] MEDS: SODIUM CHLORIDE 0.9% FLUSH 10 ML IV (21:06)
[2023-12-13] MEDS: SODIUM CHLORIDE 0.9% 250 ML 21 ML IV (22:36)
[2023-12-14] VITALS (8 sets, daily range): BP systolic 121–131; BP diastolic 54–62; PULSE 63–80; RESP 16–18; TEMP 36.2–36.4; O2SAT 94–97
[2023-12-14] MEDS: ACETAMINOPHEN 325 MG TABLET 650 MG PO (05:46)
[2023-12-14] MEDS: PIPERACILLIN/TAZO 3.375 GM in SODIUM CHLORIDE 0.9% 100 ML IV (06:40)
[2023-12-14] MEDS: ALBUTEROL/IPRATROPIUM 3 ML AMPUL INH ×2 (07:33→11:12)
[2023-12-14] MEDS: BUDESONIDE 0.5 MG/2 ML NEB INH (07:33)
[2023-12-14] MEDS: ENOXAPARIN 40 MG/0.4 ML SYRINGE SUBCUT (08:05)
[2023-12-14] MEDS: guaiFENesin ER 600 MG TAB PO (08:05)
[2023-12-14] MEDS: VERAPAMIL 80 MG TABLET PO (08:05)
[2023-12-14] MEDS: METOPROLOL IR 50 MG TABLET PO (08:05)
[2023-12-14] MEDS: AMLODIPINE 5 MG TABLET PO (08:05)
[2023-12-14] MEDS: SODIUM CHLORIDE 0.9% FLUSH 10 ML IV (08:05)
[2023-12-14] MEDS: DOXYCYCLINE HYCLATE 100 MG TABLET PO (09:29)
[2023-12-14] MEDS: predniSONE 20 MG TABLET 40 MG PO (09:29)
--- NOTE | 2023-12-14 10:40 | CM.DPC ---
DCP Discharge Home with HH Per MD, pt medically stable to d/c home today and determined MBS not needed at this time and pt does not appear to be having ongoing swallow issues or aspiration at this time. SW met bedside with pt and explained role and she confirms her preference is to discharge home today and confirms family plans to transport home around lunch time and SW discussed the referral to [facility] and pt remains agreeable and showed that she was already provided with the [facility] brochure and is aware of how HH works as she has used HH in the past. Pt denies any further needs and SW provided copy of Medicare Rights/IMM. SW updated RN and alerted [facility] to patient discharge home today and F2F and HH orders completed by previous SW. Plan: Patient to d/c home today via family POV and [facility] referral completed and to follow after discharge. VIDAL Dawn
--- NOTE | 2023-12-14 10:43 | P.DS_ITS ---
History of Present Illness History of Present Illness Chief complaint: SOB Narrative: From night doctor: 83 y/o undergoing paliative radiation therapy for metastatic lung carcinoma, presented with severe dyspnea, desaturating into 80-ies on usual home oxygen flow of 2 L. Images showing Lt hilar mass and RLL infiltrate. Started on abx, improved saturations with CPAP and bronchodilators in the ED. Additional history: She is sitting up and eating breakfast. She is doing well. She is somewhat vague about the time course and severity of her shortness of breath. She does note that she has recently had radiation to a mass on her left rib. She denies a productive cough. No orthopnea or leg edema. She did have some nebulizers since arrival is unclear if these have helped. She is also unclear on whether or not she has been more wheezy recently. Discharge Providers Provider Date of admission: 12/10/23 02:52 Discharge Date: 12/14/23 Primary care physician: Domingo Sanches DO Consults: 12/10/23 17:55 Consult to Occupational Therapy Evaluate & Treat Comment: Physician Instructions: Evaluate and treat Consult to Physical Therapy Evaluate & Treat Comment: Physician Instructions: Evaluate and Treat 12/12/23 11:10 Consult to Home Health Routine Comment: Reason For Exam: Home health services upon discharge 12/13/23 08:08 Consult to Speech Therapy Evaluate & Treat Comment: recurrent aspiration PNA? Physician Instructions: Evaluate and treat Discharge provider: Joshua Soto MD Summary Hospital Course Discharge Diagnosis: 1. Possible bacterial pneumonia 2. COPD exacerbation 3. Acute on chronic hypoxic respiratory failure 4. Lung carcinoma, active 5. CAD, stable CTA 12/09/23: IMPRESSION: 1. No acute pulmonary embolus. 2. Left perihilar spiculated nodule has minimally increased in size compared to the CT from 08/14/2023. 3. Interval increase in size of a left chest wall mass centered at the lateral left 2nd rib. Hospital Course: Pt was treated with Zosyn for IV abx and budesonide and albuterol/ipratropium nebs. She is feeling better, afebrile, and back on her baseline 2 L NC. Wbc elevated initially and now normal. There was some initial concern re aspiration pnx but pt endorses no swallowing difficulties and further evla deferred at this time. Discharged home with services. Status at Discharge Cognitive/behavioral status at discharge: oriented Functional status at discharge: independent ambulation Overall status at discharge: patient is progressing back to baseline Time Spent with Patient Time spent: Greater than 30 minutes Exam Vital Signs (past 8 hours): - 12/14/23 04:00 12/14/23 07:34 12/14/23 08:00 Temperature 97.3 F L 97.2 F L Pulse Rate 63 79 69 Respiratory Rate 16 18 16 Blood Pressure 121/62 122/60 Pulse Oximetry 97 94 95 Oxygen Delivery Method Nasal Cannula Oxygen Flow Rate 2 2 2 12/14/23 08:00 12/14/23 08:05 12/14/23 09:29 Temperature Pulse Rate 69 65 Respiratory Rate Blood Pressure 122/60 Pulse Oximetry Oxygen Delivery Method Nasal Cannula Oxygen Flow Rate Fraction of Inspired Oxygen 28 SaO2/FiO2 Ratio 335 Oxygen Delivery Method Nasal Cannula Oxygen Flow Rate 2 Narrative Exam Narrative: Gen: alert, NAD Lungs: slightly diminished, no wheeze or crackles CV: regular Ext: no edema Neuro: nl speech and affect Objective Labs 12/13/23 04:30 12/13/23 04:30 [facility] Medical History Medicare annual wellness visit, subsequent Well adult exam CKD (chronic kidney disease) stage 3, GFR 30-59 ml/min Hyperlipidemia Hypertension COPD (chronic obstructive pulmonary disease) CAD (coronary artery disease) (2000) Surgical History Status post coronary artery stent placement (2000) Family History Daughter No problems noted. Social History marital status: household members: family Smoking Status: Former smoker alcohol intake: never substance use type: does not use Discharge Plan Discharge Plan Patient Disposition: Home Discharge orders & Medications Prescriptions: New doxycycline monohydrate 100 mg capsule 100 mg PO BID 5 Days Qty: 10 0RF prednisone 20 mg tablet 40 mg PO DAILY 5 Days Qty: 10 0RF Continued ipratropium-albuterol 0.5 mg-3 mg(2.5 mg base)/3 mL solution for nebulization See Rx Instructions .ROUTE .COMPLEX Qty: 360 3RF Dose Instruction: Inhale contents of 1 vial (1 ampule) via nebulizer 4 times daily Rx Instructions: Inhale contents of 1 vial (1 ampule) via nebulizer 4 times daily fluticasone propion-salmeterol [Wixela Inhub] 250-50 mcg/dose blister with device See Rx Instructions .ROUTE .COMPLEX Qty: 60 2RF Dose Instruction: Inhale 1 puff 2 times daily Rx Instructions: Inhale 1 puff 2 times daily amlodipine 5 mg tablet See Rx Instructions .ROUTE .COMPLEX Qty: 90 2RF Dose Instruction: Take 1 tablet (5 mg) by mouth daily Rx Instructions: Take 1 tablet (5 mg) by mouth daily metoprolol tartrate 50 mg tablet 50 mg PO BID Qty: 180 1RF travoprost 0.004 % drops 1 drp EYE-BOTH BEDTIME Qty: 5 0RF verapamil 80 mg tablet See Rx Instructions .ROUTE .COMPLEX Qty: 180 2RF Dose Instruction: Take 1 tablet (80 mg) by mouth 2 times daily Rx Instructions: Take 1 tablet (80 mg) by mouth 2 times daily atorvastatin 10 mg tablet See Rx Instructions .ROUTE .COMPLEX Qty: 90 2RF Dose Instruction: Take 1 tablet (10 mg) by mouth once daily at bedtime Rx Instructions: Take 1 tablet (10 mg) by mouth once daily at bedtime Combivent Respimat 20-100 mcg/actuation mist 1 puff INHALATION QID Qty: 4 3RF Rx Instructions: space evenly during waking hours. (DME) Disabled Parking Permit See Rx Instructions .Route .MEDSUPPLY Qty: 1 0RF Rx Instructions: I find this patient to be medically disabled and qualified for Disabled Parking as indicated and signed on the Accompanying Disabled Parking Application for Individuals. fluticasone propion-salmeterol [Wixela Inhub] 250-50 mcg/dose blister with device 1 ea inhalation BID Follow up/Referrals: Domingo Sanches, [Primary Care Provider] - Diet/Activity/Treatments Diet: Regular Visit Report/Discharge Packet Instructions: Home Oxygen Therapy, DI for Chronic Obstructive Pulmonary Disease, How to Prevent Falls Stand Alone Forms: Patient Portal/API, Stroke Signs & Symptoms Discharge Data Primary Care Provider: Domingo Sanches
--- NOTE | 2023-12-14 12:22 | PC.NURSE ---
Day shift: Discharge instructions gone over with patient and patient's granddaughter. Patient stated understanding. All questions answered. PIV removed prior to discharge. All belongings with patient, including patient's medications that were stored in pharmacy. Pharmacist Skyler brought medications up from pharmacy for patient. PCT Ru escorted patient via wheelchair to exit where patient's granddaughter to drive her home. Pt has home oxygen that granddaughter brought for the way home.
== END 2023-12-14 12:27 | disposition home health service (06) | DRG 193 ==
LOC: ED 21:25 → AC 12-10 02:53
PROVIDERS: Hospitalist; Admitting Provider Internal Medicine; Emergency Provider Emergency Medicine; PCP Family Medicine; Referring Provider Emergency Medicine; Visit Provider Internal Medicine
DX: J18.9 Pneumonia, unspecified organism (principal); J96.21 Acute and chronic respiratory failure with hypoxia; C34.90 Malignant neoplasm of unspecified part of unspecified bronchus or lung; C79.51 Secondary malignant neoplasm of bone; J44.1 Chronic obstructive pulmonary disease with (acute) exacerbation; I10 Essential (primary) hypertension; I25.10 Atherosclerotic heart disease of native coronary artery without angina pectoris; E78.5 Hyperlipidemia, unspecified; Z87.891 Personal history of nicotine dependence
CPT/HCPCS: 36415; 71045; 71275; 80048; 80053; 81001; 82550; 83605; 83880; 84132; 84145; 84484; 85025; 85027; 85610; 85730; 87040; 93005; 93010; 94640; 94660; 94760; 94762; 96374; 96375; 96376; 97116; 97161; 97165; 97530; 97535; 99285; J1650; J2270; J2543; J2919; J3010; J7613; Q9967

== ENCOUNTER 2024-02-09 15:09 | Inpatient (IN) | payer MEDICARE, SELFPAY ==
[2023-12-10 02:59] VITALS: BMI 23.4
[2024-02-09] VITALS (61 sets, daily range): BP systolic 109–162; BP diastolic 56–78; PULSE 84–98; RESP 10–55; TEMP 36.5–36.8; O2SAT 84–96; BMI 25.5; BMI 24.5
[2024-02-09] MEDS: ALBUTEROL/IPRATROPIUM 3 ML AMPUL INH ×3 (15:25→16:30)
--- NOTE | 2024-02-09 15:25 | DI.RAD.S_ITS ---
PROCEDURE: XR CHEST 1V INDICATIONS: Shortness of breath TECHNIQUE: One view of the chest was acquired. COMPARISON: [facility], CR, XR CHEST 1V, 12/09/2023, 21:28. FINDINGS: Surgical changes and devices: None. Lungs and pleura: Apically predominant emphysema. Moderate right basilar reticulonodular pulmonary opacity. Mild left basilar patchy opacity. No pleural effusions or pneumothorax. Mediastinum: Mediastinal contours appear normal. Heart size is normal. Bones and chest wall: No suspicious bony lesions. Overlying soft tissues appear unremarkable. IMPRESSION: Bibasilar pneumonia. Continued plain film surveillance is recommended to ensure resolution, and to exclude underlying or central malignancy. Dictated by: Ilda Wise M.D. on 02/09/2024 at 15:56 Approved by: Ilda Wise M.D. on 02/09/2024 at 15:56
--- NOTE | 2024-02-09 15:44 | ED_ITS ---
HPI - General Adult General Chief complaint: Shortness of Breath/Dyspnea Stated complaint: SOB Time Seen by Provider: 02/09/24 15:23 Source: patient and EMS Mode of arrival: EMS History of Present Illness HPI narrative: 83-year-old female with a history of COPD is on home oxygen at home at baseline also has a history of lung cancer is being followed by Oncology who is here for evaluation of a couple days of progressively worsening shortness of breath and having to increase her home oxygen. She was also having a cough. Increased sputum production. No chest pain. No sore throat. No sinus congestion. No abdominal pain or change in bowel habits. No lower extremity swelling. She denies a history of heart failure. She was admitted to the hospital about 6 weeks ago for similar symptoms. She states that at that time she was on a BiPAP machine which he states improved her symptoms quite a bit. She has been taking all of your medications as directed. Related Data Home Medications Medication Instructions Recorded Confirmed fluticasone 250 mcg-salmeterol 50 1 ea inhalation BID 12/10/23 02/06/24 mcg/dose blistr powdr for inhalation ([employer] Inhub) Previous Rx's Medication Instructions Recorded Disabled Parking Permit #1 ea 10/31/22 ipratropium 0.5 mg-albuterol 3 mg See Rx Instructions .Route 02/18/23 (2.5 mg base)/3 mL nebulization .COMPLEX #360 mL soln fluticasone 250 mcg-salmeterol 50 See Rx Instructions .Route 08/15/23 mcg/dose blistr powdr for .COMPLEX #60 ea inhalation ([employer] Inhub) travoprost 0.004 % eye drops 1 drp EYE-BOTH BEDTIME #5 mL 08/15/23 verapamil 80 mg tablet See Rx Instructions .Route 08/15/23 .COMPLEX #180 tabs atorvastatin 10 mg tablet See Rx Instructions .Route 11/20/23 .COMPLEX #90 tabs ipratropium 20 mcg-albuterol 100 1 puff inhalation QID #4 grams 11/24/23 mcg/actuation mist for inhalation (Combivent Respimat) nebulizer accessories #1 ea 12/16/23 nebulizers #1 ea 12/16/23 amlodipine 5 mg tablet See Rx Instructions .Route 12/30/23 .COMPLEX #90 tabs metoprolol tartrate 50 mg tablet 50 mg PO BID #180 tabs 01/05/24 Allergies Allergy/AdvReac Type Severity Reaction Status Date / Time No Known Drug Allergies Allergy Verified 02/06/24 12:51 Review of Systems Review of Systems ROS Unobtainable: All systems reviewed & are unremarkable except as noted in HPI and below Patient History Medical History Medicare annual wellness visit, subsequent Well adult exam CKD (chronic kidney disease) stage 3, GFR 30-59 ml/min Hyperlipidemia Hypertension COPD (chronic obstructive pulmonary disease) CAD (coronary artery disease) (2000) Surgical History Status post coronary artery stent placement (2000) Family History Daughter No problems noted. Social History marital status: household members: family Smoking Status: Former smoker alcohol intake: never substance use type: does not use Smoking Status: Former smoker tobacco type: cigarettes Substance Use Type: does not use Exam Initial Vital Signs Initial Vital Signs: Vital Signs Pulse Rate 95 H 02/09/24 15:15 Pulse Oximetry 93 02/09/24 15:15 Const Other: Chronically ill-appearing HENMT Head: normal to inspection and normocephalic Resp Effort & Inspection: labored, respiratory distress, no retractions and tachypneic Auscultation: diminished lung sounds, rhonchi and wheezes Cardio Rate: tachycardic Rhythm: regular rhythm GI Inspection: normal to inspection Skin General: no rashes or lesions noted Neuro General: patient alert, patient awake and moves all extremities Extrem General: normal to inspection, capillary refill normal and No edema Course Orders Ordered: ED Orders 02/09/24 15:19 Covid-19 + FLU A/B + RSV - PCR Stat Respiratory Panel (Film Array) Stat 02/09/24 15:25 XR chest 1V Stat EKG-12 Lead Stat Measure peak expiratory flow ONCE RT Consult Eval and Treat NOW 02/09/24 15:45 High flow/High humidity nasal NOW 02/09/24 16:20 Complete Blood Count AUTO DIFF Stat Comprehensive Metabolic Panel Stat Lactate (Lactic Acid) Stat Magnesium Stat NT-proBNP (BNP-Adult 18+) Stat Prothrombin Time INR Stat Troponin I Stat 02/09/24 16:43 Blood Culture Stat 02/09/24 17:01 CT angio chest PE protocol Stat 02/09/24 17:02 ABG [Arterial Blood Gas] Stat 02/09/24 17:06 BiPAP Ventilatory Support RT PROTOCOL 02/09/24 18:19 Sputum Culture Stat Discontinued Medications Albuterol/Ipratropium (Albuterol/Ipratropium 3 Ml Ampul) 3 ml INH Q20M TACOS Stop: 02/09/24 16:11 Last Admin: 02/09/24 16:30 Dose: 3 ml Documented By: Admin: 02/09/24 16:01 Dose: 3 ml Documented By: Admin: 02/09/24 15:25 Dose: 3 ml Documented By: MIN Ceftriaxone Sodium 1,000 mg/ (Sodium Chloride) 100 mls @ 200 mls/hr IV NOW ONE Stop: 02/09/24 15:43 Last Infusion: 02/09/24 17:27 Dose: Infused Documented By: Admin: 02/09/24 16:38 Dose: 200 mls/hr Documented By: AFSHIN Azithromycin 500 mg/ Dextrose 250 mls @ 250 mls/hr IV NOW ONE Stop: 02/09/24 15:43 Last Admin: 02/09/24 17:27 Dose: 250 mls/hr Documented By: AFSHIN Magnesium Sulfate (Magnesium Sulfate) 2 gm in 50 mls @ 25 mls/hr IV NOW ONE Stop: 02/09/24 17:43 Last Admin: 02/09/24 17:25 Dose: 25 mls/hr Documented By: AFSHIN Co-signed By: MALINI Methylprednisolone (Methylprednisolone 125 Mg/2 Ml Vial) 125 mg IV NOW ONE Stop: 02/09/24 15:42 Last Admin: 02/09/24 16:36 Dose: 125 mg Documented By: AFSHIN Ondansetron HCl (Ondansetron 4 Mg/2 Ml Inj) 4 mg IV NOW ONE Stop: 02/09/24 18:11 Last Admin: 02/09/24 18:14 Dose: 4 mg Vital Signs Vital signs: Vital Signs - 8 hr 02/09/24 15:15 02/09/24 15:16 02/09/24 15:16 Temperature Pulse Rate 95 H 95 H Respiratory Rate Blood Pressure 162/78 H Pulse Oximetry 93 91 Oxygen Delivery Method Oxygen Flow Rate Fraction of Inspired Oxygen 02/09/24 15:21 02/09/24 15:25 02/09/24 15:30 Temperature 98.2 F Pulse Rate 93 H 92 H Respiratory Rate 24 30 H Blood Pressure 162/78 H 131/60 Pulse Oximetry 94 94 Oxygen Delivery Method Nasal Cannula Nasal Cannula Oxygen Flow Rate 4 3 Fraction of Inspired Oxygen 02/09/24 15:30 02/09/24 15:50 02/09/24 16:00 Temperature Pulse Rate 91 H 92 H Respiratory Rate 39 H 30 H Blood Pressure 135/63 Pulse Oximetry 96 94 Oxygen Delivery Method Oxygen Flow Rate Fraction of Inspired Oxygen 02/09/24 16:00 02/09/24 16:01 02/09/24 16:02 Temperature Pulse Rate 93 H 92 H 92 H Respiratory Rate 55 H 38 H 28 H Blood Pressure Pulse Oximetry 94 95 94 Oxygen Delivery Method Heated High Flow Oxygen Flow Rate 40 Fraction of Inspired Oxygen 40 02/09/24 16:30 02/09/24 16:30 02/09/24 17:00 Temperature Pulse Rate 92 H Respiratory Rate 33 H Blood Pressure 142/65 H 144/66 H Pulse Oximetry 94 Oxygen Delivery Method Oxygen Flow Rate Fraction of Inspired Oxygen 02/09/24 17:00 02/09/24 17:14 02/09/24 17:25 Temperature Pulse Rate 93 H 98 H Respiratory Rate 25 H 19 Blood Pressure 144/66 H Pulse Oximetry 95 92 Oxygen Delivery Method BiPAP Oxygen Flow Rate Fraction of Inspired Oxygen 28 02/09/24 17:25 02/09/24 17:30 02/09/24 17:30 Temperature Pulse Rate 97 H Respiratory Rate 24 Blood Pressure 148/65 H 144/65 H Pulse Oximetry 90 L Oxygen Delivery Method High Flow Nasal Cannula Oxygen Flow Rate Fraction of Inspired Oxygen 02/09/24 18:00 02/09/24 18:00 02/09/24 18:18 Temperature Pulse Rate 93 H Respiratory Rate 36 H Blood Pressure 113/58 L Pulse Oximetry 94 93 Oxygen Delivery Method BiPAP Nasal Cannula Oxygen Flow Rate 3 Fraction of Inspired Oxygen 32 Medical Decision Making Medical Records Medical records reviewed: Yes I reviewed the patient's medical records. Lab Data Lab results reviewed: Yes I reviewed the patient's lab results. 02/09/24 16:20 02/09/24 16:20 Labs: Lab Results 02/09/24 02/09/24 02/09/24 Range/Units 15:19 15:19 15:19 WBC (4.5-11.0) X10^3/uL RBC (4.0-5.2) X10^6/uL Hgb (12.0-16.0) g/dL Hct (36-46) % MCV (80-100) fL MCH (26-34) PG MCHC (30-36) % RDW (11.6-14.8) % Plt Count (150-400) X10^3/uL Neut % (Auto) (50-75) % Lymph % (Auto) (25-40) % [place] % (Auto) (3-14) % Eos % (Auto) (2-4) % Baso % (Auto) (0-2) % Neut # (Auto) (7381-0988) /uL Lymph # (Auto) (5706-8833) /uL [place] # (Auto) (0-900) /uL Eos # (Auto) (0-450) /uL Baso # (Auto) (0-100) /uL PT (9.4-12.5) SECONDS INR (0.9-1.3) Sodium (137-145) mmol/L Potassium (3.4-5.1) mmol/L Chloride (98-107) mmol/L Carbon Dioxide (22-32) mmol/L BUN (7-17) mg/dL Creatinine (0.52-1.04) mg/dL Estimated GFR (>60) mL/min BUN/Creatinine Ratio (6-22) Glucose (80-110) mg/dL Lactate (0.7-2.1) mmol/L Calcium (8.4-10.2) mg/dL Magnesium (1.6-2.3) mg/dL Total Bilirubin (0.2-1.3) mg/dL AST (14-36) IU/L ALT (<35) IU/L Alkaline Phosphatase (38-126) U/L Troponin I (0.01-0.034) ng/mL NT-Pro-B Natriuret Pep (<450) pg/mL Total Protein (6.3-8.2) g/dL Albumin (3.5-5.0) g/dL Globulin (1.7-4.1) g/dL Albumin/Globulin Ratio (1.0-2.8) Chlamy pneumoniae PCR Not detected (Not Detect) Adenovirus (PCR) Not detected (Not Detect) B.parapertussis DNA PCR Not detected (Not Detecte) Coronavirus OC43 (PCR) Not detected (Not Detect) Coronavirus HKU1 (PCR) Not detected (Not Detect) Coronavirus 229E (PCR) Not detected (Not Detect) SARS-CoV-2 (PCR) Negative Not detected (Negative) Coronavirus NL63 (PCR) Not detected (Not Detect) Human Metapneumovir PCR Not detected (Not Detect) Influenza A (RT-PCR) Flu a negative (NEGATIVE) Influenza Type A (PCR) Not detected (Not Detect) Influenza B (RT-PCR) Flu b negative (NEGATIVE) Influenza Type B (PCR) Not detected (Not Detect) M. pneumoniae (PCR) Not detected (Not Detect) Parainfluenza 1 (PCR) Not detected (Not Detect) Parainfluenza 2 (PCR) Not detected (Not Detect) Parainfluenza 3 (PCR) Not detected (Not Detect) Parainfluenza 4 (PCR) Not detected (Not Detect) RSV (PCR) Negative Not detected (Negative) Entero/Rhino (PCR) Not detected (Not Detect) 02/09/24 Range/Units 16:20 WBC 22.2 H (4.5-11.0) X10^3/uL RBC 3.85 L (4.0-5.2) X10^6/uL Hgb 11.2 L (12.0-16.0) g/dL Hct 34.2 L (36-46) % MCV 88.6 (80-100) fL MCH 29.1 (26-34) PG MCHC 32.8 (30-36) % RDW 14.6 (11.6-14.8) % Plt Count 405 H (150-400) X10^3/uL Neut % (Auto) 84.4 H (50-75) % Lymph % (Auto) 4.2 L (25-40) % [place] % (Auto) 10.9 (3-14) % Eos % (Auto) 0.1 L (2-4) % Baso % (Auto) 0.4 (0-2) % Neut # (Auto) 50826 H (3560-0884) /uL Lymph # (Auto) 900 L (8872-1242) /uL [place] # (Auto) 2400 H (0-900) /uL Eos # (Auto) 0 (0-450) /uL Baso # (Auto) 100 (0-100) /uL PT 13.8 H (9.4-12.5) SECONDS INR 1.2 (0.9-1.3) Sodium 127 L (137-145) mmol/L Potassium 5.0 (3.4-5.1) mmol/L Chloride 88 L (98-107) mmol/L Carbon Dioxide 30 (22-32) mmol/L BUN 28 H (7-17) mg/dL Creatinine 0.90 (0.52-1.04) mg/dL Estimated GFR > 60 (>60) mL/min BUN/Creatinine Ratio 31.1 H (6-22) Glucose 121 H (80-110) mg/dL Lactate 0.9 (0.7-2.1) mmol/L Calcium 10.1 (8.4-10.2) mg/dL Magnesium 2.5 H (1.6-2.3) mg/dL Total Bilirubin 0.9 (0.2-1.3) mg/dL AST 26 (14-36) IU/L ALT 14 (<35) IU/L Alkaline Phosphatase 97 (38-126) U/L Troponin I 0.015 (0.01-0.034) ng/mL NT-Pro-B Natriuret Pep 1900 H (<450) pg/mL Total Protein 8.3 H (6.3-8.2) g/dL Albumin 4.6 (3.5-5.0) g/dL Globulin 3.7 (1.7-4.1) g/dL Albumin/Globulin Ratio 1.2 (1.0-2.8) Chlamy pneumoniae PCR (Not Detect) Adenovirus (PCR) (Not Detect) B.parapertussis DNA PCR (Not Detecte) Coronavirus OC43 (PCR) (Not Detect) Coronavirus HKU1 (PCR) (Not Detect) Coronavirus 229E (PCR) (Not Detect) SARS-CoV-2 (PCR) (Negative) Coronavirus NL63 (PCR) (Not Detect) Human Metapneumovir PCR (Not Detect) Influenza A (RT-PCR) (NEGATIVE) Influenza Type A (PCR) (Not Detect) Influenza B (RT-PCR) (NEGATIVE) Influenza Type B (PCR) (Not Detect) M. pneumoniae (PCR) (Not Detect) Parainfluenza 1 (PCR) (Not Detect) Parainfluenza 2 (PCR) (Not Detect) Parainfluenza 3 (PCR) (Not Detect) Parainfluenza 4 (PCR) (Not Detect) RSV (PCR) (Negative) Entero/Rhino (PCR) (Not Detect) Imaging Data Chest x-ray: Radiologist's Impression: PROCEDURE: XR CHEST 1V INDICATIONS: Shortness of breath TECHNIQUE: One view of the chest was acquired. COMPARISON: [facility], CR, XR CHEST 1V, 12/09/2023, 21:28. FINDINGS: Surgical changes and devices: None. Lungs and pleura: Apically predominant emphysema. Moderate right basilar reticulonodular pulmonary opacity. Mild left basilar patchy opacity. No pleural effusions or pneumothorax. Mediastinum: Mediastinal contours appear normal. Heart size is normal. Bones and chest wall: No suspicious bony lesions. Overlying soft tissues appear unremarkable. IMPRESSION: Bibasilar pneumonia. Continued plain film surveillance is recommended to ensure resolution, and to exclude underlying or central malignancy. CT scan - chest: Radiologist's Impression: PROCEDURE: CT ANGIO CHEST PE PROTOCOL INDICATIONS: Chest pain, shortness of breath, tachycardia TECHNIQUE: After the administration of intravenous contrast, 2 mm thick sections acquired from the pulmonary apices to the posterior costophrenic angles. 3-dimensional maximum intensity projection (MIP) coronal and sagittal reformats were then acquired through the thorax. For radiation dose reduction, the following was used: automated exposure control, adjustment of mA and/or kV according to patient size. COMPARISON: [facility], CT, CT ANGIO CHEST PE PROTOCOL, 12/09/2023, 22:28. FINDINGS: Image quality: Diagnostic. Pulmonary arteries: Dilated main pulmonary artery, suggestive of pulmonary hypertension. No intraluminal filling defects to suggest central pulmonary embolism. Compression of a left lower lobe segmental pulmonary artery by the spiculated perihilar mass, stable appearance compared to prior. Lower Neck: No enlarged lymph nodes. Thyroid: No thyroid nodules which require sonographic follow up, per consensus guidelines. Axillae: No enlarged lymph nodes. Chest Wall: Unremarkable. Bones: Similar appearance of destructive lesion involving the left 1st through 3rd ribs with soft tissue component. Diffusely decreased osseous mineralization. Degenerative changes of the spine. Stable compression deformities of T4 and T5.. Lungs and Pleura: Severe emphysematous changes. Similar appearance of left perihilar spiculated nodule. Multifocal nodular opacities within the bilateral lower lobes and right middle lobe are new compared to prior. Mild diffuse ground-glass with some associated interlobular septal thickening is similar to prior. Heart: Heart size is normal. No pericardial effusion. Thoracic Vessels: No aortic aneurysm. Atherosclerotic vascular calcifications. Mediastinum and [place]: Prominent and mildly enlarged mediastinal lymph nodes. For example a 1.4 cm pre carinal lymph node () is increased in size compared to prior. Additional prominent mediastinal lymph nodes are increased in size compared to prior. Esophagus: No wall thickening. No hiatal hernia. Upper Abdomen: Visualized upper abdomen solid organs and bowel loops appear normal. IMPRESSION: No pulmonary embolus. Multiple nodular opacities within the bilateral lower lobes and right middle lobe are new compared to prior and likely infectious in etiology. Attention on follow-up to exclude metastatic disease. Redemonstration of left perihilar spiculated nodule which is similar in appearance to prior. Prominent and mildly enlarged mediastinal lymph nodes are increased in size compared to prior, may be infectious versus metastatic. Attention on follow-up. Similar appearance of left chest wall mass centered at the lateral left 2nd rib. MDM Narrative Medical decision making narrative: Patient is requiring more oxygen. Has diminished breath sounds bilaterally. Chest x-ray is concerning for pneumonia. CTA shows no pulmonary embolism but is also consistent with pneumonia. She was initially tried on nasal cannula however she still had quite a bit of tachypnea. She was placed on BiPAP. She was tolerating this well. She has a compensated respiratory acidosis. Low suspicion for ACS. Was started on antibiotics. Discussed the case with Dr. Mcdonald hospitalist on-call who will admit for further evaluation. Discussed the need for admission with the patient she expressed understanding and agreement as well. Discharge Plan Departure Patient Disposition: Admitted As Inpatient Clinical Impression: COPD (chronic obstructive pulmonary disease), Pneumonia, Acute and chronic respiratory failure Admit Date/Time: 02/09/24 18:19 Admit Provider: Krunal Mcdonald
--- NOTE | 2024-02-09 15:46 | RT ---
pt ondina neb well, tx given via air.
[2024-02-09 16:05] LABS: Influenza A - CEPHEID Flu A NEGATIVE (NEGATIVE); Influenza B - CEPHEID Flu B NEGATIVE (NEGATIVE); Respiratory Syncytial Virus Negative (Negative)
[2024-02-09 16:06] LABS: COVID-19 CEPHEID 4-PLEX PCR Negative (Negative)
--- NOTE | 2024-02-09 16:18 | RT ---
pt ondina neb tx well, given via aerogen
[2024-02-09 16:31] LABS: Add Manual Diff / Slide Review NO; Basophils Absolute Auto 100 /uL (0-100); Basophils Percent Auto 0.4 % (0-2); Eosinophils Absolute Auto 0 /uL (0-450); Eosinophils Percent Auto 0.1 % (2-4); Hematocrit 34.2 % (36-46); Hemoglobin 11.2 g/dL (12.0-16.0); Lymphocytes Absolute Auto 900 /uL (1100-4500); Lymphocytes Percent Auto 4.2 % (25-40); Mean Corpuscular HGB Conc 32.8 % (30-36); Mean Corpuscular Hemoglobin 29.1 PG (26-34); Mean Corpuscular Volume 88.6 fL (80-100); Monocytes Absolute Auto 2400 /uL (0-900); Monocytes Percent Auto 10.9 % (3-14); Neutrophils Absolute Auto 18700 /uL (1500-7000); Neutrophils Percent Auto 84.4 % (50-75); Platelet Count 405 X10^3/uL (150-400); Red Blood Cell Count 3.85 X10^6/uL (4.0-5.2); Red Cell Distribution Width 14.6 % (11.6-14.8); White Blood Cell Count 22.2 X10^3/uL (4.5-11.0)
[2024-02-09] MEDS: methylPREDNISolone 125 MG/2 ML VIAL IV (16:36)
[2024-02-09 16:38] LABS: INR 1.2 (0.9-1.3); Prothrombin Time 13.8 SECONDS (9.4-12.5)
[2024-02-09] MEDS: cefTRIAXone 1,000 MG in SODIUM CHLORIDE 0.9% 100 ML 200 MG IV (16:38)
[2024-02-09 16:45] LABS: Lactate (Lactic Acid) 0.9 mmol/L (0.7-2.1)
[2024-02-09 16:46] LABS: Alanine Aminotransferase 14 IU/L (<35); Albumin 4.6 g/dL (3.5-5.0); Albumin Globulin Ratio 1.2 (1.0-2.8); Alkaline Phosphatase 97 U/L (38-126); Aspartate Aminotransferase 26 IU/L (14-36); BUN Creatinine Ratio 31.1 (6-22); Bilirubin Total 0.9 mg/dL (0.2-1.3); Blood Urea Nitrogen 28 mg/dL (7-17); Calcium 10.1 mg/dL (8.4-10.2); Carbon Dioxide 30 mmol/L (22-32); Chloride 88 mmol/L (98-107); Estimated Glomerular Filt Rate > 60 mL/min (>60); Globulin 3.7 g/dL (1.7-4.1); Glucose 121 mg/dL (80-110); HEMOLYSIS < 15 (0-50); Magnesium 2.5 mg/dL (1.6-2.3); Sodium 127 mmol/L (137-145); Total Protein 8.3 g/dL (6.3-8.2)
[2024-02-09 16:57] LABS: NT-proBNP (BNP-Adult 18+) 1900 pg/mL (<450); Troponin I 0.015 ng/mL (0.01-0.034)
--- NOTE | 2024-02-09 17:01 | DI.CT.S_ITS ---
PROCEDURE: CT ANGIO CHEST PE PROTOCOL INDICATIONS: Chest pain, shortness of breath, tachycardia TECHNIQUE: After the administration of intravenous contrast, 2 mm thick sections acquired from the pulmonary apices to the posterior costophrenic angles. 3-dimensional maximum intensity projection (MIP) coronal and sagittal reformats were then acquired through the thorax. For radiation dose reduction, the following was used: automated exposure control, adjustment of mA and/or kV according to patient size. COMPARISON: [facility], CT, CT ANGIO CHEST PE PROTOCOL, 12/09/2023, 22:28. FINDINGS: Image quality: Diagnostic. Pulmonary arteries: Dilated main pulmonary artery, suggestive of pulmonary hypertension. No intraluminal filling defects to suggest central pulmonary embolism. Compression of a left lower lobe segmental pulmonary artery by the spiculated perihilar mass, stable appearance compared to prior. Lower Neck: No enlarged lymph nodes. Thyroid: No thyroid nodules which require sonographic follow up, per consensus guidelines. Axillae: No enlarged lymph nodes. Chest Wall: Unremarkable. Bones: Similar appearance of destructive lesion involving the left 1st through 3rd ribs with soft tissue component. Diffusely decreased osseous mineralization. Degenerative changes of the spine. Stable compression deformities of T4 and T5.. Lungs and Pleura: Severe emphysematous changes. Similar appearance of left perihilar spiculated nodule. Multifocal nodular opacities within the bilateral lower lobes and right middle lobe are new compared to prior. Mild diffuse ground-glass with some associated interlobular septal thickening is similar to prior. Heart: Heart size is normal. No pericardial effusion. Thoracic Vessels: No aortic aneurysm. Atherosclerotic vascular calcifications. Mediastinum and [place]: Prominent and mildly enlarged mediastinal lymph nodes. For example a 1.4 cm pre carinal lymph node (5/65) is increased in size compared to prior. Additional prominent mediastinal lymph nodes are increased in size compared to prior. Esophagus: No wall thickening. No hiatal hernia. Upper Abdomen: Visualized upper abdomen solid organs and bowel loops appear normal. IMPRESSION: No pulmonary embolus. Multiple nodular opacities within the bilateral lower lobes and right middle lobe are new compared to prior and likely infectious in etiology. Attention on follow-up to exclude metastatic disease. Redemonstration of left perihilar spiculated nodule which is similar in appearance to prior. Prominent and mildly enlarged mediastinal lymph nodes are increased in size compared to prior, may be infectious versus metastatic. Attention on follow-up. Similar appearance of left chest wall mass centered at the lateral left 2nd rib. Dictated by: Ronn Bonilla M.D. on 02/09/2024 at 17:54 Approved by: Ronn Bonilla M.D. on 02/09/2024 at 18:03
[2024-02-09] MEDS: MAGNESIUM SULFATE 2 GM/50 ML PIGGYBACK IV (17:25)
[2024-02-09] MEDS: AZITHROMYCIN 500 MG in DEXTROSE 5% IN WATER 250 ML 250 MG IV (17:27)
[2024-02-09 18:01] LABS: Adenovirus Not Detected (Not Detect); B. parapertussis Not Detected (Not Detecte); Bordetella pertussis Not Detected (Not Detect); Chlamydophila pneumoniae Not Detected (Not Detect); Coronavirus 229E Not Detected (Not Detect); Coronavirus HKU1 Not Detected (Not Detect); Coronavirus NL 63 Not Detected (Not Detect); Coronavirus OC43 Not Detected (Not Detect); Human Metapneumovirus Not Detected (Not Detect); Human Rhinovirus/Enterovirus Not Detected (Not Detect); Influenza A Not Detected (Not Detect); Influenza B Not Detected (Not Detect); Mycoplasma pneumoniae Not Detected (Not Detect); Parainfluenza Virus 1 Not Detected (Not Detect); Parainfluenza Virus 2 Not Detected (Not Detect); Parainfluenza Virus 3 Not Detected (Not Detect); Parainfluenza Virus 4 Not Detected (Not Detect); Respiratory Syncytial Virus Not Detected (Not Detect); SARS- CoV-2 Not Detected (Not Detecte)
[2024-02-09] MEDS: ONDANSETRON 4 MG/2 ML INJ IV (18:14)
[2024-02-09 18:21] LABS: HCO3 ABG 31 mmol/L (23-27); PCO2 ABG 54.9 mmHg (35-45); PO2 ABG 60 mmHg (80-100); pH ABG 7.35 (7.35-7.45)
[2024-02-09 18:22] LABS: Allen Test for ABG Passed? Yes, Passed; Blood Gas Collection Site Right Radial; Fractionated Inspired Oxygen 30; Oxygen Saturation ABG 89 % (95-100); TCO2 ABG 32 mmol/L (23-27)
--- NOTE | 2024-02-09 20:14 | PM.HP.1 ---
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 The pt is normally on 3 lpm NC at home. She states she went to an urgent care last week and was dx with a perforated tympanic membrane of the ear but was not given antibiotics. she is not chronically on steroids and is treated with Kytruda once every 3 weeks. She lives with her grandson and family, she does not smoke but several other family members do. [facility] Medical History Medicare annual wellness visit, subsequent Well adult exam CKD (chronic kidney disease) stage 3, GFR 30-59 ml/min Hyperlipidemia Hypertension COPD (chronic obstructive pulmonary disease) CAD (coronary artery disease) (2000) Surgical History Status post coronary artery stent placement (2000) Family History Daughter No problems noted. Social History marital status: household members: family Smoking Status: Former smoker alcohol intake: never substance use type: does not use Meds Home Medications and Allergies Home Medications Medication Instructions Recorded Confirmed Type Disabled Parking Permit #1 ea 10/31/22 02/06/24 Rx ipratropium 0.5 mg-albuterol 3 mg See Rx Instructions .Route 02/18/23 02/09/24 Rx (2.5 mg base)/3 mL nebulization .COMPLEX #360 mL soln verapamil 80 mg tablet See Rx Instructions .Route 08/15/23 02/09/24 Rx .COMPLEX #180 tabs atorvastatin 10 mg tablet See Rx Instructions .Route 11/20/23 02/09/24 Rx .COMPLEX #90 tabs nebulizer accessories #1 ea 12/16/23 02/06/24 Rx nebulizers #1 ea 12/16/23 02/06/24 Rx amlodipine 5 mg tablet See Rx Instructions .Route 04/02/24 05/13/24 Rx .COMPLEX #90 tabs metoprolol tartrate 50 mg tablet 50 mg PO BID #180 tabs 01/05/24 02/09/24 Rx fluticasone 250 mcg-salmeterol 50 1 ea inhalation BID 02/09/24 02/09/24 History mcg/dose blistr powdr for inhalation (Wixela Inhub) ipratropium 20 mcg-albuterol 100 1 puff inhalation 4XD 02/09/24 02/09/24 History mcg/actuation mist for inhalation (Combivent Respimat) latanoprost 0.005 % eye drops 1 drp EYE-BOTH DAILY 02/09/24 02/09/24 History ondansetron 8 mg disintegrating 8 mg PO 3XD PRN Nausea 02/09/24 02/09/24 History tablet pembrolizumab 25 mg/mL intravenous 200 mg IV Q3W 02/09/24 02/09/24 History solution (Keytruda) Allergies Allergy/AdvReac Type Severity Reaction Status Date / Time No Known Drug Allergies Allergy Verified 02/06/24 12:51 Exam Vital Signs (past 8 hours): - 02/09/24 15:15 02/09/24 15:16 02/09/24 15:16 Temperature Pulse Rate 95 H 95 H Respiratory Rate Blood Pressure 162/78 H Pulse Oximetry 93 91 Oxygen Delivery Method Oxygen Flow Rate Fraction of Inspired Oxygen 02/09/24 15:21 02/09/24 15:25 02/09/24 15:30 Temperature 98.2 F Pulse Rate 93 H 92 H Respiratory Rate 24 30 H Blood Pressure 162/78 H 131/60 Pulse Oximetry 94 94 Oxygen Delivery Method Nasal Cannula Nasal Cannula Oxygen Flow Rate 4 3 Fraction of Inspired Oxygen 02/09/24 15:30 02/09/24 15:50 02/09/24 16:00 Temperature Pulse Rate 91 H 92 H Respiratory Rate 39 H 30 H Blood Pressure 135/63 Pulse Oximetry 96 94 Oxygen Delivery Method Oxygen Flow Rate Fraction of Inspired Oxygen 02/09/24 16:00 02/09/24 16:01 02/09/24 16:02 Temperature Pulse Rate 93 H 92 H 92 H Respiratory Rate 55 H 38 H 28 H Blood Pressure Pulse Oximetry 94 95 94 Oxygen Delivery Method Heated High Flow Oxygen Flow Rate 40 Fraction of Inspired Oxygen 40 02/09/24 16:30 02/09/24 16:30 02/09/24 17:00 Temperature Pulse Rate 92 H Respiratory Rate 33 H Blood Pressure 142/65 H 144/66 H Pulse Oximetry 94 Oxygen Delivery Method Oxygen Flow Rate Fraction of Inspired Oxygen 02/09/24 17:00 02/09/24 17:14 02/09/24 17:25 Temperature Pulse Rate 93 H 98 H Respiratory Rate 25 H 19 Blood Pressure 144/66 H Pulse Oximetry 95 92 Oxygen Delivery Method BiPAP Oxygen Flow Rate Fraction of Inspired Oxygen 28 02/09/24 17:25 02/09/24 17:30 02/09/24 17:30 Temperature Pulse Rate 97 H Respiratory Rate 24 Blood Pressure 148/65 H 144/65 H Pulse Oximetry 90 L Oxygen Delivery Method High Flow Nasal Cannula Oxygen Flow Rate Fraction of Inspired Oxygen 02/09/24 18:00 02/09/24 18:00 02/09/24 18:10 Temperature Pulse Rate 93 H 94 H Respiratory Rate 36 H Blood Pressure 113/58 L Pulse Oximetry 94 94 Oxygen Delivery Method BiPAP Nasal Cannula Oxygen Flow Rate 2.5 Fraction of Inspired Oxygen 02/09/24 18:18 02/09/24 18:20 02/09/24 18:30 Temperature Pulse Rate 91 H Respiratory Rate Blood Pressure 121/58 L Pulse Oximetry 93 94 Oxygen Delivery Method Nasal Cannula Nasal Cannula Oxygen Flow Rate 3 2.5 Fraction of Inspired Oxygen 32 02/09/24 18:30 02/09/24 18:40 02/09/24 18:50 Temperature Pulse Rate 91 H 90 92 H Respiratory Rate 37 H 38 H Blood Pressure Pulse Oximetry 94 93 91 Oxygen Delivery Method Nasal Cannula Oxygen Flow Rate 2.5 Fraction of Inspired Oxygen Fraction of Inspired Oxygen 32 SaO2/FiO2 Ratio 290 Oxygen Delivery Method Nasal Cannula Oxygen Flow Rate 2.5 Const General: cooperative, comfortable and anxious Resp Effort & Inspection: normal respiratory effort Auscultation: diminished lung sounds and wheezes Cardio Rate: regular rate Rhythm: regular rhythm GI Palpation: soft Auscultation: normal bowel sounds Extrem General: normal to inspection Objective Labs 02/09/24 16:20 02/09/24 16:20 Labs: Laboratory Results - last 24 hr 02/09/24 02/09/24 02/09/24 15:19 15:19 15:19 WBC RBC Hgb Hct MCV MCH MCHC RDW Plt Count Neut % (Auto) Lymph % (Auto) [place] % (Auto) Eos % (Auto) Baso % (Auto) Neut # (Auto) Lymph # (Auto) [place] # (Auto) Eos # (Auto) Baso # (Auto) PT INR ABG Sample Site ABG pH ABG pCO2 ABG pO2 ABG HCO3 ABG Total CO2 ABG O2 Saturation ABG Base Excess FiO2 Sodium Potassium Chloride Carbon Dioxide BUN Creatinine Estimated GFR BUN/Creatinine Ratio Glucose Lactate Calcium Magnesium Total Bilirubin AST ALT Alkaline Phosphatase Troponin I NT-Pro-B Natriuret Pep Total Protein Albumin Globulin Albumin/Globulin Ratio Chlamy pneumoniae PCR Not detected Adenovirus (PCR) Not detected B.parapertussis DNA PCR Not detected Coronavirus OC43 (PCR) Not detected Coronavirus HKU1 (PCR) Not detected Coronavirus 229E (PCR) Not detected SARS-CoV-2 (PCR) Negative Not detected Coronavirus NL63 (PCR) Not detected Human Metapneumovir PCR Not detected Influenza A (RT-PCR) Flu a negative Influenza Type A (PCR) Not detected Influenza B (RT-PCR) Flu b negative Influenza Type B (PCR) Not detected M. pneumoniae (PCR) Not detected Parainfluenza 1 (PCR) Not detected Parainfluenza 2 (PCR) Not detected Parainfluenza 3 (PCR) Not detected Parainfluenza 4 (PCR) Not detected RSV (PCR) Negative Not detected Entero/Rhino (PCR) Not detected 02/09/24 02/09/24 16:20 17:50 WBC 22.2 H RBC 3.85 L Hgb 11.2 L Hct 34.2 L MCV 88.6 MCH 29.1 MCHC 32.8 RDW 14.6 Plt Count 405 H Neut % (Auto) 84.4 H Lymph % (Auto) 4.[address] % (Auto) 10.9 Eos % (Auto) 0.1 L Baso % (Auto) 0.4 Neut # (Auto) 48868 H Lymph # (Auto) [address] [place] # (Auto) 2400 H Eos # (Auto) 0 Baso # (Auto) 100 PT 13.8 H INR 1.2 ABG Sample Site Right radial ABG pH 7.35 ABG pCO2 54.9 H ABG pO2 60 L ABG HCO3 31 H ABG Total CO2 32 H ABG O2 Saturation 89 L ABG Base Excess 5.0 H FiO2 30 Sodium 127 L Potassium 5.0 Chloride 88 L Carbon Dioxide 30 BUN 28 H Creatinine 0.90 Estimated GFR > 60 BUN/Creatinine Ratio 31.1 H Glucose 121 H Lactate 0.9 Calcium 10.1 Magnesium 2.5 H Total Bilirubin 0.9 AST 26 ALT 14 Alkaline Phosphatase 97 Troponin I 0.015 NT-Pro-B Natriuret Pep 1900 H Total Protein 8.3 H Albumin 4.6 Globulin 3.7 Albumin/Globulin Ratio 1.2 Chlamy pneumoniae PCR Adenovirus (PCR) B.parapertussis DNA PCR Coronavirus OC43 (PCR) Coronavirus HKU1 (PCR) Coronavirus 229E (PCR) SARS-CoV-2 (PCR) Coronavirus NL63 (PCR) Human Metapneumovir PCR Influenza A (RT-PCR) Influenza Type A (PCR) Influenza B (RT-PCR) Influenza Type B (PCR) M. pneumoniae (PCR) Parainfluenza 1 (PCR) Parainfluenza 2 (PCR) Parainfluenza 3 (PCR) Parainfluenza 4 (PCR) RSV (PCR) Entero/Rhino (PCR) Assessment & Plan Assessment and plan (1) Pneumonia: Status: Acute (2) Acute and chronic respiratory failure with hypoxia: Status: Acute (3) COPD exacerbation: Status: Acute (4) Essential hypertension: Problem details: Will continue her usual antihypertensive therapy. Status: Chronic (5) Stage 3 chronic kidney disease: Problem details: No intervention needed Qualifiers: Chronic kidney disease stage 3 subtype: stage 3a (GFR 45-59) Qualified Code(s): N18.31 - Chronic kidney disease, stage 3a Status: Chronic Plan I discussed the pt's symptoms and treatment plan with the daytime provider who discussed the pt's decision for admission extensively with the ER provider. She is in stable condition at this time. I have reviewed the labs, and CXR showing diffuse infiltrates, elevated WBC, will empirically start on rocephin and doxycycline. breathing tx of duonebs with albuterol prn. Solumedrol 80 BID, monitor serial CBC and BMP, code status addressed and the pt is a full code despite being on palliative advanced lung cancer with recurrent hospitalizations. Quality VTE Deep Vein Thrombosis/Pulmonary Embolism Present on Admission: No
[2024-02-09 20:36] LABS: MRSA (Nasal) PCR NOT DETECTED (Not Detect)
[2024-02-09] MEDS: VERAPAMIL 80 MG TABLET PO (21:35)
[2024-02-09] MEDS: DOXYCYCLINE HYCLATE 100 MG TABLET PO (21:35)
[2024-02-09] MEDS: ATORVASTATIN 20 MG TABLET 10 MG PO (21:35)
[2024-02-09] MEDS: METOPROLOL IR 50 MG TABLET PO (21:36)
[2024-02-10] VITALS (53 sets, daily range): BP systolic 103–134; BP diastolic 53–78; PULSE 73–103; RESP 18–98; TEMP 35.9–36.8; O2SAT 87–99
[2024-02-10] MEDS: ALBUTEROL 2.5 MG/3 ML NEB (ADULT) INH (01:54)
[2024-02-10] MEDS: methylPREDNISolone 125 MG/2 ML VIAL 80 MG IV ×2 (03:48→16:51)
[2024-02-10 05:25] LABS: Add Manual Diff / Slide Review NO; Basophils Absolute Auto 0 /uL (0-100); Eosinophils Absolute Auto 0 /uL (0-450); Hematocrit 33.8 % (36-46); Hemoglobin 11.1 g/dL (12.0-16.0); Lymphocytes Absolute Auto 500 /uL (1100-4500); Lymphocytes Percent Auto 2.8 % (25-40); Mean Corpuscular HGB Conc 32.8 % (30-36); Mean Corpuscular Hemoglobin 29.1 PG (26-34); Mean Corpuscular Volume 88.5 fL (80-100); Monocytes Absolute Auto 200 /uL (0-900); Monocytes Percent Auto 1.3 % (3-14); Neutrophils Absolute Auto 15600 /uL (1500-7000); Neutrophils Percent Auto 95.9 % (50-75); Platelet Count 366 X10^3/uL (150-400); Red Blood Cell Count 3.82 X10^6/uL (4.0-5.2); Red Cell Distribution Width 14.2 % (11.6-14.8); White Blood Cell Count 16.3 X10^3/uL (4.5-11.0)
[2024-02-10 05:40] LABS: Blood Urea Nitrogen 31 mg/dL (7-17); Carbon Dioxide 32 mmol/L (22-32); Chloride 87 mmol/L (98-107); Estimated Glomerular Filt Rate > 60 mL/min (>60); Glucose 144 mg/dL (80-110); HEMOLYSIS < 15 (0-50); Sodium 131 mmol/L (137-145)
[2024-02-10 05:41] LABS: Potassium 5.1 mmol/L (3.4-5.1)
[2024-02-10] MEDS: PANTOPRAZOLE DR 40 MG TABLET PO (06:02)
[2024-02-10] MEDS: BUDESONIDE 0.5 MG/2 ML NEB INH ×2 (07:05→19:28)
[2024-02-10] MEDS: ALBUTEROL/IPRATROPIUM 3 ML AMPUL INH ×3 (07:05→19:28)
--- NOTE | 2024-02-10 07:22 | P.PN_ITS ---
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 The pt is normally on 3 lpm NC at home. She states she went to an urgent care last week and was dx with a perforated tympanic membrane of the ear but was not given antibiotics. she is not chronically on steroids and is treated with Kytruda once every 3 weeks. She lives with her grandson and family, she does not smoke but several other family members do. Today: She is still short of breath, but feeling somewhat better. She is coughing a lot. She requests Mucinex. She denies any chest pain, or nausea. Exam Vital Signs (past 8 hours): - 02/09/24 23:30 02/09/24 23:40 02/09/24 23:50 Temperature Pulse Rate 90 89 90 Respiratory Rate 32 H 35 H 29 H Blood Pressure Pulse Oximetry 94 95 95 Oxygen Delivery Method Oxygen Flow Rate 02/09/24 23:58 02/09/24 23:58 02/10/24 00:00 Temperature 97 F L Pulse Rate 88 91 H Respiratory Rate 35 H 35 H Blood Pressure 109/56 L 109/56 L Pulse Oximetry 94 94 Oxygen Delivery Method Oxygen Flow Rate 4 02/10/24 00:00 02/10/24 00:10 02/10/24 00:20 Temperature Pulse Rate 90 86 86 Respiratory Rate 35 H 33 H 33 H Blood Pressure Pulse Oximetry 95 94 94 Oxygen Delivery Method Oxygen Flow Rate 02/10/24 00:30 02/10/24 00:40 02/10/24 00:50 Temperature Pulse Rate 86 90 93 H Respiratory Rate 32 H 34 H 42 H Blood Pressure Pulse Oximetry 93 91 88 L Oxygen Delivery Method Oxygen Flow Rate 02/10/24 01:00 02/10/24 01:10 02/10/24 01:20 Temperature Pulse Rate 91 H 92 H 96 H Respiratory Rate 34 H 35 H 25 H Blood Pressure Pulse Oximetry 89 L 91 92 Oxygen Delivery Method Oxygen Flow Rate 02/10/24 01:30 02/10/24 01:40 02/10/24 01:50 Temperature Pulse Rate 91 H 101 H 103 H Respiratory Rate 32 H 52 H 46 H Blood Pressure Pulse Oximetry 91 91 91 Oxygen Delivery Method Oxygen Flow Rate 02/10/24 01:55 02/10/24 02:00 02/10/24 02:10 Temperature Pulse Rate 97 H 96 H Respiratory Rate 38 H 34 H Blood Pressure Pulse Oximetry 92 93 94 Oxygen Delivery Method Nasal Cannula Oxygen Flow Rate 4 02/10/24 02:20 02/10/24 02:30 02/10/24 02:40 Temperature Pulse Rate 96 H 91 H 87 Respiratory Rate 43 H 36 H 28 H Blood Pressure Pulse Oximetry 96 96 98 Oxygen Delivery Method Oxygen Flow Rate 02/10/24 02:50 02/10/24 03:00 02/10/24 03:10 Temperature Pulse Rate 86 86 85 Respiratory Rate 20 24 21 Blood Pressure Pulse Oximetry 98 98 98 Oxygen Delivery Method Oxygen Flow Rate 02/10/24 03:20 02/10/24 03:30 02/10/24 03:40 Temperature Pulse Rate 85 85 92 H Respiratory Rate 23 27 H 26 H Blood Pressure Pulse Oximetry 99 99 98 Oxygen Delivery Method Oxygen Flow Rate 02/10/24 03:50 02/10/24 04:00 02/10/24 04:10 Temperature Pulse Rate 90 88 89 Respiratory Rate 27 H 26 H 33 H Blood Pressure Pulse Oximetry 99 99 97 Oxygen Delivery Method Oxygen Flow Rate 02/10/24 04:20 02/10/24 04:30 02/10/24 04:33 Temperature Pulse Rate 88 92 H 89 Respiratory Rate 34 H 28 H 35 H Blood Pressure Pulse Oximetry 97 96 97 Oxygen Delivery Method Oxygen Flow Rate 02/10/24 04:33 02/10/24 05:00 02/10/24 07:05 Temperature 98.3 F Pulse Rate 88 74 Respiratory Rate 33 H 22 Blood Pressure 134/60 134/60 Pulse Oximetry 97 97 Oxygen Delivery Method Nasal Cannula Oxygen Flow Rate 4 4 Fraction of Inspired Oxygen 32 SaO2/FiO2 Ratio 290 Oxygen Delivery Method Nasal Cannula Oxygen Flow Rate 4 Narrative Exam Narrative: NAD, alert and oriented. Fluent speech. Lungs are with diminished breath sounds throughout, expiratory grunting and wheezing, no distress and normal effort Heart is regular, no murmur gallop or rub. Abdomen is soft, non distended. Extremities are free of edema. Ecchymosis and venous stasis which appears chronic. Objective Labs 02/10/24 04:25 02/10/24 04:25 Labs: Laboratory Results - last 24 hr 02/09/24 02/09/24 02/09/24 15:19 15:19 15:19 WBC RBC Hgb Hct MCV MCH MCHC RDW Plt Count Neut % (Auto) Lymph % (Auto) [place] % (Auto) Eos % (Auto) Baso % (Auto) Neut # (Auto) Lymph # (Auto) [place] # (Auto) Eos # (Auto) Baso # (Auto) PT INR ABG Sample Site ABG pH ABG pCO2 ABG pO2 ABG HCO3 ABG Total CO2 ABG O2 Saturation ABG Base Excess FiO2 Sodium Potassium Chloride Carbon Dioxide BUN Creatinine Estimated GFR BUN/Creatinine Ratio Glucose Lactate Calcium Magnesium Total Bilirubin AST ALT Alkaline Phosphatase Troponin I NT-Pro-B Natriuret Pep Total Protein Albumin Globulin Albumin/Globulin Ratio Nasal Screen MRSA (PCR) Chlamy pneumoniae PCR Not detected Adenovirus (PCR) Not detected B.parapertussis DNA PCR Not detected Coronavirus OC43 (PCR) Not detected Coronavirus HKU1 (PCR) Not detected Coronavirus 229E (PCR) Not detected SARS-CoV-2 (PCR) Negative Not detected Coronavirus NL63 (PCR) Not detected Human Metapneumovir PCR Not detected Influenza A (RT-PCR) Flu a negative Influenza Type A (PCR) Not detected Influenza B (RT-PCR) Flu b negative Influenza Type B (PCR) Not detected M. pneumoniae (PCR) Not detected Parainfluenza 1 (PCR) Not detected Parainfluenza 2 (PCR) Not detected Parainfluenza 3 (PCR) Not detected Parainfluenza 4 (PCR) Not detected RSV (PCR) Negative Not detected Entero/Rhino (PCR) Not detected 02/09/24 02/09/24 02/09/24 16:20 17:50 19:00 WBC 22.2 H RBC 3.85 L Hgb 11.2 L Hct 34.2 L MCV 88.6 MCH 29.1 MCHC 32.8 RDW 14.6 Plt Count 405 H Neut % (Auto) 84.4 H Lymph % (Auto) 4.2 L [place] % (Auto) 10.9 Eos % (Auto) 0.1 L Baso % (Auto) 0.4 Neut # (Auto) 96704 H Lymph # (Auto) 900 L [place] # (Auto) 2400 H Eos # (Auto) 0 Baso # (Auto) 100 PT 13.8 H INR 1.2 ABG Sample Site Right radial ABG pH 7.35 ABG pCO2 54.9 H ABG pO2 60 L ABG HCO3 31 H ABG Total CO2 32 H ABG O2 Saturation 89 L ABG Base Excess 5.0 H FiO2 30 Sodium 127 L Potassium 5.0 Chloride 88 L Carbon Dioxide 30 BUN 28 H Creatinine 0.90 Estimated GFR > 60 BUN/Creatinine Ratio 31.1 H Glucose 121 H Lactate 0.9 Calcium 10.1 Magnesium 2.5 H Total Bilirubin 0.9 AST 26 ALT 14 Alkaline Phosphatase 97 Troponin I 0.015 NT-Pro-B Natriuret Pep 1900 H Total Protein 8.3 H Albumin 4.6 Globulin 3.7 Albumin/Globulin Ratio 1.2 Nasal Screen MRSA (PCR) Not detected Chlamy pneumoniae PCR Adenovirus (PCR) B.parapertussis DNA PCR Coronavirus OC43 (PCR) Coronavirus HKU1 (PCR) Coronavirus 229E (PCR) SARS-CoV-2 (PCR) Coronavirus NL63 (PCR) Human Metapneumovir PCR Influenza A (RT-PCR) Influenza Type A (PCR) Influenza B (RT-PCR) Influenza Type B (PCR) M. pneumoniae (PCR) Parainfluenza 1 (PCR) Parainfluenza 2 (PCR) Parainfluenza 3 (PCR) Parainfluenza 4 (PCR) RSV (PCR) Entero/Rhino (PCR) 02/10/24 04:25 WBC 16.3 H RBC 3.82 L Hgb 11.1 L Hct 33.8 L MCV 88.5 MCH 29.1 MCHC 32.8 RDW 14.2 Plt Count 366 Neut % (Auto) 95.9 H Lymph % (Auto) 2.8 L [place] % (Auto) 1.3 L Eos % (Auto) 0.0 L Baso % (Auto) 0.0 Neut # (Auto) 53214 H Lymph # (Auto) 500 L [place] # (Auto) 200 Eos # (Auto) 0 Baso # (Auto) 0 PT INR ABG Sample Site ABG pH ABG pCO2 ABG pO2 ABG HCO3 ABG Total CO2 ABG O2 Saturation ABG Base Excess FiO2 Sodium 131 L Potassium 5.1 Chloride 87 L Carbon Dioxide 32 BUN 31 H Creatinine 0.86 Estimated GFR > 60 BUN/Creatinine Ratio 36.0 H Glucose 144 H Lactate Calcium 10.0 Magnesium Total Bilirubin AST ALT Alkaline Phosphatase Troponin I NT-Pro-B Natriuret Pep Total Protein Albumin Globulin Albumin/Globulin Ratio Nasal Screen MRSA (PCR) Chlamy pneumoniae PCR Adenovirus (PCR) B.parapertussis DNA PCR Coronavirus OC43 (PCR) Coronavirus HKU1 (PCR) Coronavirus 229E (PCR) SARS-CoV-2 (PCR) Coronavirus NL63 (PCR) Human Metapneumovir PCR Influenza A (RT-PCR) Influenza Type A (PCR) Influenza B (RT-PCR) Influenza Type B (PCR) M. pneumoniae (PCR) Parainfluenza 1 (PCR) Parainfluenza 2 (PCR) Parainfluenza 3 (PCR) Parainfluenza 4 (PCR) RSV (PCR) Entero/Rhino (PCR) [facility] Medical History Medicare annual wellness visit, subsequent Well adult exam CKD (chronic kidney disease) stage 3, GFR 30-59 ml/min Hyperlipidemia Hypertension COPD (chronic obstructive pulmonary disease) CAD (coronary artery disease) (2000) Surgical History Status post coronary artery stent placement (2000) Family History Daughter No problems noted. Social History marital status: household members: family Smoking Status: Former smoker alcohol intake: never substance use type: does not use Assessment & Plan Assessment & Plan narrative: 1. CAP, present on admission and active. 2. COPD exacerbation, present on admission and active. 3. HTN, present on admission and active. 4. Stage 3 CKD, present on admission and active. 5. Acute on chronic hypoxic respiratory failure, present on admission and active. PLAN: -continue antibiotics, Zithromax for 3 days, ceftriaxone for 3-5 days. -continue standard treatment for COPD exacerbation with bronchodilators and corticosteroids. -wean O2 to her baseline of 2.5 L as able. -symptomatic treatment of cough and Mucinex. -monitor renal function, continue chronic medications for hypertension. Estimated date of discharge is February 10. Quality VTE Deep Vein Thrombosis/Pulmonary Embolism Present on Admission: No
[2024-02-10] MEDS: ENOXAPARIN 40 MG/0.4 ML SYRINGE SUBCUT (08:24)
[2024-02-10] MEDS: guaiFENesin Solution 100 MG/5 ML UDC PO ×3 (08:24→21:14)
[2024-02-10] MEDS: DOXYCYCLINE HYCLATE 100 MG TABLET PO ×2 (08:24→20:59)
[2024-02-10] MEDS: BENZONATATE 100 MG CAPSULE PO ×3 (08:24→21:14)
--- NOTE | 2024-02-10 10:26 | CM.DANOTE ---
Patient is an 83yo F here with pneumonia, acute/chronic resp failure, COPD exacerbation, and recently finished radiation for metastatic lung carcinoma. PCP Domingo S[facility] Oncologist Dr. Sutton Pay [facility] and self pay. COOK ENCHILADA reviewed EMR. Per hospitalist in morning rounds, anticipate here for another few days. Continue abx. COOK ENCHILADA entered room and introduced self and role to patient and adult son Junior. Pt sitting up in bed. Pt currently on 3LO2, baseline is about 2.5LO2 at home. Pt reports not feeling so good today. pt lives with grandson, his spouse, and their children. Pt has a walker with chair and uses it occasionally. Granddaughter Merle (p [phone] or [phone]) helps transport her to oncology appointments in [facility] with Dr. Sutton as pt gets immunotherapy every 3 weeks, brings her groceries/other things she needs, and assists with chores in the home as well. Pt drinks Ensure once per day. Pt reports Hx of [facility] and now [facility] from last admission in November 2023 a couple months ago for similar. Pt and son confirm that pt has not been happy with HH as she does not like people coming into her home as she is very susceptible to getting sick from her palliative Onc tx, the HH therapists change regularly and is not the same therapist each time, and pt has a large dog and cat at home. Pt currently declines any interest in HH. SW inquired about SNF and pt states she has no hx of SNF and SW explained benefit and purpose of short stay rehab and pt again states she is a home body and does not feel she would benefit from SNF and too risky with her ongoing immunotherapy and that she would be depressed. SW discussed possible option then of outpt PT to increase her strength and mobility as pt feels weak as a kitten. Discussed the barriers to getting to appointments now that she doesn't drive and discussed maybe hiring a CG to get pt to appointments and family will discuss and consider. Discussed if pt interested in continuing Onc tx as she states it wipes me out and pt is interested in continuing treatment at this time if it keeps helping the cancer and SW informed her and son that at any point there could be other options of comfort if decided and pt and son appreciative. PT/OT ordered to help determine any d/c needs as pt currrently not interested in HH or SNF but potentially outpt PT. Plan: SW to follow closely for PT/OT eval and recommendations to confirm safe plan of home with family and maybe outpt PT and any further discharge planning needs. VIDAL Dawn Discharge Planning/Care Management CM Discharge Assessment Start: 02/10/24 10:23 Freq: Status: Active Protocol: Document 02/10/24 10:23 BF (Rec: 02/10/24 10:26 BF [id number]) Discharge Planning Assessment Assigned Social Media Job Titles VIDAL Gonzalez DPOA/Assigned Designee Name shae Pacheco Contact Information [phone] Advance Directives? Yes: states full code Advance Directives on File No History Provided By Patient,Family Member,Medical Record Has Patient been admitted in last 30 No days? Comment last admit in November 2023 this year and discharged home with family and new [facility] Prior Living Arrangements House Household Members family Type of transporation used prior to Relies on Others admit Independent with ADL's Yes Is patient alert and oriented? Yes Needs Assistance With Home Chores / Shopping Caregiver for Another No DME Already Rented / Owned FWW / Walker,Oxygen Comment 2ltrs O2 at baseline. Comment PT/OT eval pending. Pt not very happy with HH and not interested in SNF but might consider outpt PT Barriers to Discharge No Comment immunotherapy every 3 weeks at [facility] with Dr. Sutton Discharge Plan Home Community Services Physical Therapy Transportation Arrangement Family Additional Comment Pending PT/OT eval and pt not really wanting HH or SNF, maybe outpt Whiteboard Updated in Patient Room with Yes name and ext. # of Social Media Job Titles Review Status In Process Please Provide Date Initial DC 02/10/24 Assessment Was Performed Next Review Type Continued Stay Review
[2024-02-10] MEDS: ACETAMINOPHEN 325 MG TABLET 650 MG PO (14:40)
--- NOTE | 2024-02-10 14:40 | PT.IIE ---
Current Diagnoses Essential (primary) hypertension (02/09/24) Pneumonia, unspecified organism (02/09/24) Chronic obstructive pulmonary disease with (acute) exacerbation (02/09/24) Acute and chronic respiratory failure with hypoxia (02/09/24) Chronic kidney disease, stage 3a (02/09/24) Surgical History (Last Reviewed 02/10/24 @ 07:23 by Joshua Panchal MD) Status post coronary artery stent placement (2000) Medical History (Last Reviewed 02/10/24 @ 07:23 by Joshua Panchal MD) CAD (coronary artery disease) (2000) CKD (chronic kidney disease) stage 3, GFR 30-59 ml/min COPD (chronic obstructive pulmonary disease) Hyperlipidemia Hypertension Medicare annual wellness visit, subsequent Well adult exam Physical Therapy Inpatient Evaluation/Re-Eval M1 PT/OT-IP Prior Functional Status Start: 02/10/24 16:10 Freq: NEEDED Status: Active Protocol: Document 02/10/24 14:40 AB (Rec: 02/10/24 16:23 AB [id number]) Medical Review Prior Functional Status Medical History Reviewed Yes Communication able to make needs known Mobility and Gait pt stated that she was modified independent with all mobilities and ambulation without AD but started using a 4WW ~ 1 week ago Social History Household Members family Living Arrangements House Number of Floors (Floors) One Floor Number of Stairs To Enter/Railing? 10 steps L rail ascending to enter the house Home Environment Standard Height Toilet,Walk in Shower Home Equipment Four Wheel Walker,Raised Toilet Seat w/Armrests,Shower Seat without Backrest,Hand Held Shower Additional Social History Comment pt stated that her grandson lives on the basement of the house and can assist her if need grandson usually works M2 PT-IP Current Condition Start: 02/10/24 16:10 Freq: NEEDED Status: Active Protocol: Document 02/10/24 14:40 AB (Rec: 02/10/24 16:23 AB [id number]) Physical Therapy Current Condition Current Condition Evaluation Date 02/10/24 Treatment Diagnosis PNA; COPD; difficulty in walking Onset Date 02/09/24 M3 PT-IP Subjective Start: 02/10/24 16:10 Freq: NEEDED Status: Active Protocol: Document 02/10/24 14:40 AB (Rec: 02/10/24 16:23 AB [id number]) Subjective Physical Therapy Visit Type Type Initial Evaluation Visit Start Time 14:40 Visit Stop Time 15:10 Number of RETAINING ROOM CUTTER Visits 0 Physical Therapy Visit Comments Patient Comments agreeable to do PT Therapy Pain Assessment Pain When Pain Assessed At Rest Location Back Intensity 2 Scale Used Numeric (0 - 10) Pain Management Techniques Distraction,Modification of Treatment,Re-positioning, Timing of Activity with Medications M4 PT-IP Mobility and Gait Start: 02/10/24 16:10 Freq: NEEDED Status: Active Protocol: Document 02/10/24 14:40 AB (Rec: 02/10/24 16:23 [id number]) PT-Bed Mobility Assessment Supine to Sit Supine to Sit Standby Assistance,Head of Bed Elevated,Bedrails PT-Transfer Assessment Sit to and From Stand Sit to and from Stand Contact Guard Assistance,1 Person Assistance,Use of Upper Extremities Equipment Transfer Assistive Device Gait Belt,Front Wheeled Walker Orthotic/Prosthetic Devices or Brace: No Transfers Transfer Destination Chair Transfer Technique ambulated Transfer Ability Level of Assist Contact Guard Assistance,1 Person Assistance,Use of Upper Extremities Comments Mobility Comments pt supine in bed and agreeable to do PT. obtained PLOF and home set up from pt. BP: 124/ 68 MS: 90 O2 sat with 5L/min O2: 95-96% pt completed supine to sit SBA with HOB elevated ~ 15 deg. pt used bed rail to assist. pt able to sit on EOB SBA. O2 sat 95%. pt completed sit to stand CGA and ambulated in room using FWW ~ 25 ft CGA. pt sat on the chair (+) SOB. O2 sat decreased to ~ 85%. cued for PLB and O2 sat increased to 89-90%. pt agreed to stay up on the chair . positioned pt on the chair. call light and table placed within reach. O2 sat at end of tx session: 95% Gait Assessment Gait Gait Assistance Required: Contact Guard Assist Distance (Feet) 25 Able to Maintain Weight Bearing Status Yes During Gait Assistive Devices Assistive Device Gait Belt,Front Wheeled Walker Orthotic/Prosthetic Devices or Brace: No Gait Deviations General Gait Pattern Decreased Stride Length, Decreased Feet Clearance Factors Limiting Gait Function Factors Limiting Gait Function Decreased Activity Tolerance, Decreased Strength,Difficulty Following Directions,Limited Range of Motion,Pain,Poor Balance,Poor Safety Awareness PT-Balance Assessment Sitting Balance and Reactions Static Sitting Balance Ability Normal Dynamic Sitting Balance Ability Good Standing Balance and Reactions Static Standing Balance Ability Fair Dynamic Standing Balance Ability Fair Device Used FWW M5 PT-IP Objective Assessments Start: 02/10/24 16:10 Freq: NEEDED Status: Active Protocol: Document 02/10/24 14:40 AB (Rec: 02/10/24 16:23 AB [id number]) Orientation Orientation/Cognition Level of Alertness Alert Orientation Name,Place,Situation Language Function Ability Hard of Hearing Safety Awareness Decreased Safety Awareness Comments L ear deafness Gross Range of Motion Lower Extremity ROM Assessment Within Functional Limits Strength Lower Extremity Strength Assessment Within Functional Limits Coordination Assessment Gross Coordination Gross Coordination WNL Muscle Tone Muscle Tone WNL Yes M6 PT-IP Treatment Start: 02/10/24 16:10 Freq: NEEDED Status: Active Protocol: Document 02/10/24 14:40 AB (Rec: 02/10/24 16:23 AB [id number]) Physical Therapy Treatment Education Education Provided Safety M7 PT-IP Assessment and Plan Start: 02/10/24 16:10 Freq: NEEDED Status: Active Protocol: Document 02/10/24 14:40 AB (Rec: 02/10/24 16:23 AB [id number]) PT Summary Assessment and Plan Potential Rehabilitation Potential Fair Status of Condition at Evaluation Evolving Summary Impairments Pain,ROM,Strength,Balance, Coordination,Sensation, Cognition,Bed Mobility, Transfers,Gait,Activity Tolerance Assessment Summary pt is an 83 y/o F who presented to the ED due to SOB . pt admitted for PNA and COPD exacerbation. 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 pt requiring CGA with transfers and ambulation using FWW but with decrease activity tolerance affecting mobiltiy independence. pt with O2 sat decrease to ~ 85% after ambulation. d/c plan depending on progress. pt will benefit from HHPT. Goals Bed Mobility Goal Independent Transfer Goal Independent,Four Wheeled Walker Gait Goal Independent,Four Wheel Walker Gait Distance 200 Other Goals improve transfers and ambulation using LRAD/without AD ~ 250 ft mod I up/down 10 steps L rail ascending mod I Days to Meet Goals 10 Frequency of Treatment Frequency Of Treatment Once a Day Treatment Plan Physical Therapy Treatment Plan Bed Mobility Training,Transfer Training,Gait Training, Therapeutic Exercise,Balance Retraining,Discharge Planning, Hot or Cold Pack,Neuromuscular Re-ed,Coordination Retraining Precautions Other Precautions O2 sat Recommendations To Nursing Amount of Assist Needed 1 Person Assist Discharge Recommendations PT Discharge Recommendations Home with Assistance,Home Health Transportation Needs at Discharge Private Vehicle
--- NOTE | 2024-02-10 15:41 | OT.IPNOTE ---
Pt just saw PT and at this time too tired to do OT eval. Able to talk to pt of prior level, no charge. To check on the pt tomorrow.
--- NOTE | 2024-02-10 16:31 | DIET.CONS ---
Dietary Consultation Note Admission Date: 02/09/2024 18:19 Assessment: 83 y F admitted for pneumonia, acute/chronic resp failure, COPD exacerbation. PMH of CKD 3 and palliative radiation for metastatic lung carcinoma. Met with pt at bedside. Reports decrease in appetite during hospital stay, usual appetite outside hospital. Diet recall at home: B-cereal L-yogurts/sandwich/various snacks D-Has family members bring her dinners, but when dinners aren't already prepared, she doesn't have the energy/isn't interested in preparing them. Will have Ensure instead. NFPE not performed at this time. Will f/u to assess with NFPE. Ht: 165.1 cm Wt: 67 kg BMI: 24.5 UBW: 75.07 kg in Oct per chart (-10.7% weight loss in 6 months, severe) Last BM: 02/07/24 (02/09/24 18:24) MNA: 7 Peter Score: 18 Diet: 02/10/24 Breakfast General (Regular) Diet Diet Modifications: Food Texture: Level 7 - Regular Liquid Consistency: Level 0 - Thin Labs: RBC 3.82 X10^6/uL (4.0-5.2) L 02/10/24 04:25 Hgb 11.1 g/dL (12.0-16.0) L 02/10/24 04:25 Hct 33.8 % (36-46) L 02/10/24 04:25 Creatinine 0.86 mg/dL (0.52-1.04) 02/10/24 04:25 Lactate 0.9 mmol/L (0.7-2.1) 02/09/24 16:20 NT-Pro-B Natriuret Pep 1900 pg/mL (<450) H 02/09/24 16:20 Nutrition Diagnosis: Unintended weight loss r/t to increased protein energy needs in setting of radiation therapy aeb 10.7% weight loss in 6 months, severe Interventions: 1. Protein supplementation or adequate protein source at meal times 2. F/u for NFPE and educ on adequate energy/protein intake to meet needs EER: [id number] kcals (25-30 kcals/kg) 55 gram protein (.8 g/kg CKD3 w/ unintended wt loss and recent radiation therapy) Monitoring/Evaluations: f/u in 1 day, po intakes Electronically Signed by: Domitila Alegre 02/10/24 16:31 Clinical Dietitian [address] [address]
[2024-02-10] MEDS: cefTRIAXone 1,000 MG in SODIUM CHLORIDE 0.9% 100 ML 200 MG IV (16:51)
[2024-02-10] MEDS: SODIUM CHLORIDE 0.9% FLUSH 10 ML IV (20:58)
[2024-02-10] MEDS: LATANOPROST 0.005% OPHTH 2.5 ML 1 DROPS EYE-BOTH (21:26)
[2024-02-11] VITALS (150 sets, daily range): BP systolic 118–153; BP diastolic 27–72; PULSE 73–112; RESP 18–22; TEMP 36.2–36.6; O2SAT 81–99
[2024-02-11] MEDS: guaiFENesin Solution 100 MG/5 ML UDC PO ×4 (00:59→20:55)
[2024-02-11] MEDS: methylPREDNISolone 125 MG/2 ML VIAL 80 MG IV ×2 (04:38→16:36)
[2024-02-11] MEDS: ALBUTEROL/IPRATROPIUM 3 ML AMPUL INH ×3 (07:14→19:30)
[2024-02-11] MEDS: BUDESONIDE 0.5 MG/2 ML NEB INH ×2 (07:14→19:30)
[2024-02-11] MEDS: DOXYCYCLINE HYCLATE 100 MG TABLET PO ×2 (08:08→20:55)
[2024-02-11] MEDS: PANTOPRAZOLE DR 40 MG TABLET PO (08:08)
[2024-02-11] MEDS: AMLODIPINE 5 MG TABLET PO (08:08)
[2024-02-11] MEDS: VERAPAMIL 80 MG TABLET PO ×2 (08:09→20:54)
[2024-02-11] MEDS: METOPROLOL IR 50 MG TABLET PO ×2 (08:09→20:54)
[2024-02-11] MEDS: BENZONATATE 100 MG CAPSULE PO ×2 (08:09→16:35)
[2024-02-11] MEDS: ENOXAPARIN 40 MG/0.4 ML SYRINGE SUBCUT (08:09)
[2024-02-11] MEDS: SODIUM CHLORIDE 0.9% FLUSH 10 ML IV ×2 (08:10→20:56)
--- NOTE | 2024-02-11 10:12 | OT.IPNOTE ---
Attempted OT eval and pt refused as wanting to watch TV, to check on the pt later.
--- NOTE | 2024-02-11 11:41 | P.PN_ITS ---
Subjective Subjective Interval history: She is still very congested and short of breath. She is coughing up a fair amount of material and has right ear plugging still. She also feels weak. Exam Vital Signs (past 8 hours): - 02/11/24 03:50 02/11/24 04:00 02/11/24 04:00 Temperature 97.1 F L Pulse Rate 90 104 H 96 H Respiratory Rate 19 Blood Pressure 143/64 H Pulse Oximetry 97 94 97 Oxygen Delivery Method Oxygen Flow Rate 3 02/11/24 04:10 02/11/24 04:18 02/11/24 04:18 Temperature Pulse Rate 100 H 103 H Respiratory Rate Blood Pressure 142/64 H Pulse Oximetry 95 94 Oxygen Delivery Method Oxygen Flow Rate 02/11/24 04:20 02/11/24 04:30 02/11/24 04:40 Temperature Pulse Rate 103 H 101 H 101 H Respiratory Rate Blood Pressure Pulse Oximetry 94 92 95 Oxygen Delivery Method Oxygen Flow Rate 02/11/24 04:50 02/11/24 05:00 02/11/24 05:10 Temperature Pulse Rate 99 H 94 H 91 H Respiratory Rate Blood Pressure Pulse Oximetry 96 96 97 Oxygen Delivery Method Oxygen Flow Rate 02/11/24 05:20 02/11/24 05:30 02/11/24 05:40 Temperature Pulse Rate 98 H 92 H 92 H Respiratory Rate Blood Pressure Pulse Oximetry 96 98 94 Oxygen Delivery Method Oxygen Flow Rate 02/11/24 05:50 02/11/24 06:00 02/11/24 06:10 Temperature Pulse Rate 96 H 91 H 91 H Respiratory Rate Blood Pressure Pulse Oximetry 96 97 97 Oxygen Delivery Method Oxygen Flow Rate 02/11/24 06:20 02/11/24 06:30 02/11/24 06:40 Temperature Pulse Rate 95 H 96 H 93 H Respiratory Rate Blood Pressure Pulse Oximetry 99 97 97 Oxygen Delivery Method Oxygen Flow Rate 02/11/24 06:50 02/11/24 07:00 02/11/24 07:10 Temperature Pulse Rate 94 H 98 H 96 H Respiratory Rate Blood Pressure Pulse Oximetry 97 97 96 Oxygen Delivery Method Oxygen Flow Rate 02/11/24 07:15 02/11/24 07:20 02/11/24 07:30 Temperature Pulse Rate 100 H 97 H Respiratory Rate Blood Pressure Pulse Oximetry 95 93 98 Oxygen Delivery Method Nasal Cannula Oxygen Flow Rate 3 02/11/24 07:40 02/11/24 07:50 02/11/24 07:54 Temperature Pulse Rate 97 H 95 H Respiratory Rate Blood Pressure 145/65 H Pulse Oximetry 97 97 Oxygen Delivery Method Oxygen Flow Rate 02/11/24 07:54 02/11/24 08:00 02/11/24 08:00 Temperature 97.8 F Pulse Rate 102 H 112 H Respiratory Rate Blood Pressure Pulse Oximetry 97 89 L Oxygen Delivery Method Oxygen Flow Rate 02/11/24 08:00 Temperature Pulse Rate Respiratory Rate Blood Pressure Pulse Oximetry Oxygen Delivery Method Nasal Cannula Oxygen Flow Rate Fraction of Inspired Oxygen 36 SaO2/FiO2 Ratio 272 Oxygen Delivery Method Nasal Cannula Oxygen Flow Rate 3 Narrative Exam Narrative: NAD, alert and oriented. Fluent speech. Flat affect Lungs are with grossly diminished breath sounds globally and some expiratory grunting and wheezing. Poor air movement. Normal rate and effort. Heart is regular, no murmur gallop or rub. Abdomen is soft, non distended. Extremities are free of edema. Objective Labs 02/10/24 04:25 02/10/24 04:25 [facility] Medical History Medicare annual wellness visit, subsequent Well adult exam CKD (chronic kidney disease) stage 3, GFR 30-59 ml/min Hyperlipidemia Hypertension COPD (chronic obstructive pulmonary disease) CAD (coronary artery disease) (2000) Surgical History Status post coronary artery stent placement (2000) Family History Daughter No problems noted. Social History marital status: household members: family Smoking Status: Former smoker alcohol intake: never substance use type: does not use Assessment & Plan Assessment & Plan narrative: 1. CAP, present on admission and active. 2. COPD exacerbation, present on admission and active. 3. HTN, present on admission and active. 4. Stage 3 CKD, present on admission and active. 5. Acute on chronic hypoxic respiratory failure, present on admission and active. PLAN: -continue antibiotics, Zithromax for 3 days, ceftriaxone for 3-5 days. -continue standard treatment for COPD exacerbation with bronchodilators and corticosteroids. -wean O2 to her baseline of 2.5 L as able. -symptomatic treatment of cough and Mucinex. -monitor renal function, continue chronic medications for hypertension. She is improved minimally since February 09 and requires another night of ongoing treatment for COPD exacerbation and pneumonia. She is still on oxygen at 3 L. Estimated date of discharge is February 11. Quality VTE Deep Vein Thrombosis/Pulmonary Embolism Present on Admission: No
--- NOTE | 2024-02-11 11:43 | PT-IP ANOTE ---
Pt refused to work with PT today. She is adamant about not mobilizing with PT due to her difficulty breathing. PT may check back with pt later today or tomorrow.
--- NOTE | 2024-02-11 12:16 | OT.IPNOTE ---
Attempted to see pt for OT again and pt states too tired. Pt aware to take her time and encouraged pt to ask her family for assist as needed. Pt also not wanting any home health as does not like to have a lot of people over at her house. NO charge and discharge OT eval orders. Able to notify case management and talked to nursing.
--- NOTE | 2024-02-11 12:24 | CM.DPC ---
DCP Cont. Reviewed EMR and team rounds for status updates. Pt still not well enough to d/c home, remains on 3LO2. Plan is to wean down O2 to 2.5L baseline home oxygen, IV ABO's through tomorrow. D/C anticipated tomorrow if her O2 sats improve. Will continue to monitor for d/c needs.
[2024-02-11] MEDS: ACETAMINOPHEN 325 MG TABLET 650 MG PO (13:35)
[2024-02-11] MEDS: cefTRIAXone 1,000 MG in SODIUM CHLORIDE 0.9% 100 ML 200 MG IV (16:35)
[2024-02-11] MEDS: ATORVASTATIN 20 MG TABLET 10 MG PO (20:54)
[2024-02-11] MEDS: LATANOPROST 0.005% OPHTH 2.5 ML 1 DROPS EYE-BOTH (20:55)
[2024-02-12] VITALS (34 sets, daily range): BP systolic 113–179; BP diastolic 57–77; PULSE 68–96; RESP 10–37; TEMP 32–36.6; O2SAT 87–97
[2024-02-12] MEDS: SODIUM CHLORIDE 0.9% FLUSH 10 ML IV ×3 (04:12→21:43)
[2024-02-12] MEDS: methylPREDNISolone 125 MG/2 ML VIAL 80 MG IV ×2 (04:12→16:28)
[2024-02-12] MEDS: PANTOPRAZOLE DR 40 MG TABLET PO (06:14)
--- NOTE | 2024-02-12 06:18 | PC.NURSE ---
Pt. had periods of hallucination last night. Pt. stated that she saw swirling lights and also a video where her sister and someone else were present. Pt. also thought that there were groups of people outside her window having a good time and it needs to be reported. I assure pt. that she may have seen whatever she seen but that I do not see anyone or any swirling lights and closed the blinds to her room window.
[2024-02-12 06:22] LABS: Add Manual Diff / Slide Review NO; Basophils Absolute Auto 0 /uL (0-100); Basophils Percent Auto 0.1 % (0-2); Eosinophils Absolute Auto 0 /uL (0-450); Hematocrit 33.3 % (36-46); Hemoglobin 10.8 g/dL (12.0-16.0); Lymphocytes Absolute Auto 700 /uL (1100-4500); Lymphocytes Percent Auto 4.9 % (25-40); Mean Corpuscular HGB Conc 32.4 % (30-36); Mean Corpuscular Hemoglobin 28.7 PG (26-34); Mean Corpuscular Volume 88.4 fL (80-100); Monocytes Absolute Auto 800 /uL (0-900); Monocytes Percent Auto 5.7 % (3-14); Neutrophils Absolute Auto 12100 /uL (1500-7000); Neutrophils Percent Auto 89.3 % (50-75); Platelet Count 382 X10^3/uL (150-400); Red Blood Cell Count 3.76 X10^6/uL (4.0-5.2); Red Cell Distribution Width 13.8 % (11.6-14.8); White Blood Cell Count 13.6 X10^3/uL (4.5-11.0)
[2024-02-12 06:31] LABS: BUN Creatinine Ratio 36.5 (6-22); Blood Urea Nitrogen 27 mg/dL (7-17); Calcium 9.6 mg/dL (8.4-10.2); Chloride 87 mmol/L (98-107); Estimated Glomerular Filt Rate > 60 mL/min (>60); Glucose 148 mg/dL (80-110); HEMOLYSIS < 15 (0-50); Sodium 129 mmol/L (137-145)
[2024-02-12 06:39] LABS: Carbon Dioxide 39 mmol/L (22-32)
--- NOTE | 2024-02-12 07:35 | PM.PN.1 ---
Subjective Subjective Interval history: She is still weak and short of breath. She still has a lot of secretion she is trying to cough up. She does not feel ready to go home. She was being treated for pneumonia and COPD. She is stage IV lung cancer and has treatments every [address] Sutton at [facility]. Exam Vital Signs (past 8 hours): - 02/12/24 00:00 02/12/24 00:00 02/12/24 01:00 Temperature Pulse Rate 86 85 Respiratory Rate Blood Pressure 144/67 H Pulse Oximetry 95 91 Oxygen Flow Rate 02/12/24 02:00 02/12/24 03:00 02/12/24 04:00 Temperature Pulse Rate 85 89 79 Respiratory Rate Blood Pressure Pulse Oximetry 96 90 L 95 Oxygen Flow Rate 02/12/24 04:08 02/12/24 04:08 02/12/24 04:28 Temperature 97.6 F Pulse Rate 85 84 Respiratory Rate 19 Blood Pressure 146/77 H 146/77 H Pulse Oximetry 94 96 Oxygen Flow Rate 3 02/12/24 05:00 02/12/24 06:00 02/12/24 07:00 Temperature Pulse Rate 84 81 86 Respiratory Rate Blood Pressure Pulse Oximetry 95 96 95 Oxygen Flow Rate Fraction of Inspired Oxygen 36 SaO2/FiO2 Ratio 272 Oxygen Delivery Method Nasal Cannula Oxygen Flow Rate 3 Narrative Exam Narrative: NAD, alert and oriented. Fluent speech. Lungs are notable for diminished breath sounds, prolonged expiration, and scattered gurgly secretions. She has a normal rate and effort. Heart is regular, no murmur gallop or rub. Abdomen is soft, non distended. Extremities are free of edema. Objective Labs 02/12/24 06:08 02/12/24 06:08 Labs: Laboratory Results - last 24 hr 02/12/24 06:08 WBC 13.6 H RBC 3.76 L Hgb 10.8 L Hct 33.3 L MCV 88.4 MCH 28.7 MCHC 32.4 RDW 13.8 Plt Count 382 Neut % (Auto) 89.3 H Lymph % (Auto) 4.9 L Cameron % (Auto) 5.7 Eos % (Auto) 0.0 L Baso % (Auto) 0.1 Neut # (Auto) 18687 H Lymph # (Auto) 700 L Cameron # (Auto) 800 Eos # (Auto) 0 Baso # (Auto) 0 Sodium 129 L Potassium 5.0 Chloride 87 L Carbon Dioxide 39 H BUN 27 H Creatinine 0.74 Estimated GFR > 60 BUN/Creatinine Ratio 36.5 H Glucose 148 H Calcium 9.6 PFSH Medical History Medicare annual wellness visit, subsequent Well adult exam CKD (chronic kidney disease) stage 3, GFR 30-59 ml/min Hyperlipidemia Hypertension COPD (chronic obstructive pulmonary disease) CAD (coronary artery disease) (2000) Surgical History Status post coronary artery stent placement (2000) Family History Daughter No problems noted. Social History marital status: household members: family Smoking Status: Former smoker alcohol intake: never substance use type: does not use Assessment & Plan Assessment & Plan narrative: 1. CAP, present on admission and active. 2. COPD exacerbation, present on admission and active. 3. HTN, present on admission and active. 4. Stage 3 CKD, present on admission and active. 5. Acute on chronic hypoxic respiratory failure, present on admission and active. 6. Metastatic lung cancer, present on admission and active. 7. Probable hypovolemic hyponatremia, new and active. PLAN: -continue antibiotics, Zithromax for 3 days, ceftriaxone for 3-5 days. -continue standard treatment for COPD exacerbation with bronchodilators and corticosteroids. -wean O2 to her baseline of 2.5 L as able. -symptomatic treatment of cough and Mucinex. -monitor renal function, continue chronic medications for hypertension. -saline infusion times 24 hours at 50 mL an hour to improve her volume status. She is improved minimally since February 09 and requires yet another night of ongoing treatment for COPD exacerbation and pneumonia. She is still on oxygen at 3 L. Estimated date of discharge is February 12. Quality VTE Deep Vein Thrombosis/Pulmonary Embolism Present on Admission: No
[2024-02-12] MEDS: BUDESONIDE 0.5 MG/2 ML NEB INH ×2 (07:39→18:39)
[2024-02-12] MEDS: ALBUTEROL/IPRATROPIUM 3 ML AMPUL INH ×3 (07:39→18:39)
[2024-02-12] MEDS: DOXYCYCLINE HYCLATE 100 MG TABLET PO ×2 (08:07→21:44)
[2024-02-12] MEDS: VERAPAMIL 80 MG TABLET PO (08:07)
[2024-02-12] MEDS: AMLODIPINE 5 MG TABLET PO (08:08)
[2024-02-12] MEDS: ENOXAPARIN 40 MG/0.4 ML SYRINGE SUBCUT (08:08)
[2024-02-12] MEDS: METOPROLOL IR 50 MG TABLET PO (08:08)
[2024-02-12] MEDS: SODIUM CHLORIDE 0.9% 1,000 ML 50 ML IV (09:32)
--- NOTE | 2024-02-12 10:14 | PC.NURSE ---
Addendum entered by Tricia Canales R.N. 02/12/24 16:45: UA came back negative. Increased confusion this afternoon. Pt was A&Ox4 this AM, and at 1430, patient thought she was at home and attempted to urinate in the sink. Reoriented and reassured patient. ABGs obtained - CO2 elevated. MD Panchal ordered BiPap. Transferred patient's care to TRIMMER HELPER Sandra Gandhi - report given at 1430. Original Note: Day shift: Notified MD Panchal of patient's hallucinations overnight and then reporting seeing writing on the wall this AM that was not there. stated it could be UTI or hospital-related delirium. UA to be collected. Will continue to monitor.
--- NOTE | 2024-02-12 10:20 | PT-IP ANOTE ---
Pt refused to work with PT today. She does not want to get out of bed. She agreed for PT to come tomorrow.
[2024-02-12 15:23] LABS: Appearance Urine UA CLEAR; Bilirubin Urine UA NEGATIVE (NEGATIVE); Color Urine UA YELLOW; Glucose Urine UA NEGATIVE (Negative); Ketones Urine UA NEGATIVE (NEGATIVE); Leukocyte Esterase Urine UA NEGATIVE (NEGATIVE); Nitrite Urine UA NEGATIVE (Negative); Occult Blood Urine UA NEGATIVE (Negative); Protein Urine UA NEGATIVE (Negative); Urobilinogen Urine UA 0.2 E.U./dL (0.2)
[2024-02-12 15:46] LABS: Bacteria Urine None Seen; Culture Indicated Urine Cult Not Indicated; RBC Urine None Seen (0-5/HPF); Squamous Epithelial Cell Urine 0-1 /HPF (0-5/HPF); Urine Volume 10mL (spun); WBC Urine 0-1/HPF (0-5/HPF)
[2024-02-12 15:50] LABS: pH ABG 7.33 (7.35-7.45)
[2024-02-12 15:51] LABS: Blood Gas Collection Site Right Brachial; Fractionated Inspired Oxygen 40; HCO3 ABG 42 mmol/L (23-27); Oxygen Saturation ABG 95 % (95-100); PCO2 ABG 79.4 mmHg (35-45); PO2 ABG 83 mmHg (80-100); TCO2 ABG 44 mmol/L (23-27)
--- NOTE | 2024-02-12 15:51 | DIET.CONS2 ---
Dietary Inpatient Consultation Note Admission Date: 02/09/2024 18:19 Nutrition f/u Continuing to coordinate for optimal nutrition at meal times via energy and protein sources at meals or protein supplementation. Will continue to follow for po intakes and opportunity for educ on adequate intake for d/c. Diet: 02/10/24 Breakfast General (Regular) Diet Diet Modifications: Food Texture: Level 7 - Regular Liquid Consistency: Level 0 - Thin Nutrition Percent Meal Consumed 0% 02/12/24 10:14 Percent Meal Consumed 50% 02/11/24 18:00 Percent Meal Consumed 75% 02/11/24 13:32 Percent Meal Consumed 100% 02/11/24 09:00 Percent Meal Consumed smoothe 02/10/24 18:32 Percent Meal Consumed pt refused not feeling well to 02/10/24 18:00 eat Electronically Signed by: Domitila Alegre 02/12/24 15:51 Clinical Dietitian [address] [address]
--- NOTE | 2024-02-12 15:54 | CM.DPC ---
DCP Continued Reviewed EMR and team rounds for pt?s medical status. Per hospitalist, pt is weaning on O2 but still need another day to clear pneumonia. Pt refused to work with OT who discharged services and is not receptive to PT treatment. Per notes, pt also not interested in HH referral at this time. Plan: Anticipating dc home with family tomorrow, 02/12, per rounds. CM Team will continue to follow for coordination of discharge plans. JORGE Shine
[2024-02-12] MEDS: ALPRAZolam 0.25 MG TABLET PO (16:27)
[2024-02-12] MEDS: cefTRIAXone 1,000 MG in SODIUM CHLORIDE 0.9% 100 ML 200 MG IV (16:28)
--- NOTE | 2024-02-12 17:45 | DI.RAD.S_ITS ---
PROCEDURE: XR CHEST 1V INDICATIONS: dyspnea TECHNIQUE: One view of the chest was acquired. COMPARISON: [facility], CT, CT ANGIO CHEST PE PROTOCOL, 12/09/2023, 22:28. [facility], CT, CT ANGIO CHEST PE PROTOCOL, 02/09/2024, 17:07. [facility], CR, XR CHEST 1V, 12/09/2023, 21:28. [facility], CR, XR CHEST 1V, 02/09/2024, 15:30. FINDINGS: Surgical changes and devices: None. Lungs and pleura: Chronic interstitial and airspace opacities in lower lungs bilaterally. 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 No pleural effusions or pneumothorax. Mediastinum: Mediastinal contours appear normal. Heart size is normal. Bones and chest wall: No suspicious bony lesions. Overlying soft tissues appear unremarkable. IMPRESSION: 1. Chronic interstitial and airspace opacities in lower lobes bilaterally suspicious for chronic pneumonia. 2. Severe emphysema. Dictated by: Jenna Arrington M.D. on 02/12/2024 at 20:33 Approved by: Jenna Arrington M.D. on 02/12/2024 at 20:35
[2024-02-12] MEDS: LATANOPROST 0.005% OPHTH 2.5 ML 1 DROPS EYE-BOTH (21:44)
[2024-02-13] VITALS (45 sets, daily range): BP systolic 114–173; BP diastolic 55–86; PULSE 59–111; RESP 10–51; TEMP 31–36.8; O2SAT 86–99
[2024-02-13] MEDS: MORPHINE 2 MG/ML INJ IV (02:56)
[2024-02-13] MEDS: SODIUM CHLORIDE 0.9% FLUSH 10 ML IV ×4 (02:57→21:16)
[2024-02-13] MEDS: methylPREDNISolone 125 MG/2 ML VIAL 80 MG IV (04:20)
[2024-02-13 06:32] LABS: Add Manual Diff / Slide Review NO; Basophils Absolute Auto 0 /uL (0-100); Basophils Percent Auto 0.3 % (0-2); Eosinophils Absolute Auto 0 /uL (0-450); Hematocrit 32.6 % (36-46); Hemoglobin 10.8 g/dL (12.0-16.0); Lymphocytes Absolute Auto 700 /uL (1100-4500); Lymphocytes Percent Auto 8.7 % (25-40); Mean Corpuscular HGB Conc 33.1 % (30-36); Mean Corpuscular Hemoglobin 29.3 PG (26-34); Mean Corpuscular Volume 88.7 fL (80-100); Monocytes Absolute Auto 600 /uL (0-900); Monocytes Percent Auto 7.3 % (3-14); Neutrophils Absolute Auto 6700 /uL (1500-7000); Neutrophils Percent Auto 83.7 % (50-75); Platelet Count 346 X10^3/uL (150-400); Red Blood Cell Count 3.67 X10^6/uL (4.0-5.2); Red Cell Distribution Width 14.2 % (11.6-14.8)
[2024-02-13] MEDS: BUDESONIDE 0.5 MG/2 ML NEB INH ×2 (07:23→19:15)
[2024-02-13] MEDS: ALBUTEROL/IPRATROPIUM 3 ML AMPUL INH ×2 (07:23→12:14)
[2024-02-13] MEDS: VERAPAMIL 80 MG TABLET PO ×2 (09:22→21:15)
[2024-02-13] MEDS: DOXYCYCLINE HYCLATE 100 MG TABLET PO ×2 (09:22→21:13)
[2024-02-13] MEDS: AMLODIPINE 5 MG TABLET PO (09:22)
[2024-02-13] MEDS: METOPROLOL IR 50 MG TABLET PO ×2 (09:22→21:13)
[2024-02-13] MEDS: ENOXAPARIN 40 MG/0.4 ML SYRINGE SUBCUT (09:27)
--- NOTE | 2024-02-13 11:44 | PT-IP ANOTE ---
Per nrusing pt was placed on Bipap and is not appropriate for PT at this time. Will hold PT.
[2024-02-13 12:48] LABS: BUN Creatinine Ratio 28.4 (6-22); Blood Urea Nitrogen 19 mg/dL (7-17); Calcium 9.2 mg/dL (8.4-10.2); Chloride 89 mmol/L (98-107); Estimated Glomerular Filt Rate > 60 mL/min (>60); Glucose 126 mg/dL (80-110); HEMOLYSIS < 15 (0-50); Potassium 4.4 mmol/L (3.4-5.1); Sodium 133 mmol/L (137-145)
[2024-02-13 12:58] LABS: Carbon Dioxide 38 mmol/L (22-32)
--- NOTE | 2024-02-13 14:31 | PT.IPTN ---
Current Diagnoses Essential (primary) hypertension (02/09/24) Pneumonia, unspecified organism (02/09/24) Chronic obstructive pulmonary disease with (acute) exacerbation (02/09/24) Acute and chronic respiratory failure with hypoxia (02/09/24) Chronic kidney disease, stage 3a (02/09/24) Physical Therapy Treatment Note M2 PT-IP Current Condition Start: 02/10/24 16:10 Freq: NEEDED Status: Active Protocol: Document 02/10/24 14:40 AB (Rec: 02/10/24 16:23 AB [id number]) Physical Therapy Current Condition Current Condition Evaluation Date 02/10/24 Treatment Diagnosis PNA; COPD; difficulty in walking Onset Date 02/09/24 M3 PT-IP Subjective Start: 02/10/24 16:10 Freq: NEEDED Status: Active Protocol: Document 02/13/24 14:48 TS (Rec: 02/13/24 14:55 TS [id number]) Subjective Physical Therapy Visit Type Type Treatment Note Visit Start Time 14:31 Visit Stop Time 14:42 Number of SUPERVISOR PACKING Visits 1 Physical Therapy Visit Comments Patient Comments Pt is off Bipap and was agreeable to get up to chair. She would like her brief changed. M4 PT-IP Mobility and Gait Start: 02/10/24 16:10 Freq: NEEDED Status: Active Protocol: Document 02/13/24 14:48 TS (Rec: 02/13/24 14:55 TS [id number]) PT-Bed Mobility Assessment Supine to Sit Supine to Sit Standby Assistance,Head of Bed Elevated,Bedrails PT-Transfer Assessment Sit to and From Stand Sit to and from Stand Contact Guard Assistance,1 Person Assistance,Use of Upper Extremities Equipment Transfer Assistive Device Gait Belt,Front Wheeled Walker Orthotic/Prosthetic Devices or Brace: No Transfers Transfer Destination Chair Transfer Technique Stand Step Pivot Transfer Ability Level of Assist Standby Assistance,Use of Upper Extremities Comments Mobility Comments Pt resting on 4L's o2 at 96%. Supine to sit with HOB elevated SBA with BUE supoort. STS from bed CGA with FWW. Pt stood for changing of brief with nursing. Stand step pivot to chair SBA with FWW. Pt desats to 85% on 4L's, therapist provided cues for PLB, pt recovered to 91% on 4L 's after ~3mins. Pt was left in chair, nursing in room. PT-Balance Assessment Sitting Balance and Reactions Static Sitting Balance Ability Normal Dynamic Sitting Balance Ability Good Standing Balance and Reactions Static Standing Balance Ability Fair Dynamic Standing Balance Ability Fair Device Used FWW M5 PT-IP Objective Assessments Start: 02/10/24 16:10 Freq: NEEDED Status: Active Protocol: Document 02/10/24 14:40 AB (Rec: 02/10/24 16:23 AB [id number]) Orientation Orientation/Cognition Level of Alertness Alert Orientation Name,Place,Situation Language Function Ability Hard of Hearing Safety Awareness Decreased Safety Awareness Comments L ear deafness Gross Range of Motion Lower Extremity ROM Assessment Within Functional Limits Strength Lower Extremity Strength Assessment Within Functional Limits Coordination Assessment Gross Coordination Gross Coordination WNL Muscle Tone Muscle Tone WNL Yes M6 PT-IP Treatment Start: 02/10/24 16:10 Freq: NEEDED Status: Active Protocol: Document 02/13/24 14:48 TS (Rec: 02/13/24 14:55 TS [id number]) Physical Therapy Treatment Education Education Provided Safety M7 PT-IP Assessment and Plan Start: 02/10/24 16:10 Freq: NEEDED Status: Active Protocol: Document 02/13/24 14:48 TS (Rec: 02/13/24 14:55 TS [id number]) PT Summary Assessment and Plan Potential Rehabilitation Potential Fair Summary Impairments Pain,ROM,Strength,Balance, Coordination,Sensation, Cognition,Bed Mobility, Transfers,Gait,Activity Tolerance Progress Towards Goals Slow Progress due to Medical Issues,Slow Progress due to Activity Tolerance Assessment Summary Paz is making slow progress with her mobility due ongoing medical issues and poor activity tolerance. She is SBA for all bed mobility and CGA for STS with FWW. Her o2 desats quickly to 85% from 96% on 4L's with transfer to chair. PT will continue to recommend Home with assist and HHPT. Goals Bed Mobility Goal Independent Transfer Goal Independent,Four Wheeled Walker Gait Goal Independent,Four Wheel Walker Gait Distance 200 Other Goals improve transfers and ambulation using LRAD/without AD ~ 250 ft mod I up/down 10 steps L rail ascending mod I Days to Meet Goals 10 Frequency of Treatment Frequency Of Treatment Once a Day Treatment Plan Physical Therapy Treatment Plan Bed Mobility Training,Transfer Training,Gait Training, Therapeutic Exercise,Balance Retraining,Discharge Planning, Hot or Cold Pack,Neuromuscular Re-ed,Coordination Retraining Precautions Other Precautions O2 sat Recommendations To Nursing Amount of Assist Needed 1 Person Assist Discharge Recommendations PT Discharge Recommendations Home with Assistance,Home Health Transportation Needs at Discharge Private Vehicle
--- NOTE | 2024-02-13 16:29 | PM.PN.1 ---
Subjective Subjective Interval history: On 3.5 L of O2 this afternoon, continues to feel weak, though improving and improving shortness of breath. She is stage IV lung cancer and has treatments every [address] Sutton at [facility]. Exam Vital Signs (past 8 hours): - 02/13/24 09:00 02/13/24 09:00 02/13/24 09:22 Temperature Pulse Rate 111 H 110 H Respiratory Rate 38 H Blood Pressure 144/68 H 144/68 H Pulse Oximetry 91 Oxygen Delivery Method Oxygen Flow Rate Fraction of Inspired Oxygen 02/13/24 10:00 02/13/24 10:00 02/13/24 10:30 Temperature Pulse Rate 111 H 104 H Respiratory Rate 26 H Blood Pressure 149/86 H Pulse Oximetry 93 Oxygen Delivery Method Oxygen Flow Rate Fraction of Inspired Oxygen 02/13/24 11:00 02/13/24 11:01 02/13/24 11:01 Temperature Pulse Rate 99 H 99 H Respiratory Rate 51 H 43 H Blood Pressure 173/80 H Pulse Oximetry 86 L 90 L Oxygen Delivery Method Oxygen Flow Rate Fraction of Inspired Oxygen 02/13/24 11:04 02/13/24 12:00 02/13/24 12:14 Temperature Pulse Rate 96 H 75 Respiratory Rate 22 30 H Blood Pressure 173/80 H Pulse Oximetry 91 92 Oxygen Delivery Method Nasal Cannula Oxygen Flow Rate 3.5 Fraction of Inspired Oxygen 30 02/13/24 13:00 02/13/24 14:00 02/13/24 14:43 Temperature 97.6 F Pulse Rate 70 81 Respiratory Rate 24 34 H Blood Pressure 152/67 H Pulse Oximetry 91 92 Oxygen Delivery Method Oxygen Flow Rate Fraction of Inspired Oxygen 02/13/24 14:43 02/13/24 15:00 02/13/24 15:30 Temperature Pulse Rate 86 87 87 Respiratory Rate 33 H 38 H 20 Blood Pressure Pulse Oximetry 93 96 96 Oxygen Delivery Method Nasal Cannula Oxygen Flow Rate 3.5 Fraction of Inspired Oxygen 02/13/24 16:00 02/13/24 16:00 02/13/24 16:17 Temperature 97.3 F L Pulse Rate 87 Respiratory Rate 35 H Blood Pressure 144/67 H Pulse Oximetry 98 Oxygen Delivery Method Oxygen Flow Rate Fraction of Inspired Oxygen 02/13/24 16:17 Temperature Pulse Rate 89 Respiratory Rate 38 H Blood Pressure Pulse Oximetry 98 Oxygen Delivery Method Oxygen Flow Rate Fraction of Inspired Oxygen Fraction of Inspired Oxygen 30 SaO2/FiO2 Ratio 277 Oxygen Delivery Method Nasal Cannula Oxygen Flow Rate 3.5 Narrative Exam Narrative: NAD, alert and oriented. Fluent speech. Lungs are notable for diminished breath sounds, prolonged expiration, and scattered gurgly secretions. She has a normal rate and effort. Heart is regular, no murmur gallop or rub. Abdomen is soft, non distended. Extremities are free of edema. Objective Labs 02/13/24 05:51 02/13/24 05:51 Labs: Laboratory Results - last 24 hr 02/13/24 05:51 WBC 8.0 RBC 3.67 L Hgb 10.8 L Hct 32.6 L MCV 88.7 MCH 29.3 MCHC 33.1 RDW 14.2 Plt Count 346 Neut % (Auto) 83.7 H Lymph % (Auto) 8.7 L [place] % (Auto) 7.3 Eos % (Auto) 0.0 L Baso % (Auto) 0.3 Neut # (Auto) 6700 Lymph # (Auto) 700 L [place] # (Auto) 600 Eos # (Auto) 0 Baso # (Auto) 0 Sodium 133 L Potassium 4.4 Chloride 89 L Carbon Dioxide 38 H BUN 19 H Creatinine 0.67 Estimated GFR > 60 BUN/Creatinine Ratio 28.4 H Glucose 126 H Calcium 9.2 PFSH Medical History Medicare annual wellness visit, subsequent Well adult exam CKD (chronic kidney disease) stage 3, GFR 30-59 ml/min Hyperlipidemia Hypertension COPD (chronic obstructive pulmonary disease) CAD (coronary artery disease) (2000) Surgical History Status post coronary artery stent placement (2000) Family History Daughter No problems noted. Social History marital status: household members: family Smoking Status: Former smoker alcohol intake: never substance use type: does not use Assessment & Plan Assessment & Plan narrative: 1. CAP, present on admission and active. 2. COPD exacerbation, present on admission and active. 3. HTN, present on admission and active. 4. Stage 3 CKD, present on admission and active. 5. Acute on chronic hypoxic respiratory failure, present on admission and active. 6. Metastatic lung cancer, present on admission and active. 7. Probable hypovolemic hyponatremia, new and active. PLAN: -continue antibiotics, Zithromax for 3 days, ceftriaxone for 3-5 days. -continue standard treatment for COPD exacerbation with bronchodilators and corticosteroids. Change IV steroids to oral prednisone. -wean O2 to her baseline of 2.5 L as able. -symptomatic treatment of cough and Mucinex. -monitor renal function, continue chronic medications for hypertension. Estimated date of discharge is February 12. Quality VTE Deep Vein Thrombosis/Pulmonary Embolism Present on Admission: No
[2024-02-13] MEDS: cefTRIAXone 1,000 MG in SODIUM CHLORIDE 0.9% 100 ML 200 MG IV (18:03)
[2024-02-13] MEDS: LATANOPROST 0.005% OPHTH 2.5 ML 1 DROPS EYE-BOTH (21:13)
[2024-02-13] MEDS: ATORVASTATIN 20 MG TABLET 10 MG PO (21:16)
[2024-02-14] VITALS (38 sets, daily range): BP systolic 125–147; BP diastolic 62–91; PULSE 63–100; RESP 10–36; TEMP 31–37.1; O2SAT 88–98
[2024-02-14] MEDS: ALBUTEROL 2.5 MG/3 ML NEB (ADULT) INH
[2024-02-14] MEDS: BENZONATATE 100 MG CAPSULE PO (00:03)
[2024-02-14] MEDS: guaiFENesin Solution 100 MG/5 ML UDC PO (00:03)
[2024-02-14] MEDS: MORPHINE 2 MG/ML INJ IV (01:18)
[2024-02-14] MEDS: SODIUM CHLORIDE 0.9% FLUSH 10 ML IV ×3 (01:19→20:36)
[2024-02-14 04:51] LABS: Add Manual Diff / Slide Review NO; Basophils Absolute Auto 100 /uL (0-100); Basophils Percent Auto 0.5 % (0-2); Eosinophils Absolute Auto 0 /uL (0-450); Hemoglobin 11.1 g/dL (12.0-16.0); Lymphocytes Absolute Auto 1800 /uL (1100-4500); Lymphocytes Percent Auto 10.4 % (25-40); Mean Corpuscular HGB Conc 32.7 % (30-36); Mean Corpuscular Hemoglobin 28.8 PG (26-34); Monocytes Absolute Auto 2300 /uL (0-900); Monocytes Percent Auto 13.7 % (3-14); Neutrophils Absolute Auto 12700 /uL (1500-7000); Neutrophils Percent Auto 75.4 % (50-75); Platelet Count 393 X10^3/uL (150-400); Red Blood Cell Count 3.86 X10^6/uL (4.0-5.2); White Blood Cell Count 16.8 X10^3/uL (4.5-11.0)
[2024-02-14 05:18] LABS: BUN Creatinine Ratio 44.8 (6-22); Blood Urea Nitrogen 26 mg/dL (7-17); Chloride 87 mmol/L (98-107); Estimated Glomerular Filt Rate > 60 mL/min (>60); Glucose 101 mg/dL (80-110); Magnesium 2.2 mg/dL (1.6-2.3); Potassium 4.6 mmol/L (3.4-5.1); Sodium 133 mmol/L (137-145)
[2024-02-14 05:25] LABS: HEMOLYSIS 34 (0-50)
[2024-02-14 05:28] LABS: Carbon Dioxide 40 mmol/L (22-32)
[2024-02-14] MEDS: ALBUTEROL/IPRATROPIUM 3 ML AMPUL INH ×3 (06:49→19:06)
[2024-02-14] MEDS: BUDESONIDE 0.5 MG/2 ML NEB INH ×2 (06:49→19:06)
[2024-02-14] MEDS: PANTOPRAZOLE DR 40 MG TABLET PO (07:10)
[2024-02-14] MEDS: predniSONE 20 MG TABLET 40 MG PO (08:17)
[2024-02-14] MEDS: METOPROLOL IR 50 MG TABLET PO ×2 (08:17→20:36)
[2024-02-14] MEDS: DOXYCYCLINE HYCLATE 100 MG TABLET PO (08:17)
[2024-02-14] MEDS: VERAPAMIL 80 MG TABLET PO ×2 (08:17→20:35)
[2024-02-14] MEDS: ENOXAPARIN 40 MG/0.4 ML SYRINGE SUBCUT (08:18)
[2024-02-14] MEDS: AMLODIPINE 5 MG TABLET PO (08:18)
--- NOTE | 2024-02-14 10:30 | CM.DPC ---
DCP Cont. Reviewed EMR and team rounds for status updates. Per Hospitalist, likely needs 1-more day inpt for steroids and IV ABO's. Her granddaughter will transport her home once she's medically cleared for home d/c.
--- NOTE | 2024-02-14 11:15 | PT.IPTN ---
Current Diagnoses Essential (primary) hypertension (02/09/24) Pneumonia, unspecified organism (02/09/24) Chronic obstructive pulmonary disease with (acute) exacerbation (02/09/24) Acute and chronic respiratory failure with hypoxia (02/09/24) Chronic kidney disease, stage 3a (02/09/24) Physical Therapy Treatment Note M2 PT-IP Current Condition Start: 02/10/24 16:10 Freq: NEEDED Status: Active Protocol: Document 02/10/24 14:40 AB (Rec: 02/10/24 16:23 AB [id number]) Physical Therapy Current Condition Current Condition Evaluation Date 02/10/24 Treatment Diagnosis PNA; COPD; difficulty in walking Onset Date 02/09/24 M3 PT-IP Subjective Start: 02/10/24 16:10 Freq: NEEDED Status: Active Protocol: Document 02/14/24 11:52 TS (Rec: 02/14/24 11:58 TS [id number]) Subjective Physical Therapy Visit Type Type Treatment Note Visit Start Time 11:15 Visit Stop Time 11:33 Number of LEGAL SECRETARY Visits 2 Physical Therapy Visit Comments Patient Comments Pt found esting in bed, is agreeable to PT. M4 PT-IP Mobility and Gait Start: 02/10/24 16:10 Freq: NEEDED Status: Active Protocol: Document 02/14/24 11:52 TS (Rec: 02/14/24 11:58 TS [id number]) PT-Bed Mobility Assessment Supine to Sit Supine to Sit Standby Assistance,Head of Bed Elevated,Bedrails Scooting Scooting to Edge of Bed Standby Assistance PT-Transfer Assessment Sit to and From Stand Sit to and from Stand Contact Guard Assistance,1 Person Assistance,Use of Upper Extremities Equipment Transfer Assistive Device Gait Belt,Front Wheeled Walker Orthotic/Prosthetic Devices or Brace: No Comments Mobility Comments Pt resting on 4.5's of o2 at 98%. Supine to sit SBA with HOB elevated. She performed STS from bed CGA with FWW. She ambulated ~15' in room, c/o SOB and requested to sit in chair. Spo2 90% on 4.5L's. Pt was left in chair, all needs met. Gait Assessment Gait Gait Assistance Required: Standby Assistance Distance (Feet) 15 Able to Maintain Weight Bearing Status Yes During Gait Assistive Devices Assistive Device Gait Belt,Front Wheeled Walker Orthotic/Prosthetic Devices or Brace: No Gait Deviations General Gait Pattern Decreased Stride Length, Decreased Feet Clearance Factors Limiting Gait Function Factors Limiting Gait Function Decreased Activity Tolerance, Decreased Strength,Difficulty Following Directions,Limited Range of Motion,Pain,Poor Balance,Poor Safety Awareness, Respiratory Distress PT-Balance Assessment Sitting Balance and Reactions Static Sitting Balance Ability Normal Dynamic Sitting Balance Ability Good Standing Balance and Reactions Static Standing Balance Ability Fair Dynamic Standing Balance Ability Fair Device Used FWW M5 PT-IP Objective Assessments Start: 02/10/24 16:10 Freq: NEEDED Status: Active Protocol: Document 02/10/24 14:40 AB (Rec: 02/10/24 16:23 AB [id number]) Orientation Orientation/Cognition Level of Alertness Alert Orientation Name,Place,Situation Language Function Ability Hard of Hearing Safety Awareness Decreased Safety Awareness Comments L ear deafness Gross Range of Motion Lower Extremity ROM Assessment Within Functional Limits Strength Lower Extremity Strength Assessment Within Functional Limits Coordination Assessment Gross Coordination Gross Coordination WNL Muscle Tone Muscle Tone WNL Yes M6 PT-IP Treatment Start: 02/10/24 16:10 Freq: NEEDED Status: Active Protocol: Document 02/14/24 11:52 TS (Rec: 02/14/24 11:58 TS [id number]) Physical Therapy Treatment Education Education Provided Safety M7 PT-IP Assessment and Plan Start: 02/10/24 16:10 Freq: NEEDED Status: Active Protocol: Document 02/14/24 11:52 TS (Rec: 02/14/24 11:58 TS [id number]) PT Summary Assessment and Plan Potential Rehabilitation Potential Fair Summary Impairments Pain,ROM,Strength,Balance, Coordination,Sensation, Cognition,Bed Mobility, Transfers,Gait,Activity Tolerance Progress Towards Goals Slow Progress due to Medical Issues,Slow Progress due to Activity Tolerance Assessment Summary Paz continues to make slow progress with her mobility. She continues to have poor tolerance to activity and desats to 90% on 4.5L's of o2. She did ambulate ~15' this session but quickly fatigues. She continues to perform most mobiltiy SBA. PT is recommending home with assist and HHPT. Goals Bed Mobility Goal Independent Transfer Goal Independent,Four Wheeled Walker Gait Goal Independent,Four Wheel Walker Gait Distance 200 Other Goals improve transfers and ambulation using LRAD/without AD ~ 250 ft mod I up/down 10 steps L rail ascending mod I Days to Meet Goals 10 Frequency of Treatment Frequency Of Treatment Once a Day Treatment Plan Physical Therapy Treatment Plan Bed Mobility Training,Transfer Training,Gait Training, Therapeutic Exercise,Balance Retraining,Discharge Planning, Hot or Cold Pack,Neuromuscular Re-ed,Coordination Retraining Precautions Other Precautions O2 sat Recommendations To Nursing Amount of Assist Needed Standby Assistance Discharge Recommendations PT Discharge Recommendations Home with Assistance,Home Health Transportation Needs at Discharge Private Vehicle
--- NOTE | 2024-02-14 14:25 | P.PN_ITS ---
Subjective Subjective Interval history: On 3.5 L of O2 this afternoon, continues to feel weak, though improving and improving shortness of breath. She is stage IV lung cancer and has treatments every [address] Sutton at [facility]. She continued to desat to the mid 80s with exertion with therapy on 4L. We discussed recommendations to keep O2 in the low 90s, turned her down to 1.5L and she did not feel this was enough oxygen, and became quite anxious. She began to hyperventilate and O2 went down to mid 80s. Oxygen was turned back to 2.5L. Will continue education on keeping O2 saturations between 89-96% while on supplemental therapy. Exam Vital Signs (past 8 hours): - 02/14/24 06:49 02/14/24 07:00 02/14/24 07:00 Temperature Pulse Rate 89 87 Respiratory Rate 20 29 H Blood Pressure Pulse Oximetry 88 L Oxygen Delivery Method Nasal Cannula Humidification Nasal Cannula Oxygen Flow Rate 3.5 02/14/24 07:51 02/14/24 07:51 02/14/24 08:00 Temperature Pulse Rate 88 82 Respiratory Rate 36 H 31 H Blood Pressure 132/63 Pulse Oximetry 98 98 Oxygen Delivery Method Oxygen Flow Rate 02/14/24 08:39 02/14/24 08:47 02/14/24 11:00 Temperature 98.8 F Pulse Rate 92 H 93 H Respiratory Rate 24 Blood Pressure 132/67 130/91 H Pulse Oximetry 97 Oxygen Delivery Method Nasal Cannula Oxygen Flow Rate 4 02/14/24 12:00 02/14/24 13:49 Temperature 97.4 F L Pulse Rate 100 H 72 Respiratory Rate 27 H 20 Blood Pressure 128/62 Pulse Oximetry 88 L 93 Oxygen Delivery Method Nasal Cannula Oxygen Flow Rate 2 2.5 Fraction of Inspired Oxygen 35 SaO2/FiO2 Ratio 271 Oxygen Delivery Method Nasal Cannula Oxygen Flow Rate 2.5 Narrative Exam Narrative: NAD, alert and oriented. Fluent speech. Lungs are notable for diminished breath sounds, prolonged expiration, and scattered gurgly secretions. She has a normal rate and effort. Heart is regular, no murmur gallop or rub. Abdomen is soft, non distended. Extremities are free of edema. Objective Labs 02/14/24 04:19 02/14/24 04:19 Labs: Laboratory Results - last 24 hr 02/14/24 04:19 WBC 16.8 H D RBC 3.86 L Hgb 11.1 L Hct 34.0 L MCV 88.0 MCH 28.8 MCHC 32.7 RDW 14.0 Plt Count 393 Neut % (Auto) 75.4 H Lymph % (Auto) 10.4 L [place] % (Auto) 13.7 Eos % (Auto) 0.0 L Baso % (Auto) 0.5 Neut # (Auto) 71766 H Lymph # (Auto) 1800 [place] # (Auto) 2300 H Eos # (Auto) 0 Baso # (Auto) 100 Sodium 133 L Potassium 4.6 Chloride 87 L Carbon Dioxide 40 H* BUN 26 H Creatinine 0.58 Estimated GFR > 60 BUN/Creatinine Ratio 44.8 H Glucose 101 Calcium 9.0 Magnesium 2.2 PFSH Medical History Medicare annual wellness visit, subsequent Well adult exam CKD (chronic kidney disease) stage 3, GFR 30-59 ml/min Hyperlipidemia Hypertension COPD (chronic obstructive pulmonary disease) CAD (coronary artery disease) (2000) Surgical History Status post coronary artery stent placement (2000) Family History Daughter No problems noted. Social History marital status: household members: family Smoking Status: Former smoker alcohol intake: never substance use type: does not use Assessment & Plan Assessment & Plan narrative: 1. CAP, present on admission and active. 2. COPD exacerbation, present on admission and active. 3. HTN, present on admission and active. 4. Stage 3 CKD, present on admission and active. 5. Acute on chronic hypoxic respiratory failure, present on admission and active. 6. Metastatic lung cancer, present on admission and active. 7. Probable hypovolemic hyponatremia, new and active. PLAN: -Has now completed courses of ceftriaxone and azithromycin for CAP. -continue standard treatment for COPD exacerbation with bronchodilators and corticosteroids. Changed IV steroids to oral prednisone yesterday. -wean O2 to her baseline of 2.5 L as able. Goal O2 89-96% on supplemental therapy. -symptomatic treatment of cough and Mucinex. -monitor renal function, continue chronic medications for hypertension. Dispo: pending improvement in oxygenation with activity, will go home with assistance. Possibly in 1-2 days depending on continued improvement or not. Quality VTE Deep Vein Thrombosis/Pulmonary Embolism Present on Admission: No
[2024-02-14] MEDS: LATANOPROST 0.005% OPHTH 2.5 ML 1 DROPS EYE-BOTH (20:35)
[2024-02-14] MEDS: ATORVASTATIN 20 MG TABLET 10 MG PO (20:36)
[2024-02-14] MEDS: ACETAMINOPHEN 325 MG TABLET 650 MG PO (22:40)
[2024-02-15] VITALS (38 sets, daily range): BP systolic 115–170; BP diastolic 62–81; PULSE 62–84; RESP 17–20; TEMP 36.1–37.1; O2SAT 89–98
--- NOTE | 2024-02-15 04:44 | RT ---
Patient refusing to wear BIPAP this shift. Per RN patient woke in a panic prior night and ripped mask off. Stating tonight she didn't trust it to work right. Per patient and discussion with granddaughter on phone, request to stay off and see how she does. Maintained on 3L NC for SPO2 of 93% and appeared to tolerate being off BIPAP at this time.
[2024-02-15 04:48] LABS: Add Manual Diff / Slide Review NO; Basophils Absolute Auto 0 /uL (0-100); Basophils Percent Auto 0.2 % (0-2); Eosinophils Absolute Auto 0 /uL (0-450); Hematocrit 36.1 % (36-46); Hemoglobin 11.7 g/dL (12.0-16.0); Lymphocytes Absolute Auto 1100 /uL (1100-4500); Lymphocytes Percent Auto 6.1 % (25-40); Mean Corpuscular HGB Conc 32.5 % (30-36); Mean Corpuscular Hemoglobin 28.6 PG (26-34); Monocytes Absolute Auto 1400 /uL (0-900); Monocytes Percent Auto 7.9 % (3-14); Neutrophils Absolute Auto 14900 /uL (1500-7000); Neutrophils Percent Auto 85.8 % (50-75); Platelet Count 387 X10^3/uL (150-400); Red Cell Distribution Width 14.2 % (11.6-14.8); White Blood Cell Count 17.4 X10^3/uL (4.5-11.0)
[2024-02-15 05:13] LABS: BUN Creatinine Ratio 36.4 (6-22); Blood Urea Nitrogen 24 mg/dL (7-17); Calcium 9.2 mg/dL (8.4-10.2); Chloride 88 mmol/L (98-107); Estimated Glomerular Filt Rate > 60 mL/min (>60); Glucose 123 mg/dL (80-110); HEMOLYSIS < 15 (0-50); Magnesium 2.3 mg/dL (1.6-2.3); Sodium 133 mmol/L (137-145)
[2024-02-15 05:26] LABS: Carbon Dioxide 45 mmol/L (22-32)
--- NOTE | 2024-02-15 05:29 | PC.NURSE ---
weight shifter RN note pt A&Ox3, repeatedly asking for CXR and antibiotics, refusing to wear bipap overnight, RT in to see pt and tried to explain importance of wearing the bipap but pt still refusing, pt SOBOE with pursed lip breathing, O2 sats 90-95% on 3L NC, occasional upper lobe wheezes with coarse breath sounds, occasional cough, up to commode with one assist to void and had one small formed BM, c/o pain in back, tylenol with effect, call olivarez within reach and bed alarm on, continue to monitor
[2024-02-15] MEDS: ALBUTEROL/IPRATROPIUM 3 ML AMPUL INH ×3 (07:15→20:20)
[2024-02-15] MEDS: BUDESONIDE 0.5 MG/2 ML NEB INH ×2 (07:15→20:20)
[2024-02-15] MEDS: VERAPAMIL 80 MG TABLET PO ×2 (08:16→20:59)
[2024-02-15] MEDS: AMLODIPINE 5 MG TABLET PO (08:16)
[2024-02-15] MEDS: METOPROLOL IR 50 MG TABLET PO ×2 (08:16→20:59)
[2024-02-15] MEDS: SODIUM CHLORIDE 0.9% FLUSH 10 ML IV ×2 (08:17→20:59)
[2024-02-15] MEDS: PANTOPRAZOLE DR 40 MG TABLET PO (08:17)
[2024-02-15] MEDS: ENOXAPARIN 40 MG/0.4 ML SYRINGE SUBCUT (08:17)
[2024-02-15] MEDS: predniSONE 20 MG TABLET 40 MG PO (08:17)
--- NOTE | 2024-02-15 10:26 | CM.DPC ---
DCP Cont: Per MD, pt continues to be resistant to education on oxygen needs vs CO2 symptoms and plan is discharge tomorrow Friday with ongoing home oxygen and outpt Oncologist and recommendation of Palliative Care consult outpt for GOals of Care discussion as pt not currently amenable to discussion at this time. Pt declines HH and preference is home with grandson and local family support. Plan: SW to follow tomorrow for plan of discharge home with family and outpt f/u regarding her ongoing oxygen and CO2 concerns and Goals of Care. VIDAL Dawn
--- NOTE | 2024-02-15 12:31 | P.PN_ITS ---
Subjective Subjective Interval history: Continues to be short of breath with minimal exertion, not back to baseline still. She has continued cough. WBC increasing the last few days after completion of antibiotics. Will restart them today to see if able to make any further improvement in hypoxia. Exam Vital Signs (past 8 hours): - 02/15/24 07:00 02/15/24 07:16 02/15/24 07:36 Temperature 97.5 F L Pulse Rate 77 78 Respiratory Rate 20 18 Blood Pressure 147/69 H Pulse Oximetry 95 97 Oxygen Delivery Method Nasal Cannula Nasal Cannula Oxygen Flow Rate 3 3 Fraction of Inspired Oxygen 32 02/15/24 08:53 02/15/24 11:00 02/15/24 11:59 Temperature Pulse Rate 78 81 Respiratory Rate 20 Blood Pressure 140/65 Pulse Oximetry 94 Oxygen Delivery Method Nasal Cannula Nasal Cannula Oxygen Flow Rate 2.5 Fraction of Inspired Oxygen 02/15/24 12:00 Temperature 97.8 F Pulse Rate 76 Respiratory Rate 18 Blood Pressure 150/71 H Pulse Oximetry 95 Oxygen Delivery Method Oxygen Flow Rate 3 Fraction of Inspired Oxygen Fraction of Inspired Oxygen 32 SaO2/FiO2 Ratio 296 Oxygen Delivery Method Nasal Cannula Oxygen Flow Rate 3 Narrative Exam Narrative: NAD, alert and oriented. Fluent speech. Lungs are notable for diminished breath sounds, prolonged expiration, and scattered gurgly secretions. She has a normal rate and effort. Heart is regular, no murmur gallop or rub. Abdomen is soft, non distended. Extremities are free of edema. Objective Labs 02/15/24 04:13 02/15/24 04:13 Labs: Laboratory Results - last 24 hr 02/15/24 04:13 WBC 17.4 H RBC 4.10 Hgb 11.7 L Hct 36.1 MCV 88.0 MCH 28.6 MCHC 32.5 RDW 14.2 Plt Count 387 Neut % (Auto) 85.8 H Lymph % (Auto) 6.1 L [place] % (Auto) 7.9 Eos % (Auto) 0.0 L Baso % (Auto) 0.2 Neut # (Auto) 18850 H Lymph # (Auto) 1100 [place] # (Auto) 1400 H Eos # (Auto) 0 Baso # (Auto) 0 Sodium 133 L Potassium 5.0 Chloride 88 L Carbon Dioxide 45 H* BUN 24 H Creatinine 0.66 Estimated GFR > 60 BUN/Creatinine Ratio 36.4 H Glucose 123 H Calcium 9.2 Magnesium 2.3 PFSH Medical History Medicare annual wellness visit, subsequent Well adult exam CKD (chronic kidney disease) stage 3, GFR 30-59 ml/min Hyperlipidemia Hypertension COPD (chronic obstructive pulmonary disease) CAD (coronary artery disease) (2000) Surgical History Status post coronary artery stent placement (2000) Family History Daughter No problems noted. Social History marital status: household members: family Smoking Status: Former smoker alcohol intake: never substance use type: does not use Assessment & Plan Assessment & Plan narrative: 1. CAP, present on admission and active. 2. COPD exacerbation, present on admission and active. 3. HTN, present on admission and active. 4. Stage 3 CKD, present on admission and active. 5. Acute on chronic hypoxic respiratory failure, present on admission and active. 6. Metastatic lung cancer, present on admission and active. 7. Probable hypovolemic hyponatremia, new and active. PLAN: -Has now completed courses of ceftriaxone and azithromycin for CAP. However over the last two days increased WBC count, will restart ceftriaxone and azithromycin for another 5 day course to see if this helps with her exercise tolerance further and possible developing PNA. -continue standard treatment for COPD exacerbation with bronchodilators and corticosteroids. Changed IV steroids to oral prednisone. -wean O2 to her baseline of 2.5 L as able. Goal O2 89-96% on supplemental therapy. She at rest is near baseline now, but exertional hypoxia is a current barrier to discharge. -symptomatic treatment of cough and Mucinex. -monitor renal function, continue chronic medications for hypertension. -recommend palliative care consultation as an outpatient as well given severity of her lung disease. Dispo: pending improvement in oxygenation with activity, will go home with assistance. Possibly in 1-2 days depending on continued improvement or not. Quality VTE Deep Vein Thrombosis/Pulmonary Embolism Present on Admission: No
--- NOTE | 2024-02-15 12:55 | PT.IPTN ---
Current Diagnoses Essential (primary) hypertension (02/09/24) Pneumonia, unspecified organism (02/09/24) Chronic obstructive pulmonary disease with (acute) exacerbation (02/09/24) Acute and chronic respiratory failure with hypoxia (02/09/24) Chronic kidney disease, stage 3a (02/09/24) Physical Therapy Treatment Note M2 PT-IP Current Condition Start: 02/10/24 16:10 Freq: NEEDED Status: Active Protocol: Document 02/10/24 14:40 AB (Rec: 02/10/24 16:23 AB [id number]) Physical Therapy Current Condition Current Condition Evaluation Date 02/10/24 Treatment Diagnosis PNA; COPD; difficulty in walking Onset Date 02/09/24 M3 PT-IP Subjective Start: 02/10/24 16:10 Freq: NEEDED Status: Active Protocol: Document 02/15/24 12:45 KS (Rec: 02/15/24 13:32 KS [id number]) Subjective Physical Therapy Visit Type Type Treatment Note Visit Start Time 12:45 Visit Stop Time 12:55 Number of SCREEN PRINTER Visits 3 Physical Therapy Visit Comments Patient Comments Refused OOB mobility due to fatigue and SOB. M4 PT-IP Mobility and Gait Start: 02/10/24 16:10 Freq: NEEDED Status: Active Protocol: Document 02/15/24 12:45 KS (Rec: 02/15/24 13:32 KS [id number]) PT-Transfer Assessment Comments Mobility Comments Pt refused out of bed mobility due to fatigue and SOB. She did complete 1x10 bilateral ankle pumps, quad sets, glute sets, seated marches. Reports she will complete exercises throughout the day. Gait Assessment Comments Gait Comments refused M5 PT-IP Objective Assessments Start: 02/10/24 16:10 Freq: NEEDED Status: Active Protocol: Document 02/10/24 14:40 AB (Rec: 02/10/24 16:23 AB [id number]) Orientation Orientation/Cognition Level of Alertness Alert Orientation Name,Place,Situation Language Function Ability Hard of Hearing Safety Awareness Decreased Safety Awareness Comments L ear deafness Gross Range of Motion Lower Extremity ROM Assessment Within Functional Limits Strength Lower Extremity Strength Assessment Within Functional Limits Coordination Assessment Gross Coordination Gross Coordination WNL Muscle Tone Muscle Tone WNL Yes M6 PT-IP Treatment Start: 02/10/24 16:10 Freq: NEEDED Status: Active Protocol: Document 02/15/24 12:45 KS (Rec: 02/15/24 13:32 ND [id number]) Physical Therapy Treatment Exercises Exercises Ankle Pumps,Gluteal Sets,Quad Sets Other Treatments Other Treatment Performed Seated marching M7 PT-IP Assessment and Plan Start: 02/10/24 16:10 Freq: NEEDED Status: Active Protocol: Document 02/15/24 12:45 KS (Rec: 02/15/24 13:32 ND [id number]) PT Summary Assessment and Plan Potential Rehabilitation Potential Fair Summary Impairments Pain,ROM,Strength,Balance, Coordination,Sensation, Cognition,Bed Mobility, Transfers,Gait,Activity Tolerance Progress Towards Goals Slow Progress due to Medical Issues,Slow Progress due to Activity Tolerance Assessment Summary Pt unable to tolerate out of bed mobility due to fatigue and SOB today but did complete LE exercises to promote blood flow and stregnthening. Will continue to assess progress. Goals Bed Mobility Goal Independent Transfer Goal Independent,Four Wheeled Walker Gait Goal Independent,Four Wheel Walker Gait Distance 200 Other Goals improve transfers and ambulation using LRAD/without AD ~ 250 ft mod I up/down 10 steps L rail ascending mod I Days to Meet Goals 10 Frequency of Treatment Frequency Of Treatment Once a Day Treatment Plan Physical Therapy Treatment Plan Bed Mobility Training,Transfer Training,Gait Training, Therapeutic Exercise,Balance Retraining,Discharge Planning, Hot or Cold Pack,Neuromuscular Re-ed,Coordination Retraining Precautions Other Precautions O2 sat Discharge Recommendations PT Discharge Recommendations Home with Assistance,Home Health Transportation Needs at Discharge Private Vehicle
[2024-02-15] MEDS: cefTRIAXone 1,000 MG in SODIUM CHLORIDE 0.9% 100 ML 200 MG IV (13:13)
[2024-02-15] MEDS: AZITHROMYCIN 500 MG in DEXTROSE 5% IN WATER 250 ML 250 MG IV (14:04)
[2024-02-15] MEDS: ACETAMINOPHEN 325 MG TABLET 650 MG PO ×2 (14:41→21:03)
[2024-02-15] MEDS: ATORVASTATIN 20 MG TABLET 10 MG PO (20:59)
[2024-02-15] MEDS: LATANOPROST 0.005% OPHTH 2.5 ML 1 DROPS EYE-BOTH (21:03)
[2024-02-16] VITALS (21 sets, daily range): BP systolic 121–172; BP diastolic 56–89; PULSE 59–85; RESP 19–30; TEMP 35.9–36.6; O2SAT 93–98
[2024-02-16] MEDS: ACETAMINOPHEN 325 MG TABLET 650 MG PO ×2 (04:01→20:16)
[2024-02-16 04:52] LABS: Add Manual Diff / Slide Review NO; Basophils Absolute Auto 100 /uL (0-100); Basophils Percent Auto 0.5 % (0-2); Eosinophils Absolute Auto 100 /uL (0-450); Eosinophils Percent Auto 0.6 % (2-4); Hematocrit 33.5 % (36-46); Hemoglobin 11.1 g/dL (12.0-16.0); Lymphocytes Absolute Auto 1800 /uL (1100-4500); Lymphocytes Percent Auto 10.5 % (25-40); Mean Corpuscular HGB Conc 33.1 % (30-36); Mean Corpuscular Hemoglobin 29.1 PG (26-34); Mean Corpuscular Volume 88.1 fL (80-100); Monocytes Absolute Auto 1300 /uL (0-900); Monocytes Percent Auto 7.8 % (3-14); Neutrophils Absolute Auto 13600 /uL (1500-7000); Neutrophils Percent Auto 80.6 % (50-75); Platelet Count 326 X10^3/uL (150-400); Red Cell Distribution Width 14.4 % (11.6-14.8); White Blood Cell Count 16.9 X10^3/uL (4.5-11.0)
[2024-02-16 05:03] LABS: BUN Creatinine Ratio 35.5 (6-22); Blood Urea Nitrogen 22 mg/dL (7-17); Calcium 8.4 mg/dL (8.4-10.2); Chloride 87 mmol/L (98-107); Estimated Glomerular Filt Rate > 60 mL/min (>60); Glucose 99 mg/dL (80-110); HEMOLYSIS 16 (0-50); Magnesium 2.3 mg/dL (1.6-2.3); Potassium 4.4 mmol/L (3.4-5.1); Sodium 131 mmol/L (137-145)
[2024-02-16 05:19] LABS: Carbon Dioxide 41 mmol/L (22-32)
[2024-02-16] MEDS: BUDESONIDE 0.5 MG/2 ML NEB INH ×2 (06:58→17:49)
[2024-02-16] MEDS: ALBUTEROL/IPRATROPIUM 3 ML AMPUL INH ×3 (06:58→17:48)
[2024-02-16] MEDS: PANTOPRAZOLE DR 40 MG TABLET PO (08:05)
--- NOTE | 2024-02-16 08:24 | DI.RAD.S_ITS ---
PROCEDURE: XR CHEST 1V INDICATIONS: worsening leukocytosis TECHNIQUE: One view of the chest was acquired. COMPARISON: [facility], CR, XR CHEST 1V, 02/12/2024, 17:59. [facility], CR, XR CHEST 1V, 02/09/2024, 15:30. FINDINGS: Surgical changes and devices: None. Lungs and pleura: Lung volumes are low. Suspected emphysematous changes. Opacity is seen at the left lateral apex, possibly a mass. Right mid and lower lung, and left lower lung consolidations are similar to prior. No drainable pleural effusions. Mediastinum: Normal heart size. Cardiomediastinal contours are unchanged. Bones and chest wall: Degenerative findings. IMPRESSION: Similar opacities in the right mid and lower lung, and left lower lung, likely infectious or inflammatory. Opacity also again seen at the left apex. Distribution is similar to prior. Underlying masses/nodules are possible. Consider future imaging surveillance to assess for resolution. Dictated by: Trev Kauffman M.D. on 02/16/2024 at 8:58 Approved by: Trev Kauffman M.D. on 02/16/2024 at 9:00
[2024-02-16] MEDS: ENOXAPARIN 40 MG/0.4 ML SYRINGE SUBCUT (08:43)
[2024-02-16] MEDS: VERAPAMIL 80 MG TABLET PO ×2 (08:44→20:16)
[2024-02-16] MEDS: AMLODIPINE 5 MG TABLET PO (08:44)
[2024-02-16] MEDS: predniSONE 20 MG TABLET 40 MG PO (08:44)
[2024-02-16] MEDS: METOPROLOL IR 50 MG TABLET PO ×2 (08:44→20:15)
[2024-02-16] MEDS: SODIUM CHLORIDE 0.9% FLUSH 10 ML IV ×3 (08:45→20:16)
--- NOTE | 2024-02-16 11:50 | PT.IPTN ---
Current Diagnoses Essential (primary) hypertension (02/09/24) Pneumonia, unspecified organism (02/09/24) Chronic obstructive pulmonary disease with (acute) exacerbation (02/09/24) Acute and chronic respiratory failure with hypoxia (02/09/24) Chronic kidney disease, stage 3a (02/09/24) Physical Therapy Treatment Note M2 PT-IP Current Condition Start: 02/10/24 16:10 Freq: NEEDED Status: Active Protocol: Document 02/10/24 14:40 AB (Rec: 02/10/24 16:23 AB [id number]) Physical Therapy Current Condition Current Condition Evaluation Date 02/10/24 Treatment Diagnosis PNA; COPD; difficulty in walking Onset Date 02/09/24 M3 PT-IP Subjective Start: 02/10/24 16:10 Freq: NEEDED Status: Active Protocol: Document 02/16/24 11:50 AW (Rec: 02/16/24 12:15 AW [id number]) Subjective Physical Therapy Visit Type Type Treatment Note Visit Start Time 11:34 Visit Stop Time 11:50 Number of DEEP TISSUE MASSAGE THERAPIST Visits 0 Physical Therapy Visit Comments Patient Comments Pt requires some encouragement but is ultimately willing to participate with PT M4 PT-IP Mobility and Gait Start: 02/10/24 16:10 Freq: NEEDED Status: Active Protocol: Document 02/16/24 11:50 AW (Rec: 02/16/24 12:15 AW [id number]) PT-Transfer Assessment Sit to and From Stand Sit to and from Stand Minimal Assistance,1 Person Assistance Equipment Transfer Assistive Device Gait Belt,Front Wheeled Walker Orthotic/Prosthetic Devices or Brace: No Transfers Transfer Destination Chair Transfer Technique Stand Step Pivot Transfer Ability Level of Assist Standby Assistance,Use of Upper Extremities Comments Mobility Comments Pt is found resting in bedside chair. She struggles to stand . PT cues technique, including scooting closer to edge of seat, placing feet for optimal CHAVA, and pushing through arms on chair arms. Pt requires min assist to stand. Once standing, she is stable with FWW and PT assists with O2 line management as pt ambulates 20 feet. She fatigues quickly and returns to the chair. Gait Assessment Gait Gait Assistance Required: Standby Assistance Distance (Feet) 20 Assistive Devices Assistive Device Gait Belt,Front Wheeled Walker Orthotic/Prosthetic Devices or Brace: No Gait Deviations General Gait Pattern Decreased Stride Length, Decreased Feet Clearance Factors Limiting Gait Function Factors Limiting Gait Function Decreased Activity Tolerance, Decreased Strength,Respiratory Distress Comments Gait Comments Increased WOB noted but SpO2 stable 90-94% on 3L/min O2 via NC. Stair Climbing Assessment Comments Stair Climbing Comments Refused. PT-Balance Assessment Sitting Balance and Reactions Static Sitting Balance Ability Normal Dynamic Sitting Balance Ability Good Standing Balance and Reactions Static Standing Balance Ability Good Dynamic Standing Balance Ability Good Device Used FWW M5 PT-IP Objective Assessments Start: 02/10/24 16:10 Freq: NEEDED Status: Active Protocol: Document 02/10/24 14:40 AB (Rec: 02/10/24 16:23 AB [id number]) Orientation Orientation/Cognition Level of Alertness Alert Orientation Name,Place,Situation Language Function Ability Hard of Hearing Safety Awareness Decreased Safety Awareness Comments L ear deafness Gross Range of Motion Lower Extremity ROM Assessment Within Functional Limits Strength Lower Extremity Strength Assessment Within Functional Limits Coordination Assessment Gross Coordination Gross Coordination WNL Muscle Tone Muscle Tone WNL Yes M6 PT-IP Treatment Start: 02/10/24 16:10 Freq: NEEDED Status: Active Protocol: Document 02/16/24 11:50 AW (Rec: 02/16/24 12:15 AW [id number]) Physical Therapy Treatment Other Treatments Other Treatment Performed Education on benefits of using 4WW and pursed lip breathing. M7 PT-IP Assessment and Plan Start: 02/10/24 16:10 Freq: NEEDED Status: Active Protocol: Document 02/16/24 11:50 AW (Rec: 02/16/24 12:15 AW [id number]) PT Summary Assessment and Plan Potential Rehabilitation Potential Fair Summary Impairments Pain,ROM,Strength,Balance, Coordination,Sensation, Cognition,Bed Mobility, Transfers,Gait,Activity Tolerance Progress Towards Goals Slow Progress due to Medical Issues,Slow Progress due to Activity Tolerance Assessment Summary Pt doesn't think she can walk today but is agreeable after some education and encouragement. Pt does require increased assist for sit to stand today but is otherwise SBA using FWW. SpO2 94% at rest on 3 L/min via NC. Sats are stable 90-94% during ambulation attempts but pt's work of breathing does increase. When she returns to sitting, she is in tripod position and prefers to remain . SpO2 back to 93% within one minute. Pt may, in fact, be at her new baseline. Doubt she will be able to meet acute PT goals as written. PT will continue to follow to progress transfer training and activity tolerance as able. Recommend discharge home with home PT. Goals Bed Mobility Goal Independent Transfer Goal Independent,Four Wheeled Walker Gait Goal Independent,Four Wheel Walker Gait Distance 200 Other Goals improve transfers and ambulation using LRAD/without AD ~ 250 ft mod I up/down 10 steps L rail ascending mod I Days to Meet Goals 10 Frequency of Treatment Frequency Of Treatment Once a Day Treatment Plan Physical Therapy Treatment Plan Bed Mobility Training,Transfer Training,Gait Training, Therapeutic Exercise,Balance Retraining,Discharge Planning, Hot or Cold Pack,Neuromuscular Re-ed,Coordination Retraining Other Recommendations and Next Treatment Use 4WW Focus Precautions Other Precautions O2 sat Recommendations To Nursing Amount of Assist Needed Standby Assistance,1 Person Assist Discharge Recommendations PT Discharge Recommendations Home with Assistance,Home Health Transportation Needs at Discharge Private Vehicle
--- NOTE | 2024-02-16 12:37 | P.PN_ITS ---
Subjective Subjective Interval history: Patient feels slightly better but still not great. WBC uptrending yesterday so abx restarted. She continues on prednisone. Still on 2-3L NC which is her baseline. Repeat CXR shows unchanged bilateral lung opacities. Exam Vital Signs (past 8 hours): - 02/16/24 04:43 02/16/24 06:58 02/16/24 08:00 Temperature 97.2 F L Pulse Rate 75 80 Respiratory Rate 20 30 H Blood Pressure 131/67 Pulse Oximetry 96 93 95 Oxygen Delivery Method Nasal Cannula Nasal Cannula Humidification Oxygen Flow Rate 3 2.5 3 02/16/24 08:44 02/16/24 09:14 02/16/24 12:00 Temperature 97.9 F Pulse Rate 81 85 85 Respiratory Rate 30 H Blood Pressure 131/67 151/64 H Pulse Oximetry 95 Oxygen Delivery Method Oxygen Flow Rate 3 Fraction of Inspired Oxygen 32 SaO2/FiO2 Ratio 296 Oxygen Delivery Method Nasal Cannula,Humidification Oxygen Flow Rate 3 Narrative Exam Narrative: NAD, alert and oriented. Fluent speech. Lungs are notable for diminished breath sounds, prolonged expiration. She has a normal rate and effort. Heart is regular, no murmur gallop or rub. Abdomen is soft, non distended. Extremities are free of edema. Objective Labs 02/16/24 04:31 02/16/24 04:31 Labs: Laboratory Results - last 24 hr 02/16/24 04:31 WBC 16.9 H RBC 3.80 L Hgb 11.1 L Hct 33.5 L MCV 88.1 MCH 29.1 MCHC 33.1 RDW 14.4 Plt Count 326 Neut % (Auto) 80.6 H Lymph % (Auto) 10.5 L [place] % (Auto) 7.8 Eos % (Auto) 0.6 L Baso % (Auto) 0.5 Neut # (Auto) 60637 H Lymph # (Auto) 1800 [place] # (Auto) 1300 H Eos # (Auto) 100 Baso # (Auto) 100 Sodium 131 L Potassium 4.4 Chloride 87 L Carbon Dioxide 41 H* BUN 22 H Creatinine 0.62 Estimated GFR > 60 BUN/Creatinine Ratio 35.5 H Glucose 99 Calcium 8.4 Magnesium 2.3 PFSH Medical History Medicare annual wellness visit, subsequent Well adult exam CKD (chronic kidney disease) stage 3, GFR 30-59 ml/min Hyperlipidemia Hypertension COPD (chronic obstructive pulmonary disease) CAD (coronary artery disease) (2000) Surgical History Status post coronary artery stent placement (2000) Family History Daughter No problems noted. Social History marital status: household members: family Smoking Status: Former smoker alcohol intake: never substance use type: does not use Assessment & Plan Assessment & Plan narrative: 1. CAP, present on admission and active. 2. COPD exacerbation, present on admission and active. 3. HTN, present on admission and active. 4. Stage 3 CKD, present on admission and active. 5. Acute on chronic hypoxic respiratory failure, present on admission and active. 6. Metastatic lung cancer, present on admission and active. 7. Probable hypovolemic hyponatremia, new and active. PLAN: -Has now completed courses of ceftriaxone and azithromycin for CAP. However now with increasing WBC count, will restart ceftriaxone and azithromycin for another 5 day course to see if this helps with her exercise tolerance further and possible developing PNA. -continue standard treatment for COPD exacerbation with bronchodilators and corticosteroids. Changed IV steroids to oral prednisone. -wean O2 to her baseline of 2.5 L as able. Goal O2 89-96% on supplemental therapy. She at rest is near baseline now, but exertional hypoxia is a current barrier to discharge. -symptomatic treatment of cough and Mucinex. -monitor renal function, continue chronic medications for hypertension. -recommend palliative care consultation as an outpatient as well given severity of her lung disease. -lidoderm patch for L scapular pain Dispo: pending improvement in oxygenation with activity, will go home with assistance. Possibly in 1-2 days depending on continued improvement or not. Quality VTE Deep Vein Thrombosis/Pulmonary Embolism Present on Admission: No
[2024-02-16] MEDS: cefTRIAXone 1,000 MG in SODIUM CHLORIDE 0.9% 100 ML 200 MG IV (13:12)
[2024-02-16] MEDS: AZITHROMYCIN 500 MG in DEXTROSE 5% IN WATER 250 ML 250 MG IV (14:06)
[2024-02-16] MEDS: LIDOCAINE 5% PATCH 1 EACH TOP (15:02)
--- NOTE | 2024-02-16 15:49 | CM.DPC ---
DCP Cont: Per MD, restarted abx and continues on prednisone and remains on her baseline 3LO2 and likely another day before discharge home. Per PT/OT, pt likely at her new baseline and fatigues quickly but recommending home with family assist and HH. SW confirmed with pt that she still declines HH as she has not felt they were helpful the prior two times and preference remains home with family and outpt f/u when stable for discharge. Pt still not ready for Goals of Care discussion at this time. Plan: SW to follow for likey discharge home via family POV tomorrow if medically stable with ongoing home O2 and oral abx and outpt Oncology with Dr. Sutton. Lisa Ceballos [employer]
[2024-02-16] MEDS: ATORVASTATIN 20 MG TABLET 10 MG PO (20:15)
[2024-02-16] MEDS: LATANOPROST 0.005% OPHTH 2.5 ML 1 DROPS EYE-BOTH (20:18)
[2024-02-17] VITALS (25 sets, daily range): BP systolic 109–157; BP diastolic 58–71; PULSE 57–89; RESP 16–32; TEMP 35.8–36.1; O2SAT 86–97
[2024-02-17] MEDS: PANTOPRAZOLE DR 40 MG TABLET PO (06:20)
[2024-02-17] MEDS: ACETAMINOPHEN 325 MG TABLET 650 MG PO ×2 (06:20→20:34)
[2024-02-17] MEDS: VERAPAMIL 80 MG TABLET PO ×2 (08:31→20:35)
[2024-02-17] MEDS: ENOXAPARIN 40 MG/0.4 ML SYRINGE SUBCUT (08:32)
[2024-02-17] MEDS: LIDOCAINE 5% PATCH 1 EACH TOP (08:32)
[2024-02-17] MEDS: predniSONE 20 MG TABLET 40 MG PO (08:32)
[2024-02-17] MEDS: METOPROLOL IR 50 MG TABLET PO ×2 (08:32→20:34)
[2024-02-17] MEDS: AMLODIPINE 5 MG TABLET PO (08:32)
[2024-02-17] MEDS: SODIUM CHLORIDE 0.9% FLUSH 10 ML IV ×3 (08:33→20:36)
[2024-02-17] MEDS: BUDESONIDE 0.5 MG/2 ML NEB INH ×2 (08:36→18:57)
[2024-02-17] MEDS: ALBUTEROL/IPRATROPIUM 3 ML AMPUL INH ×3 (08:37→18:57)
[2024-02-17 10:11] LABS: Hematocrit 36.3 % (36-46); Hemoglobin 11.8 g/dL (12.0-16.0); Mean Corpuscular HGB Conc 32.6 % (30-36); Mean Corpuscular Volume 88.9 fL (80-100); Platelet Count 314 X10^3/uL (150-400); Red Blood Cell Count 4.08 X10^6/uL (4.0-5.2); Red Cell Distribution Width 14.4 % (11.6-14.8); White Blood Cell Count 18.3 X10^3/uL (4.5-11.0)
[2024-02-17 10:13] LABS: Add Manual Diff / Slide Review YES
[2024-02-17 10:15] LABS: Blood Urea Nitrogen 20 mg/dL (7-17); Calcium 8.5 mg/dL (8.4-10.2); Chloride 85 mmol/L (98-107); Estimated Glomerular Filt Rate > 60 mL/min (>60); Glucose 84 mg/dL (80-110); HEMOLYSIS < 15 (0-50); Potassium 4.6 mmol/L (3.4-5.1); Sodium 129 mmol/L (137-145)
[2024-02-17 10:30] LABS: Neutrophils Absolute Manual 14823 /uL (3000-5900); RBC Morphology Normal Morphology; Total Cells Counted 100
[2024-02-17 10:41] LABS: Carbon Dioxide 37 mmol/L (22-32)
--- NOTE | 2024-02-17 10:50 | PT.IPTN ---
Current Diagnoses Essential (primary) hypertension (02/09/24) Pneumonia, unspecified organism (02/09/24) Chronic obstructive pulmonary disease with (acute) exacerbation (02/09/24) Acute and chronic respiratory failure with hypoxia (02/09/24) Chronic kidney disease, stage 3a (02/09/24) Physical Therapy Treatment Note M2 PT-IP Current Condition Start: 02/10/24 16:10 Freq: NEEDED Status: Active Protocol: Document 02/10/24 14:40 AB (Rec: 02/10/24 16:23 AB [id number]) Physical Therapy Current Condition Current Condition Evaluation Date 02/10/24 Treatment Diagnosis PNA; COPD; difficulty in walking Onset Date 02/09/24 M3 PT-IP Subjective Start: 02/10/24 16:10 Freq: NEEDED Status: Active Protocol: Document 02/17/24 10:50 AB (Rec: 02/17/24 13:33 AB [id number]) Subjective Physical Therapy Visit Type Type Treatment Note Visit Start Time 10:50 Visit Stop Time 11:35 Number of DESIGN CHIEF Visits 0 Physical Therapy Visit Comments Patient Comments agreeable to do PT M4 PT-IP Mobility and Gait Start: 02/10/24 16:10 Freq: NEEDED Status: Active Protocol: Document 02/17/24 10:50 AB (Rec: 02/17/24 13:33 AB [id number]) PT-Transfer Assessment Sit to and From Stand Sit to and from Stand Minimal Assistance,1 Person Assistance,Use of Upper Extremities Equipment Transfer Assistive Device Gait Belt,4 Wheeled Walker Orthotic/Prosthetic Devices or Brace: No Comments Mobility Comments pt sitting on the chair and agreeable to do PT. O2 sat with 1.5 L/min O2: 90-92%. pt completed sit to stand min A and max cues. x 3 attempts to be able to stand. pt ambulated in room using 4WW 10 ft + 40 ft + 40 ft SBA to occasional CGA. pt needing seated rest breaks in between activities. O2 sat decreased to 81% during first ambulation with 1.5L/min O2. nurse stated that O2 can be increased. O2 sat decreased to ~ 87% with 2L/min O2 after ambulation. pt cued for PLB. pt sat backl on chair. positioned pt on the chair. call light and table placed within reach. informed nurse regarding O2 sat. Gait Assessment Gait Gait Assistance Required: Standby Assistance,Contact Guard Assist,1 Person Assist Distance (Feet) 40 Able to Maintain Weight Bearing Status Yes During Gait Assistive Devices Assistive Device Gait Belt,4 Wheeled Walker Orthotic/Prosthetic Devices or Brace: No Gait Deviations General Gait Pattern Decreased Stride Length, Decreased Feet Clearance Factors Limiting Gait Function Factors Limiting Gait Function Decreased Activity Tolerance, Decreased Strength,Poor Balance,Poor Safety Awareness, Respiratory Distress M5 PT-IP Objective Assessments Start: 02/10/24 16:10 Freq: NEEDED Status: Active Protocol: Document 02/10/24 14:40 AB (Rec: 02/10/24 16:23 AB [id number]) Orientation Orientation/Cognition Level of Alertness Alert Orientation Name,Place,Situation Language Function Ability Hard of Hearing Safety Awareness Decreased Safety Awareness Comments L ear deafness Gross Range of Motion Lower Extremity ROM Assessment Within Functional Limits Strength Lower Extremity Strength Assessment Within Functional Limits Coordination Assessment Gross Coordination Gross Coordination WNL Muscle Tone Muscle Tone WNL Yes M6 PT-IP Treatment Start: 02/10/24 16:10 Freq: NEEDED Status: Active Protocol: Document 02/17/24 10:50 AB (Rec: 02/17/24 13:33 AB [id number]) Physical Therapy Treatment Education Education Provided Safety M7 PT-IP Assessment and Plan Start: 02/10/24 16:10 Freq: NEEDED Status: Active Protocol: Document 02/17/24 10:50 AB (Rec: 02/17/24 13:33 AB [id number]) PT Summary Assessment and Plan Potential Rehabilitation Potential Fair Summary Impairments Pain,ROM,Strength,Balance, Sensation,Cognition,Bed Mobility,Transfers,Gait, Activity Tolerance Progress Towards Goals Slow Progress due to Medical Issues,Slow Progress due to Activity Tolerance Assessment Summary pt progressing slowly but continues to have decrease activity tolerance requiring frequent rest breaks in between tasks. O2 sat decreased to ~ 81% after ambulation with 1.5L/min O2 and 87% with 2L/min O2. pt lives with family living downstairs on her basement and may assist if need. d/c plan depending on progress. pt has 10 steps to enter the house and at this time is not appropriate to do stair climbing due to decrease O2 sat with ambulation. will continue to assess progress. Goals Bed Mobility Goal Independent Transfer Goal Independent,Four Wheeled Walker Gait Goal Independent,Four Wheel Walker Gait Distance 200 Other Goals improve transfers and ambulation using LRAD/without AD ~ 250 ft mod I up/down 10 steps L rail ascending mod I Days to Meet Goals 10 Frequency of Treatment Frequency Of Treatment Once a Day Treatment Plan Physical Therapy Treatment Plan Bed Mobility Training,Transfer Training,Gait Training, Therapeutic Exercise,Balance Retraining,Discharge Planning, Hot or Cold Pack,Neuromuscular Re-ed,Coordination Retraining Precautions Other Precautions O2 sat Recommendations To Nursing Amount of Assist Needed Standby Assistance,1 Person Assist Discharge Recommendations PT Discharge Recommendations Home with Assistance,Home Health,SNF Rehab,Home vs SNF Transportation Needs at Discharge Private Vehicle,Wheelchair/ Cabulance
--- NOTE | 2024-02-17 11:00 | DIET.CONS ---
Dietary Consultation Note Admission Date: 02/09/2024 18:19 Assessment: Nutrition f/u. Met with pt at bedside. Reports continued decrease appetite with difficulty chewing some of the foods due to dentures. At home grand daughter grocery shops for her. Diet recall provided in previous note. Nutrition focused physical exam performed with no significant results except moderate muscle wasting in interosseous muscle. Ht: 165.1 cm Wt: 67 kg BMI: 24.5 UBW: 75.07 kg in Oct per chart (-10.7% weight loss in 6 months, severe) Last BM: 02/14/24 (02/14/24 21:00) MNA: 7 Peter Score: 20 Diet: 02/10/24 Breakfast General (Regular) Diet Diet Modifications: Food Texture: Level 7 - Regular Liquid Consistency: Level 0 - Thin Labs: RBC 4.08 X10^6/uL (4.0-5.2) 02/17/24 09:55 Hgb 11.8 g/dL (12.0-16.0) L 02/17/24 09:55 Hct 36.3 % (36-46) 02/17/24 09:55 Creatinine 0.69 mg/dL (0.52-1.04) 02/17/24 09:55 Lactate 0.9 mmol/L (0.7-2.1) 02/09/24 16:20 NT-Pro-B Natriuret Pep 1900 pg/mL (<450) H 02/09/24 16:20 Nutrition Diagnosis: Unintended weight loss r/t to increased protein energy needs in setting of radiation therapy/decreased energy aeb 10.7% weight loss in 6 months, severe Interventions: 1. Modified energy protein intake for prevention of further weight loss - reviewed quick snack options between meals, enhancing kcal/protein in current foods, and encouraging 3 meals and 1-2 snacks daily, review on macros, provided handout 2. Continued coordination with unit host/kitchen for adequate intake at meals Monitoring/Evaluations: po intakes Electronically Signed by: Domitila Alegre 02/17/24 11:00 Clinical Dietitian [address] [address]
--- NOTE | 2024-02-17 12:44 | CM.DPC ---
DCP Cont. Reviewed EMR and team rounds for status updates. Per Hospitalist, pt will need 1-more day before discharging due to WBC count going up. Will continue to monitor for CM assistance needs.
[2024-02-17] MEDS: cefTRIAXone 1,000 MG in SODIUM CHLORIDE 0.9% 100 ML 200 MG IV (13:40)
[2024-02-17] MEDS: AZITHROMYCIN 500 MG in DEXTROSE 5% IN WATER 250 ML 250 MG IV (14:19)
--- NOTE | 2024-02-17 14:32 | PM.PN.1 ---
Subjective Subjective Interval history: Patient's WBC continues to climb to 18 today. She reports feeling somewhat better however. She wants to return home and seems to be improving with PT. Exam Vital Signs (past 8 hours): - 02/17/24 08:00 02/17/24 08:31 02/17/24 08:33 Temperature 97.0 F L Pulse Rate 69 73 Respiratory Rate 32 H Blood Pressure 151/68 H 151/68 H Pulse Oximetry 95 95 Oxygen Delivery Method Nasal Cannula Oxygen Flow Rate 3 2.5 Fraction of Inspired Oxygen 30 02/17/24 09:31 02/17/24 12:00 02/17/24 13:01 Temperature 96.8 F L Pulse Rate 70 67 89 Respiratory Rate 30 H 20 Blood Pressure 109/59 L Pulse Oximetry 93 93 Oxygen Delivery Method Nasal Cannula Oxygen Flow Rate 1 1 Fraction of Inspired Oxygen 24 Fraction of Inspired Oxygen 24 SaO2/FiO2 Ratio 387 Oxygen Delivery Method Nasal Cannula Oxygen Flow Rate 1 Narrative Exam Narrative: NAD, alert and oriented. Fluent speech. Lungs are notable for diminished breath sounds, prolonged expiration. She has a normal rate and effort. Heart is regular, no murmur gallop or rub. Abdomen is soft, non distended. Extremities are free of edema. Objective Labs 02/17/24 09:55 02/17/24 09:55 Labs: Laboratory Results - last 24 hr 02/17/24 09:55 WBC 18.3 H RBC 4.08 Hgb 11.8 L Hct 36.3 MCV 88.9 MCH 29.0 MCHC 32.6 RDW 14.4 Plt Count 314 Neut % (Auto) Not Reportable Lymph % (Auto) Not Reportable [place] % (Auto) Not Reportable Eos % (Auto) Not Reportable Baso % (Auto) Not Reportable Lymph # (Auto) Not Reportable [place] # (Auto) Not Reportable Baso # (Auto) Not Reportable Total Counted 100 Seg Neutrophils % 78.0 H Band Neutrophils % 3.0 Lymphocytes % (Manual) 13.0 L Monocytes % (Manual) 6.0 Neutrophils # (Manual) 67113 H Plt Morphology Comment RBC Morphology Normal morphology Sodium 129 L Potassium 4.6 Chloride 85 L Carbon Dioxide 37 H BUN 20 H Creatinine 0.69 Estimated GFR > 60 BUN/Creatinine Ratio 29.0 H Glucose 84 Calcium 8.5 PFSH Medical History Medicare annual wellness visit, subsequent Well adult exam CKD (chronic kidney disease) stage 3, GFR 30-59 ml/min Hyperlipidemia Hypertension COPD (chronic obstructive pulmonary disease) CAD (coronary artery disease) (2000) Surgical History Status post coronary artery stent placement (2000) Family History Daughter No problems noted. Social History marital status: household members: family Smoking Status: Former smoker alcohol intake: never substance use type: does not use Assessment & Plan Assessment & Plan narrative: 1. CAP, present on admission and active. 2. COPD exacerbation, present on admission and active. 3. HTN, present on admission and active. 4. Stage 3 CKD, present on admission and active. 5. Acute on chronic hypoxic respiratory failure, present on admission and active. 6. Metastatic lung cancer, present on admission and active. 7. Probable hypovolemic hyponatremia, new and active. PLAN: -Has now completed courses of ceftriaxone and azithromycin for CAP. However now with increasing WBC count, will restart ceftriaxone and azithromycin for another 5 day course to see if this helps with her exercise tolerance further and possible developing PNA. -continue standard treatment for COPD exacerbation with bronchodilators and corticosteroids. Changed IV steroids to oral prednisone. -wean O2 to her baseline of 2.5 L as able. Goal O2 89-96% on supplemental therapy. She at rest is near baseline now, but exertional hypoxia is a current barrier to discharge. -symptomatic treatment of cough and Mucinex. -monitor renal function, continue chronic medications for hypertension. -recommend palliative care consultation as an outpatient as well given severity of her lung disease. -lidoderm patch for L scapular pain Dispo: pending improvement in oxygenation with activity, will go home with assistance. Likely home on 02/17. Quality VTE Deep Vein Thrombosis/Pulmonary Embolism Present on Admission: No
[2024-02-17] MEDS: ATORVASTATIN 20 MG TABLET 10 MG PO (20:35)
[2024-02-17] MEDS: LATANOPROST 0.005% OPHTH 2.5 ML 1 DROPS EYE-BOTH (20:36)
[2024-02-18] VITALS (38 sets, daily range): BP systolic 133–199; BP diastolic 60–84; PULSE 60–93; RESP 16–26; TEMP 35.8–37; O2SAT 88–95
[2024-02-18] MEDS: ALBUTEROL 2.5 MG/3 ML NEB (ADULT) INH (04:13)
[2024-02-18 05:13] LABS: Add Manual Diff / Slide Review NO; Basophils Absolute Auto 100 /uL (0-100); Basophils Percent Auto 0.6 % (0-2); Eosinophils Absolute Auto 100 /uL (0-450); Eosinophils Percent Auto 0.4 % (2-4); Hematocrit 33.8 % (36-46); Hemoglobin 10.5 g/dL (12.0-16.0); Lymphocytes Absolute Auto 2000 /uL (1100-4500); Lymphocytes Percent Auto 12.9 % (25-40); Mean Corpuscular HGB Conc 31.1 % (30-36); Mean Corpuscular Hemoglobin 27.6 PG (26-34); Mean Corpuscular Volume 88.6 fL (80-100); Monocytes Absolute Auto 1400 /uL (0-900); Monocytes Percent Auto 9.2 % (3-14); Neutrophils Absolute Auto 12000 /uL (1500-7000); Neutrophils Percent Auto 76.9 % (50-75); Platelet Count 260 X10^3/uL (150-400); Red Blood Cell Count 3.82 X10^6/uL (4.0-5.2); Red Cell Distribution Width 14.5 % (11.6-14.8); White Blood Cell Count 15.6 X10^3/uL (4.5-11.0)
[2024-02-18 05:24] LABS: BUN Creatinine Ratio 30.2 (6-22); Blood Urea Nitrogen 19 mg/dL (7-17); Calcium 8.3 mg/dL (8.4-10.2); Chloride 87 mmol/L (98-107); Estimated Glomerular Filt Rate > 60 mL/min (>60); Glucose 103 mg/dL (80-110); HEMOLYSIS < 15 (0-50); Potassium 4.2 mmol/L (3.4-5.1); Sodium 129 mmol/L (137-145)
[2024-02-18 05:31] LABS: Carbon Dioxide 39 mmol/L (22-32)
[2024-02-18] MEDS: ALBUTEROL/IPRATROPIUM 3 ML AMPUL INH ×3 (07:57→19:31)
[2024-02-18] MEDS: BUDESONIDE 0.5 MG/2 ML NEB INH ×2 (07:57→19:40)
[2024-02-18] MEDS: METOPROLOL IR 50 MG TABLET PO ×2 (08:33→20:50)
[2024-02-18] MEDS: VERAPAMIL 80 MG TABLET PO ×2 (08:33→20:49)
[2024-02-18] MEDS: predniSONE 20 MG TABLET 40 MG PO (08:33)
[2024-02-18] MEDS: AMLODIPINE 5 MG TABLET PO (08:33)
[2024-02-18] MEDS: PANTOPRAZOLE DR 40 MG TABLET PO (08:33)
[2024-02-18] MEDS: ENOXAPARIN 40 MG/0.4 ML SYRINGE SUBCUT (08:33)
[2024-02-18] MEDS: LIDOCAINE 5% PATCH 1 EACH TOP (08:34)
[2024-02-18] MEDS: SODIUM CHLORIDE 0.9% FLUSH 10 ML IV ×2 (08:35→20:52)
[2024-02-18] MEDS: cefTRIAXone 1,000 MG in SODIUM CHLORIDE 0.9% 100 ML 200 MG IV (09:21)
--- NOTE | 2024-02-18 09:29 | CM.DPC ---
DCP Cont. Reviewed EMR and team rounds for status updates. Pt's oxygenation has improved, and she has been medically cleared for d/c home today. Family will be arriving to transport her, no further DCP needs identified at this time.
--- NOTE | 2024-02-18 11:25 | PT.IPTN ---
Current Diagnoses Essential (primary) hypertension (02/09/24) Pneumonia, unspecified organism (02/09/24) Chronic obstructive pulmonary disease with (acute) exacerbation (02/09/24) Acute and chronic respiratory failure with hypoxia (02/09/24) Chronic kidney disease, stage 3a (02/09/24) Physical Therapy Treatment Note M2 PT-IP Current Condition Start: 02/10/24 16:10 Freq: NEEDED Status: Active Protocol: Document 02/10/24 14:40 AB (Rec: 02/10/24 16:23 AB [id number]) Physical Therapy Current Condition Current Condition Evaluation Date 02/10/24 Treatment Diagnosis PNA; COPD; difficulty in walking Onset Date 02/09/24 M3 PT-IP Subjective Start: 02/10/24 16:10 Freq: NEEDED Status: Active Protocol: Document 02/18/24 14:00 TS (Rec: 02/18/24 14:08 TS [id number]) Subjective Physical Therapy Visit Type Type Treatment Note Visit Start Time 11:25 Visit Stop Time 11:50 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 Pt is agreeable to PT. M4 PT-IP Mobility and Gait Start: 02/10/24 16:10 Freq: NEEDED Status: Active Protocol: Document 02/18/24 14:00 TS (Rec: 02/18/24 14:08 TS [id number]) PT-Transfer Assessment Sit to and From Stand Sit to and from Stand Minimal Assistance,1 Person Assistance,Use of Upper Extremities Equipment Transfer Assistive Device Gait Belt,Front Wheeled Walker Orthotic/Prosthetic Devices or Brace: No Comments Mobility Comments Pt resting on 1.5L's of o2 at 96%. STS from chair Aidan with FWW. Pt ambulated ~10' SBA with FWW. She performed step x1 with single rail Aidan. Pt quickly fatigues and requested back to chair. Spo2 85% on RA , increased to 90% after ~ 2mins. Pt is frustrated about dishcarging today and social came into room to discuss options with pt. Pt was left in chair, all needs met. Gait Assessment Gait Gait Assistance Required: Standby Assistance,Contact Guard Assist,1 Person Assist Distance (Feet) 20 Able to Maintain Weight Bearing Status Yes During Gait Assistive Devices Assistive Device Gait Belt,Front Wheeled Walker Orthotic/Prosthetic Devices or Brace: No Gait Deviations General Gait Pattern Decreased Stride Length, Decreased Feet Clearance Factors Limiting Gait Function Factors Limiting Gait Function Decreased Activity Tolerance, Decreased Strength,Poor Balance,Poor Safety Awareness, Respiratory Distress Stair Climbing Assessment Evaluation Level of Assist On Stairs Minimal Assistance,1 Person Assistance Devices Stair Climbing Assistive Devices Right Railing Technique/Endurance Stair Climbing Direction Ascend and Descend Stair Climbing Technique Step to Step Number of Steps Climbed 1 PT-Balance Assessment Sitting Balance and Reactions Static Sitting Balance Ability Normal Dynamic Sitting Balance Ability Good Standing Balance and Reactions Static Standing Balance Ability Good Dynamic Standing Balance Ability Good Device Used FWW M5 PT-IP Objective Assessments Start: 02/10/24 16:10 Freq: NEEDED Status: Active Protocol: Document 02/10/24 14:40 AB (Rec: 02/10/24 16:23 AB [id number]) Orientation Orientation/Cognition Level of Alertness Alert Orientation Name,Place,Situation Language Function Ability Hard of Hearing Safety Awareness Decreased Safety Awareness Comments L ear deafness Gross Range of Motion Lower Extremity ROM Assessment Within Functional Limits Strength Lower Extremity Strength Assessment Within Functional Limits Coordination Assessment Gross Coordination Gross Coordination WNL Muscle Tone Muscle Tone WNL Yes M6 PT-IP Treatment Start: 02/10/24 16:10 Freq: NEEDED Status: Active Protocol: Document 02/18/24 14:00 TS (Rec: 02/18/24 14:08 [id number]) Physical Therapy Treatment Education Education Provided Safety M7 PT-IP Assessment and Plan Start: 02/10/24 16:10 Freq: NEEDED Status: Active Protocol: Document 02/18/24 14:00 TS (Rec: 02/18/24 14:08 [id number]) PT Summary Assessment and Plan Potential Rehabilitation Potential Fair Summary Impairments Pain,ROM,Strength,Balance, Sensation,Cognition,Bed Mobility,Transfers,Gait, Activity Tolerance Progress Towards Goals Slow Progress due to Medical Issues,Slow Progress due to Activity Tolerance Assessment Summary Paz continues to progress slowly with her mobility. Spo2 continues to desat with mobility from 96% to 85% on 1. 5L's. She performed step x1 with Aidan and single rail. She requested to rest in chair after 1 step due to fatigue. PT continues to recommend home vs SNF. Goals Bed Mobility Goal Independent Transfer Goal Independent,Four Wheeled Walker Gait Goal Independent,Four Wheel Walker Gait Distance 200 Other Goals improve transfers and ambulation using LRAD/without AD ~ 250 ft mod I up/down 10 steps L rail ascending mod I Days to Meet Goals 10 Frequency of Treatment Frequency Of Treatment Once a Day Treatment Plan Physical Therapy Treatment Plan Bed Mobility Training,Transfer Training,Gait Training, Therapeutic Exercise,Balance Retraining,Discharge Planning, Hot or Cold Pack,Neuromuscular Re-ed,Coordination Retraining Precautions Other Precautions O2 sat Recommendations To Nursing Amount of Assist Needed 1 Person Assist Discharge Recommendations PT Discharge Recommendations Home with Assistance,Home Health,SNF Rehab,Home vs SNF Transportation Needs at Discharge Private Vehicle,Wheelchair/ Cabulance
--- NOTE | 2024-02-18 14:55 | PM.PN.1 ---
Subjective Subjective Interval history: Patient now requesting a SNF, saying she is too weak to go home. WBC now downtrending. Exam Vital Signs (past 8 hours): - 02/18/24 08:00 02/18/24 08:00 02/18/24 08:00 Temperature 98.2 F Pulse Rate 74 Respiratory Rate 16 Blood Pressure 159/72 H Pulse Oximetry 92 94 Oxygen Delivery Method Nasal Cannula Nasal Cannula Oxygen Flow Rate 1 1 Fraction of Inspired Oxygen 24 02/18/24 12:00 02/18/24 13:50 Temperature 98.6 F Pulse Rate 78 77 Respiratory Rate 16 18 Blood Pressure 150/68 H Pulse Oximetry 91 94 Oxygen Delivery Method Nasal Cannula Oxygen Flow Rate 1 1 Fraction of Inspired Oxygen Fraction of Inspired Oxygen 24 SaO2/FiO2 Ratio 383 Oxygen Delivery Method Nasal Cannula Oxygen Flow Rate 1 Narrative Exam Narrative: NAD, alert and oriented. Fluent speech. Lungs are notable for diminished breath sounds, prolonged expiration. She has a normal rate and effort. Heart is regular, no murmur gallop or rub. Abdomen is soft, non distended. Extremities are free of edema. Objective Labs 02/18/24 04:44 02/18/24 04:44 Labs: Laboratory Results - last 24 hr 02/18/24 04:44 WBC 15.6 H RBC 3.82 L Hgb 10.5 L Hct 33.8 L MCV 88.6 MCH 27.6 MCHC 31.1 RDW 14.5 Plt Count 260 Neut % (Auto) 76.9 H Lymph % (Auto) 12.9 L [place] % (Auto) 9.2 Eos % (Auto) 0.4 L Baso % (Auto) 0.6 Neut # (Auto) 06493 H Lymph # (Auto) 2000 [place] # (Auto) 1400 H Eos # (Auto) 100 Baso # (Auto) 100 Sodium 129 L Potassium 4.2 Chloride 87 L Carbon Dioxide 39 H BUN 19 H Creatinine 0.63 Estimated GFR > 60 BUN/Creatinine Ratio 30.2 H Glucose 103 Calcium 8.3 L PFSH Medical History Medicare annual wellness visit, subsequent Well adult exam CKD (chronic kidney disease) stage 3, GFR 30-59 ml/min Hyperlipidemia Hypertension COPD (chronic obstructive pulmonary disease) CAD (coronary artery disease) (2000) Surgical History Status post coronary artery stent placement (2000) Family History Daughter No problems noted. Social History marital status: household members: family Smoking Status: Former smoker alcohol intake: never substance use type: does not use Assessment & Plan Assessment & Plan narrative: 1. CAP, present on admission and active. 2. COPD exacerbation, present on admission and active. 3. HTN, present on admission and active. 4. Stage 3 CKD, present on admission and active. 5. Acute on chronic hypoxic respiratory failure, present on admission and active. 6. Metastatic lung cancer, present on admission and active. 7. Probable hypovolemic hyponatremia, new and active. PLAN: -Has now completed courses of ceftriaxone and azithromycin for CAP. However now with increasing WBC count, will restart ceftriaxone and azithromycin for another 5 day course to see if this helps with her exercise tolerance further and possible developing PNA. -continue standard treatment for COPD exacerbation with bronchodilators and corticosteroids. Changed IV steroids to oral prednisone. -wean O2 to her baseline of 2.5 L as able. Goal O2 89-96% on supplemental therapy. She at rest is near baseline now, but exertional hypoxia is a current barrier to discharge. -symptomatic treatment of cough and Mucinex. -monitor renal function, continue chronic medications for hypertension. -recommend palliative care consultation as an outpatient as well given severity of her lung disease. -lidoderm patch for L scapular pain Dispo: Now needs SNF placement. 1-2 days. Quality VTE Deep Vein Thrombosis/Pulmonary Embolism Present on Admission: No
[2024-02-18] MEDS: ATORVASTATIN 20 MG TABLET 10 MG PO (20:50)
[2024-02-18] MEDS: LATANOPROST 0.005% OPHTH 2.5 ML 1 DROPS EYE-BOTH (20:51)
[2024-02-18] MEDS: ACETAMINOPHEN 325 MG TABLET 650 MG PO (20:51)
[2024-02-18] MEDS: guaiFENesin Solution 100 MG/5 ML UDC PO (22:10)
[2024-02-18] MEDS: BENZONATATE 100 MG CAPSULE PO (22:10)
[2024-02-19] VITALS (39 sets, daily range): BP systolic 111–151; BP diastolic 56–68; PULSE 57–84; RESP 16–27; TEMP 36.3–36.6; O2SAT 86–96
[2024-02-19 04:42] LABS: Add Manual Diff / Slide Review NO; Basophils Absolute Auto 0 /uL (0-100); Basophils Percent Auto 0.3 % (0-2); Eosinophils Absolute Auto 0 /uL (0-450); Eosinophils Percent Auto 0.1 % (2-4); Hematocrit 32.9 % (36-46); Hemoglobin 10.9 g/dL (12.0-16.0); Lymphocytes Absolute Auto 1100 /uL (1100-4500); Lymphocytes Percent Auto 7.3 % (25-40); Mean Corpuscular HGB Conc 33.2 % (30-36); Mean Corpuscular Hemoglobin 29.2 PG (26-34); Mean Corpuscular Volume 87.8 fL (80-100); Monocytes Absolute Auto 1200 /uL (0-900); Neutrophils Absolute Auto 12600 /uL (1500-7000); Neutrophils Percent Auto 84.3 % (50-75); Platelet Count 245 X10^3/uL (150-400); Red Blood Cell Count 3.75 X10^6/uL (4.0-5.2); Red Cell Distribution Width 14.5 % (11.6-14.8); White Blood Cell Count 14.9 X10^3/uL (4.5-11.0)
[2024-02-19 05:10] LABS: Blood Urea Nitrogen 18 mg/dL (7-17); Calcium 8.4 mg/dL (8.4-10.2); Carbon Dioxide 40 mmol/L (22-32); Chloride 90 mmol/L (98-107); Estimated Glomerular Filt Rate > 60 mL/min (>60); Glucose 105 mg/dL (80-110); Potassium 4.8 mmol/L (3.4-5.1); Sodium 130 mmol/L (137-145)
[2024-02-19 05:11] LABS: HEMOLYSIS 20 (0-50)
[2024-02-19] MEDS: PANTOPRAZOLE DR 40 MG TABLET PO (06:11)
[2024-02-19] MEDS: ALBUTEROL/IPRATROPIUM 3 ML AMPUL INH ×3 (06:21→19:25)
[2024-02-19] MEDS: BUDESONIDE 0.5 MG/2 ML NEB INH ×2 (06:31→19:25)
[2024-02-19] MEDS: ACETAMINOPHEN 325 MG TABLET 650 MG PO ×2 (08:27→20:13)
[2024-02-19] MEDS: AMLODIPINE 5 MG TABLET PO (08:28)
[2024-02-19] MEDS: predniSONE 20 MG TABLET 40 MG PO (08:28)
[2024-02-19] MEDS: METOPROLOL IR 50 MG TABLET PO ×2 (08:29→20:13)
[2024-02-19] MEDS: VERAPAMIL 80 MG TABLET PO ×2 (08:29→20:13)
[2024-02-19] MEDS: BENZONATATE 100 MG CAPSULE PO (08:29)
[2024-02-19] MEDS: ENOXAPARIN 40 MG/0.4 ML SYRINGE SUBCUT (08:29)
[2024-02-19] MEDS: cefTRIAXone 1,000 MG in SODIUM CHLORIDE 0.9% 100 ML 200 MG IV (08:30)
[2024-02-19] MEDS: LIDOCAINE 5% PATCH 1 EACH TOP (08:31)
[2024-02-19] MEDS: SODIUM CHLORIDE 0.9% FLUSH 10 ML IV ×2 (08:35→20:14)
--- NOTE | 2024-02-19 10:18 | DIET.CONS2 ---
Dietary Inpatient Consultation Note Admission Date: 02/09/2024 18:19 Nutrition f/u. Improved po intakes, reviewed pt meal orders to confirm foods ordered are adequate in meeting EER. Will continue to monitor. Diet: 02/10/24 Breakfast General (Regular) Diet Diet Modifications: Food Texture: Level 7 - Regular Liquid Consistency: Level 0 - Thin Nutrition Percent Meal Consumed 100% 02/19/24 09:22 Percent Meal Consumed 75% 02/18/24 18:00 Percent Meal Consumed 100% 02/18/24 12:00 Percent Meal Consumed 100% 02/18/24 08:35 Electronically Signed by: Domitila Alegre 02/19/24 10:18 Clinical Dietitian [address] [id number]
--- NOTE | 2024-02-19 11:35 | CM.DPC ---
DCP Cont. Reviewed EMR and team rounds for status updates. 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 [facility] reviewed, however they are full and not expecting any openings over the next 2-days. Sent referral to [facility]-, they are reviewing. Pending response. Will plan to update pt/family once we hear back.
--- NOTE | 2024-02-19 13:36 | PT.IPTN ---
Current Diagnoses Essential (primary) hypertension (02/09/24) Pneumonia, unspecified organism (02/09/24) Chronic obstructive pulmonary disease with (acute) exacerbation (02/09/24) Acute and chronic respiratory failure with hypoxia (02/09/24) Chronic kidney disease, stage 3a (02/09/24) Physical Therapy Treatment Note M2 PT-IP Current Condition Start: 02/10/24 16:10 Freq: NEEDED Status: Active Protocol: Document 02/10/24 14:40 AB (Rec: 02/10/24 16:23 AB [id number]) Physical Therapy Current Condition Current Condition Evaluation Date 02/10/24 Treatment Diagnosis PNA; COPD; difficulty in walking Onset Date 02/09/24 M3 PT-IP Subjective Start: 02/10/24 16:10 Freq: NEEDED Status: Active Protocol: Document 02/19/24 13:56 TS (Rec: 02/19/24 14:12 TS [id number]) Subjective Physical Therapy Visit Type Type Treatment Note Visit Start Time 13:36 Visit Stop Time 13:56 Number of SILK SCREEN PROCESSOR Visits 2 Physical Therapy Visit Comments Patient Comments Pt found resting in chair, is agreeable to PT. M4 PT-IP Mobility and Gait Start: 02/10/24 16:10 Freq: NEEDED Status: Active Protocol: Document 02/19/24 13:56 TS (Rec: 02/19/24 14:12 TS [id number]) PT-Transfer Assessment Sit to and From Stand Sit to and from Stand Standby Assistance,Minimal Assistance,1 Person Assistance ,Use of Upper Extremities Equipment Transfer Assistive Device Gait Belt,Front Wheeled Walker Orthotic/Prosthetic Devices or Brace: No Comments Mobility Comments Pt resting on 1.5L's at 95%, increased to 2L's for mobility . STS from chair Aidan with use of FWW. Pt ambulated ~40'SBA with management of o2 line. Pt required sitting rest break for SOB, SPo2 92%. Pt ambulated another ~30'SBA with FWW, again became SOB and sat in chair, Spo2 90% on 2L's. PT was left in chair, all needs met. Gait Assessment Gait Gait Assistance Required: Standby Assistance Distance (Feet) 70 Able to Maintain Weight Bearing Status Yes During Gait Assistive Devices Assistive Device Gait Belt,Front Wheeled Walker Orthotic/Prosthetic Devices or Brace: No Gait Deviations General Gait Pattern Decreased Stride Length, Decreased Feet Clearance Factors Limiting Gait Function Factors Limiting Gait Function Decreased Activity Tolerance, Decreased Strength,Poor Balance,Poor Safety Awareness, Respiratory Distress PT-Balance Assessment Sitting Balance and Reactions Static Sitting Balance Ability Normal Dynamic Sitting Balance Ability Good Standing Balance and Reactions Static Standing Balance Ability Good Dynamic Standing Balance Ability Good Device Used FWW M5 PT-IP Objective Assessments Start: 02/10/24 16:10 Freq: NEEDED Status: Active Protocol: Document 02/10/24 14:40 AB (Rec: 02/10/24 16:23 AB [id number]) Orientation Orientation/Cognition Level of Alertness Alert Orientation Name,Place,Situation Language Function Ability Hard of Hearing Safety Awareness Decreased Safety Awareness Comments L ear deafness Gross Range of Motion Lower Extremity ROM Assessment Within Functional Limits Strength Lower Extremity Strength Assessment Within Functional Limits Coordination Assessment Gross Coordination Gross Coordination WNL Muscle Tone Muscle Tone WNL Yes M6 PT-IP Treatment Start: 02/10/24 16:10 Freq: NEEDED Status: Active Protocol: Document 02/19/24 13:56 TS (Rec: 02/19/24 14:12 TS [id number]) Physical Therapy Treatment Education Education Provided Safety M7 PT-IP Assessment and Plan Start: 02/10/24 16:10 Freq: NEEDED Status: Active Protocol: Document 02/19/24 13:56 TS (Rec: 02/19/24 14:12 TS [id number]) PT Summary Assessment and Plan Potential Rehabilitation Potential Fair Summary Impairments Pain,ROM,Strength,Balance, Sensation,Cognition,Bed Mobility,Transfers,Gait, Activity Tolerance Progress Towards Goals Slow Progress due to Medical Issues,Slow Progress due to Activity Tolerance Assessment Summary Paz made some progress with her mobility this session but remains limited by ongoing medical issues. She is Aidan for STS from low surface of chair and SBA from higher surface of the bed. She progressed her gait to ~40' and another 30' with FWW SBA. She continues to have some SOB , spo2 desats to high 80's low 90's on 2L's. PT will continue to recommend home vs snf. Goals Bed Mobility Goal Independent Transfer Goal Independent,Four Wheeled Walker Gait Goal Independent,Four Wheel Walker Gait Distance 200 Other Goals improve transfers and ambulation using LRAD/without AD ~ 250 ft mod I up/down 10 steps L rail ascending mod I Days to Meet Goals 10 Frequency of Treatment Frequency Of Treatment Once a Day Treatment Plan Physical Therapy Treatment Plan Bed Mobility Training,Transfer Training,Gait Training, Therapeutic Exercise,Balance Retraining,Discharge Planning, Hot or Cold Pack,Neuromuscular Re-ed,Coordination Retraining Precautions Other Precautions O2 sat Recommendations To Nursing Amount of Assist Needed 1 Person Assist Discharge Recommendations PT Discharge Recommendations Home with Assistance,Home Health,SNF Rehab,Home vs SNF Transportation Needs at Discharge Private Vehicle,Wheelchair/ Cabulance
--- NOTE | 2024-02-19 16:18 | PM.PN.1 ---
Subjective Subjective Interval history: Doing well, on 1L O2 today. Awaiting SNF. Exam Vital Signs (past 8 hours): - 02/19/24 08:29 02/19/24 12:00 02/19/24 12:07 Temperature 97.8 F Pulse Rate 66 70 70 Respiratory Rate 18 Blood Pressure 135/61 134/60 134/60 Pulse Oximetry 92 Oxygen Delivery Method Oxygen Flow Rate 1 Fraction of Inspired Oxygen 02/19/24 13:14 Temperature Pulse Rate 77 Respiratory Rate 20 Blood Pressure Pulse Oximetry 93 Oxygen Delivery Method Nasal Cannula Oxygen Flow Rate 1 Fraction of Inspired Oxygen 24 Fraction of Inspired Oxygen 24 SaO2/FiO2 Ratio 387 Oxygen Delivery Method Nasal Cannula Oxygen Flow Rate 1 Narrative Exam Narrative: NAD, alert and oriented. Fluent speech. Lungs are notable for diminished breath sounds, prolonged expiration. She has a normal rate and effort. Heart is regular, no murmur gallop or rub. Abdomen is soft, non distended. Extremities are free of edema. Objective Labs 02/19/24 04:21 02/19/24 04:21 Labs: Laboratory Results - last 24 hr 02/19/24 04:21 WBC 14.9 H RBC 3.75 L Hgb 10.9 L Hct 32.9 L MCV 87.8 MCH 29.2 MCHC 33.2 RDW 14.5 Plt Count 245 Neut % (Auto) 84.3 H Lymph % (Auto) 7.3 L [place] % (Auto) 8.0 Eos % (Auto) 0.1 L Baso % (Auto) 0.3 Neut # (Auto) 66117 H Lymph # (Auto) 1100 [place] # (Auto) 1200 H Eos # (Auto) 0 Baso # (Auto) 0 Sodium 130 L Potassium 4.8 Chloride 90 L Carbon Dioxide 40 H* BUN 18 H Creatinine 0.58 Estimated GFR > 60 BUN/Creatinine Ratio 31.0 H Glucose 105 Calcium 8.4 PFSH Medical History Medicare annual wellness visit, subsequent Well adult exam CKD (chronic kidney disease) stage 3, GFR 30-59 ml/min Hyperlipidemia Hypertension COPD (chronic obstructive pulmonary disease) CAD (coronary artery disease) (2000) Surgical History Status post coronary artery stent placement (2000) Family History Daughter No problems noted. Social History marital status: household members: family Smoking Status: Former smoker alcohol intake: never substance use type: does not use Assessment & Plan Assessment & Plan narrative: 1. CAP, present on admission and active. 2. COPD exacerbation, present on admission and active. 3. HTN, present on admission and active. 4. Stage 3 CKD, present on admission and active. 5. Acute on chronic hypoxic respiratory failure, present on admission and active. 6. Metastatic lung cancer, present on admission and active. 7. Probable hypovolemic hyponatremia, new and active. PLAN: -Had completed courses of ceftriaxone and azithromycin for CAP. However with increasing WBC count, restarted ceftriaxone and azithromycin for another 5 day course with some improvement. WBC improved to 15. -continue standard treatment for COPD exacerbation with bronchodilators and corticosteroids. Changed IV steroids to oral prednisone. -wean O2 to her baseline of 2.5 L as able. Goal O2 89-96% on supplemental therapy. She at rest is near baseline now, but exertional hypoxia is a current barrier to discharge. -symptomatic treatment of cough and Mucinex. -monitor renal function, continue chronic medications for hypertension. -recommend palliative care consultation as an outpatient as well given severity of her lung disease. -lidoderm patch for L scapular pain Dispo: Now needs SNF placement, pending acceptance at this time. Quality VTE Deep Vein Thrombosis/Pulmonary Embolism Present on Admission: No
[2024-02-19] MEDS: ATORVASTATIN 20 MG TABLET 10 MG PO (20:14)
[2024-02-19] MEDS: LATANOPROST 0.005% OPHTH 2.5 ML 1 DROPS EYE-BOTH (20:14)
[2024-02-20] VITALS (35 sets, daily range): BP systolic 115–150; BP diastolic 53–63; PULSE 55–92; RESP 18; TEMP 36.2–36.3; O2SAT 88–95
--- NOTE | 2024-02-20 03:14 | PC.NURSE ---
Per shift report , patient is not on telemetry monitoring.
[2024-02-20 05:06] LABS: Add Manual Diff / Slide Review NO; Basophils Absolute Auto 100 /uL (0-100); Basophils Percent Auto 0.5 % (0-2); Eosinophils Absolute Auto 0 /uL (0-450); Eosinophils Percent Auto 0.3 % (2-4); Hematocrit 35.2 % (36-46); Hemoglobin 11.4 g/dL (12.0-16.0); Lymphocytes Absolute Auto 1600 /uL (1100-4500); Lymphocytes Percent Auto 10.7 % (25-40); Mean Corpuscular HGB Conc 32.4 % (30-36); Mean Corpuscular Volume 89.4 fL (80-100); Monocytes Absolute Auto 1700 /uL (0-900); Monocytes Percent Auto 11.1 % (3-14); Neutrophils Absolute Auto 11800 /uL (1500-7000); Neutrophils Percent Auto 77.4 % (50-75); Platelet Count 258 X10^3/uL (150-400); Red Blood Cell Count 3.94 X10^6/uL (4.0-5.2); Red Cell Distribution Width 14.7 % (11.6-14.8); White Blood Cell Count 15.2 X10^3/uL (4.5-11.0)
[2024-02-20 05:21] LABS: Blood Urea Nitrogen 17 mg/dL (7-17); Calcium 8.4 mg/dL (8.4-10.2); Carbon Dioxide 38 mmol/L (22-32); Chloride 91 mmol/L (98-107); Estimated Glomerular Filt Rate > 60 mL/min (>60); Glucose 102 mg/dL (80-110); HEMOLYSIS < 15 (0-50); Potassium 4.5 mmol/L (3.4-5.1); Sodium 130 mmol/L (137-145)
[2024-02-20] MEDS: PANTOPRAZOLE DR 40 MG TABLET PO (06:18)
[2024-02-20] MEDS: cefTRIAXone 1,000 MG in SODIUM CHLORIDE 0.9% 100 ML 200 MG IV (08:12)
[2024-02-20] MEDS: LIDOCAINE 5% PATCH 1 EACH TOP (08:13)
[2024-02-20] MEDS: SODIUM CHLORIDE 0.9% FLUSH 10 ML IV ×2 (08:13→20:42)
[2024-02-20] MEDS: ENOXAPARIN 40 MG/0.4 ML SYRINGE SUBCUT (08:13)
[2024-02-20] MEDS: BENZONATATE 100 MG CAPSULE PO ×2 (08:13→20:46)
[2024-02-20] MEDS: predniSONE 20 MG TABLET 40 MG PO (08:13)
[2024-02-20] MEDS: guaiFENesin Solution 100 MG/5 ML UDC PO ×2 (08:13→20:47)
[2024-02-20] MEDS: METOPROLOL IR 50 MG TABLET PO ×2 (08:14→20:42)
[2024-02-20] MEDS: AMLODIPINE 5 MG TABLET PO (08:14)
[2024-02-20] MEDS: VERAPAMIL 80 MG TABLET PO ×2 (08:14→20:56)
[2024-02-20] MEDS: ALBUTEROL/IPRATROPIUM 3 ML AMPUL INH ×3 (08:15→19:54)
[2024-02-20] MEDS: BUDESONIDE 0.5 MG/2 ML NEB INH ×2 (08:15→19:54)
--- NOTE | 2024-02-20 12:00 | PT.IPTN ---
Current Diagnoses Essential (primary) hypertension (02/09/24) Pneumonia, unspecified organism (02/09/24) Chronic obstructive pulmonary disease with (acute) exacerbation (02/09/24) Acute and chronic respiratory failure with hypoxia (02/09/24) Chronic kidney disease, stage 3a (02/09/24) Physical Therapy Treatment Note M2 PT-IP Current Condition Start: 02/10/24 16:10 Freq: NEEDED Status: Active Protocol: Document 02/10/24 14:40 AB (Rec: 02/10/24 16:23 AB [id number]) Physical Therapy Current Condition Current Condition Evaluation Date 02/10/24 Treatment Diagnosis PNA; COPD; difficulty in walking Onset Date 02/09/24 M3 PT-IP Subjective Start: 02/10/24 16:10 Freq: NEEDED Status: Active Protocol: Document 02/20/24 14:05 TS (Rec: 02/20/24 14:14 TS [id number]) Subjective Physical Therapy Visit Type Type Treatment Note Visit Start Time 12:00 Visit Stop Time 12:30 Number of POCKET MARKER Visits 3 Physical Therapy Visit Comments Patient Comments Pt found resting in chair, is agreeable to PT. M4 PT-IP Mobility and Gait Start: 02/10/24 16:10 Freq: NEEDED Status: Active Protocol: Document 02/20/24 14:05 TS (Rec: 02/20/24 14:14 TS [id number]) PT-Transfer Assessment Sit to and From Stand Sit to and from Stand Standby Assistance Equipment Transfer Assistive Device Gait Belt,Front Wheeled Walker Orthotic/Prosthetic Devices or Brace: No Comments Mobility Comments Pt resting on .5L's at 95%, increased to 2L's for mobility . STS from chair SBA with use of momentum to stand with FWW. She ambulated SBA ~60' in room with FWW, reports feeling SOB, Spo2 on 2L's 91%. She performed stairs x3 with rest break and another x3 SBA with use of rails. Pt ambulated back to chair, spo2 89% on 2L' s. Pt was left in chair, all needs met. Gait Assessment Gait Gait Assistance Required: Standby Assistance Distance (Feet) 80 Able to Maintain Weight Bearing Status Yes During Gait Assistive Devices Assistive Device Gait Belt,Front Wheeled Walker Orthotic/Prosthetic Devices or Brace: No Gait Deviations General Gait Pattern Decreased Stride Length, Decreased Feet Clearance Factors Limiting Gait Function Factors Limiting Gait Function Decreased Activity Tolerance, Decreased Strength,Poor Balance,Poor Safety Awareness, Respiratory Distress Stair Climbing Assessment Evaluation Level of Assist On Stairs Standby Assistance Devices Stair Climbing Assistive Devices Left Railing,Right Railing Technique/Endurance Stair Climbing Direction Ascend and Descend Stair Climbing Technique Step to Step Number of Steps Climbed 6 PT-Balance Assessment Sitting Balance and Reactions Static Sitting Balance Ability Normal Dynamic Sitting Balance Ability Good Standing Balance and Reactions Static Standing Balance Ability Good Dynamic Standing Balance Ability Good Device Used FWW M5 PT-IP Objective Assessments Start: 02/10/24 16:10 Freq: NEEDED Status: Active Protocol: Document 02/10/24 14:40 AB (Rec: 02/10/24 16:23 AB [id number]) Orientation Orientation/Cognition Level of Alertness Alert Orientation Name,Place,Situation Language Function Ability Hard of Hearing Safety Awareness Decreased Safety Awareness Comments L ear deafness Gross Range of Motion Lower Extremity ROM Assessment Within Functional Limits Strength Lower Extremity Strength Assessment Within Functional Limits Coordination Assessment Gross Coordination Gross Coordination WNL Muscle Tone Muscle Tone WNL Yes M6 PT-IP Treatment Start: 02/10/24 16:10 Freq: NEEDED Status: Active Protocol: Document 02/20/24 14:05 TS (Rec: 02/20/24 14:14 TS [id number]) Physical Therapy Treatment Education Education Provided Safety M7 PT-IP Assessment and Plan Start: 02/10/24 16:10 Freq: NEEDED Status: Active Protocol: Document 02/20/24 14:05 TS (Rec: 02/20/24 14:14 TS [id number]) PT Summary Assessment and Plan Potential Rehabilitation Potential Fair Summary Impairments Pain,ROM,Strength,Balance, Sensation,Cognition,Bed Mobility,Transfers,Gait, Activity Tolerance Progress Towards Goals Slow Progress due to Medical Issues,Slow Progress due to Activity Tolerance Assessment Summary Paz continues to make progress with her mobility. She progressed her gait to ~80 'SBA with FWW. She continues to have some SOB with mobility . Pt requires increase to 2L's for mobility from .5L's at rest. At her baseline she uses 2-2.5L's at home. She performed steps x6 with BUE support on handrails. PT is recommending pt return home with 21/04 assist available and HHPT. Goals Bed Mobility Goal Independent Transfer Goal Independent,Four Wheeled Walker Gait Goal Independent,Four Wheel Walker Gait Distance 200 Other Goals improve transfers and ambulation using LRAD/without AD ~ 250 ft mod I up/down 10 steps L rail ascending mod I Days to Meet Goals 10 Frequency of Treatment Frequency Of Treatment Once a Day Treatment Plan Physical Therapy Treatment Plan Bed Mobility Training,Transfer Training,Gait Training, Therapeutic Exercise,Balance Retraining,Discharge Planning, Hot or Cold Pack,Neuromuscular Re-ed,Coordination Retraining Precautions Other Precautions O2 sat Recommendations To Nursing Amount of Assist Needed 1 Person Assist Discharge Recommendations PT Discharge Recommendations Home with 21/04 Assist Available,Home Health Transportation Needs at Discharge Private Vehicle,Wheelchair/ Cabulance
--- NOTE | 2024-02-20 13:11 | CM.DPC ---
DCP Cont. Reviewed EMR and team rounds for status updates. [facility] is unable to take pt until likely the end of next week, due to the holiday and no insurance auth. She has since improved significantly with PT, and is requesting to be d/c home. Called her granddaughter re: transport home, family is out of town and cannot transport until tomorrow between 2-3pm. Updated Hospitalist and assigned RN.
--- NOTE | 2024-02-20 17:08 | PM.PN.1 ---
Subjective Subjective Interval history: Doing well, on 1L O2 today. Awaiting SNF but unable to accept until next week. Family plans to take her home tomorrow when they are more available for assistance. Exam Vital Signs (past 8 hours): - 02/20/24 09:41 02/20/24 10:00 02/20/24 11:00 Temperature Pulse Rate 69 64 77 Blood Pressure Pulse Oximetry 94 90 L Oxygen Delivery Method Oxygen Flow Rate 02/20/24 12:00 02/20/24 12:10 02/20/24 13:00 Temperature Pulse Rate 73 70 71 Blood Pressure Pulse Oximetry 91 92 91 Oxygen Delivery Method Oxygen Flow Rate 0.5 02/20/24 14:00 02/20/24 14:25 02/20/24 15:00 Temperature Pulse Rate 71 70 Blood Pressure Pulse Oximetry 94 91 88 L Oxygen Delivery Method Nasal Cannula Oxygen Flow Rate 0.5 02/20/24 16:00 02/20/24 16:00 02/20/24 16:03 Temperature 97.2 F L Pulse Rate 86 78 Blood Pressure Pulse Oximetry 92 91 Oxygen Delivery Method Oxygen Flow Rate 02/20/24 16:04 02/20/24 16:09 Temperature Pulse Rate Blood Pressure 115/53 L Pulse Oximetry Oxygen Delivery Method Oxygen Flow Rate 0.5 Fraction of Inspired Oxygen 24 SaO2/FiO2 Ratio 391 Oxygen Delivery Method Nasal Cannula Oxygen Flow Rate 0.5 Narrative Exam Narrative: NAD, alert and oriented. Fluent speech. Lungs are notable for diminished breath sounds, prolonged expiration. She has a normal rate and effort. Heart is regular, no murmur gallop or rub. Abdomen is soft, non distended. Extremities are free of edema. Objective Labs 02/20/24 04:35 02/20/24 04:35 Labs: Laboratory Results - last 24 hr 02/20/24 04:35 WBC 15.2 H RBC 3.94 L Hgb 11.4 L Hct 35.2 L MCV 89.4 MCH 29.0 MCHC 32.4 RDW 14.7 Plt Count 258 Neut % (Auto) 77.4 H Lymph % (Auto) 10.7 L [place] % (Auto) 11.1 Eos % (Auto) 0.3 L Baso % (Auto) 0.5 Neut # (Auto) 23520 H Lymph # (Auto) 1600 [place] # (Auto) 1700 H Eos # (Auto) 0 Baso # (Auto) 100 Sodium 130 L Potassium 4.5 Chloride 91 L Carbon Dioxide 38 H BUN 17 Creatinine 0.74 Estimated GFR > 60 BUN/Creatinine Ratio 23.0 H Glucose 102 Calcium 8.4 [facility] Medical History Medicare annual wellness visit, subsequent Well adult exam CKD (chronic kidney disease) stage 3, GFR 30-59 ml/min Hyperlipidemia Hypertension COPD (chronic obstructive pulmonary disease) CAD (coronary artery disease) (2000) Surgical History Status post coronary artery stent placement (2000) Family History Daughter No problems noted. Social History marital status: household members: family Smoking Status: Former smoker alcohol intake: never substance use type: does not use Assessment & Plan Assessment & Plan narrative: 1. CAP, present on admission and active. 2. COPD exacerbation, present on admission and active. 3. HTN, present on admission and active. 4. Stage 3 CKD, present on admission and active. 5. Acute on chronic hypoxic respiratory failure, present on admission and active. 6. Metastatic lung cancer, present on admission and active. 7. Probable hypovolemic hyponatremia, new and active. PLAN: -Had completed courses of ceftriaxone and azithromycin for CAP. However with increasing WBC count, restarted ceftriaxone and azithromycin for another 5 day course with some improvement. WBC improved to 15 and stable there. Consider outpatient evaluation for leukocytosis -continue standard treatment for COPD exacerbation with bronchodilators and corticosteroids. Changed IV steroids to oral prednisone. -wean O2 to her baseline of 2.5 L as able. Goal O2 89-96% on supplemental therapy. She at rest is near baseline now, but exertional hypoxia is a current barrier to discharge. -symptomatic treatment of cough and Mucinex. -monitor renal function, continue chronic medications for hypertension. -recommend palliative care consultation as an outpatient as well given severity of her lung disease. -lidoderm patch for L scapular pain Dispo: Now needs SNF placement, unable to get bed until next week at the earliest. patient's family to merchandise pickup/receiving associate tomorrow for discharge home prior to SNF Quality VTE Deep Vein Thrombosis/Pulmonary Embolism Present on Admission: No
[2024-02-20] MEDS: ATORVASTATIN 20 MG TABLET 10 MG PO (20:41)
[2024-02-20] MEDS: LATANOPROST 0.005% OPHTH 2.5 ML 1 DROPS EYE-BOTH (20:42)
[2024-02-20] MEDS: ACETAMINOPHEN 325 MG TABLET 650 MG PO (20:46)
[2024-02-21] VITALS (8 sets, daily range): BP systolic 120–135; BP diastolic 62–67; PULSE 58–73; RESP 17–20; TEMP 36.3–37.1; O2SAT 91–95
[2024-02-21 05:14] LABS: Add Manual Diff / Slide Review NO; Basophils Absolute Auto 0 /uL (0-100); Basophils Percent Auto 0.3 % (0-2); Eosinophils Absolute Auto 0 /uL (0-450); Eosinophils Percent Auto 0.2 % (2-4); Hematocrit 33.7 % (36-46); Hemoglobin 11.1 g/dL (12.0-16.0); Lymphocytes Absolute Auto 1600 /uL (1100-4500); Lymphocytes Percent Auto 11.3 % (25-40); Mean Corpuscular HGB Conc 32.9 % (30-36); Mean Corpuscular Hemoglobin 29.1 PG (26-34); Mean Corpuscular Volume 88.4 fL (80-100); Monocytes Absolute Auto 1300 /uL (0-900); Monocytes Percent Auto 9.1 % (3-14); Neutrophils Absolute Auto 11300 /uL (1500-7000); Neutrophils Percent Auto 79.1 % (50-75); Platelet Count 285 X10^3/uL (150-400); Red Blood Cell Count 3.82 X10^6/uL (4.0-5.2); Red Cell Distribution Width 14.8 % (11.6-14.8); White Blood Cell Count 14.3 X10^3/uL (4.5-11.0)
[2024-02-21 05:19] LABS: BUN Creatinine Ratio 27.1 (6-22); Blood Urea Nitrogen 19 mg/dL (7-17); Calcium 8.5 mg/dL (8.4-10.2); Chloride 93 mmol/L (98-107); Estimated Glomerular Filt Rate > 60 mL/min (>60); Glucose 89 mg/dL (80-110); HEMOLYSIS < 15 (0-50); Potassium 4.4 mmol/L (3.4-5.1); Sodium 132 mmol/L (137-145)
[2024-02-21 05:33] LABS: Carbon Dioxide 35 mmol/L (22-32)
[2024-02-21] MEDS: PANTOPRAZOLE DR 40 MG TABLET PO (06:18)
[2024-02-21] MEDS: BUDESONIDE 0.5 MG/2 ML NEB INH (07:50)
[2024-02-21] MEDS: ALBUTEROL/IPRATROPIUM 3 ML AMPUL INH (07:50)
[2024-02-21] MEDS: LIDOCAINE 5% PATCH 1 EACH TOP (08:58)
[2024-02-21] MEDS: ENOXAPARIN 40 MG/0.4 ML SYRINGE SUBCUT (08:58)
[2024-02-21] MEDS: predniSONE 20 MG TABLET 40 MG PO (08:59)
[2024-02-21] MEDS: METOPROLOL IR 50 MG TABLET PO (08:59)
[2024-02-21] MEDS: AMLODIPINE 5 MG TABLET PO (08:59)
[2024-02-21] MEDS: VERAPAMIL 80 MG TABLET PO (08:59)
--- NOTE | 2024-02-21 10:39 | CM.DPC ---
DCP Cont. Reviewed EMR and team rounds for status updates. Pt has been medically cleared for home d/c, her granddaughter will transport her home today between 2-3:00pm. No further DCP needs identified at this time.
--- NOTE | 2024-02-21 11:50 | PT-IP ANOTE ---
Pt refused to work with PT this morning. She states she would like to rest before she goes home today. Pt would like to have HH set up, SW was notified.
--- NOTE | 2024-02-21 12:12 | CM.DPC ---
DCP Cont. Per PT, pt is asking for Home Health at discharge. Sent referral and F/F orders to [facility] for PT/OT. No further needs identified at this time.
--- NOTE | 2024-02-21 13:11 | PM.DS.1 ---
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 The pt is normally on 3 lpm NC at home. She states she went to an urgent care last week and was dx with a perforated tympanic membrane of the ear but was not given antibiotics. she is not chronically on steroids and is treated with Kytruda once every 3 weeks. She lives with her grandson and family, she does not smoke but several other family members do. Discharge Providers Provider Date of admission: 02/09/24 18:19 Discharge Date: 02/21/24 Primary care physician: Domingo Sanches DO Consults: 02/10/24 10:22 Consult to Occupational Therapy Evaluate & Treat Comment: Physician Instructions: Evaluate and treat Consult to Physical Therapy Evaluate & Treat Comment: Physician Instructions: Evaluate and Treat 02/10/24 10:23 Consult to Physical Therapy Evaluate & Treat Comment: Physician Instructions: Evaluate and Treat 02/14/24 08:50 Consult to Home Health Routine Comment: PT, OT Reason For Exam: Home Health Services Discharge provider: Joshua Panchal MD Summary Hospital Course Discharge Diagnosis: 1. CAP, present on admission and resolved. 2. COPD exacerbation, present on admission and improved. 3. HTN, present on admission and active. 4. Stage 3 CKD, present on admission and active. 5. Acute on chronic hypoxic respiratory failure, present on admission and active. 6. Metastatic lung cancer, present on admission and active. 7. Probable hypovolemic hyponatremia, new and active. Hospital Course: The patient is a pleasant 83-year-old female with a history of stage IV lung cancer who was admitted with acute on chronic hypoxic respiratory failure in the context of COPD exacerbation and probable pneumonia. She initially required BiPAP support. She had a very slow progression of her improvement. This related primarily to secretions and protracted respiratory distress. She was initially recommended [facility] but there was not an accepting facility and family is able to put together a supportive discharge plan to home. She was initially treated with a course of ceftriaxone and azithromycin, however her WBC count was rising and persistently high therefore she had a 2nd 5 day course implemented. She did have a Lidoderm patch for left scapular pain. In the day of discharge she was at or near her baseline and quite comfortable discharging home. Status at Discharge Cognitive/behavioral status at discharge: oriented Functional status at discharge: uses cane/walker Overall status at discharge: patient is back to baseline Time Spent with Patient Time spent: Greater than 30 minutes Exam Vital Signs (past 8 hours): - 02/21/24 07:00 02/21/24 07:50 02/21/24 08:00 Temperature 97.3 F L Pulse Rate 70 72 Respiratory Rate 20 17 Blood Pressure 120/67 Pulse Oximetry 94 94 Oxygen Delivery Method Nasal Cannula Nasal Cannula Oxygen Flow Rate 2 1 Fraction of Inspired Oxygen 24 SaO2/FiO2 Ratio 391 Oxygen Delivery Method Nasal Cannula Oxygen Flow Rate 1 Narrative Exam Narrative: NAD, alert and oriented. Fluent speech. Lungs are with diminished breath sounds but relatively good air movement and minimal expiratory wheezing.. Heart is regular, no murmur gallop or rub. Abdomen is soft, non distended. Extremities are free of edema. Objective Imaging Chest x-ray: Radiologist's impression: IMPRESSION: Similar opacities in the right mid and lower lung, and left lower lung, likely infectious or inflammatory. Opacity also again seen at the left apex. Distribution is similar to prior. Underlying masses/nodules are possible. Consider future imaging surveillance to assess for resolution. Dictated by: Trev Kauffman M.D. on 02/16/2024 at 8:58 1. Chronic interstitial and airspace opacities in lower lobes bilaterally suspicious for chronic pneumonia. 2. Severe emphysema. Dictated by: Jenna Arrington M.D. on 02/12/2024 at 20:33 CT scan - chest: Radiologist's impression: MPRESSION: No pulmonary embolus. Multiple nodular opacities within the bilateral lower lobes and right middle lobe are new compared to prior and likely infectious in etiology. Attention on follow-up to exclude metastatic disease. Redemonstration of left perihilar spiculated nodule which is similar in appearance to prior. Prominent and mildly enlarged mediastinal lymph nodes are increased in size compared to prior, may be infectious versus metastatic. Attention on follow-up. Similar appearance of left chest wall mass centered at the lateral left 2nd rib. Dictated by: Ronn Bonilla M.D. on 02/09/2024 at 17:54 Labs 02/21/24 04:25 02/21/24 04:25 Labs: Laboratory Results - last 24 hr 02/21/24 04:25 WBC 14.3 H RBC 3.82 L Hgb 11.1 L Hct 33.7 L MCV 88.4 MCH 29.1 MCHC 32.9 RDW 14.8 Plt Count 285 Neut % (Auto) 79.1 H Lymph % (Auto) 11.3 L Evangeline % (Auto) 9.1 Eos % (Auto) 0.2 L Baso % (Auto) 0.3 Neut # (Auto) 68327 H Lymph # (Auto) 1600 Evangeline # (Auto) 1300 H Eos # (Auto) 0 Baso # (Auto) 0 Sodium 132 L Potassium 4.4 Chloride 93 L Carbon Dioxide 35 H BUN 19 H Creatinine 0.70 Estimated GFR > 60 BUN/Creatinine Ratio 27.1 H Glucose 89 Calcium 8.5 PFSH Medical History Medicare annual wellness visit, subsequent Well adult exam CKD (chronic kidney disease) stage 3, GFR 30-59 ml/min Hyperlipidemia Hypertension COPD (chronic obstructive pulmonary disease) CAD (coronary artery disease) (2000) Surgical History Status post coronary artery stent placement (2000) Family History Daughter No problems noted. Social History marital status: household members: family Smoking Status: Former smoker alcohol intake: never substance use type: does not use Discharge Assessment & Plan Assessment and Plan Assessment: 1. CAP, present on admission and resolved. 2. COPD exacerbation, present on admission and improved. 3. HTN, present on admission and active. 4. Stage 3 CKD, present on admission and active. 5. Acute on chronic hypoxic respiratory failure, present on admission and active. 6. Metastatic lung cancer, present on admission and active. 7. Probable hypovolemic hyponatremia, new and active. Plan of Treatment: Stable for discharge home with supportive family. Discharge Plan Discharge Plan Patient Disposition: Home Provider Discharge Comment: Stable for discharge home. Discharge orders & Medications Prescriptions: New levofloxacin 750 mg tablet 750 mg PO DAILY 7 Days Qty: 7 0RF prednisone 20 mg tablet 40 mg PO DAILY 7 Days Qty: 14 0RF benzonatate 200 mg capsule 200 mg PO BID PRN (Reason: cough) Qty: 60 1RF guaifenesin [Mucinex] 600 mg tablet extended release 12hr 600 mg PO BID Qty: 60 0RF Continued ipratropium-albuterol 0.5 mg-3 mg(2.5 mg base)/3 mL solution for nebulization See Rx Instructions .ROUTE .COMPLEX Qty: 360 3RF Dose Instruction: Inhale contents of 1 vial (1 ampule) via nebulizer 4 times daily Rx Instructions: Inhale contents of 1 vial (1 ampule) via nebulizer 4 times daily verapamil 80 mg tablet See Rx Instructions .ROUTE .COMPLEX Qty: 180 2RF Dose Instruction: Take 1 tablet (80 mg) by mouth 2 times daily Rx Instructions: Take 1 tablet (80 mg) by mouth 2 times daily (DME) nebulizers Misc See Rx Instructions .Route Qty: 1 0RF Rx Instructions: As directed (DME) nebulizer accessories Kit See Rx Instructions .Route Qty: 1 0RF Rx Instructions: As directed metoprolol tartrate 50 mg tablet 50 mg PO BID Qty: 180 1RF (DME) Disabled Parking Permit See Rx Instructions .Route .MEDSUPPLY Qty: 1 0RF Rx Instructions: I find this patient to be medically disabled and qualified for Disabled Parking as indicated and signed on the Accompanying Disabled Parking Application for Individuals. latanoprost 0.005 % drops 1 drp EYE-BOTH BEDTIME fluticasone propion-salmeterol [Wixela Inhub] 250-50 mcg/dose blister with device 1 ea inhalation BID ondansetron 8 mg tablet,disintegrating 8 mg PO 3XD PRN (Reason: Nausea) Keytruda 25 mg/mL Solution 200 mg IV Q3W Rx Instructions: administer over 30 mins olanzapine 2.5 mg tablet 2.5 mg PO BEDTIME ipratropium-albuterol 0.5 mg-3 mg(2.5 mg base)/3 mL Solution For Nebulization 3 ml INHALATION TID atorvastatin 10 mg tablet 10 mg PO BEDTIME amlodipine 5 mg tablet 5 mg PO DAILY verapamil 80 mg tablet 80 mg PO BID Follow up/Referrals: Domingo Sanches DO [Primary Care Provider] - 02/25/24 10:00 am (appt:02/24 @ 10:[address] perrin please arrive 15 min prior to your scheduled appointment time (Dr. Sanches is not in clinic that week)) Discharge Health Status Multidrug resistant organism: No MDRO Diet/Activity/Treatments Diet: Diet as Tolerated Visit Report/Discharge Packet Instructions: Chronic Obstructive Pulmonary Disease Stand Alone Forms: Patient Portal/API Discharge Data Primary Care Provider: Domingo Sanches VTE Deep Vein Thrombosis/Pulmonary Embolism Present on Admission: No
== END 2024-02-21 15:55 | disposition home health service (06) | DRG 194 ==
LOC: ED 18:19 → AC 18:19 → ICU 19:03
PROVIDERS: Hospitalist; Internal Medicine; Admitting Provider Student in an Organized Health Care Education/Training Program; Emergency Provider Emergency Medicine; PCP Family Medicine; Referring Provider Emergency Medicine; Visit Provider Student in an Organized Health Care Education/Training Program
DX: J18.9 Pneumonia, unspecified organism (principal); C34.92 Malignant neoplasm of unspecified part of left bronchus or lung; J44.1 Chronic obstructive pulmonary disease with (acute) exacerbation; C79.51 Secondary malignant neoplasm of bone; E87.1 Hypo-osmolality and hyponatremia; J96.11 Chronic respiratory failure with hypoxia; I12.9 Hypertensive chronic kidney disease with stage 1 through stage 4 chronic kidney disease, or unspecified chronic kidney disease; N18.31 Chronic kidney disease, stage 3a; M25.512 Pain in left shoulder; E78.5 Hyperlipidemia, unspecified; I25.10 Atherosclerotic heart disease of native coronary artery without angina pectoris; Z87.891 Personal history of nicotine dependence
CPT/HCPCS: 0241U; 36415; 36592; 36600; 71045; 71275; 80048; 80053; 81001; 82805; 83605; 83735; 83880; 84484; 85007; 85025; 85610; 87040; 87070; 87077; 87185; 87205; 87633; 87797; 94640; 94660; 94762; 96365; 96366; 96367; 96375; 97110; 97116; 97162; 97530; 99285; J0696; J1650; J2270; J2405; J2919; J3475; J7613; Q9967